=== PATIENT | male | born 1940 | race Hispanic/Latino ===

== ENCOUNTER 2017-06-15 10:38 | Outpatient (CLI) | payer MEDICARE, OTHER ==
--- NOTE | 2017-06-15 12:36 | RAD ---
SINGLE VIEW OF THE PELVIS: Comparison: None. History: Bilateral hip pain. FINDINGS: Single view of the pelvis shows no evidence of acute fracture or dislocation. There are moderate dege nerative changes in both hips. Hardware is seen in the lumbar spine. IMPRESSION: Degenerative changes in both hips without acute osseous abnormality. POS: [facility]
--- NOTE | 2017-06-15 12:56 | RAD ---
RIGHT HIP TWO VIEWS: History: 77-year-old male with history of bilateral hip pain. FINDINGS/IMPRESSION: Right hip joint arthrosis and degenerative changes without acute fracture or dislocation. POS: [facility]
--- NOTE | 2017-06-15 12:57 | RAD ---
LEFT HIP TWO VIEWS: History: Pain. Comparison: None. FINDINGS: Joint space is preserved. No fracture or malalignment. Contour of the femoral head is maintained. Com mon enthesopathic change along the superior lateral aspect of the acetabulum, not involving the actua l joint space. IMPRESSION: No fracture or dislocation. No significant loss of joint space height. POS: [facility]
== END 2017-06-15 10:39 | disposition home or self-care (01) ==
LOC: RAD 10:38
PROVIDERS: ATTEND Nurse Practitioner Family
DX: M25.551 Pain in right hip (principal); M25.552 Pain in left hip; M16.0 Bilateral primary osteoarthritis of hip
CPT/HCPCS: 72170

== ENCOUNTER 2017-07-11 14:18 | Observation (INO) | payer MEDICARE, OTHER ==
[2017-07-11 14:44] LABS: #Eosinphils 0.1 thou/uL (0.0-0.7); #Lymphocytes 1.2 thou/uL (1.20-3.40); #Monocytes 0.6 thou/uL (0.11-0.59); #Neutrophils 6.5 thou/uL (1.40-6.50); %Basophils 0.1 % (0.0-1.0); %Eosinophils 0.7 % (0.0-10.0); %Lymphocytes 14.4 % (21.0-51.0); %Monocytes 7.3 % (0.0-10.0); %Neutrophils 77.4 % (42.0-75.0); Hemoglobin 12.6 g/dL (14.0-18.0); Mean Corpuscular HGB CONC 34.6 g/dL (32.0-36.0); Mean Corpuscular Hemoglobin 31.7 pg (27.0-31.0); Mean Corpuscular Volume 91.6 fl (80.0-94.0); Mean Platelet Volume 7.8 fL (7.4-10.4); Platelet Count 203 thou/uL (130-400); Red Blood Cell (RBC) Count 3.96 mill/uL (4.70-6.10); White Blood Cell (WBC) Count 8.3 thou/uL (4.8-10.8)
[2017-07-11 14:52] LABS: INR-International Normal Ratio 1.1; Prothrombin Time 14.6 SEC (12.0-14.7)
[2017-07-11 15:11] LABS: ALT (SGPT) 23 U/L (8-55); AST (SGOT) 26 U/L (5-34); Albumin 4.3 g/dL (3.4-4.8); Alkaline Phosphatase 58 U/L (40-150); Anion Gap 17 mmol/L (10-20); BUN (Urea Nitrogen) 22 mg/dL (8.4-25.7); Bilirubin, Total 0.7 mg/dL (0.2-1.2); CK (CPK) 102 U/L (30-200); Calc. Creatinine Clearance 0 mL/min (70-130); Calcium 9.6 mg/dL (7.8-10.44); Carbon Dioxide 18 mmol/L (23-31); Chloride 105 mmol/L (98-107); Estimated GFR-MDRD 56; Globulin 3.3 g/dL (2.4-3.5); Glucose 132 mg/dL (83-110); Potassium 3.4 mmol/L (3.5-5.1); Protein, Total 7.6 g/dL (5.8-8.1); Sodium 137 mmol/L (136-145)
[2017-07-11 15:14] LABS: CKMB 0.8 ng/mL (0-6.6); Troponin I Less than 0.010 ng/mL (< 0.028)
--- NOTE | 2017-07-11 15:17 | RAD ---
UPRIGHT PORTABLE CHEST 1 VIEW: Date: 07/11/17 HISTORY: 77-year-old male with history of shortness of breath, with shakiness and weakness. COMPARISON: 01/06/17. FINDINGS: Heart size is normal. The lungs are clear. No pneumonia, edema, or pleural effusion. IMPRESSION: No acute intrathoracic disease. Atherosclerosis of the aorta. Stable from prior study. POS: [facility]
--- NOTE | 2017-07-11 16:28 | CT ---
CT ANGIO CHEST WITH CONTRAST: 07/11/17 Multiple axial tomograms obtained through the chest with IV enhancement following pulmonary angio pro tocol. Multiplanar reconstruction and 3D postprocessing performed. INDICATIONS: Chest pain. Shortness of breath. FINDINGS: The pulmonary arteries show adequate opacification. There is no evidence of pulmonary embolus identif ied. The lung hayward are well aerated. Lungs are clear with no evidence infiltrate or effusion. Mediastinu m unremarkable. Thoracic aorta unremarkable. No dissection. Images through the upper abdomen reveal faint density in the neck of the gallbladder which may repres ent gallstone or gravel. IMPRESSION: 1. No evidence of pulmonary embolus. 2. No acute lung process. 3. Question cholelithiasis. POS: [facility]
[2017-07-11] MEDS ORDERED: Morphine 4 MG/ML VIAL ONE (16:34)
[2017-07-11] MEDS ORDERED: Lorazepam 2 MG/ML VIAL ONE (16:34)
--- NOTE | 2017-07-11 17:44 | ULT ---
GALLBLADDER ULTRASOUND: 07/11/17 INDICATIONS: Abdominal pain. Evidence of cholelithiasis on CT angio of chest. FINDINGS: Images of the gallbladder do confirm echogenic sludge and gravel within the gallbladder lumen. Echoge romeo debris is seen in the lumen. No discrete gallstones identified. gallbladder wall is normal thickn ess. Technologist describes a negative Vega's sign. Common duct is normal caliber. Visualized liver appears unremarkable. The pancreas is obscured. The right kidney is unremarkable with a 2.5 cm cyst seen in the superior pole of the right kidney. No hydronephrosis. IMPRESSION: 1. Gallbladder is abnormal with dense echogenic debris/sludge, or gravel. 2. Right renal cyst. POS: [facility]
[2017-07-11 18:09] LABS: Bilirubin Negative (Negative); Blood, Urine Small (Negative); Clarity CLEAR (Clear); Glucose, Urine (Dipstick) Negative (Negative); Leukocyte Negative (Negative); Nitrite Negative (Negative); Protein, Urine (Dipstick) Negative (Neg-Trace); Specific Gravity, Urine 1.016 (1.002-1.036); Urobilinogen 0.2 mg/dL (0.2-1.0)
[2017-07-11 18:12] LABS: Bacteria/HPF None Seen HPF (None Seen); Hyaline Casts/LPF 0-3 HYALINE CAST LPF (0-3 Hyaline); Pathc Cast-AUWi Flag 0.29 (0-2.49); RBC/HPF 0-3 HPF (0-3); Squamous Epithelial None Seen HPF (0-3); WBC/HPF None Seen HPF (0-3)
[2017-07-11 18:31] LABS: Troponin I Less than 0.010 ng/mL (< 0.028)
[2017-07-11] MEDS ORDERED: ISOVUE-370 76%-LOCM 1 ML ONE (18:31)
[2017-07-11 18:58] LABS: Lactic Acid 5.1 mmol/L (0.5-2.2)
--- NOTE | 2017-07-11 19:25 | HP ---
DATE OF ADMISSION: 07/11/2017 CHIEF COMPLAINT: Chest pain. HISTORY OF PRESENT ILLNESS: This is a 77-year-old white male with no known past medical history exce pt for hypertension and a recent history of coronary artery disease where he has been closely followe d up with Dr. Gonzalez. The patient had a cardiac catheterization a few months ago and it was abnorm al, but there is no need for stent placement at that time and the patient has been closely monitored by Cardiology. 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 He felt as if he would better instead of tolerating this pain. He denied having any nausea or vomiting. There was no radiation of the pain to the shoulder. Not assessed with night sweats. After this event, he came to the ER this morning and had a chest x- ray, which was unremarkable. The patient also had a CT of the chest to rule out a pulmonary embolism and following the CT, he developed another episode of severe chest pain. All this time, his troponi ns were negative, but he had elevated lactic acid of 7.4, so he was given a 1 liter fluid bolus think ing possibly could have dehydrated. There is also suspicion for gallbladder disease. Ultrasound was also done which did show an abnormal gallbladder with normal wall thickening, but sludge and gravel. The patient denied having similar chest pains in the past. He denied having any diarrhea or consti pation. Denied lifting anything heavy or any injuries to the chest. PAST MEDICAL HISTORY: History of coronary artery disease and hypertension. PAST SURGICAL HISTORY: None. SOCIAL HISTORY: The patient quit smoking many years ago, but he smoked for almost 25-30 years. No h istory of alcohol. No history of illicit drug use. FAMILY HISTORY: No family history of coronary artery disease. Family history has been reviewed. ALLERGIES: ASPIRIN, KETOROLAC, TRIMETHOPRIM, LEVOFLOXACIN, PENICILLIN, TAMSULOSIN. HOME MEDICATIONS: 1. Azathioprine 3 tabs p.o. daily. 2. Calcium carbonate 1000 mg p.o. b.i.d. 3. Cetirizine 10 mg p.o. daily. 4. Chlordiazepoxide 2.5 mg p.o. b.i.d. 5. Citalopram 1 tablet p.o. daily. 6. Avodart 1 tablet p.o. daily. 7. Mesalamine 800 mg. 8. Venlafaxine 75 mg p.o. daily. 9. Zolpidem 5 mg p.o. at bedtime. REVIEW OF SYSTEMS: All 12 systems reviewed with the patient thoroughly and found to be negative at t his time. Systems reviewed are HEENT, CVS, CASH REGISTER OPERATOR, respiratory, GI, . All systems reviewed and found to be negative except the ones described in HPI. Constitutional: Weight loss or gain, sense of well-being, ability to conduct usual activities, exerc ise tolerance. Skin/Breast: Rash, itching, changes in hair growth or loss, nail changes, breast lumps, tenderness, swelling, nipple discharge. Eyes: Vision, double vision, tearing, blind spots, pain. ENT/Mouth: Headaches (location, time of onset, duration, precipitating factors), vertigo, lightheadedness, injury. Vision, double vision, tearing, blind spots, pain, nose b leeding, colds, obstruction, discharge, dental difficulties, gingival bleeding, dentures, neck stiffn ess, pain, tenderness, masses in thyroid or other areas Cardiovascular: Precordial pain, substernal distress, palpitations, syncope, dyspnea on exertion, or thopnea, nocturnal paroxysmal dyspnea, edema, cyanosis, hypertension, heart murmurs, varicosities, ph lebitis, claudication. Respiratory: Pain, shortness of breath, wheezing, stridor, cough, hemoptysis, fever or night sweats Gastrointestinal: Poor appetite, dysphagia, indigestion, abdominal pain, heartburn, eructation, naus ea, vomiting, hematemesis, jaundice, constipation, or diarrhea, abnormal stools (tomer-colored, tarry, bloody, greasy, foul smelling), flatulence, hemorrhoids, recent changes in bowel habits. Genitourinary: Urgency, frequency, dysuria, nocturia, hematuria, polyuria, oliguria, unusual (or nathan nge in) color of urine, stones, hesitancy, change in size of stream, dribbling, acute retention or in continence, libido, potency. Musculoskeletal: Pain, swelling, redness or heat of muscles or joints, limitation, of motion, muscular weakness, atrophy, cramps. Neurologic/Psychiatric: Convulsions, paralyses, tremor, incoordination, parasthesias, difficulties w ith memory of speech, sensory or motor disturbances, or muscular coordination (ataxia, tremor), emoti onal problems, anxiety, depression, previous psychiatric care, unusual perceptions, hallucinations. Allergy/Immunologic: Skin rash, anemia, bleeding tendency, polydipsia, polyuria, intolerance to heat or cold. PHYSICAL EXAMINATION: VITAL SIGNS: Blood pressure is 130/88, heart rate is 88, respiratory rate is 18, saturation is 98% o n room air. GENERAL: The patient is moderately built and moderately nourished. He does not appear to be in any acute distress at this time. He is alert and oriented. HEENT: Atraumatic, normocephalic, PERRLA. Extraocular movements are intact. Oral mucosa pink and m oist. CARDIOVASCULAR: S1, S2 normal. No murmurs, rubs or gallops. LUNGS: Bilateral air entry was equal. No wheezing, no crackles. ABDOMEN: No Vega's sign. Bowel sounds are normal. No abdominal tenderness. No guarding was note d. MUSCULOSKELETAL: No calf tenderness. No pedal edema. No joint tenderness. No joint swelling. SKIN: No cyanosis, no erythema, no rash, no pallor. NEUROLOGIC: Cranial nerve examination II-XII intact. No focal deficits were noted. PSYCHIATRIC: No signs of suicidal ideation. No signs of guerita was noted. LABORATORY DATA: 1. Sodium was 134, potassium 3.4, chloride 105, bicarb is 18, BUN is 22, creatinine 1.25. Lactic ac id 7.4. BNP is 65. WBC 8.3, hemoglobin is 12.6, hematocrit 36.3, platelets normal range. 2. CTA of the chest was done to rule out pulmonary embolism, which did show an evidence of cholelith iasis. 3. Ultrasound of the abdomen showed evidence of biliary sludge and dense echogenic debris and sludge or gravel, but no gallbladder wall thickening was noted. ASSESSMENT: 1. Acute coronary syndrome. 2. Gallbladder disease. 3. Hypertension. 4. History of depression. 5. History of coronary artery disease. PLAN: 1. Plan is to closely monitor this patient overnight with serial troponins and we will repeat the la ctic acid. The patient has been given 1 liter of fluid bolus and we will run the fluid at 100 mL an hour. Most likely is either the patient could have had a heat exhaustion. We will closely monitor f or any improvement in his hydration. 2. The patient has chest pain with a history of coronary artery disease, closely monitored by Dr. Enoch kidd. We will do serial troponins as described above. We will start the patient on Plavix as well as aspirin, listed allergy and will start the patient on beta geoffrey, Coreg 3.125 mg b.i.d. and Latisha enox 40 mg subcu daily. 3. The patient has evidence of gallbladder disease based on the ultrasound. We will closely monitor . We would not start him on any antibiotics at this time. There is no evidence of any fever or no w mere count, but closely monitor and if needed will do a HIDA scan if the clinical suspicion is high o r the patient develops further chest pains. 4. DVT prophylaxis, Lovenox. I spent 75 minutes with this patient.
[2017-07-11] MEDS ORDERED: Acetaminophen 325 MG TAB PO PRN (19:41)
[2017-07-11] MEDS ORDERED: Ondansetron ODT 4 MG TAB PO PRN (19:41)
[2017-07-11] MEDS ORDERED: Nitroglycerin 0.4 MG TAB (25 Tab Bottle) PO PRN (19:41)
[2017-07-11 20:18] VITALS: BMI 29.4
[2017-07-11] MEDS: Sodium Chloride 0.9% 1,000 ML IV SCH (20:40)
[2017-07-11 21:01] LABS: Troponin I 0.012 ng/mL (< 0.028)
[2017-07-11] MEDS: Docusate 100 MG CAP PO SCH (21:27)
[2017-07-11] MEDS: Mesalamine DR 400 mg Capsule PO SCH (21:27)
[2017-07-11] MEDS: chlordiazePOXIDE/Clidinium Bromide Capsule PO SCH (21:27)
[2017-07-11] MEDS: Carvedilol 3.125 MG TAB PO SCH (21:36)
[2017-07-11] MEDS: Famotidine 20 MG TAB PO SCH (21:36)
[2017-07-12] MEDS: Zolpidem Tartrate 5 MG TAB PO SCH ×2 (01:07→20:51)
[2017-07-12 05:00] LABS: Lactic Acid 1.2 mmol/L (0.5-2.2)
[2017-07-12 05:05] LABS: Anion Gap 10 mmol/L (10-20); BUN (Urea Nitrogen) 15 mg/dL (8.4-25.7); Calc. Creatinine Clearance 71 mL/min (70-130); Calcium 8.8 mg/dL (7.8-10.44); Carbon Dioxide 23 mmol/L (23-31); Cardiac Risk 2.9 (Less than 4.5); Chloride 109 mmol/L (98-107); Cholesterol 64 mg/dl (< 200 Desired); Estimated GFR-MDRD 79; Glucose 93 mg/dL (83-110); HDL Cholesterol 22 mg/dL (>60 Neg Risk); LDL Cholesterol, Calculated 26 mg/dL; Potassium 3.9 mmol/L (3.5-5.1); Sodium 138 mmol/L (136-145); Triglycerides 79 mg/dL (Less than 150)
[2017-07-12 05:07] LABS: #Eosinphils 0.4 thou/uL (0.0-0.7); #Lymphocytes 1.6 thou/uL (1.20-3.40); #Monocytes 0.7 thou/uL (0.11-0.59); #Neutrophils 3.9 thou/uL (1.40-6.50); %Basophils 0.6 % (0.0-1.0); %Eosinophils 5.4 % (0.0-10.0); %Lymphocytes 24.3 % (21.0-51.0); %Monocytes 10.8 % (0.0-10.0); %Neutrophils 58.9 % (42.0-75.0); Hemoglobin 11.4 g/dL (14.0-18.0); Mean Corpuscular Hemoglobin 31.6 pg (27.0-31.0); Mean Corpuscular Volume 92.9 fl (80.0-94.0); Mean Platelet Volume 7.8 fL (7.4-10.4); Platelet Count 172 thou/uL (130-400); RBC Distribution Width 12.2 % (11.5-14.5); Red Blood Cell (RBC) Count 3.62 mill/uL (4.70-6.10); White Blood Cell (WBC) Count 6.5 thou/uL (4.8-10.8)
[2017-07-12] MEDS: Sodium Chloride 0.9% 1,000 ML IV SCH ×2 (06:26→16:30)
[2017-07-12] MEDS ORDERED: Calcium Carbonate 500 MG ChewTAB PO SCH (08:00)
[2017-07-12] MEDS: Docusate 100 MG CAP PO SCH ×2 (10:02→20:48)
[2017-07-12] MEDS: Cetirizine HCl 10 MG TAB PO SCH (10:02)
[2017-07-12] MEDS: Carvedilol 3.125 MG TAB PO SCH ×2 (10:02→20:48)
[2017-07-12] MEDS: Citalopram 10 MG TAB PO SCH (10:02)
[2017-07-12] MEDS: Clopidogrel Bisulfate 75 MG TAB PO SCH (10:04)
[2017-07-12] MEDS: azaTHIOprine 50 MG TAB PO SCH (10:04)
[2017-07-12] MEDS: Enoxaparin Sodium 40 MG/0.4 ML SYRINGE SC SCH (10:05)
[2017-07-12] MEDS: chlordiazePOXIDE/Clidinium Bromide Capsule PO SCH ×2 (10:05→20:51)
[2017-07-12] MEDS: Dutasteride 0.5 MG CAP PO SCH (10:05)
[2017-07-12] MEDS: Venlafaxine HCl XR 75 MG CAP PO SCH (10:06)
[2017-07-12] MEDS: Mesalamine DR 400 mg Capsule PO SCH ×2 (10:06→20:51)
--- NOTE | 2017-07-12 10:51 | CON ---
DATE OF CONSULTATION: 07/12/2017. REASON FOR CONSULTATION: Chest pain. PRIMARY PARKING METER INSTALLER: Vincenzo Gonzalez M.D. HISTORY OF PRESENT ILLNESS: Mr. Burleson is a pleasant 77-year-old gentleman who comes to the hospital for shortness of breath and chest pain. He was woken up at about 4:00 a.m. with shortness of breath. He came to the hospital and he started having chest pain on arrival to the hospital. He was evaluated and admitted for monitoring. During his workup, he had a CTA of the chest that showed no evidence of pulmonary embolism, but there is a possible cholelithiasis, so a right upper quadrant ultrasound was done that shows a normal gallbladder. He has had a very thorough workup of his heart. He had a stress test back in November of last year, which was completely normal. Because Mr. Burleson continued to have chest pain, Dr. Gonzalez took him to the catheterization lab where he was found to have a mild to moderate disease, which was treated medically. He continued to have symptoms, so he was re-cathed actually in March of this year and he found the exact same findings with just mild t o moderate disease, nothing flow limiting. Currently, Mr. Burleson feels a little bit better. He does have epigastric pain and right upper quadrant pain. PAST MEDICAL HISTORY: 1. Coronary artery disease, mild to moderate. 2. Hypertension. 3. Chronic anxiety. 4. Depression. 5. Hyperlipidemia. PAST SURGICAL HISTORY: 1. Colonoscopy. 2. Back surgery. 3. Heart catheterization twice in the last 6 months. SOCIAL HISTORY: Quit smoking many years ago, but did for 30 years. No alcohol or drug use. FAMILY HISTORY: Noncontributory. OUTPATIENT MEDICATIONS: Include, 1. Imdur 40 mg a day. 2. Sublingual nitro. 3. Celexa 10 mg a day. 3. . 4. Plavix 75 mg a day. 5. Sertraline 12.5 mg a day. 6. Tramadol b.i.d. p.r.n. pain. 7. Amlodipine daily. MEDICATIONS: List of medications from admission H&P is inaccurate and he is not taking most of those medications now. ALLERGIES: 1. ASPIRIN. 2. KETOROLAC. 3. TRIMETHOPRIM. 4. LEVOFLOXACIN. 5. PENICILLIN. 6. TAMSULOSIN. REVIEW OF SYSTEMS: A 12-point review of systems was done and is all negative unless stated in the hi story of present illness. PHYSICAL EXAMINATION: VITAL SIGNS: Temperature 97.5, pulse rate 76, respiratory rate 24, satting 98% on room air, blood pr essure 132/62. GENERAL: Awake, alert, oriented x3, in no distress. HEENT: Normocephalic, atraumatic. NECK: Supple. LUNGS: Clear. CARDIOVASCULAR: S1, S2, no S3, S4, no murmurs, no rubs. ABDOMEN: Soft, positive bowel sounds. There is pain in the right upper quadrant on deep inspiration , suggested Vega's sign, negative McBurney, no Rovsing's sign. No rebound or guarding. EXTREMITIES: No edema. SKIN: Warm and dry. LABORATORY WORK: Reviewed. CBC with normal white count, hemoglobin 12, hematocrit 36, platelet coun t 203. Coags were normal. Chemistries on admission showed a lactic acid of 7.4, creatinine 1.25, BU N of 22. Potassium was low at 3.4. Troponin has been negative x3. BNP was 65. Lactic acid has sin ce come down to 5.1 and now 1.2. Triglycerides of 79, cholesterol 64, LDL 26, HDL of 22. IMAGING: CT of the chest showed no evidence of pulmonary embolism, no acute lung process. There is a possible cholelithiasis, so a right upper quadrant ultrasound was performed and this showed an abno rmal gallbladder with echogenic debris seen in the lumen, normal caliber common duct. There is a rig ht renal cyst as well. ASSESSMENT AND PLAN: 1. Chest pain: This is not cardiac chest pain. His coronary artery disease is mild to moderate and has not improved in any way with antianginals. He is not having an acute coronary syndrome at this time, his troponins are completely negative. He does not need a stress test. I will cancel the stre ss test. 2. Gallbladder sludge: I would be concerned about his symptoms being related to his gallbladder. H is lactic acid was high. We would recommend surgical consultation versus Gastroenterology consultati on. Thank you for letting us to participate in the care of your patient. Dr. Gonzalez, his primary cardi ologist will followup in the morning.
[2017-07-12] MEDS ORDERED: Nitroglycerin 0.4 MG TAB (25 Tab Bottle) SL PRN (12:11)
--- NOTE | 2017-07-12 16:04 | PDOC.PN ---
- Subjective Encounter Start Date: 07/12/17 Encounter Start Time: 13:30 -: old records requested/rev Pt seen and examined, chart reviewed follow up central abdominal pain lower chest pain. Denies No f/C, no N/V/D/c, no CP, no SOB All systems reviewed and neg x as per HPI - Objective Resuscitation Status: Resuscitation Status FULL:Full Resuscitation MAR Reviewed: Yes Vital Signs & Weight: Vital Signs (12 hours) Temp Pulse Resp BP Pulse Ox 07/12/17 11:48 97.8 F 66 22 H 132/74 95 07/12/17 07:45 97.8 F 69 22 H 07/12/17 06:25 98 07/12/17 04:34 98.5 F 67 24 H 117/56 L 98 Weight Admit Weight 161 lb Weight 161 lb I&O: 07/11/17 07/12/17 07/13/17 06:59 06:59 06:59 Intake Total 1467 Balance 1467 Result Diagrams: 07/12/17 04:36 07/12/17 04:36 Radiology Reviewed by me: Yes EKG Reviewed by me: Yes Phys Exam - Physical Examination Constitutional: NAD HEENT: PERRLA, moist MMs, sclera anicteric, oral pharynx no lesions Neck: no nodes, no JVD, supple, full ROM Respiratory: no wheezing, no rales, no rhonchi, clear to auscultation bilateral Cardiovascular: RRR, no significant murmur, no rub Gastrointestinal: soft, non-tender, no distention, positive bowel sounds Musculoskeletal: no edema, pulses present Neurological: non-focal, normal sensation, moves all 4 limbs Lymphatic: no nodes Psychiatric: normal affect, A&O x 3 Skin: no rash, normal turgor, cap refill <2 seconds Dx/Plan (1) Abdominal pain Code(s): R10.9 - UNSPECIFIED ABDOMINAL PAIN Status: Chronic Qualifiers: Abdominal location: generalized Qualified Code(s): R10.84 - Generalized abdominal pain (2) CAD (coronary artery disease) Code(s): I25.10 - ATHSCL HEART DISEASE OF [place] CORONARY ARTERY W/O ANG PCTRS Status: Chronic Qualifiers: Coronary Disease-Associated Artery/Lesion type: [place] artery [place] vs. transplanted heart: [place] heart Associated angina: without angina Qualified Code(s): I25.10 - Atherosclerotic heart disease of [place] coronary artery without angina pectoris (3) HTN (hypertension) Code(s): I10 - ESSENTIAL (PRIMARY) HYPERTENSION Status: Chronic Qualifiers: Hypertension type: essential hypertension Qualified Code(s): I10 - Essential (primary) hypertension (4) DM2 (diabetes mellitus, type 2) Status: Chronic Qualifiers: Diabetes mellitus half-way insulin use: without half-way use Diabetes mellitus complication status: without complication Qualified Code(s): E11.9 - Type 2 diabetes mellitus without complications - Plan cont current plan of care, plan discussed w/ family * . surgery consult. CT with possible stone, but U/S with s;ludge and possible trino. ? passing small stones. Get surgery opinion
[2017-07-12] MEDS: HYDROcodone/Acetaminophen 5/325 mg Tablet PO PRN ×2 (16:50→20:49)
--- NOTE | 2017-07-12 17:02 | CON ---
DATE OF CONSULTATION: 07/12/2017 GENERAL SURGERY CONSULTATION CHIEF COMPLAINT: Chest pain. HISTORY OF PRESENT ILLNESS: This is a 77-year-old male who has known cardiac disease who was admitte d with a 2-day history of severe substernal chest pain. He described it as 10/10, worst pain of his life, described as a constant pressure that was associated with dyspnea. There was no change with ea ting. There was no radiation, no nausea. He had a cardiac evaluation with echocardiogram and it is felt that this pain is noncardiac. He said that it happened about 4-5 days ago as well. PAST MEDICAL HISTORY: Significant for coronary artery disease, hypertension, psoriatic arthritis. PAST SURGICAL HISTORY: He has had ear surgery, thumb surgery, back surgery x3. MEDICATIONS: Azathioprine, calcium, cetirizine, citalopram, Avodart and zolpidem. ALLERGIES: He has allergies to ASPIRIN, TORADOL, SULFA, LEVAQUIN, PENICILLIN, TAMSULOSIN. 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 No tobacco. Social alcohol. FAMILY HISTORY: Otherwise, unremarkable. PHYSICAL EXAMINATION: VITAL SIGNS: He is afebrile. His temperature is 97.8, pulse 89, blood pressure 123/58. GENERAL: Well-developed, well-nourished male. He says his pain is a 2/10 currently. HEENT: No jaundice. LUNGS: Clear. He is tender at the costochondral junction of his sternum, bilateral, right greater t gary left. ABDOMEN: I really cannot express any abdominal tenderness. He has normal bowel sounds. No hernias. LABORATORY DATA: His white count is 6.5, H&H 11 and 33, platelet count 172,000. Electrolytes are fi ne. LFTs normal. He had an ultrasound showing some sludge. No gallstones. Normal common bile duct . No wall thickening. ASSESSMENT: This is very unlikely to be related to gallbladder. PLAN: I think he has probably got costochondritis. I recommend that we do a HIDA scan just to make sure. If that shows normal filling of his gallbladder, I would say just treat him for costochondriti s. Unfortunately, he is allergic to most of the nonsteroidals.
[2017-07-12] MEDS: Famotidine 20 MG TAB PO SCH (20:48)
[2017-07-13] MEDS: Zolpidem Tartrate 5 MG TAB PO SCH (01:58)
[2017-07-13] MEDS: Sodium Chloride 0.9% 1,000 ML IV SCH ×2 (02:00→11:40)
[2017-07-13 05:06] LABS: #Basophils 0.1 thou/uL (0.0-0.2); #Eosinphils 0.7 thou/uL (0.0-0.7); #Lymphocytes 2.4 thou/uL (1.20-3.40); #Monocytes 0.7 thou/uL (0.11-0.59); #Neutrophils 3.1 thou/uL (1.40-6.50); %Eosinophils 9.6 % (0.0-10.0); %Lymphocytes 34.5 % (21.0-51.0); %Monocytes 10.5 % (0.0-10.0); %Neutrophils 44.5 % (42.0-75.0); Hemoglobin 12.9 g/dL (14.0-18.0); Mean Corpuscular Hemoglobin 31.7 pg (27.0-31.0); Mean Corpuscular Volume 93.2 fl (80.0-94.0); Platelet Count 182 thou/uL (130-400); RBC Distribution Width 12.1 % (11.5-14.5); Red Blood Cell (RBC) Count 4.06 mill/uL (4.70-6.10)
[2017-07-13 05:24] LABS: ALT (SGPT) 19 U/L (8-55); AST (SGOT) 25 U/L (5-34); Albumin 4.1 g/dL (3.4-4.8); Alkaline Phosphatase 60 U/L (40-150); Anion Gap 10 mmol/L (10-20); BUN (Urea Nitrogen) 18 mg/dL (8.4-25.7); Bilirubin, Total 0.8 mg/dL (0.2-1.2); Calc. Creatinine Clearance 67 mL/min (70-130); Calcium 9.7 mg/dL (7.8-10.44); Carbon Dioxide 25 mmol/L (23-31); Chloride 108 mmol/L (98-107); Estimated GFR-MDRD 77; Globulin 3.4 g/dL (2.4-3.5); Glucose 101 mg/dL (83-110); Magnesium 2.2 mg/dL (1.6-2.6); Potassium 3.8 mmol/L (3.5-5.1); Protein, Total 7.5 g/dL (5.8-8.1); Sodium 139 mmol/L (136-145)
[2017-07-13] MEDS ORDERED: Calcium Carbonate 500 MG ChewTAB PO SCH (08:00)
[2017-07-13] MEDS: Enoxaparin Sodium 40 MG/0.4 ML SYRINGE SC SCH (08:08)
[2017-07-13] MEDS: Carvedilol 3.125 MG TAB PO SCH (08:08)
[2017-07-13] MEDS ORDERED: Cetirizine HCl 10 MG TAB PO SCH (09:00)
[2017-07-13] MEDS ORDERED: Amlodipine 10 MG TAB PO SCH (09:00)
[2017-07-13] MEDS ORDERED: Citalopram 10 MG TAB PO SCH (09:00)
[2017-07-13] MEDS ORDERED: Metamucil PACK PO SCH (09:00)
[2017-07-13] MEDS: azaTHIOprine 50 MG TAB PO SCH (10:05)
[2017-07-13] MEDS: chlordiazePOXIDE/Clidinium Bromide Capsule PO SCH (10:06)
[2017-07-13] MEDS: HYDROcodone/Acetaminophen 5/325 mg Tablet PO PRN (10:06)
[2017-07-13] MEDS: Mesalamine DR 400 mg Capsule PO SCH (10:07)
[2017-07-13] MEDS: Dutasteride 0.5 MG CAP PO SCH (10:08)
[2017-07-13] MEDS: Docusate 100 MG CAP PO SCH (10:08)
[2017-07-13] MEDS: Citalopram 10 MG TAB PO SCH (10:09)
[2017-07-13] MEDS: Cetirizine HCl 10 MG TAB PO SCH (10:10)
[2017-07-13] MEDS: Venlafaxine HCl XR 75 MG CAP PO SCH (10:10)
[2017-07-13] MEDS: Clopidogrel Bisulfate 75 MG TAB PO SCH (10:10)
--- NOTE | 2017-07-13 12:18 | NM ---
HEPATOBILIARY SCAN: Date: 07/13/17 HISTORY: Chest pain and gallbladder sludge. Evaluate cystic duct patency. TECHNIQUE: Following the intravenous administration of technetium-99m labeled mebrofenin 5 mCi, anterior plantar imaging is obtained over 60 minutes. FINDINGS: There is prompt radiotracer activity within the liver on post injection imaging. There is gallbladder activity seen by 15-20 minutes. Biliary activity and small bowel activity is also seen by 20 minutes . IMPRESSION: Scintigraphic evidence of cystic duct patency. POS: [facility]
[2017-07-13 16:00] VITALS: BP 133/70; TEMP 97.6
[2017-07-13] MEDS ORDERED: Sodium Chloride 0.9% 1,000 ML IV SCH (16:08)
[2017-07-13] MEDS ORDERED: Pantoprazole 40 MG VIAL IVP SCH (21:00)
[2017-07-13] MEDS ORDERED: Famotidine 20 MG TAB PO SCH (21:00)
--- NOTE | 2017-07-14 07:17 | DIS ---
PRIMARY CARE PHYSICIAN: Syed Yang DATE OF ADMISSION: 07/11/2017 DATE OF DISCHARGE: 07/13/2017 DISCHARGE DIAGNOSES: 1. Chest and abdominal pain. 2. Unspecified disease of the gallbladder. 3. Essential hypertension. 4. Moderate dehydration. 5. History of tobacco abuse in remission. 6. Coronary artery disease, [place] artery with angina. 7. Chronic diastolic congestive heart failure. CONSULTATIONS: 1. Cardiology, Dr. Jarret Howard 2. Gastroenterology, Dr. Logan Humphries PROCEDURES: 1. A 2D echocardiogram 07/12/2017. 2. HIDA scan 07/13/2017 that showed "normal with evidence of cystic duct patency, no ejection fracti on given". HISTORY AND PHYSICAL: Mr. Burleson is a 77-year-old gentleman with a history of coronary disease, hype rtension who presented to the emergency department for evaluation of chest pain. He stated it starte d in the center of his chest, went down to the upper abdomen. He described it as a sharp sensation t hat comes and goes. Given his history and negative workup in the ER, the patient was placed in obser vation, was given a 1 liter bolus normal saline. We were called for admission. HOSPITAL COURSE: The patient was seen and examined by Dr. Forte and placed in observation. Serial c ardiac biomarkers were obtained, the patient was watched overnight on telemetry and Dr. Gonzalez was consulted. The patient had no events. The morning of 07/12/2017, the patient was seen by Dr. Howard. He did not feel it was cardiac in na [facility], echocardiogram was done that showed grade 2-3 diastolic dysfunction, otherwise largely unremark able. Cardiology felt it was more related to gallbladder. On my exam today that day, the patient had a Vega sign, Surgery was consulted and evaluated the pat ient. They did not think that the gallbladder was acutely ill, but did recommend getting a HIDA scan . HIDA was ordered to be done on the morning of 07/13/2017. On the morning of 07/13/2017, HIDA scan was done that showed a cystic duct patency, but did not give ejection fraction. Dr. Humphries saw the patient in consultation, and agreed to see him as an outpatien t for workup. The patient was offered inpatient workup, however, wanted to go home and follow up as an outpatient. The patient was seen by Dr. Gonzalez that morning and thus the GI consult was initiat ed. The patient was otherwise stable, discharged home in stable condition with outpatient followup. PHYSICAL EXAMINATION: The patient was seen and examined on the day of discharge. Discharge plan and disposition were discussed with the patient face to face at the bedside. DISCHARGE MEDICATIONS: NEW MEDICATION: 1. Omeprazole 20 mg p.o. daily. 2. Coreg 3.125 mg p.o. b.i.d. MEDICATIONS CONTINUED: 1. Norvasc 10 mg daily. 2. Calcium carbonate p.r.n. 3. Zyrtec 10 mg daily. 4. Celexa 10 mg daily. 5. Plavix 75 mg daily. 6. Isosorbide mononitrate 30 mg daily. 7. Nitrostat p.r.n. 8. Metamucil 660 grams p.o. daily. 9. Crestor 20 mg p.o. daily. 10. Zoloft 12.5 mg daily. 11. Tramadol 50 mg tablets 1 to two p.o. b.i.d. p.r.n. FOLLOWUP: 1. Follow up with primary care physician in [address] Humphries in his clinic in 1-[address] Gonzalez as scheduled. DISCHARGE DIET: Heart healthy recommended. DISCHARGE CONDITION: Stable. DISPOSITION: He will be discharged home via private vehicle. DISCHARGE ACTIVITY: Per cardiopulmonary limits.
--- NOTE | 2017-07-14 07:53 | CON ---
DATE OF CONSULTATION: 07/13/2017 REASON FOR CONSULTATION: Chest pain, epigastric pain of unclear etiology. HISTORY OF PRESENT ILLNESS: Mr. Burleson is a pretty poor historian, is a 77-year-old gentleman who solomon s for a long time, maybe over a year, had intermittent bouts of waking with shortness of breath and c hest pain and tightness, which was crushing in nature. One of these episodes on 07/11/2017 , when he came to the emergency room, his brought him. This is the next afternoon at 1425 hours . He complained of shortness of breath as well and this has been going on most of the night and day, it was associated with some shakiness, cough, tingling in legs, dizziness, worse with sitting up. H e distinctly notes a component of being short of breath. He notes that intermittently if he can exer t himself and will get short of breath if he tries to work at home or in the yard. Apparently, reviewing the records to rule out for myocardial infarction. He did have a lactic acid o f 5.1; however, on presentation. His transition of care specialist saw him. They did an echocardiogram, which they f elt was essentially normal. He had 2 previous heart catheterizations and has been negative. They di d an abdominal ultrasound on 07/11/2017 because of abnormal CAT scan that showed a lot of dense echog enic gravel and debris. The CT chest on 07/11/2017 showed no pulmonary embolus or acute lung process , but questionable cholelithiasis. Ultimately, Surgery was involved yesterday as there was some conc [place] that he had some tenderness in the right upper quadrant. Dr. Lawrence saw him and did not feel that he did not have acute cholecystitis and felt maybe he had costochondritis. A HIDA scan was performed this morning and reportedly showed gallbladd er activity and then biliary and small bowel activity by 20 minutes. There is no comment on ejection fraction. In talking with the patient, neither him or his recall if that study reproduced his pain. Presently, the patient states he does not have any pain whatsoever. He states he has some ref lux every once in a while. He states his primary physician had placed him on some reflux medicine as an outpatient for his chest pain, maybe this is Zantac, he does not exactly remember. PAST MEDICAL HISTORY: Depression, anxiety, hypertension, hyperlipidemia, previous colonoscopy in [address] Flores, prior history of ulcerative colitis, history of psoriatic arthritis, hypertension . PAST SURGICAL HISTORY: Back surgery, colonoscopy, cardiac catheterization and sessile tubular adenom as in 2015. ALLERGIES: TORADOL, LEVOFLOXACIN, PENICILLIN, SULFA, TAMSULOSIN. MEDICATIONS: Now, Norvasc, Imuran, Tums, carvedilol, Zyrtec, Librium, Celexa, Plavix, Colace, Avodar t, Lovenox, Pepcid, [place], Imdur, Delzicol, Nitrostat, Zofran, Metamucil, Zoloft, Effexor, and Ambien . REVIEW OF SYSTEMS: Negative for dysphagia and odynophagia. He does snore at night. He has never be en diagnosed with sleep apnea. He denies any episodes of pneumonia or aspiration. He denies any pos tprandial abdominal pain. Denies any postprandial issue of diarrhea or change in bowel function. Th ere is no weight loss. He has no dyspnea on exertion. PHYSICAL EXAMINATION: VITAL SIGNS: Temperature is 97, pulse 59, blood pressure 133/70. LUNGS: Clear. HEART: Regular rate and rhythm without clicks or murmurs. ABDOMEN: Soft and nontender without palpable hepatosplenomegaly. EXTREMITIES: No clubbing, cyanosis or edema. LABORATORY DATA: White count 7, hemoglobin 12.9, platelet count 182. Comprehensive metabolic profil e normal. LFTs have been normal. ASSESSMENT: The patient is admitted with complaints of episodes of waking with chest pain and shortn ess of breath. He states this always happens at night; although, on presentation it was at 2:00 in t he afternoon when he states this has been going on for most of the day. He rule out for LA. He appa rently has had two heart catheterizations in the past. Sometimes the main complaint is not being abl e to breathe when he wakes up the time due to chest discomfort. He had a pretty extensive evaluation , it appears to be noncardiac, despite exertional symptoms. He has had ultrasound of his gallbladder and a HIDA scan, which were reportedly normal. There is no ejection fraction on HIDA scan. The pat ient denied recurrence of pain. He states he has no pain with eating ever and symptoms always are at night. Differential diagnoses include anxiety disorder, panic attacks, possible reflux or bouts of obstructive sleep apnea. PLAN: Reasonable to start him on high dose b.i.d. PPIs to see if that helps alleviate his symptoms, may be reasonable to start some type of anxiolytic as the patient has since refused to go home withou t knowing what is wrong with him. I explained to him that it is unlikely that an EGD is going to [facility] e us a diagnosis, but will do that and if it is normal, he can go home tomorrow on the PPI therapy an d probably needs to be on anxiolytic. ADDENDUM: Mr. Burleson's said they wanted to just go ahead and go home and set up an outpatient e ndoscopy. He has no pain now. He has done well over the weekend and followed by Dr. Posadas and does not feel it is his gallbladder. We are going to go ahead and let him go home with b.i.d. PPI and we will set up an EGD in the outpatient setting in the next few days.
== END 2017-07-13 17:25 | disposition home or self-care (01) ==
LOC: ERS 14:18 → 2SW 17:15
PROVIDERS: ADMIT Family Medicine; ATTEND Family Medicine
DX: R07.89 Other chest pain (principal); R10.13 Epigastric pain; I11.0 Hypertensive heart disease with heart failure; I50.32 Chronic diastolic (congestive) heart failure; E86.0 Dehydration; K82.9 Disease of gallbladder, unspecified; I25.119 Atherosclerotic heart disease of native coronary artery with unspecified angina pectoris; F32.9 Major depressive disorder, single episode, unspecified; F41.9 Anxiety disorder, unspecified; E78.5 Hyperlipidemia, unspecified; E11.9 Type 2 diabetes mellitus without complications; L40.50 Arthropathic psoriasis, unspecified; Z87.891 Personal history of nicotine dependence; Z88.8 Allergy status to other drugs, medicaments and biological substances; Z88.0 Allergy status to penicillin; Z88.1 Allergy status to other antibiotic agents; Z79.02 Long term (current) use of antithrombotics/antiplatelets; Z79.899 Other long term (current) drug therapy; Z98.890 Other specified postprocedural states
CPT/HCPCS: 71045; 71275; 76705; 78226; 80048; 80053 ×2; 80061; 82550; 82553; 83605 ×2; 83735; 83880; 84484 ×2; 85025 ×3; 85610; 85730; 87040; 87086; 93005; 93306; 94760 ×4; 96360; 96361 ×4; 96372 ×2; 96374; 96375; 97139 ×2; 99285; A9537; G0378; 36415; 81003; 81015; J1650; J2060; J2270; J7500

== ENCOUNTER 2017-07-17 13:51 | Outpatient (CLI) | payer MEDICARE, OTHER ==
--- NOTE | 2017-07-17 15:21 | ULT ---
RENAL SONOGRAM: DATE: 07/17/17. HISTORY: Microscopic hematuria. COMPARISON: 03/01/04. FINDINGS: The right kidney measures 11.6 cm x 5.1 cm with the left kidney measuring 11.5 cm x 5.4 cm. An anechoic cystic structure is seen in the superior pole right kidney measuring 2.4 cm in maximum di mensions demonstrating sonographic characteristics most compatible with a cyst. The cyst has enlarge d compared to prior exam and measured 1.9 cm on prior study. There is no mass, renal calculus, or hy dronephrosis involving the kidneys bilaterally. Urinary bladder is incompletely distended. Prevoid urinary bladder volume is 55.6 mL. IMPRESSION: 1. No evidence of hydronephrosis. 2. Right renal cyst mildly enlarged from the prior exam in 2004. POS: [facility]
== END 2017-07-17 13:52 | disposition home or self-care (01) ==
LOC: ULT 13:51
PROVIDERS: ATTEND Urology
DX: N28.1 Cyst of kidney, acquired (principal); R31.21 Asymptomatic microscopic hematuria
CPT/HCPCS: 76770

== ENCOUNTER 2017-07-26 16:15 | Emergency (ER) | payer MEDICARE, OTHER ==
[2017-07-26] MEDS ORDERED: Oxymetazoline HCl 0.05% ( 15 ML ) ONE (17:12)
== END 2017-07-26 18:32 | disposition home or self-care (01) ==
LOC: ERS 16:15
DX: R04.0 Epistaxis (principal); E78.5 Hyperlipidemia, unspecified; I10 Essential (primary) hypertension; F41.9 Anxiety disorder, unspecified; Z87.891 Personal history of nicotine dependence; Z79.899 Other long term (current) drug therapy
CPT/HCPCS: 30901

== ENCOUNTER 2017-10-07 12:16 | Day surgery (SDC) | payer MEDICARE, OTHER ==
[2017-10-06 13:24] VITALS: BMI 28.7
[2017-10-07 12:59] LABS: #Eosinphils 0.5 thou/uL (0.0-0.7); #Lymphocytes 1.8 thou/uL (1.20-3.40); #Monocytes 0.8 thou/uL (0.11-0.59); #Neutrophils 4.7 thou/uL (1.40-6.50); %Basophils 0.6 % (0.0-1.0); %Eosinophils 6.8 % (0.0-10.0); %Lymphocytes 22.6 % (21.0-51.0); %Monocytes 10.6 % (0.0-10.0); %Neutrophils 59.4 % (42.0-75.0); Hemoglobin 11.2 g/dL (14.0-18.0); Mean Corpuscular HGB CONC 35.7 g/dL (32.0-36.0); Mean Corpuscular Hemoglobin 32.1 pg (27.0-31.0); Mean Corpuscular Volume 89.9 fL (78.0-98.0); Mean Platelet Volume 7.7 fL (7.4-10.4); Platelet Count 228 thou/uL (130-400); RBC Distribution Width 11.5 % (11.5-14.5); White Blood Cell (WBC) Count 7.9 thou/uL (4.8-10.8)
[2017-10-07 13:20] LABS: Anion Gap 15 mmol/L (10-20); BUN (Urea Nitrogen) 34 mg/dL (8.4-25.7); Calc. Creatinine Clearance 20 mL/min (70-130); Calcium 9.1 mg/dL (7.8-10.44); Carbon Dioxide 18 mmol/L (23-31); Chloride 108 mmol/L (98-107); Estimated GFR-MDRD 18; Glucose 105 mg/dL (83-110); Sodium 137 mmol/L (136-145)
[2017-10-07] MEDS ORDERED: Iothalamate Meglumine 60% 50 ML VIAL FS ONE (13:59)
[2017-10-07] MEDS ORDERED: CEFAZOLIN/Water 2 GM/20 ML SYRINGE ONE (14:45)
[2017-10-07] MEDS ORDERED: Fentanyl 100 MCG/2 ML VIAL ONE ×2 (16:02)
--- NOTE | 2017-10-07 17:37 | RAD ---
RETROGRADE URETEROGRAM INTRAOPERATIVE FLUOROSCOPY 10/07/17 HISTORY: Hematuria. FINDINGS/IMPRESSION: Intraoperative fluoroscopy was provided for retrograde study as performed by Dr. Santoyo. Multiple spo t fluoroscopic images are included. There is contrast opacification of a nondilated left ureter and r enal collecting system without filling defect reliably demonstrated. POS: [facility]
--- NOTE | 2017-10-07 19:19 | OP ---
DATE OF PROCEDURE: 10/07/2017 PREOPERATIVE DIAGNOSES: Gross hematuria, chronic renal insufficiency. POSTOPERATIVE DIAGNOSES: Gross hematuria, chronic renal insufficiency. PROCEDURES PERFORMED: Cystoscopy, bilateral retrograde pyelography, and right ureteral stent placeme nt. SURGEON: Orlin Santoyo MD ANESTHETIC: General. ESTIMATED BLOOD LOSS: Minimal. FINDINGS: He had no evidence of stricture disease. He has had prior TURP with open prostatic urethr a. He had no evidence of bladder tumor, foreign body, or stone, but he did have grossly bloody urine sitting on the floor of the bladder when the scope was first inserted. He had clear efflux from bot h ureteral orifices. Retrograde studies to my review showed no evidence of persistent filling defect or evidence of obstruction or hydronephrosis on either side. However, after the right retrograde wa s completed, the urine became effluxing bloody contrast. For this reason, we did pass a 4.8 x 24-cm double-J stent up this right ureter. The ureteral orifice as well as the ureter itself is very small diameter and we did not feel it was safe to do ureteroscopy on him in this setting, but with the glenda nt in for 7-14 days, the ureteral diameter should increase and we should be able at that point to saf evan look up and down the ureter with the flexible ureteroscope. OPERATIVE TECHNIQUE: Obtained written and verbal consent from the patient. After receiving IV antib iotics, he was taken to the operating suite. He was placed in the supine position on the treatment t able. PlexiPulses were placed on his lower extremities and turned on. He was given a general anesth etic and oral intubation. He was then placed in the dorsal lithotomy position and he was sterilely p repped and draped with Hibiclens. He then underwent cystoscopy. This was done with a 22-Citizen Of [place] henriquez th. This was well lubricated and passed under direct vision with the aid of a 30-degree lens and a v ideo camera and monitor through the male urethra and into the urinary bladder. As mentioned, there w as some bloody urine in the bladder and we drained this. We then examined all aspects of the urinary bladder with both the 30 and the 70-degree lens. Next, we went back to the 30-degree lens and attem pted to pass a 5-Citizen [place] cone-tip catheter into the left ureteral orifice. This was a little bit diff icult because the ureteral orifices were quite small and for this reason, we brought in a 0.038 guide wire, fed this up the left ureteral orifice a couple of centimeters, and then passed a 5-Citizen [place] Polla ck catheter over this and then removed that wire. Then, we injected contrast slowly in a retrograde manner filling out the left ureter in its entirety and the upper collecting system and calyceal syste m. Images were taken of this and then drainage films were taken of this. The efflux from this side was clear. The right side was then done in a similar manner also using a guidewire as the right uret eral orifice was sitting kind of behind the trigonal ridge making it little difficult to intubate wit h a cone tipped. So again, we fed a guidewire a couple of centimeters up and then a 5-Citizen [place] Pollack about 1 cm up, removed the guidewire and then slowly injected contrast in a retrograde manner fillin g out the collecting system and ureter in its entirety. When we then removed the open-ended catheter , it initially effluxed a clear contrast and then after the ureter had probably cleared and that cont rast was out, it started to efflux bloody contrast. This persisted, so I felt like it probably was a real finding and for this reason, we went ahead and fed an angle-tipped Glidewire completely up the right ureter into the region of the renal pelvis, placed the open-ended catheter over this, removed t he angle-tipped Glidewire, and then passed a 0.038 guidewire through the open-ended catheter and kimberlee lion the open-ended catheter and then passed a 4.8 x 24-cm right double-J stent over the guidewire, pu shing it up into place with the aid of a pusher so that its proximal end coiled in the renal pelvis a nd its distal end coiled in the bladder when the wire was removed. At this point, the bladder was dr ained and the instruments were removed. The patient was taken out of the dorsal lithotomy position, awakened, extubated, and taken by stretcher to the recovery room.
== END 2017-10-07 19:05 | disposition home or self-care (01) ==
LOC: SDC 12:16
PROVIDERS: ATTEND Urology
PROC: 0T768DZ Dilation of Right Ureter with Intraluminal Device, Via Natural or Artificial Opening Endoscopic (ICD-10-PCS; principal; 2017-10-07)
PROC: BT141ZZ Fluoroscopy of Kidneys, Ureters and Bladder using Low Osmolar Contrast (ICD-10-PCS; 2017-10-07)
DX: R31.0 Gross hematuria (principal); I12.9 Hypertensive chronic kidney disease with stage 1 through stage 4 chronic kidney disease, or unspecified chronic kidney disease; N18.9 Chronic kidney disease, unspecified; K21.9 Gastro-esophageal reflux disease without esophagitis; I25.10 Atherosclerotic heart disease of native coronary artery without angina pectoris; Z79.82 Long term (current) use of aspirin; Z79.899 Other long term (current) drug therapy; Z88.0 Allergy status to penicillin; Z88.1 Allergy status to other antibiotic agents; Z88.2 Allergy status to sulfonamides; Z88.8 Allergy status to other drugs, medicaments and biological substances; Z98.890 Other specified postprocedural states
CPT/HCPCS: 52005; 52332; 74420; 80048; 85025; C1758; C1769; 36415; J0131; J3010; Q9961

== ENCOUNTER 2017-10-14 17:11 | Outpatient (CLI) | payer MEDICARE, OTHER ==
[2017-10-14 18:02] LABS: Hemoglobin 10.5 g/dL (14.0-18.0); Mean Corpuscular HGB CONC 34.8 g/dL (32.0-36.0); Mean Corpuscular Hemoglobin 31.5 pg (27.0-31.0); Mean Corpuscular Volume 90.7 fL (78.0-98.0); Mean Platelet Volume 7.8 fL (7.4-10.4); Platelet Count 226 thou/uL (130-400); RBC Distribution Width 11.4 % (11.5-14.5); Red Blood Cell (RBC) Count 3.32 mill/uL (4.70-6.10); White Blood Cell (WBC) Count 7.4 thou/uL (4.8-10.8)
[2017-10-14 18:13] LABS: Anion Gap 14 mmol/L (10-20); BUN (Urea Nitrogen) 51 mg/dL (8.4-25.7); Calc. Creatinine Clearance 0 mL/min (70-130); Calcium 8.7 mg/dL (7.8-10.44); Carbon Dioxide 23 mmol/L (23-31); Chloride 102 mmol/L (98-107); Estimated GFR-MDRD 13; Glucose 102 mg/dL (83-110); Potassium 4.8 mmol/L (3.5-5.1); Sodium 134 mmol/L (136-145)
== END 2017-10-14 17:12 | disposition home or self-care (01) ==
LOC: LABBT 17:11
PROVIDERS: ATTEND Urology
DX: Z01.812 Encounter for preprocedural laboratory examination (principal); R31.0 Gross hematuria
CPT/HCPCS: 80048; 85027; 93005; 93010

== ENCOUNTER 2017-10-19 06:59 | Day surgery (SDC) | payer MEDICARE, OTHER ==
[2017-10-14 17:22] VITALS: BMI 27.3
[2017-10-19] MEDS ORDERED: Fentanyl 100 MCG/2 ML VIAL ONE ×4 (07:57→10:37)
[2017-10-19] MEDS ORDERED: CEFAZOLIN 1 GM VIAL ONE (08:29)
[2017-10-19] MEDS ORDERED: Sodium Chloride 0.9% 100 ML ONE (08:29)
[2017-10-19] MEDS ORDERED: Iothalamate Meglumine 60% 50 ML VIAL FS ONE (08:40)
--- NOTE | 2017-10-19 11:01 | OP ---
DATE OF PROCEDURE: 10/19/2017 PREOPERATIVE DIAGNOSIS: Hematuria, suspected right upper tract bleeding. POSTOPERATIVE DIAGNOSIS: Hematuria, suspected right upper tract bleeding. PROCEDURE PERFORMED: Cystoscopy, removal of right stent, right flexible and rigid ureteroscopy with biopsies and brushings and stent replacement with retrograde study. SURGEON: Dr. Orlin Santoyo. ANESTHETIC: General. ESTIMATED BLOOD LOSS: Less than 30. DRAINS PLACED: A 6 M[place]ese x 24 cm right double-J stent with a string attached to it. FINDINGS: He had some edematous mucosa in the renal pelvis and in the distal ureter. Calyceal syste m was free of tumor, foreign body, or stone. He had a few red areas which I think are just related t o the stent. We did brushings of the calyceal system and the renal pelvis biopsies of the renal pelv is and distal ureter. OPERATIVE TECHNIQUE: After obtaining written and verbal consent from the patient, after receiving IV Ancef, he was taken the operating suite. He was placed in the supine position on the treatment tabl e. PlexiPulses were placed on his lower extremities and turned on. He was given a general anestheti c and oral obturator intubation. He was placed in the dorsal lithotomy position and sterilely preppe d and draped. Fluoroscopy was brought in and used for imaging. Cystoscopy was done with a 22-[place] sheath. This was well lubricated, passed through direct vision through the male urethra into the ur inary bladder with aid of a 30-degree lens and video camera and monitor. The bladder was filled and emptied. The distal end of the double-J stent was brought in passed out through the urethral meatus and a guidewire was fed up it, the stent was removed and discarded. A dual lumen ureteral catheter w as placed over the guidewire about mid ureter and a second guidewire was passed up through this and t hen a dual-lumen catheter was removed. We then backloaded one of these wires with the flexible urete roscope and passed this up into the distal ureter before removing the wire and then examining the ure ter in its entirety and examined the calyceal system in its entirety. We did through the scope some brushings of the calyceal system and some brushings of the renal pelvis. We then fed another guidewi re back in to have 2 guidewires and passed a ureteral sheath with obturator up through the mid ureter and then went through this with the flexible ureteroscope and did biopsies of the renal pelvis. We then examined the rest of the ureter on the way out and get to the distal ureter and there was a marta le bit of edematous mucosa here, so we then brought in the rigid ureteroscope and did biopsies of thi s through the rigid ureteroscope leaving a guidewire up as a safety wire the whole time. When this w as completed, we backloaded this guidewire through the cystoscope, passed a 5-[place] Pollack catheter up into the renal pelvis, removed the guidewire and injected about 7 mL of contrast. There was no e vidence of extravasation. The guidewire was replaced. The open-ended catheter was removed, and the stent was passed over the wire, pushing up into place with aid of a pusher so its proximal end coiled in the renal pelvis and its distal end coiled in the bladder when the wire was removed. At this poi nt, the patient was awakened and extubated and taken by stretcher to the recovery room.
--- NOTE | 2017-10-19 11:49 | RAD ---
RIGHT RETROGRADE UROGRAM: Date: 10/19/17 HISTORY: Retrograde IVP with stone manipulation and ureteral stent replacement. COMPARISON: 10/07/17. FINDINGS/IMPRESSION: Fluoroscopic guidance was provided for Dr. Santoyo for replacement of a right ureteral stent. Initial image demonstrates double pigtail right ureteral stent in place with subsequent imaging demonstrating guidewire in place and removal of the ureteral stent. Retrograde study was performed followed by rep lacement of right ureteral stent. Correlation with intraoperative findings is recommended. POS: [facility]
== END 2017-10-19 12:35 | disposition home or self-care (01) ==
LOC: SDC 06:59
PROVIDERS: ATTEND Urology
PROC: 0TB38ZX Excision of Right Kidney Pelvis, Via Natural or Artificial Opening Endoscopic, Diagnostic (ICD-10-PCS; principal; 2017-10-19)
DX: R31.0 Gross hematuria (principal); I25.10 Atherosclerotic heart disease of native coronary artery without angina pectoris; I10 Essential (primary) hypertension; Z79.82 Long term (current) use of aspirin; Z79.899 Other long term (current) drug therapy; Z88.0 Allergy status to penicillin; Z88.2 Allergy status to sulfonamides; Z88.8 Allergy status to other drugs, medicaments and biological substances
CPT/HCPCS: 74420; 88112; 88305; 96374; C1758; J0690; J3010; J7050; Q9961

== ENCOUNTER 2017-10-22 09:05 | Inpatient (IN) | payer MEDICARE, OTHER ==
[2017-10-22 09:33] LABS: Clarity CLOUDY (Clear)
[2017-10-22 09:35] LABS: Bacteria/HPF None Seen HPF (None Seen); Hyaline Casts/LPF 7-10 HYALINE CAST LPF (0-3 Hyaline); Pathc Cast-AUWi Flag 1.73 (0-2.49); WBC/HPF 21-50 HPF (0-3)
[2017-10-22 09:36] LABS: #Lymphocytes 1.5 thou/uL (1.20-3.40); #Neutrophils 7.5 thou/uL (1.40-6.50); %Basophils 0.4 % (0.0-1.0); %Eosinophils 9.4 % (0.0-10.0); %Lymphocytes 13.3 % (21.0-51.0); %Monocytes 8.9 % (0.0-10.0); Hemoglobin 11.3 g/dL (14.0-18.0); Mean Corpuscular Hemoglobin 31.7 pg (27.0-31.0); Mean Corpuscular Volume 90.7 fL (78.0-98.0); Mean Platelet Volume 7.6 fL (7.4-10.4); Platelet Count 315 thou/uL (130-400); RBC Distribution Width 11.2 % (11.5-14.5); Red Blood Cell (RBC) Count 3.57 mill/uL (4.70-6.10)
[2017-10-22 09:38] LABS: Glucose, Urine (Dipstick) Unable to Interpret mg/dL (Negative); Leukocyte Unable to Interpret (Negative); Nitrite Unable to Interpret (Negative); Protein, Urine (Dipstick) Unable to Interpret mg/dL (Neg-Trace)
[2017-10-22 09:39] LABS: Bilirubin Unable to Interpret (Negative); Blood, Urine Unable to Interpret (Negative); Urobilinogen UNABLE TO INTERPRET mg/dL (0.2-1.0)
[2017-10-22 09:51] LABS: ALT (SGPT) 21 U/L (8-55); AST (SGOT) 38 U/L (5-34); Albumin 3.8 g/dL (3.4-4.8); Alkaline Phosphatase 87 U/L (40-150); Anion Gap 12 mmol/L (10-20); BUN (Urea Nitrogen) 43 mg/dL (8.4-25.7); Bilirubin, Total 0.7 mg/dL (0.2-1.2); CK (CPK) 94 U/L (30-200); Calc. Creatinine Clearance 0 mL/min (70-130); Carbon Dioxide 23 mmol/L (23-31); Chloride 103 mmol/L (98-107); Estimated GFR-MDRD 15; Globulin 4.1 g/dL (2.4-3.5); Glucose 92 mg/dL (83-110); Lipase 60 U/L (8-78); Phosphorus 4.1 mg/dL (2.3-4.7); Potassium 4.1 mmol/L (3.5-5.1); Protein, Total 7.9 g/dL (5.8-8.1); Sodium 134 mmol/L (136-145)
[2017-10-22 09:54] LABS: CKMB 1.2 ng/mL (0-6.6); Troponin I Less than 0.010 ng/mL (< 0.028)
[2017-10-22 09:56] LABS: Specific Gravity, Urine 1.015 (1.002-1.036)
[2017-10-22 09:57] LABS: pH, Urine 7.1 (5.0-9.0)
[2017-10-22 10:02] LABS: RBC/HPF GREATER THAN 50-TNTC HPF (0-3); Renal Epithelial 0-3 HPF (0-3); Transitional Epithelial 0-3 HPF (0-3); Yeast-All Forms None Seen HPF (None Seen)
--- NOTE | 2017-10-22 10:24 | RAD ---
CHEST 1 VIEW: COMPARISON: 07/11/17. HISTORY: Progressive worsening weakness. Stage V renal disease. FINDINGS: Normal cardiac silhouette. The pulmonary vessels and hilum are normal. Costophrenic angles are judy r. No consolidation or mass. No pneumothorax or osseous abnormality. IMPRESSION: No acute cardiopulmonary process. POS: [facility]
[2017-10-22] MEDS ORDERED: Guaifenesin DM 100-10/5 ML UDCUP PO PRN (12:12)
--- NOTE | 2017-10-22 13:41 | HP ---
REASON FOR ADMISSION: Progressive renal failure, hematuria, severe dehydration , falls, likely uremia. HISTORY OF PRESENT ILLNESS: The patient has had progressive worsening of his renal function, which has been closely monitored by Dr. David. Per family, his creatinine clearance had come down to 13% and Dr. David advised him to go to the emergency room. At home, he has been falling multiple times and was not steady on his feet. He has also developed shortness of breath and is feeling very weak. He has had frequent urination with blood in the urine and is almost going every 15 minutes with less than 20-30 mL of urine coming out each time. All of this was worsening and the patient was getting exhausted hence came to emergency room. The patient has history of psoriatic skin lesions and has received infliximab in the past and was due for another one either today or tomorrow, but has been held due to his worsening renal function. PAST MEDICAL AND SURGICAL HISTORY: History of psoriasis, on infliximab, has received 2 doses of it in the past 2 months; hypertension; dyslipidemia; mild coronary artery disease; cystoscopy with stent placed by Dr. Santoyo in the last 3 weeks; bilateral ears surgery; has had trigger thumb on the right side surgery ; cataract surgery; last stress test was in 04/2017, which is normal. He has had a cardiac catheterization done as well by Dr. Gonzalez, which showed mild to moderate coronary artery disease for medical management. Lower back surgery x3. CURRENT MEDICATIONS: Tramadol 50 mg p.o. q.12 hourly p.r.n., infliximab infusions once a month for psoriasis, sertraline 25 mg daily, omeprazole 40 mg daily, aspirin 81 mg p.o. daily, carvedilol 3.125 mg twice daily, Imdur extended release 60 mg p.o. daily, Crestor 20 mg p.o. daily. ALLERGIES: FLOMAX, LEVAQUIN, PENICILLIN, SULFA, and TORADOL. PERSONAL HISTORY: Quit smoking 30 years ago prior to which he smoked one pack a day for 8-9 years or so. Does not abuse alcohol or drugs. Lives with his . FAMILY HISTORY: Mother in her 70s. She has had history of hep C. He does not know much about his biological father. The patient has 1 brother and 5 sisters living, one of the sisters living has history of lupus. No history of end-stage renal disease among first degree relatives. A brother and sister of stomach cancer. CODE STATUS: FULL. REVIEW OF SYSTEMS: The following complete review of systems was negative, unless otherwise mentioned in the HPI or below: Constitutional: Weight loss or gain, ability to conduct usual activities. Skin: Rash, itching. Eyes: Double vision, pain. ENT/Mouth: Nose bleeding, neck stiffness, pain, tenderness. Cardiovascular: Palpitations, dyspnea on exertion, orthopnea. Respiratory: Shortness of breath, wheezing, cough, hemoptysis, fever or night sweats. Gastrointestinal: Poor appetite, abdominal pain, heartburn, nausea, vomiting, constipation, or diarrhea. Genitourinary: Urgency, frequency, dysuria, nocturia. Musculoskeletal: Pain, swelling. Neurologic/Psychiatric: Anxiety, depression. Allergy/Immunologic: Skin rash, bleeding tendency. PHYSICAL EXAMINATION: GENERAL: The patient is a 77-year-old male who is currently not in any acute distress. VITAL SIGNS: Blood pressure 184/100, pulse 74 per minute, respiratory rate 16 per minute, temperature 98.2 degrees Fahrenheit, saturating 99% on room air. NECK: Supple, no elevated JVD. HEENT: Eyes: Extraocular muscles intact. Pupils reacting to light. Oral cavity mucous membranes are moist. No exudates or congestion. CARDIOVASCULAR: S1, S2 heard. Regular rhythm. RESPIRATORY: There is basal rales, no rhonchi or wheezes. ABDOMEN: Soft, bowel sounds heard. No tenderness, rigidity or guarding. EXTREMITIES: No peripheral edema or calf tenderness. VASCULAR SYSTEM: Peripheral pulses 1+ bilateral. No ischemic ulcerations or gangrene. CENTRAL NERVOUS SYSTEM: No gross focal deficits noted. The patient is oriented well. PSYCHIATRIC: The patient's mood is euthymic. No hallucinations or delusions. LABORATORY AND X-RAY FINDINGS: White count of 11, H&H 11 and 32, platelet count 315 with 68% neutrophils, MCV is 90. Sodium 134, serum bicarbonate 23, BUN 43, creatinine 3.8, serum bicarbonate is 23. Liver enzymes: AST is 38, total bilirubin 0.7, calcium is 9, phosphorus 4.1. First set of cardiac enzymes are negative. Albumin is 3.8. UA shows more than 50 wbc's and is red in color with 7-10 hyaline casts. Chest x-ray done shows no acute cardiopulmonary process. EKG done shows normal sinus rhythm at 71 beats per minute. There are signs of LVH with poor R-wave progression seen. CLINICAL IMPRESSION AND PLAN: The patient will be placed under observation on medical floor for progressive renal failure with frequent falls and deconditioning. Also, the patient has hematuria with frequent urination and urge. He has also been falling multiple times with unsteady gait. The patient has likely underlying early uremic signs. Dr. David was planning on scheduling a biopsy of his kidneys. We will obtain the same here. The patient likely might have autoimmune disease related damage to the kidneys. For his uncontrolled hypertension, we will place him on Coreg, hydralazine, Imdur, and Crestor. He will also be on normal saline at 100 mL per hour to help with his kidney function. Further workup for his kidneys will be per Dr. David. The patient likely has had autoimmune workup done with Dr. Ku/Cassy, his signals collection technician and will not repeat the same here. If he were not to recover in the next 24 hours, he will be switched over to inpatient status. A rehab evaluation has been requested as well. JUANITA
[2017-10-22 13:51] VITALS: BMI 27.5
[2017-10-22] MEDS: hydrALAZINE 25 MG TAB PO SCH ×2 (14:32→21:06)
[2017-10-22] MEDS ORDERED: Carvedilol 3.125 MG TAB PO SCH (15:00)
[2017-10-22 15:56] LABS: HBSAg Index 0.82 S/CO (0-0.99); Hep B Surf Ag Non-Reactive S/CO (NonReactive); Hep C IgG Ab Non-Reactive (NonReactive); Hep C Index 0.32 S/CO (0-0.79)
[2017-10-22] MEDS: Sodium Chloride 0.9% 1,000 ML IV SCH (16:08)
[2017-10-22] MEDS: Carvedilol 3.125 MG TAB PO SCH (21:06)
[2017-10-22] MEDS: Docusate 100 MG CAP PO SCH (21:06)
--- NOTE | 2017-10-23 00:47 | CON ---
DATE OF CONSULTATION: 10/22/2017 HISTORY OF PRESENT ILLNESS: Mr. Burleson is a 77-year-old male who was being followed by the Renal Service for his progressive ischemia. Last June his creatinine was around 1.37. His renal func tion has worsened over the last several months. In addition, he has had a urological workup for his microscopic hematuria. According to Dr. Santoyo, the urological workup was essentially negative. No stones, no tumors was noted at that time. He still has occasional gross hematuria/microscopic hematu lucien. On 10/20/2017, the creatinine was noted at 4.37. This has worsened from last September where it w as noted at 2.28 mg%. In the interim, patient has also undergone cystoscopy with right ureteral stent placement. REVIEW OF SYSTEMS: No nausea, no vomiting, no shortness of breath, no joint pains, no new skin rash. Positive for gross hematuria, no dysuria, no hematochezia, no melena, no hematemesis. No headache, no diplopia, no sore throat, no fever or chills, no abdominal pain. Appetite and energy level is fa ir. HOME MEDICATIONS: Include aspirin 81 mg 2 tablets day, calcium carbonate 500 mg p.r.n., carvedilol 3 .125 mg twice a day, Zyrtec 10 mg tab p.r.n., gabapentin 100 mg t.i.d., Inflectra 100 mg IV every thu, Imdur 30 mg daily, omeprazole 20 mg once a day, sertraline 12.5 mg once a day, rosuvastatin 20 mg tab at bedtime, Macrodantin 100 mg half a tablet daily, atenolol, tramadol 50 mg p.r.n. PAST MEDICAL HISTORY: History of chronic renal failure/rapidly progressive renal failure, GERD, stat us post gross hematuria, proteinuria, rheumatoid arthritis, coronary artery disease, hyperlipidemia, chronic pain, depression, hypertension. PAST SURGICAL HISTORY: 1. Status post cystoscopy with right ureteral stent placement. 2. Status post back surgery. 3. Status post colonoscopy. IMMUNIZATIONS: Up to date. HOSPITALIZATIONS: Please see past medical history. ALLERGIES: TOPROL, FLOMAX, LEVAQUIN, PENICILLIN, and SULFA. TRAUMA: None. FAMILY HISTORY: No family history of ESRD. SOCIAL HISTORY: The patient lives in [facility], , 3 children. 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 He has a GED, smoked for 15 years, 1 pack a day. Alcohol occasional. No IV drug abuse. No blood t ransfusion. PHYSICAL EXAMINATION: VITAL SIGNS: Blood pressure noted at 218/89, heart rate 66, respiratory rate 18, temperature 97.9, p ulse oximetry 99%. GENERAL: Noted to be awake, alert, comfortable, not in distress. SKIN: Adequate turgor. HEENT: Pinkish conjunctivae, anicteric sclerae. NECK: No neck mass, no carotid bruits, no JVD. CHEST: No deformities. LUNGS: Clear breath sounds. No wheezing, no crackles. HEART: Normal sinus rhythm. No murmur, no gallops or rubs. ABDOMEN: Globular, soft, nontender. No masses. EXTREMITIES: No edema, no deformities. LABORATORY DATA: Laboratories of 10/22/2017, white count 11, hemoglobin 11.3. Sodium 134, potassium 4.1, chloride 103, carbon dioxide 23, BUN 43, creatinine 3.86, GFR 15 mL per minute, glucose 92, kaley sphorus 4.1, magnesium 2.0, albumin 3.8. On 10/20/2017, creatinine of 4.37; on 10/14/2017, creatinine 4.43; on 10/07/2017, creatinine 3.34; an d on 07/13/2017, creatinine 0.95. Urinalysis of 10/22/2017, cloudy, rbc's greater than 15, and wbc 21-50, hyaline cast noted. On 10/20, urinalysis, protein was noted at 300, rbc greater than 15. On 10/22/2017, chest x-ray shows no acute cardiopulmonary process. On 10/07/2017, retrograde pyelogram, there is a contrast opacification of a nondilated left ureter re nal collecting system without filling defect noted. ASSESSMENT AND PLAN: 1. Chronic renal failure, worsening renal dysfunction, unclear what the exact etiology is. He does have proteinuria, hematuria and the possibility of a glomerulonephritis remains with this patient. O f interest, this patient's creatinine is slowly, spontaneously, improving the last few days. Please note his creatinine peaked at the value of 4.43 on 10/14/2017 that slowly gone down to 3.86 with toda y's creatinine. My plan is to empirically volume replete this patient. We will hold off any renal b iopsy. Several serologies have been ordered which includes, ANCA, KARTIK, serum urine protein immunoele ctrophoresis as well as hepatitis B surface antigen and hepatitis C antibody. The diagnosis was agai n discussed and explained to the patient and the family. A conservative management is most appropria te. Continue IV hydration. Please note he is not on any nephrotoxic drugs at the present time. It is possible he may simply have a superimposed acute tubular necrosis. 2. Hypertension. We will add nifedipine 30 mg tab once a day with this patient. 3. Rheumatoid arthritis managed by his recreation coordinator. He takes Inflectra at 100 mg IV every month.
[2017-10-23 00:57] LABS: Bilirubin Negative (Negative); Blood, Urine Large (Negative); Clarity CLEAR (Clear); Glucose, Urine (Dipstick) 100 mg/dL (Negative); Leukocyte Small (Negative); Nitrite Negative (Negative); Protein, Urine (Dipstick) 300 mg/dL (Neg-Trace); Urobilinogen 0.2 mg/dL (0.2-1.0)
[2017-10-23 01:00] LABS: Bacteria/HPF None Seen HPF (None Seen); Hyaline Casts/LPF 0-3 HYALINE CAST LPF (0-3 Hyaline); Pathc Cast-AUWi Flag 0.33 (0-2.49); RBC/HPF GREATER THAN 50-TNTC HPF (0-3); Squamous Epithelial 0-3 HPF (0-3)
[2017-10-23 01:09] LABS: Renal Epithelial None Seen HPF (0-3); Transitional Epithelial NONE SEEN HPF (0-3)
[2017-10-23] MEDS: Sodium Chloride 0.9% 1,000 ML IV SCH ×3 (01:58→21:21)
[2017-10-23 04:21] LABS: #Eosinphils 0.7 thou/uL (0.0-0.7); #Lymphocytes 1.1 thou/uL (1.20-3.40); #Monocytes 0.6 thou/uL (0.11-0.59); #Neutrophils 4.4 thou/uL (1.40-6.50); %Basophils 0.3 % (0.0-1.0); %Eosinophils 10.3 % (0.0-10.0); %Lymphocytes 16.3 % (21.0-51.0); %Monocytes 8.6 % (0.0-10.0); %Neutrophils 64.6 % (42.0-75.0); Hemoglobin 8.9 g/dL (14.0-18.0); Mean Corpuscular HGB CONC 34.8 g/dL (32.0-36.0); Mean Corpuscular Hemoglobin 31.8 pg (27.0-31.0); Mean Corpuscular Volume 91.2 fL (78.0-98.0); Mean Platelet Volume 7.4 fL (7.4-10.4); Platelet Count 228 thou/uL (130-400); RBC Distribution Width 11.1 % (11.5-14.5); White Blood Cell (WBC) Count 6.8 thou/uL (4.8-10.8)
[2017-10-23 04:46] LABS: Albumin 3.1 g/dL (3.4-4.8); Anion Gap 12 mmol/L (10-20); BUN (Urea Nitrogen) 44 mg/dL (8.4-25.7); BUN/Creatinine Ratio 11.28; Calc. Creatinine Clearance 16 mL/min (70-130); Calcium 8.3 mg/dL (7.8-10.44); Carbon Dioxide 22 mmol/L (23-31); Chloride 106 mmol/L (98-107); Estimated GFR-MDRD 15; Glucose 126 mg/dL (83-110); Phosphorus 4.6 mg/dL (2.3-4.7); Potassium 4.4 mmol/L (3.5-5.1); Sodium 136 mmol/L (136-145)
--- NOTE | 2017-10-23 07:20 | PDOC.PN ---
- Subjective Encounter Start Date: 10/23/17 Encounter Start Time: 07:18 Subjective: vague abd discomfort, hematuria - Objective Resuscitation Status: Resuscitation Status FULL:Full Resuscitation MAR Reviewed: Yes Vital Signs & Weight: Vital Signs (12 hours) Temp Pulse Resp BP BP Pulse Ox 10/23/17 03:17 98.8 F 70 18 164/76 H 97 10/22/17 21:06 68 140/66 10/22/17 21:05 68 140/66 10/22/17 19:42 97.8 F 70 16 160/75 H 97 Weight Weight 156 lb 12.8 oz I&O: 10/22/17 10/23/17 10/24/17 06:59 06:59 06:59 Intake Total 2604 Output Total 575 Balance 2028 Result Diagrams: 10/23/17 04:00 10/23/17 04:00 Phys Exam - Physical Examination Neck: no JVD Respiratory: clear to auscultation bilateral Cardiovascular: RRR, no significant murmur Gastrointestinal: soft, non-tender, positive bowel sounds Musculoskeletal: no edema Dx/Plan (1) Acute renal failure Status: Acute Qualifiers: Acute renal failure type: unspecified Qualified Code(s): N17.9 - Acute kidney failure, unspecified (2) Hematuria Code(s): R31.9 - HEMATURIA, UNSPECIFIED Status: Acute Qualifiers: Hematuria type: gross Qualified Code(s): R31.0 - Gross hematuria (3) BPH (benign prostatic hyperplasia) Code(s): N40.0 - BENIGN PROSTATIC HYPERPLASIA WITHOUT LOWER URINRY TRACT SYMP Status: Acute Qualifiers: Lower urinary tract symptom presence: symptoms present Lower urinary tract symptom detail: unspecified Qualified Code(s): N40.1 - Benign prostatic hyperplasia with lower urinary tract symptoms (4) CAD (coronary artery disease) Code(s): I25.10 - ATHSCL HEART DISEASE OF [place] CORONARY ARTERY W/O ANG PCTRS Status: Chronic Qualifiers: Coronary Disease-Associated Artery/Lesion type: [place] artery [place] vs. transplanted heart: [place] heart Associated angina: without angina Qualified Code(s): I25.10 - Atherosclerotic heart disease of [place] coronary artery without angina pectoris (5) HTN (hypertension) Code(s): I10 - ESSENTIAL (PRIMARY) HYPERTENSION Status: Chronic Qualifiers: Hypertension type: essential hypertension - Plan discuss with Dr David -: cont antihypertensives -: monitor renal fcn * .
[2017-10-23] MEDS: Acetaminophen 325 MG TAB PO PRN ×3 (07:46→18:42)
[2017-10-23] MEDS: Docusate 100 MG CAP PO SCH ×2 (08:09→21:13)
[2017-10-23] MEDS: hydrALAZINE 25 MG TAB PO SCH ×3 (08:10→21:13)
[2017-10-23] MEDS: NIFEdipine XL 30 MG TAB PO SCH (08:10)
[2017-10-23] MEDS: Carvedilol 3.125 MG TAB PO SCH ×2 (08:10→21:13)
--- NOTE | 2017-10-23 10:22 | PRG ---
DATE OF SERVICE: 10/23/2017 SUBJECTIVE: Mr. Burleson is a 77-year-old male who was admitted for an acute kidney injury on top of chronic renal failure. His renal function was progressively worsening. There is some stabil ization of the renal function in the last few days. We are currently empirically volume repleting th is patient. My plan is to volume replete him for the next several days. If there is no significant improvement in renal function our bias is to proceed with a renal biopsy. My concern is that he stil l has significant amount of protein and hematuria may have an underlying acute/chronic glomerulonephr itis. Serologies have been ordered - which included ANCA and KARTIK. Hepatitis B and C came back as ne gative. Serum urine immunoelectrophoresis is also pending. No new complaints today. He is tolerati ng the volume repletion. Denies any chest pain or shortness of breath. OBJECTIVE: VITAL SIGNS: Blood pressure 174/82, heart rate 64, respiratory rate 20, temperature 98.2, pulse ox 9 7%. GENERAL: Noted to be awake, alert, supine, comfortable, not in overt distress SKIN: Adequate turgor. HEENT: Slightly pale conjunctivae, anicteric sclerae. NECK: No neck mass, no carotid bruits, no JVD. CHEST: No deformities. LUNGS: Clear breath sounds, no wheezing, no crackles. HEART: Normal sinus rhythm. No murmur, no gallops or rubs. ABDOMEN: Globular, soft, nontender. No masses. EXTREMITIES: No edema. MEDICATIONS: 10/23/2017 - Reviewed. LABORATORY DATA: 10/23/2017 - White count 6.8, hemoglobin 8.9. Sodium 136, potassium 4.4, chloride 106, carbon dioxide 22, BUN 44, creatinine 3.9, GFR 15 mL per minute, phosphorus 4.6, calcium 8.3, al bumin 3.1. Urinalysis shows specific gravity of 1.010, protein is noted at 300. RBC greater than 50, WBC 11-20. Urine creatinine 59, urine protein is pending. ASSESSMENT AND PLAN: 1. Acute kidney injury on top of his chronic renal failure, worsening renal dysfunction. The possib ility that the patient may have an acute glomerulonephritis remains as suggested by his proteinuria a nd hematuria. We are trying to do volume repletion to see if I could get any improvement with the re nal function. If there is no significant improvement, my bias is towards proceeding with a renal bio psy early next week. For the moment, I agree with volume repletion. Awaiting the rest of his serolo gies. There is no indication at the present time to do any emergent hemodialysis. 2. Anemia. Serial CBC. Once the blood pressure is better controlled, consider starting patient on Epogen. 3. Hypertension - continue current blood pressure medications. Recently nifedipine was added to his antihypertensive regimen. The case was discussed at length with the patient and his .
[2017-10-23 15:36] LABS: ANA Symphony (Qualitative) Negative (Negative); dsDNA IgG Antibody Less than 0.5 IU/mL (<10 Negative)
[2017-10-23] MEDS: Loratadine 10 MG TAB PO PRN (19:38)
[2017-10-23] MEDS ORDERED: Prevnar 13-Val Conj/PF 0.5 ML SYRINGE IM ONE (21:00)
[2017-10-23] MEDS: Rosuvastatin 20 MG TAB PO SCH (21:14)
[2017-10-24 05:42] LABS: #Eosinphils 0.4 thou/uL (0.0-0.7); #Monocytes 0.5 thou/uL (0.11-0.59); #Neutrophils 4.6 thou/uL (1.40-6.50); %Basophils 0.3 % (0.0-1.0); %Eosinophils 5.5 % (0.0-10.0); %Lymphocytes 15.1 % (21.0-51.0); %Monocytes 7.6 % (0.0-10.0); %Neutrophils 71.5 % (42.0-75.0); Hemoglobin 9.3 g/dL (14.0-18.0); Mean Corpuscular HGB CONC 33.7 g/dL (32.0-36.0); Mean Corpuscular Hemoglobin 30.8 pg (27.0-31.0); Mean Corpuscular Volume 91.5 fL (78.0-98.0); Mean Platelet Volume 7.6 fL (7.4-10.4); Platelet Count 244 thou/uL (130-400); RBC Distribution Width 11.3 % (11.5-14.5); Red Blood Cell (RBC) Count 3.02 mill/uL (4.70-6.10); White Blood Cell (WBC) Count 6.4 thou/uL (4.8-10.8)
[2017-10-24 06:02] LABS: Anion Gap 12 mmol/L (10-20); BUN (Urea Nitrogen) 35 mg/dL (8.4-25.7); Calc. Creatinine Clearance 18 mL/min (70-130); Calcium 8.2 mg/dL (7.8-10.44); Carbon Dioxide 19 mmol/L (23-31); Chloride 112 mmol/L (98-107); Estimated GFR-MDRD 17; Glucose 124 mg/dL (83-110); Sodium 139 mmol/L (136-145)
[2017-10-24] MEDS: hydrALAZINE 25 MG TAB PO SCH ×3 (08:05→20:45)
[2017-10-24] MEDS: Sodium Chloride 0.9% 1,000 ML IV SCH ×2 (08:05→20:44)
[2017-10-24] MEDS: Carvedilol 3.125 MG TAB PO SCH ×2 (08:05→20:45)
[2017-10-24] MEDS: Docusate 100 MG CAP PO SCH ×2 (08:05→20:45)
[2017-10-24] MEDS: NIFEdipine XL 30 MG TAB PO SCH (08:06)
[2017-10-24] MEDS: Loratadine 10 MG TAB PO PRN (08:10)
[2017-10-24] MEDS ORDERED: hydrALAZINE 20 MG/ML VIAL SLOW IVP PRN ×2 (11:34→11:35)
[2017-10-24] MEDS ORDERED: traMADol HCl 50 MG TAB PO PRN (11:34)
[2017-10-24] MEDS: cloNIDine 0.1 MG TAB PO PRN (11:55)
--- NOTE | 2017-10-24 12:19 | PRG ---
DATE OF SERVICE: 10/24/2017 SUBJECTIVE: Mr. Burleson is a 77-year-old white male who was admitted for acute kidney injury on top o f his chronic renal failure. He worsening dysfunction. Empiric volume repletion has been give n. There is some stabilization of his kidney function. However, the patient is showing hematuria an d nephrotic range proteinuria. My plan is to proceed with a biopsy this coming Thursday. Serologies f or hepatitis B and C were negative. KARTIK was also negative. We are awaiting for ANCA and SPEP/UPEP. No chest pain or shortness of breath today. OBJECTIVE: VITAL SIGNS: Blood pressure 158/72, heart rate 67, respiratory rate 20, pulse ox 97%. GENERAL: Noted to be awake, alert, comfortable, not in distress. SKIN: Adequate turgor. HEENT: Pinkish conjunctivae. Anicteric sclerae. NECK: No neck mass, no carotid bruits, no JVD. CHEST: No deformities. LUNGS: Clear breath sounds. HEART: Normal sinus rhythm. No murmur, no gallops, no rubs. ABDOMEN: Globular, soft, nontender, no masses. EXTREMITIES: No edema, no deformities. MEDICATIONS: Medications of 10/24/2017 reviewed. LABORATORY DATA: Laboratories of 10/24/2017, white count 6.4, hemoglobin 9.3. Sodium 139, potassium 4, chloride 102, carbon dioxide 19, BUN 35, creatinine 3.58, glucose 124, calcium 8.2. Hepatitis B surface antigen negative. Hepatitis C antibody negative. KARTIK screen was negative. ANCA and SPEP/UPEP pending. ASSESSMENT AND PLAN: Acute kidney injury/chronic renal failure -- slowly stabilizing renal function. However, the GFR is still significantly decreased. Continue normal saline at the current rate. I have scheduled this patient for renal biopsy this coming Thursday. Still awaiting for the ANCA results as well as SPEP/UPEP. There is no indication for any emergent hemodialysis. Recheck base met and C BC in a.m. Please note this patient has had urological evaluation for his hematuria and they have al l been negative. Diagnosis and prognosis were explained to the patient and his family.
[2017-10-24] MEDS: Acetaminophen 325 MG TAB PO PRN (16:40)
--- NOTE | 2017-10-24 20:12 | PDOC.PN ---
- Subjective Encounter Start Date: 10/24/17 Encounter Start Time: 10:00 Patient seen and examined for ASHLEY. No N/V. BP elevated per RN. No CP/SOB. No new complaints. No overnight events - Objective Resuscitation Status: Resuscitation Status FULL:Full Resuscitation MAR Reviewed: Yes Vital Signs & Weight: Vital Signs (12 hours) Temp Pulse Resp BP BP BP Pulse Ox 10/24/17 19:05 98.3 F 85 20 135/63 97 10/24/17 15:19 73 150/72 H 10/24/17 12:51 79 135/61 10/24/17 11:55 184/86 H 10/24/17 11:51 98.3 F 68 20 188/82 H 98 10/24/17 10:07 71 158/72 H Weight Weight 156 lb 12.8 oz I&O: 10/23/17 10/24/17 10/25/17 06:59 06:59 06:59 Intake Total 2604 4253 1920 Output Total 575 900 150 Balance 2028 3353 1770 Result Diagrams: 10/24/17 04:39 10/24/17 04:39 Phys Exam - Physical Examination Constitutional: NAD Respiratory: no wheezing, no rhonchi Cardiovascular: RRR, no rub Gastrointestinal: soft, non-tender, positive bowel sounds Musculoskeletal: no edema Neurological: non-focal, moves all 4 limbs Dx/Plan - Plan DVT proph w/SCDs IMPRESSION/PLAN: 1. ASHLEY on CKD 4 Renal biopsy pending, Cont IVF 2. HTN - uncontrolled Cont Procardia XL, Hydralazine and Imdur, Add PRN HTN meds, Will consider increasing Procardia XL if BP stays uncontrolled this PM. 3. CAD ASA on hold for renal biopsy 4. Anxiety/Depression Cont Sertraline 5. HLD Cont Statins 6. Other issues per previous notes Laboratory Tests 10/22/17 10/22/17 15:02 15:02 KARTIK Screen Negative KARTIK IgG Screen Negative Hep Bs Antigen Non-Reactive Hepatitis C Antibody Non-Reactive Review of Systems - Review of Systems Respiratory: negative: Cough, Dry, Shortness of Breath, Hemoptysis, SOB with Excertion, Pleuritic Pain, Sputum, Wheezing Cardiovascular: negative: chest pain, palpitations, orthopnea, paroxysmal nocturnal dyspnea, edema, light headedness, other - Medications/Allergies Allergies/Adverse Reactions: Allergies Allergy/AdvReac Type Severity Reaction Status Date / Time ketorolac tromethamine Allergy Rash Verified 10/22/17 17:03 [From Toradol] levofloxacin [From Levaquin] Allergy Rash Verified 10/14/17 17:23 Penicillins Allergy Rash Verified 10/14/17 17:23 Sulfa (Sulfonamide Allergy Rash Verified 10/14/17 17:23 Antibiotics) tamsulosin HCl [From Flomax] Allergy Verified 10/14/17 17:23 Medications: Current Medications Acetaminophen (Tylenol) 650 mg PO Q4H PRN PRN Reason: Headache/Fever or Pain Last Admin: 10/24/17 16:40 Dose: 650 mg Carvedilol (Coreg) 3.125 mg PO BID [facility] Last Admin: 10/24/17 08:05 Dose: 3.125 mg Clonidine (Catapres) 0.1 mg PO Q4H PRN PRN Reason: Systolic BP > 180 Last Admin: 10/24/17 11:55 Dose: 0.1 mg Docusate Sodium (Colace) 100 mg PO BID [facility] Last Admin: 10/24/17 08:05 Dose: 100 mg Guaifenesin/Dextromethorphan (Robitussin Dm) 15 ml PO Q4H PRN PRN Reason: Cough Hydralazine HCl (Apresoline) 25 mg PO TID [facility] Last Admin: 10/24/17 15:19 Dose: 25 mg Hydralazine HCl (Apresoline) 10 mg SLOW IVP Q4H PRN PRN Reason: SBP Greater Than 180 Hydralazine HCl (Apresoline) 10 mg SLOW IVP Q4H PRN PRN Reason: SBP Greater Than 180 Sodium Chloride (Normal Saline 0.9%) 1,000 mls @ 100 mls/hr IV .Q10H [facility] Last Admin: 10/24/17 08:05 Dose: 1,000 mls Isosorbide Mononitrate (Imdur Er) 30 mg PO QAM [facility] Last Admin: 10/24/17 08:06 Dose: 30 mg Loratadine (Claritin) 10 mg PO DAILYPRN PRN PRN Reason: .SINUS CONGESTION Last Admin: 10/24/17 08:10 Dose: 10 mg Morphine Sulfate (Morphine) 2 mg SLOW IVP Q4H PRN PRN Reason: Chest Pain/BP Elevations Nifedipine (Procardia Xl) 30 mg PO BID [facility] Pantoprazole Sodium (Protonix) 40 mg PO DAILY [facility] Last Admin: 10/24/17 08:06 Dose: 40 mg Rosuvastatin Calcium (Crestor) 20 mg PO HS [facility] Last Admin: 10/23/17 21:14 Dose: 20 mg Sertraline HCl (Zoloft) 25 mg PO DAILY [facility] Last Admin: 10/24/17 08:06 Dose: 25 mg Sodium Chloride (Flush - Normal Saline) 10 ml IVF Q12HR [facility] Last Admin: 10/24/17 08:07 Dose: Not Given Sodium Chloride (Flush - Normal Saline) 10 ml IVF PRN PRN PRN Reason: Saline Flush Tramadol HCl (Ultram) 50 mg PO Q4H PRN PRN Reason: Moderate Pain (4-6)
[2017-10-24] MEDS: Rosuvastatin 20 MG TAB PO SCH (20:46)
[2017-10-24] MEDS ORDERED: NIFEdipine XL 30 MG TAB PO SCH (21:00)
[2017-10-25 05:19] LABS: Anion Gap 14 mmol/L (10-20); BUN (Urea Nitrogen) 32 mg/dL (8.4-25.7); Calc. Creatinine Clearance 20 mL/min (70-130); Carbon Dioxide 15 mmol/L (23-31); Chloride 113 mmol/L (98-107); Estimated GFR-MDRD 19; Glucose 121 mg/dL (83-110); Potassium 3.7 mmol/L (3.5-5.1); Sodium 138 mmol/L (136-145)
--- NOTE | 2017-10-25 09:01 | RAD ---
CHEST 2 VIEWS: Date: 10/25/17 HISTORY: Fatigue. New onset cough. COMPARISON: 01/22/15. FINDINGS: Normal cardiac silhouette. Pulmonary vessels and hilum are normal. Costophrenic angles are clear. No mass. No consolidation. No pneumothorax or osseous abnormalities. IMPRESSION: No acute cardiopulmonary process. POS: [facility]
[2017-10-25] MEDS: hydrALAZINE 25 MG TAB PO SCH ×3 (09:02→21:05)
[2017-10-25] MEDS: NIFEdipine XL 30 MG TAB PO SCH (09:03)
[2017-10-25] MEDS: Docusate 100 MG CAP PO SCH ×2 (09:03→21:05)
[2017-10-25] MEDS: Carvedilol 3.125 MG TAB PO SCH ×2 (09:03→21:05)
--- NOTE | 2017-10-25 10:05 | PRG ---
DATE OF SERVICE: 10/25/2017 SUBJECTIVE: Mr. Burleson is a 77-year-old male who was admitted for progressive ischemia. He was empirically volume repleted and there is some degree of stabilization of the renal function. Mo st recent creatinine is now noted at 3.17. Please note that when he came in, this was noted to have peaked at 3.86, previous to that it was as high as 4.35. He also has significant nephrotic range pro teinuria. For that reason, we will undergo a biopsy in a.m. He is complaining of some mild chest pr essure or mild shortness of breath. We will discontinue the IV fluid. No other complaints. PHYSICAL EXAMINATION: VITAL SIGNS: Blood pressure is 160/74, heart rate 78, respiratory rate 20, pulse ox 97% on room air. GENERAL: Awake, alert, supine, comfortable, not in overt distress. SKIN: Adequate turgor. HEENT: He has pinkish conjunctivae, anicteric sclerae. NECK: No neck mass, no carotid bruits, no JVD. CHEST: No deformities. LUNGS: Decreased breath sounds. HEART: Normal sinus rhythm. No murmur, no gallops or rubs. ABDOMEN: Globular, soft, nontender, no masses. EXTREMITIES: No edema, no deformities. MEDICATIONS: Of 10/25/2017 was reviewed. LABORATORY DATA: Of 10/24/2017, white count 6.4, hemoglobin 9.3. Sodium 138, potassium 3.7, chlorid e 103, carbon dioxide 15, BUN 32, creatinine 3.17, glucose 121, calcium 8.7. On 10/23/2017, albumin 3.1. ANCA pending. Urine serum protein immunoelectrophoresis pending. ASSESSMENT AND PLAN: 1. Acute kidney injury on top of his chronic renal failure. There is stabilization of the renal fun ction with volume repletion. However, due to complaints of mild shortness of breath and chest pressu re, we will discontinue the IV fluids. Recheck base met in a.m. 2. Nephrotic range proteinuria - patient has significant proteinuria, I suggested by total protein o f 270 and a urine creatinine of 59. He will undergo a renal biopsy in a.m. Overall, prognosis remains guarded. Recheck base met and CBC in a.m.
[2017-10-25] MEDS: Sodium Chloride 0.9% 1,000 ML IV SCH ×2 (12:35→21:11)
[2017-10-25] MEDS ORDERED: Diabetic Tussin 200 MG/10 ML UDCUP PO PRN (16:29)
--- NOTE | 2017-10-25 16:30 | PDOC.PN ---
- Subjective Encounter Start Date: 10/25/17 Encounter Start Time: 10:20 Patient seen and examined for ASHLEY. Developed cough this AM - nonproductive - CXR - ordered. No other complaints. No overnight events - Objective Resuscitation Status: Resuscitation Status FULL:Full Resuscitation MAR Reviewed: Yes Vital Signs & Weight: Vital Signs (12 hours) Pulse Pulse Ox 10/25/17 15:05 78 10/25/17 09:03 78 10/25/17 09:02 78 10/25/17 08:00 98 Weight Weight 156 lb 12.8 oz I&O: 10/24/17 10/25/17 10/26/17 06:59 06:59 06:59 Intake Total 4253 2040 Output Total 900 150 Balance 3353 1890 Result Diagrams: 10/24/17 04:39 10/25/17 04:39 Radiology Reviewed by me: Yes (CXR - Neg) Phys Exam - Physical Examination Constitutional: NAD Respiratory: no wheezing, no rhonchi Cardiovascular: RRR, no rub Gastrointestinal: soft, non-tender, positive bowel sounds Musculoskeletal: no edema Dx/Plan - Plan DVT proph w/SCDs IMPRESSION/PLAN: 1. ASHLEY on CKD 4 Renal biopsy in AM, Change IVF rate to 50 ml/hr 2. HTN - better controlled Cont current meds including Procardia XL, Hydralazine and Imdur 3. CAD - stable - no CP ASA on hold for renal biopsy 4. Anxiety/Depression Cont Sertraline, Add low dose Xanax PRN 5. HLD Cont Statins 6. Other issues per previous notes Review of Systems - Review of Systems Respiratory: Cough, Dry. negative: Shortness of Breath, Hemoptysis, SOB with Excertion, Pleuritic Pain, Sputum, Wheezing Cardiovascular: negative: chest pain, palpitations, orthopnea, paroxysmal nocturnal dyspnea, edema, light headedness, other - Medications/Allergies Allergies/Adverse Reactions: Allergies Allergy/AdvReac Type Severity Reaction Status Date / Time ketorolac tromethamine Allergy Rash Verified 10/22/17 17:03 [From Toradol] levofloxacin [From Levaquin] Allergy Rash Verified 10/14/17 17:23 Penicillins Allergy Rash Verified 10/14/17 17:23 Sulfa (Sulfonamide Allergy Rash Verified 10/14/17 17:23 Antibiotics) tamsulosin HCl [From Flomax] Allergy Verified 10/14/17 17:23 Medications: Current Medications Acetaminophen (Tylenol) 650 mg PO Q4H PRN PRN Reason: Headache/Fever or Pain Last Admin: 10/24/17 16:40 Dose: 650 mg Alprazolam (Xanax) 0.25 mg PO BIDPRN PRN PRN Reason: Anxiety Carvedilol (Coreg) 3.125 mg PO BID [facility] Last Admin: 10/25/17 09:03 Dose: 3.125 mg Clonidine (Catapres) 0.1 mg PO Q4H PRN PRN Reason: Systolic BP > 180 Last Admin: 10/24/17 11:55 Dose: 0.1 mg Docusate Sodium (Colace) 100 mg PO BID [facility] Last Admin: 10/25/17 09:03 Dose: 100 mg Guaifenesin/Dextromethorphan (Robitussin Dm) 15 ml PO Q4H PRN PRN Reason: Cough Hydralazine HCl (Apresoline) 25 mg PO TID [facility] Last Admin: 10/25/17 15:05 Dose: 25 mg Hydralazine HCl (Apresoline) 10 mg SLOW IVP Q4H PRN PRN Reason: SBP Greater Than 180 Hydralazine HCl (Apresoline) 10 mg SLOW IVP Q4H PRN PRN Reason: SBP Greater Than 180 Sodium Chloride (Normal Saline 0.9%) 1,000 mls @ 50 mls/hr IV .Q20H [facility] Isosorbide Mononitrate (Imdur Er) 30 mg PO QAM [facility] Last Admin: 10/25/17 09:02 Dose: 30 mg Loratadine (Claritin) 10 mg PO DAILYPRN PRN PRN Reason: .SINUS CONGESTION Last Admin: 10/24/17 08:10 Dose: 10 mg Morphine Sulfate (Morphine) 2 mg SLOW IVP Q4H PRN PRN Reason: Chest Pain/BP Elevations Nifedipine (Procardia Xl) 30 mg PO DAILY [facility] Last Admin: 10/25/17 09:03 Dose: 30 mg Pantoprazole Sodium (Protonix) 40 mg PO DAILY [facility] Last Admin: 10/25/17 09:03 Dose: 40 mg Rosuvastatin Calcium (Crestor) 20 mg PO HS [facility] Last Admin: 10/24/17 20:46 Dose: 20 mg Sertraline HCl (Zoloft) 25 mg PO DAILY [facility] Last Admin: 10/25/17 09:03 Dose: 25 mg Sodium Chloride (Flush - Normal Saline) 10 ml IVF Q12HR [facility] Last Admin: 10/25/17 09:04 Dose: 10 ml Sodium Chloride (Flush - Normal Saline) 10 ml IVF PRN PRN PRN Reason: Saline Flush Tramadol HCl (Ultram) 50 mg PO Q4H PRN PRN Reason: Moderate Pain (4-6)
[2017-10-25] MEDS: Loratadine 10 MG TAB PO PRN (19:11)
[2017-10-25] MEDS: Acetaminophen 325 MG TAB PO PRN (19:11)
[2017-10-25] MEDS: Rosuvastatin 20 MG TAB PO SCH (21:06)
[2017-10-25] MEDS: ALPRAZolam 0.25 MG TAB PO PRN (21:06)
[2017-10-26 05:03] LABS: #Eosinphils 0.4 thou/uL (0.0-0.7); #Lymphocytes 1.5 thou/uL (1.20-3.40); #Monocytes 0.6 thou/uL (0.11-0.59); #Neutrophils 4.3 thou/uL (1.40-6.50); %Basophils 0.3 % (0.0-1.0); %Eosinophils 5.8 % (0.0-10.0); %Lymphocytes 21.4 % (21.0-51.0); %Monocytes 9.3 % (0.0-10.0); %Neutrophils 63.2 % (42.0-75.0); Hemoglobin 9.2 g/dL (14.0-18.0); Mean Corpuscular HGB CONC 33.4 g/dL (32.0-36.0); Mean Corpuscular Hemoglobin 30.5 pg (27.0-31.0); Mean Corpuscular Volume 91.2 fL (78.0-98.0); Mean Platelet Volume 7.4 fL (7.4-10.4); Platelet Count 271 thou/uL (130-400); RBC Distribution Width 11.4 % (11.5-14.5); Red Blood Cell (RBC) Count 3.02 mill/uL (4.70-6.10); White Blood Cell (WBC) Count 6.8 thou/uL (4.8-10.8)
[2017-10-26 05:54] LABS: Anion Gap 12 mmol/L (10-20); BUN (Urea Nitrogen) 15 mg/dL (8.4-25.7); Calc. Creatinine Clearance 21 mL/min (70-130); Calcium 8.2 mg/dL (7.8-10.44); Carbon Dioxide 18 mmol/L (23-31); Chloride 112 mmol/L (98-107); Estimated GFR-MDRD 20; Glucose 103 mg/dL (83-110); Potassium 3.7 mmol/L (3.5-5.1); Sodium 138 mmol/L (136-145)
[2017-10-26] MEDS: NIFEdipine XL 30 MG TAB PO SCH (08:05)
[2017-10-26] MEDS: Acetaminophen 325 MG TAB PO PRN (08:05)
[2017-10-26] MEDS: Docusate 100 MG CAP PO SCH ×2 (08:05→22:14)
[2017-10-26] MEDS: hydrALAZINE 25 MG TAB PO SCH ×3 (08:05→22:14)
[2017-10-26] MEDS: Carvedilol 3.125 MG TAB PO SCH ×2 (08:05→22:15)
[2017-10-26] MEDS: Sodium Chloride 0.9% 1,000 ML IV SCH (08:06)
[2017-10-26 08:24] LABS: INR-International Normal Ratio 1.2; PTT 39.6 SEC (22.9-36.1)
--- NOTE | 2017-10-26 08:56 | PRG ---
DATE OF SERVICE: 10/26/2017 SUBJECTIVE: Mr. Burleson is a 77-year-old male who was admitted for acute renal failure on t op of his chronic renal failure. He also has significant proteinuria and hematuria. He is scheduled for a renal biopsy this afternoon. Renal function is holding steady. No other complaints. Denies any chest pain, shortness of breath. Chest x-ray done yesterday showed no congestive heart failure. PHYSICAL EXAMINATION: VITAL SIGNS: Blood pressure is 191/91, heart rate 65, respiratory rate 20, temperature 98.8, pulse o x 95%. GENERAL: Noted to be awake, alert, comfortable, not in distress. SKIN: Adequate turgor. HEENT: He has pinkish conjunctivae, anicteric sclerae. NECK: No neck mass, no carotid bruits, no JVD. CHEST: No deformities. LUNGS: Clear breath sounds. No wheezing, no crackles. HEART: Normal sinus rhythm. No murmur, no gallops or rubs. ABDOMEN: Globular, soft, nontender, no masses. EXTREMITIES: No edema, no deformities. MEDICATIONS: 10/26/2017 - Reviewed. LABORATORY: 10/26/2017 - White count 6.8, hemoglobin 9.2. Sodium 138, potassium 3.7, chloride 112, carbon dioxide 18, BUN 15, creatinine 3.07. GFR 20 mL per minute. Calcium 8.2. ASSESSMENT AND PLAN: 1. Acute kidney injury on top of his chronic renal failure, uncertain etiology. There is a slow imp rovement with volume repletion with this patient. He does have proteinuria and hematuria. It is pos sible he may have underlying chronic glomerulonephritis. Serologies have been ordered and so far the y have been negative. We are still awaiting for the ANCA and the urine and serum protein immunoelect rophoresis: 2. Hypertension, continuing current blood pressure meds. Consider rechecking back base met in a.m.
[2017-10-26] MEDS ORDERED: cloNIDine 0.1 MG TAB PO PRN (13:47)
[2017-10-26] MEDS: ALPRAZolam 0.25 MG TAB PO PRN ×2 (14:19→22:15)
[2017-10-26] MEDS: cloNIDine 0.1 MG TAB PO PRN (16:19)
[2017-10-26 17:12] LABS: IgA - Total IgA (Sendout) 240 mg/dL (61-437); Immunoglobulin - G (Sendout) 1256 mg/dL (700-1600); Immunoglobulin - M (Sendout) 122 mg/dL (15-143)
--- NOTE | 2017-10-26 18:43 | PDOC.PN ---
- Subjective Encounter Start Date: 10/26/17 Encounter Start Time: 14:00 Patient seen and examined for ASHLEY. No new complaints. No overnight events - Objective Resuscitation Status: Resuscitation Status FULL:Full Resuscitation MAR Reviewed: Yes Vital Signs & Weight: Vital Signs (12 hours) Temp Pulse Resp BP BP Pulse Ox 10/26/17 16:38 184/89 H 10/26/17 16:19 184/89 H 10/26/17 14:19 65 191/91 H 10/26/17 11:54 181/81 H 10/26/17 08:05 65 191/91 H 10/26/17 08:00 95 10/26/17 07:55 98.8 F 65 28 H 191/91 H 95 Weight Weight 156 lb 12.8 oz I&O: 10/25/17 10/26/17 10/27/17 06:59 06:59 06:59 Intake Total 2040 1300 3120 Output Total 150 Balance 1890 1300 3120 Result Diagrams: 10/27/17 05:13 10/27/17 05:13 Phys Exam - Physical Examination Constitutional: NAD Respiratory: no wheezing, no rhonchi Cardiovascular: RRR, no rub Gastrointestinal: soft, positive bowel sounds Musculoskeletal: no edema Dx/Plan - Plan DVT proph w/SCDs IMPRESSION/PLAN: 1. 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 HTN urgency Cont Coreg, Procardia XL, Hydralazine and Imdur at current doses 3. CAD - stable ASA on hold for renal biopsy 4. Anxiety/Depression Cont Sertraline, Cont low dose Xanax PRN 5. HLD Cont Statins 6. Other issues per previous notes Review of Systems - Review of Systems Respiratory: negative: Cough, Dry, Shortness of Breath, Hemoptysis, SOB with Excertion, Pleuritic Pain, Sputum, Wheezing Cardiovascular: negative: chest pain, palpitations, orthopnea, paroxysmal nocturnal dyspnea, edema, light headedness, other - Medications/Allergies Allergies/Adverse Reactions: Allergies Allergy/AdvReac Type Severity Reaction Status Date / Time ketorolac tromethamine Allergy Rash Verified 10/22/17 17:03 [From Toradol] levofloxacin [From Levaquin] Allergy Rash Verified 10/14/17 17:23 Penicillins Allergy Rash Verified 09/05/18 17:23 Sulfa (Sulfonamide Allergy Rash Verified 10/14/17 17:23 Antibiotics) tamsulosin HCl [From Flomax] Allergy Verified 10/14/17 17:23 Medications: Current Medications Acetaminophen (Tylenol) 650 mg PO Q4H PRN PRN Reason: Headache/Fever or Pain Last Admin: 10/26/17 08:05 Dose: 650 mg Alprazolam (Xanax) 0.25 mg PO BIDPRN PRN PRN Reason: Anxiety Last Admin: 10/26/17 14:19 Dose: 0.25 mg Carvedilol (Coreg) 3.125 mg PO BID [facility] Last Admin: 10/26/17 08:05 Dose: 3.125 mg Clonidine (Catapres) 0.1 mg PO Q4H PRN PRN Reason: Systolic BP > 180 Last Admin: 10/26/17 16:19 Dose: 0.1 mg Clonidine (Catapres) 0.1 mg PO Q6H PRN PRN Reason: SBP GREATER THAN 160 Docusate Sodium (Colace) 100 mg PO BID [facility] Last Admin: 10/26/17 08:05 Dose: 100 mg Guaifenesin (Robitussin Sf) 200 mg PO Q4H PRN PRN Reason: Cough Guaifenesin/Dextromethorphan (Robitussin Dm) 15 ml PO Q4H PRN PRN Reason: Cough Hydralazine HCl (Apresoline) 25 mg PO TID [facility] Last Admin: 10/26/17 14:19 Dose: 25 mg Hydralazine HCl (Apresoline) 10 mg SLOW IVP Q4H PRN PRN Reason: SBP Greater Than 180 Hydralazine HCl (Apresoline) 10 mg SLOW IVP Q4H PRN PRN Reason: SBP Greater Than 180 Isosorbide Mononitrate (Imdur Er) 30 mg PO QAM [facility] Last Admin: 10/26/17 08:05 Dose: 30 mg Loratadine (Claritin) 10 mg PO DAILYPRN PRN PRN Reason: .SINUS CONGESTION Last Admin: 10/25/17 19:11 Dose: 10 mg Morphine Sulfate (Morphine) 2 mg SLOW IVP Q4H PRN PRN Reason: Chest Pain/BP Elevations Nifedipine (Procardia Xl) 30 mg PO DAILY [facility] Last Admin: 09/17/18 08:05 Dose: 30 mg Nifedipine (Procardia Xl) 60 mg PO DAILY [facility] Pantoprazole Sodium (Protonix) 40 mg PO DAILY [facility] Last Admin: 10/26/17 08:05 Dose: 40 mg Rosuvastatin Calcium (Crestor) 20 mg PO HS [facility] Last Admin: 10/25/17 21:06 Dose: 20 mg Sertraline HCl (Zoloft) 25 mg PO DAILY [facility] Last Admin: 10/26/17 08:05 Dose: 25 mg Sodium Chloride (Flush - Normal Saline) 10 ml IVF Q12HR [facility] Last Admin: 10/26/17 08:24 Dose: Not Given Sodium Chloride (Flush - Normal Saline) 10 ml IVF PRN PRN PRN Reason: Saline Flush Tramadol HCl (Ultram) 50 mg PO Q4H PRN PRN Reason: Moderate Pain (4-6) Last Admin: 10/26/17 16:21 Dose: 50 mg
[2017-10-26] MEDS: Rosuvastatin 20 MG TAB PO SCH (22:13)
[2017-10-27 05:43] LABS: #Eosinphils 0.7 thou/uL (0.0-0.7); #Lymphocytes 1.5 thou/uL (1.20-3.40); #Monocytes 0.7 thou/uL (0.11-0.59); %Basophils 0.7 % (0.0-1.0); %Eosinophils 9.8 % (0.0-10.0); %Lymphocytes 21.3 % (21.0-51.0); %Monocytes 10.2 % (0.0-10.0); Hemoglobin 9.5 g/dL (14.0-18.0); Mean Corpuscular HGB CONC 34.3 g/dL (32.0-36.0); Mean Corpuscular Hemoglobin 31.5 pg (27.0-31.0); Mean Corpuscular Volume 91.7 fL (78.0-98.0); Mean Platelet Volume 7.3 fL (7.4-10.4); Platelet Count 270 thou/uL (130-400); RBC Distribution Width 11.4 % (11.5-14.5); Red Blood Cell (RBC) Count 3.01 mill/uL (4.70-6.10); White Blood Cell (WBC) Count 6.8 thou/uL (4.8-10.8)
[2017-10-27 06:05] LABS: Anion Gap 13 mmol/L (10-20); BUN (Urea Nitrogen) 27 mg/dL (8.4-25.7); Calc. Creatinine Clearance 20 mL/min (70-130); Calcium 8.4 mg/dL (7.8-10.44); Carbon Dioxide 18 mmol/L (23-31); Chloride 111 mmol/L (98-107); Estimated GFR-MDRD 19; Glucose 97 mg/dL (83-110); Potassium 3.5 mmol/L (3.5-5.1); Sodium 138 mmol/L (136-145)
--- NOTE | 2017-10-27 08:25 | PRG ---
DATE OF SERVICE: 10/27/2017 SERVICE: Renal Medicine. SUBJECTIVE: Mr. Burleson is a 77-year-old white male, who was admitted due to the progressive azotemia . He was empirically volume repleted with some stabilization of the renal dysfunction. He was also found to have nephrotic-range proteinuria and hematuria. A urological workup has been negative. Ser ologies have been ordered with this hospitalization. His KARTIK was negative. In addition, his UPEP an d SPEP have been reported to be within normal. Furthermore, ANCA is still currently pending. He is now scheduled for a biopsy. His renal biopsy was placed on hold due to the high blood pressure yeste rday. His blood pressure is much improved with adjustments of blood pressure meds. PHYSICAL EXAMINATION: VITAL SIGNS: Blood pressure 135/64, heart rate 67, respiratory rate 16, temperature 98.9, pulse ox 9 8%. GENERAL EXAM: Noted to be awake, alert, comfortable, not in distress SKIN: Adequate turgor. HEENT: He has slightly pale conjunctivae, anicteric sclerae. NECK: No neck mass, no carotid bruits, no JVD. CHEST: No deformities. LUNGS: Clear breath sounds. HEART: Normal sinus rhythm. No murmur, no gallops, no rubs. ABDOMEN: Globular, soft, nontender, no masses. EXTREMITIES: No edema, no deformities. Medications of 10/27/2017 was reviewed. LABORATORY DATA: Laboratories of 10/27/2017, sodium 138, potassium 3.5, chloride 111, carbon dioxide 18, BUN 27, creatinine 3.19, glucose 97, calcium 8.4. White count 6.8, hemoglobin 9.5. ASSESSMENT AND PLAN: 1. 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 Serol ogies so far have been negative except for the ANCA, which is still pending. He is scheduled for juanita al biopsy. 2. Chronic renal failure, unclear etiology. Consideration for chronic glomerulonephritis remains wi th this patient. Awaiting renal biopsy. 3. Hypertension, labile, much improved with adjustment of blood pressure medications. Consider discharge after renal biopsy.
[2017-10-27] MEDS: NIFEdipine XL 60 MG TAB PO SCH (08:34)
[2017-10-27] MEDS: Carvedilol 3.125 MG TAB PO SCH ×2 (08:34→21:32)
[2017-10-27] MEDS: ALPRAZolam 0.25 MG TAB PO PRN ×2 (08:34→21:32)
[2017-10-27] MEDS: hydrALAZINE 25 MG TAB PO SCH ×3 (08:34→21:32)
[2017-10-27] MEDS: Docusate 100 MG CAP PO SCH ×2 (08:34→21:35)
[2017-10-27] MEDS: Acetaminophen 325 MG TAB PO PRN ×2 (08:37→14:45)
--- NOTE | 2017-10-27 08:40 | PQF ---
CLINICAL DOCUMENTATION IMPROVEMENT CLARIFICATION FORM: ICD-10 Updated PLEASE DO AN ADDENDUM TO THE PROGRESS NOTE WITH ANY DOCUMENTATION UPDATES OR ADDITIONS AND CARRY THROUGH TO DC SUMMARY. THANK YOU. DATE: 10/27 ATTN: DR. EVELIO GOMEZ Please exercise your independent, professional judgment in responding to the clarification form. Clinical indicators are provided on the bottom of this form for your review. Please check appropriate box(s): [ ] Primary/Essential Hypertension [ ] Emergency [ ] Crisis [x ] Other diagnosis HTN urgency [ ] Unable to determine For continuity of documentation, please document condition throughout progress notes and discharge summary. Thank You. CLINICAL INDICATORS - SIGNS / SYMPTOMS / LABS BP 10/22: 140/66 - 219/89 10/23: 141/66 - 175/81 10/24: 158/72 - 207/74 10/25: 158/76 - 163/74 10/26: 179/81 - 191/91 H&P DOCUMENTATION 10/23 (JW): IMPRESSION/PLAN: ...FOR HIS UNCONTROLLED HYPERTENSION, WE WILL PLACE HIM ON COREG, HYDRALAZINE & IMDUR PN 10/24 & (JASON): IMPRESSION/PLAN: 2) HTN, UNCONTROLLED; CONTINUE COREG, PROCARDIA XL, HYDRALAZINE & IMDUR AT CURRENT DOSES RISK FACTORS: ACUTE KIDNEY INJURY CKD 4 HX CAD TREATMENTS: NEPHROLOGY CONSULT IV VASODILATOR (HYDRALAZINE 10/22 - PRESENT) BETA BLOCKERS (COREG 10/22 - PRESENT) CALCIUM CHANNEL ADRIANA (PROCARDIA XL 10/25 - PRESENT) THANK YOU! Marcela (This form is maintained as a part of the permanent medical record) 2014 [employer]. All Rights Reserved Marcela Ackerman RN, BSN [email or web address] Office: [phone] [facility] HOSPITALGanga
[2017-10-27] MEDS ORDERED: Midazolam HCl 2 mg/2 ml Vial ONE (09:23)
[2017-10-27] MEDS ORDERED: Fentanyl 100 MCG/2 ML VIAL ONE (09:23)
[2017-10-27] MEDS: NIFEdipine XL 30 MG TAB PO SCH (10:08)
--- NOTE | 2017-10-27 12:50 | CT ---
CT GUIDED PERCUTANEOUS RANDOM RIGHT RENAL BIOPSY: 10/27/2017 HISTORY: Acute on chronic renal failure. TECHNIQUE: The procedure, including the risks and complications, was explained to the patient, and informed cons ent was obtained. The patient was placed on the CT scan table in the prone position. A noncontraste d CT scan was obtained through the abdomen, with a grid localizer in place. An area overlying the in ferior pole right kidney was marked, and the area was then meticulously prepped and draped in the usu al sterile fashion. The skin and subcutaneous tissues were infiltrated with buffered 1% Lidocaine fo r local anesthesia. A small skin incision was made. A 17 gauge guide needle was advanced to the per ipheral aspect of the inferior pole left kidney. Position was confirmed with three axial noncontrast ed CT images. Utilizing a coaxial technique, two 18 gauge core needle biopsy specimens were obtained . The specimens were evaluated by pathology and glomeruli were seen in the provided specimens. No a dditional specimens were requested. The needle was removed, and hemostasis was achieved with direct pressure. A dry, sterile dressing wa s placed. Three axial noncontrasted CT images were then obtained post biopsy, demonstrating a very s mall adjacent hematoma at the inferior pole left kidney, at the biopsy site. The patient's vital sig ns remained stable during the procedure, as well as post procedure. The patient tolerated the procedure well and without immediate complication. The patient was transpo rted to his hospital room in stable condition. IMPRESSION: Technically successful CT guided percutaneous random inferior pole right renal biopsy. Glomeruli wer e seen within the provided specimens. POS: AMBER
--- NOTE | 2017-10-27 14:55 | PQF ---
CLINICAL DOCUMENTATION IMPROVEMENT CLARIFICATION FORM: ICD-10 Updated PLEASE DO AN ADDENDUM TO THE PROGRESS NOTE WITH ANY DOCUMENTATION UPDATES OR ADDITIONS AND CARRY THROUGH TO DC SUMMARY. THANK YOU. DATE: 10/27 ATTN: DR. ABBY MIRELES Please exercise your independent, professional judgment in responding to the clarification form. Clinical indicators are provided on the bottom of this form for your review. Please check appropriate box(s) to clarify if the following diagnosis has been ruled in or ruled out: POSSIBLE SUPERIMPOSED ACUTE TUBULAR NECROSIS [ ] Ruled in diagnosis [ ] Continue to treat [ ] Resolved [ ] Ruled out diagnosis [ ] Cannot rule out diagnosis [ ] Other diagnosis ____glomerulonephritis [ ] Unable to determine For continuity of documentation, please document condition throughout progress notes and discharge summary. Thank You. CLINICAL INDICATORS - SIGNS / SYMPTOMS / LABS CONSULTATION DOCUMENTATION 10/22: ASSESSMENT & PLAN: 1) CHRONIC RENAL FAILURE , WORSENING RENAL DYSFUNCTION, UNCLEAR WHAT THE EXACT ETIOLOGY IS. HE DOES HAVE PROTEINURIA, HEMATURIA AND THE POSSIBILITY OF A GLOMERULONEPHRITIS REMAINS WITH THIS PATIENT. ...IT IS POSSIBLE HE MAY SIMPLY HAVE A SUPERIMPOSED ACUTE TUBULAR NECROSIS BUN/CR: 43/3.86 (10/22) 44/3.90 (10/23) 35/3.58 (10/24) 32/ 3.17 (10/25) 15/3.07 (10/26) 27/3.19 (10/27) RISK FACTORS: ACUTE KIDNEY INJURY CKD STAGE IV TREATMENTS: IVF (NS 10/22 - ) THANK YOU! Marcela (This form is maintained as a part of the permanent medical record) 2014 [employer]. All Rights Reserved Marcela Ackerman RN, BSN [email or web address] Office: [phone] [facility]
[2017-10-27 17:14] LABS: Cytoplasmic (C-ANCA) <1:20 titer (Neg:<1:20); Myeloperoxidase AutoAbs <9.0 U/mL (0.0-9.0); Perinuclear (P-ANCA) <1:20 titer (Neg:<1:20); Proteinase-3 AutoAbs Less than 3.5 U/mL (0.0-3.5)
[2017-10-27] MEDS: Loratadine 10 MG TAB PO PRN (21:32)
[2017-10-27] MEDS: Rosuvastatin 20 MG TAB PO SCH (21:32)
--- NOTE | 2017-10-27 21:55 | PDOC.PN ---
- Subjective Encounter Start Date: 10/27/17 Encounter Start Time: 13:00 Patient seen and examined for ASHLEY. Has gen headache after renal biopsy. Also feels gen weak. No N/V. No other complaints. No overnight events - Objective Resuscitation Status: Resuscitation Status FULL:Full Resuscitation MAR Reviewed: Yes Vital Signs & Weight: Vital Signs (12 hours) Temp Pulse Resp BP Pulse Ox 10/27/17 21:32 62 10/27/17 18:56 98.0 F 62 20 129/60 97 10/27/17 15:28 69 10/27/17 10:08 69 Weight Weight 156 lb 12.8 oz I&O: 10/26/17 10/27/17 10/28/17 06:59 06:59 06:59 Intake Total 1300 4500 1560 Balance 1300 4500 1560 Result Diagrams: 10/27/17 05:13 10/27/17 05:13 Phys Exam - Physical Examination Constitutional: NAD Respiratory: no wheezing, no rhonchi Cardiovascular: RRR, no rub Gastrointestinal: soft, non-tender, positive bowel sounds Musculoskeletal: no edema Neurological: moves all 4 limbs Dx/Plan - Plan DVT proph w/SCDs IMPRESSION/PLAN: 1. ASHLEY on CKD 4 - s/p Renal biopsy AM labs 2. HTN urgency - BP improving Cont Coreg, Procardia XL, Hydralazine and Imdur at current doses 3. CAD - stable ASA on hold for renal biopsy 4. Anxiety/Depression Cont Sertraline, Cont low dose Xanax PRN 5. HLD Cont Statins 6. Other issues per previous notes 7. Disp - Later today if patient feels better/Ok with Nephrology Review of Systems - Review of Systems Respiratory: negative: Cough, Dry, Shortness of Breath, Hemoptysis, SOB with Excertion, Pleuritic Pain, Sputum, Wheezing Cardiovascular: negative: chest pain, palpitations, orthopnea, paroxysmal nocturnal dyspnea, edema, light headedness, other Neurological: negative: Weakness, Numbness, Incoordination, Change in Speech, Confusion, Seizures, Other - Medications/Allergies Allergies/Adverse Reactions: Allergies Allergy/AdvReac Type Severity Reaction Status Date / Time ketorolac tromethamine Allergy Rash Verified 10/22/17 17:03 [From Toradol] levofloxacin [From Levaquin] Allergy Rash Verified 10/14/17 17:23 Penicillins Allergy Rash Verified 10/14/17 17:23 Sulfa (Sulfonamide Allergy Rash Verified 10/14/17 17:23 Antibiotics) tamsulosin HCl [From Flomax] Allergy Verified 10/14/17 17:23 Medications: Current Medications Acetaminophen (Tylenol) 650 mg PO Q4H PRN PRN Reason: Headache/Fever or Pain Last Admin: 10/27/17 14:45 Dose: 650 mg Alprazolam (Xanax) 0.25 mg PO BIDPRN PRN PRN Reason: Anxiety Last Admin: 10/27/17 21:32 Dose: 0.25 mg Carvedilol (Coreg) 3.125 mg PO BID [facility] Last Admin: 10/27/17 21:32 Dose: 3.125 mg Clonidine (Catapres) 0.1 mg PO Q4H PRN PRN Reason: Systolic BP > 180 Last Admin: 10/26/17 16:19 Dose: 0.1 mg Clonidine (Catapres) 0.1 mg PO Q6H PRN PRN Reason: SBP GREATER THAN 160 Last Admin: 10/27/17 08:33 Dose: 0.1 mg Docusate Sodium (Colace) 100 mg PO BID [facility] Last Admin: 10/27/17 21:35 Dose: Not Given Guaifenesin (Robitussin Sf) 200 mg PO Q4H PRN PRN Reason: Cough Guaifenesin/Dextromethorphan (Robitussin Dm) 15 ml PO Q4H PRN PRN Reason: Cough Hydralazine HCl (Apresoline) 25 mg PO TID [facility] Last Admin: 10/27/17 21:32 Dose: 25 mg Hydralazine HCl (Apresoline) 10 mg SLOW IVP Q4H PRN PRN Reason: SBP Greater Than 180 Last Admin: 10/27/17 05:06 Dose: 10 mg Isosorbide Mononitrate (Imdur Er) 30 mg PO QAM [facility] Last Admin: 10/27/17 08:34 Dose: 30 mg Loratadine (Claritin) 10 mg PO DAILYPRN PRN PRN Reason: .SINUS CONGESTION Last Admin: 10/27/17 21:32 Dose: 10 mg Morphine Sulfate (Morphine) 2 mg SLOW IVP Q4H PRN PRN Reason: Chest Pain/BP Elevations Nifedipine (Procardia Xl) 30 mg PO DAILY [facility] Last Admin: 10/27/17 10:08 Dose: Not Given Nifedipine (Procardia Xl) 60 mg PO DAILY [facility] Last Admin: 10/27/17 08:34 Dose: 60 mg Pantoprazole Sodium (Protonix) 40 mg PO DAILY [facility] Last Admin: 10/27/17 08:35 Dose: 40 mg Rosuvastatin Calcium (Crestor) 20 mg PO HS [facility] Last Admin: 10/27/17 21:32 Dose: 20 mg Sertraline HCl (Zoloft) 25 mg PO DAILY [facility] Last Admin: 10/27/17 08:35 Dose: 25 mg Sodium Chloride (Flush - Normal Saline) 10 ml IVF Q12HR [facility] Last Admin: 10/27/17 21:35 Dose: 10 ml Sodium Chloride (Flush - Normal Saline) 10 ml IVF PRN PRN PRN Reason: Saline Flush Tramadol HCl (Ultram) 50 mg PO Q4H PRN PRN Reason: Moderate Pain (4-6) Last Admin: 10/26/17 16:21 Dose: 50 mg
[2017-10-28] MEDS: Acetaminophen 325 MG TAB PO PRN (02:43)
[2017-10-28 08:04] VITALS: BP 140/66; TEMP 98.1
[2017-10-28 08:12] LABS: #Eosinphils 0.6 thou/uL (0.0-0.7); #Lymphocytes 1.4 thou/uL (1.20-3.40); #Monocytes 0.7 thou/uL (0.11-0.59); #Neutrophils 5.1 thou/uL (1.40-6.50); %Basophils 0.3 % (0.0-1.0); %Eosinophils 7.1 % (0.0-10.0); %Lymphocytes 18.5 % (21.0-51.0); %Monocytes 8.3 % (0.0-10.0); %Neutrophils 65.8 % (42.0-75.0); Hemoglobin 9.5 g/dL (14.0-18.0); Mean Corpuscular Hemoglobin 30.7 pg (27.0-31.0); Mean Corpuscular Volume 90.3 fL (78.0-98.0); Mean Platelet Volume 7.4 fL (7.4-10.4); Platelet Count 308 thou/uL (130-400); RBC Distribution Width 11.4 % (11.5-14.5); Red Blood Cell (RBC) Count 3.08 mill/uL (4.70-6.10); White Blood Cell (WBC) Count 7.8 thou/uL (4.8-10.8)
[2017-10-28 08:32] LABS: Anion Gap 12 mmol/L (10-20); BUN (Urea Nitrogen) 33 mg/dL (8.4-25.7); Calc. Creatinine Clearance 17 mL/min (70-130); Calcium 8.7 mg/dL (7.8-10.44); Carbon Dioxide 20 mmol/L (23-31); Chloride 107 mmol/L (98-107); Estimated GFR-MDRD 16; Glucose 117 mg/dL (83-110); Potassium 3.8 mmol/L (3.5-5.1); Sodium 135 mmol/L (136-145)
[2017-10-28] MEDS: Docusate 100 MG CAP PO SCH (08:38)
[2017-10-28] MEDS: hydrALAZINE 25 MG TAB PO SCH (08:38)
[2017-10-28] MEDS: NIFEdipine XL 60 MG TAB PO SCH (08:39)
[2017-10-28] MEDS: Carvedilol 3.125 MG TAB PO SCH (08:39)
--- NOTE | 2017-10-28 18:44 | DIS ---
DATE OF DISCHARGE: 10/28/2017 DISCHARGE DISPOSITION: Home. FOLLOWUP: 1. Follow up with primary care physician, Dr. Galo Forman in 1 week. 2. Follow up with Dr. David next week. ALLERGIES: The patient is allergic to multiple medications including FLOMAX, SULFA, PENICILLIN, LEVA HERON, TORADOL. The patient was seen and examined on the day of discharge, denies any new complaints, no chest pain, shortness of breath, palpitations. DISCHARGE MEDICATIONS: 1. Clonidine as needed. 2. Hydralazine 25 mg 3 times a day. 1. Procardia-XL 30 mg daily. 2. All other home medications were left, unchanged. The patient was advised to resume aspirin next week after seen by Dr. David (per Dr. David's recommendati on). BRIEF HOSPITAL COURSE: The patient is a 77-year-old male with chronic kidney disease stage 4, was se nt to the hospital from Nephrology clinic due to hematuria, generalized weakness and progressive wors ening renal function. Please refer to the history and physical dated 10/23/2017 for further details. The patient was admitted to the hospital with a diagnosis of acute kidney injury. The patient was ev aluated by Nephrology Service. A CT-guided renal biopsy was ordered by Nephrology that was performed yesterday without any complication. His renal function has somewhat improved with IV hydration. Hi s creatinine on admission was 3.86 that improved to 3.07 two days ago. This morning was 3.67. He wa s also found to have hypertensive urgency that has improved with medication optimization per Dr. David. Plan of care was discussed with the patient and Dr. David in detail. Dr. David recommended to continue hydralazine and Procardia-XL 30 mg along with his home dose of Imdur and carvedilol. He has been cl eared by Dr. David for discharge. FINAL DIAGNOSES: 1. Acute kidney injury on chronic kidney disease stage 4. The patient underwent renal biopsy. The patient will follow up with Dr. David next week for renal biopsy result. 2. Hypertensive urgency. 3. Coronary artery disease. Aspirin is currently on hold per Nephrology recommendation until next w beaver. 4. Anxiety and depression. 5. Hyperlipidemia. 6. Chronic anemia, probably secondary to renal insufficiency. 7. Nephrotic range proteinuria. SIGNIFICANT LABORATORIES: Serum immunofluorescence was negative, A and A screen was negative. Anti- myeloperoxidase antibodies negative. ANCA was negative. Anti-double stranded DNA was negative. Hep atitis B surface antigen negative, hepatitis C antibody was negative. Plan of care was discussed with the patient and the family, they stated understanding.
== END 2017-10-28 11:21 | disposition home or self-care (01) | DRG 684 ==
LOC: ERS 09:05 → 2SW 13:14 → OBSVTOIN 10-23 10:17 → ONC 10-23 12:11
PROVIDERS: ADMIT Internal Medicine; ATTEND Internal Medicine
DX: N17.9 Acute kidney failure, unspecified (principal); N18.4 Chronic kidney disease, stage 4 (severe); I12.9 Hypertensive chronic kidney disease with stage 1 through stage 4 chronic kidney disease, or unspecified chronic kidney disease; I16.0 Hypertensive urgency; R31.0 Gross hematuria; L40.9 Psoriasis, unspecified; E78.5 Hyperlipidemia, unspecified; I25.10 Atherosclerotic heart disease of native coronary artery without angina pectoris; M06.9 Rheumatoid arthritis, unspecified; Z88.8 Allergy status to other drugs, medicaments and biological substances; Z88.2 Allergy status to sulfonamides; Z88.0 Allergy status to penicillin; Z88.1 Allergy status to other antibiotic agents; F32.9 Major depressive disorder, single episode, unspecified; F41.9 Anxiety disorder, unspecified; D63.1 Anemia in chronic kidney disease; R80.8 Other proteinuria; Z79.82 Long term (current) use of aspirin; Z79.899 Other long term (current) drug therapy; Z79.2 Long term (current) use of antibiotics; K21.9 Gastro-esophageal reflux disease without esophagitis; G89.29 Other chronic pain; N40.0 Benign prostatic hyperplasia without lower urinary tract symptoms; E86.0 Dehydration; Z91.81 History of falling; Z87.891 Personal history of nicotine dependence
CPT/HCPCS: 36415; 50200; 71045; 71046; 77012; 80048; 80053; 80069; 81001; 81003; 81015; 82553; 82570; 83520; 83690; 83735; 84100; 84156; 84484; 85025; 85610; 85730; 86038; 86225; 86256; 86334; 86335; 86803; 87340; 88305; 88313; 88329; 88346; 88348; 90471; 90670; 93005; A4216; G0009; G8978-GP-CI; G8979-GP-CI; G8980-GP-CI; G8987-GO-CJ; G8988-GO-CI; J0360; J2250; J3010

== ENCOUNTER 2018-03-24 12:45 | Inpatient (IN) | payer MEDICARE ==
[2018-03-24 13:43] LABS: #Lymphocytes 0.4 thou/uL (1.20-3.40); #Monocytes 0.2 thou/uL (0.11-0.59); #Neutrophils 8.8 thou/uL (1.40-6.50); %Basophils 0.3 % (0.0-1.0); %Eosinophils 0.1 % (0.0-10.0); %Lymphocytes 4.4 % (21.0-51.0); %Monocytes 2.4 % (0.0-10.0); %Neutrophils 92.8 % (42.0-75.0); Hemoglobin 10.4 g/dL (14.0-18.0); Mean Corpuscular HGB CONC 32.9 g/dL (32.0-36.0); Mean Corpuscular Hemoglobin 30.3 pg (27.0-31.0); Mean Platelet Volume 7.9 fL (7.4-10.4); Platelet Count 281 thou/uL (130-400); RBC Distribution Width 15.9 % (11.5-14.5); Red Blood Cell (RBC) Count 3.43 mill/uL (4.70-6.10); White Blood Cell (WBC) Count 9.5 thou/uL (4.8-10.8)
--- NOTE | 2018-03-24 13:58 | RAD ---
TWO VIEWS CHEST: Date: 03-24-18 Provided Clinical History: Dizziness. FINDINGS: Comparison 10-25-17. Cardiac silhouette remains enlarged. No focal consolidation, pleural fluid, or pneumothorax apparent. IMPRESSION: No evidence for acute cardiopulmonary process. POS: [facility]
--- NOTE | 2018-03-24 14:02 | CT ---
CT BRAIN WITHOUT CONTRAST: HISTORY: A 78-year-old male with kidney failure, hypertension, dizziness, and bilateral lower extremity pain. The patient was scanned on his right side. FINDINGS: No evidence of infarct, hemorrhage, midline shift, or abnormal extraaxial fluid collection is seen. There are changes of chronic small vessel ischemic disease. The ventricular size is appropriate, and the basilar cisterns are patent. The bony calvarium is intact. The visualized paranasal sinuses an d mastoid air cells are well aerated. IMPRESSION: No CT evidence of acute intracranial process. POS: C
[2018-03-24 14:07] LABS: ALT (SGPT) 15 U/L (8-55); AST (SGOT) 18 U/L (5-34); Albumin 3.8 g/dL (3.4-4.8); Alkaline Phosphatase 61 U/L (40-150); Anion Gap 20 mmol/L (10-20); BUN (Urea Nitrogen) 51 mg/dL (8.4-25.7); Bilirubin, Total 0.8 mg/dL (0.2-1.2); CK (CPK) 31 U/L (30-200); Calc. Creatinine Clearance 0 mL/min (70-130); Calcium 9.2 mg/dL (7.8-10.44); Carbon Dioxide 16 mmol/L (23-31); Chloride 100 mmol/L (98-107); Estimated GFR-MDRD 13; Globulin 3.2 g/dL (2.4-3.5); Glucose 295 mg/dL (83-110); Lipase 95 U/L (8-78); Magnesium 2.1 mg/dL (1.6-2.6); Potassium 4.4 mmol/L (3.5-5.1); Sodium 132 mmol/L (136-145)
[2018-03-24 14:26] LABS: CKMB 1.3 ng/mL (0-6.6)
[2018-03-24] MEDS ORDERED: Aspirin Chewable 81 MG TAB ONE (14:28)
[2018-03-24] MEDS ORDERED: Aspirin 325 MG TAB ONE (14:28)
[2018-03-24 14:41] LABS: Bilirubin Negative (Negative); Blood, Urine Trace (Negative); Clarity CLEAR (Clear); Glucose, Urine (Dipstick) 100 mg/dL (Negative); Leukocyte Negative (Negative); Nitrite Negative (Negative); Protein, Urine (Dipstick) 100 mg/dL (Neg-Trace); Specific Gravity, Urine 1.012 (1.002-1.036); Urobilinogen 0.2 mg/dL (0.2-1.0); pH, Urine 5.5 (5.0-9.0)
[2018-03-24 14:44] LABS: Bacteria/HPF None Seen HPF (None Seen); Hyaline Casts/LPF 4-6 HYALINE CAST LPF (0-3 Hyaline); Pathc Cast-AUWi Flag 0.72 (0-2.49); Squamous Epithelial 0-3 HPF (0-3); WBC/HPF 0-3 HPF (0-3)
[2018-03-24] MEDS ORDERED: Acetaminophen 325 MG TAB ONE ×2 (15:27)
[2018-03-24 17:36] LABS: Troponin I 0.061 ng/mL (< 0.028)
[2018-03-24] MEDS ORDERED: Acetaminophen 325 MG TAB PO PRN (18:28)
[2018-03-24] MEDS ORDERED: hydrALAZINE 20 MG/ML VIAL SLOW IVP PRN (18:28)
[2018-03-24] MEDS ORDERED: Nitroglycerin 0.4 MG TAB (25 Tab Bottle) SL PRN (18:28)
[2018-03-24] MEDS: traMADol HCl 50 MG TAB PO PRN (19:39)
[2018-03-24] MEDS ORDERED: Tuberculin PPD 0.1 ML VIAL I-DERMAL SCH (20:00)
[2018-03-24 20:05] LABS: Troponin I 0.046 ng/mL (< 0.028)
[2018-03-24] MEDS: hydrALAZINE 25 MG TAB PO SCH (21:50)
[2018-03-24] MEDS: Heparin 5,000 UNITS/ML VIAL SC SCH (21:50)
--- NOTE | 2018-03-24 23:29 | HP ---
PRIMARY CARE PHYSICIAN: Galo Forman DO CHIEF COMPLAINT: Generalized weakness as well as chest pain. HISTORY OF PRESENT ILLNESS: Mr. Burleson is a very pleasant 78-year-old gentleman, who has a history of hypertension as well as chronic kidney disease and coronary artery disease. He says that in the last few weeks he has been feeling extremely weak to the point where he can barely get up if he falls. He also says he has had poor appetite and noticed a bitter taste in his mouth. He also says that he has been short of breath and that when he walks across the room, he can barely breathe. He also noted some chest tightness, which he has been having off and on, primarily with exertion and he says it improves with rest. He says that he can also again barely walk across the room without any problems. His son, who is in the room, says these symptoms started around August after it was noted that his renal function had worsened. He was also in the hospital around that time and noticed that his blood pressure had "jumped up." Since then, his son says he has been getting progressively worse and has been on a relatively steady decline. He also complains of pain in both of his legs as well as his hips and it typically goes down to his toes, and he also says that he feels cold all the time and he has noticed that his heart beating fast and he feels winded. He says that he saw Dr. Gonzalez about a year ago and at that time he had a cardiac catheterization. He was found to have some minimal coronary artery disease which was treated medically. The patient has spoken with Dr. David recently. He has a history of IgA nephropathy and due to his worsening kidney function, he had tried him on prednisone. However, it appears that his creatinine has gone up from about 2.7 up to 4.5, and there is concern that he is likely going to need to start dialysis. REVIEW OF SYSTEMS: All systems were reviewed and are negative except for that mentioned in the history of present illness and with the exception of some nocturia, but no hematuria or dysuria. PAST MEDICAL HISTORY: Significant for psoriasis, hypertension, dyslipidemia, coronary artery disease, chronic kidney disease, and anxiety. PAST SURGICAL HISTORY: He has had three back surgeries, herniated disk, surgery to remove some loose screws as well as cataract surgery and surgery for trigger finger. ALLERGIES: TO SULFA, ASPIRIN, PENICILLIN AND TORADOL. SOCIAL HISTORY: He is retired from [employer] and . he is . He has two sons and a daughter. He is a nonsmoker. He occasionally drinks. Code status is a full code. FAMILY HISTORY: Significant for hepatitis C, stomach cancer, and pancreatic cancer in his sister. CURRENT MEDICATIONS: Include 1. Omeprazole 40 mg daily. 2. Isosorbide mononitrate 60 mg daily. 3. Clonidine 0.1 mg q.6. 4. Nifedipine XL 30 mg daily. 5. Hydralazine 75 mg as directed. 6. Sertraline 50 mg daily. 7. Prednisone 20 mg a day. PHYSICAL EXAMINATION: GENERAL: He is alert and oriented. He appears to be in no acute distress. He is well developed and well nourished. VITAL SIGNS: Blood pressure is 119/65, heart rate 100, respiratory rate of 22, temperature is 98.2. HEENT: His pupils are equal, round, and reactive. Extraocular muscles are intact. His sclerae are anicteric. Throat, there is no erythema, no exudates. NECK: No adenopathy, no bruits. LUNGS: Clear to auscultation. There is no wheezing, no rales, no rhonchi. CARDIOVASCULAR: He has a normal S1, S2. I did not appreciate an S3 or S4. No murmurs, clicks, no rubs. ABDOMEN: Obese, it is soft. He did have some mild right upper quadrant tenderness, but it was intermittent. There is no rebound, no guarding. No organomegaly. EXTREMITIES: There is no clubbing or cyanosis, no edema. NEUROLOGIC: His cranial nerves 2 through 12 are intact. 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 SKIN AND INTEGUMENT: His skin is a bit dry, but there are no lesions. LAB RESULTS: His sodium is 132, potassium 4.4, chloride is 100, CO2 is 16, BUN of 51, creatinine 4.57, glucose is 295. White blood cell count 9.5, hemoglobin 10.4, hematocrit is 31.6, and platelet count is 281. Urinalysis was significant for 11-20 rbc's and some hyaline casts, trace blood. ASSESSMENT: This is a pleasant 78-year-old gentleman, who presents with two major complaints. 1. Generalized weakness and poor appetite and generalized malaise and essentially failure to thrive. This is likely due to his worsening renal function. This was discussed with Dr. David, who believes that he has approached end-stage renal disease and is requiring dialysis. He will be admitted and Nephrology has already been consulted and we will also consult General Surgery to place a temporary dialysis catheter so that this can be initiated. 2. Chest discomfort. His symptoms are very suspicious for angina given that it worsens with exertion, but then improves with rest. Therefore, we will consult Cardiology for further recommendations, this given he has had a recent cardiac catheterization. 3. Hypertension. We will continue his usual medications for hypertension as well as p.r.n. medication as needed and place him on DVT and GI prophylaxis, and further recommendations are to follow. Job ID: [id number]
--- NOTE | 2018-03-25 01:09 | CON ---
DATE OF CONSULTATION: HISTORY OF PRESENT ILLNESS: Mr. Burleson is a 78-year-old male who was admitted for nausea and vomiting. According to the , he has had no energy for the last several weeks. His appetite is poor and decreased. He occasionally gets confused. His energy level is much decreased at the same time. During the initial evaluation, it was noted that his creatinine has worsen from a baseline of 2.79 to a most recent value of 4.57% with a GFR of 13 mL/minute. We are now being consulted for his worsening chronic renal failure. REVIEW OF SYSTEMS: Positive for nausea, decreased appetite, decreased energy level, and occasional confusion. No headache. No diplopia. Occasional shortness of breath. No chest pain. No syncopal episode. No productive cough. No gross hematuria. No dysuria. No urinary frequency. No hematochezia. No melena. No hematemesis. HOME MEDICATIONS: 1. Hydralazine 25 mg tablet t.i.d. 2. Procardia XL 30 mg once a day. 3. Aspirin 81 mg two tablets daily. 4. Calcium carbonate 500 mg p.r.n. 5. Carvedilol 3.125 mg p.o. b.i.d. 6. Gabapentin 100 mg p.o. t.i.d. 7. Omeprazole 20 mg once a day. 8. Rosuvastatin 20 mg tablet at bedtime. 9. Prednisone 20 mg once a day. 10. Calcitriol 0.25 mcg tablet daily. 11. P.r.n. Procrit. PAST MEDICAL HISTORY: The patient has history of chronic renal failure, secondary to biopsy proven IgA nephropathy/hypertensive nephrosclerosis, long-standing hypertension, status post hyperlipidemia, history of hematuria/proteinuria, rheumatoid arthritis, and coronary artery disease. PAST SURGICAL HISTORY: Status post renal biopsy finding of IgA nephropathy with focal crescents, severe arteriosclerosis, interstitial fibrosis, and tubular atrophy - severe ATN as well as finding of global glomerulosclerosis. The patient is status post cystoscopy with right ureter stent placement, status post back surgery, status post colonoscopy. IMMUNIZATION: Up-to-date. HOSPITALIZATIONS: Please see past medical history. ALLERGIES: TOPROL, FLOMAX, LEVAQUIN, PENICILLIN, AND SULFA. TRAUMA: None. FAMILY HISTORY: No family history of ESRD. SOCIAL HISTORY: The patient lives in [facility]. , three children. 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 Education, GED. Smoked for 15 years 1-pack a day. Alcohol, occasional. No drug abuse. No blood transfusion. PHYSICAL EXAMINATION: VITAL SIGNS: Blood pressure is noted at 107/78, heart rate 81 respiratory rate 20, temperature 98.5, and pulse ox 98%. GENERAL: The patient is awake, alert, lethargic, not in overt distress. SKIN: Adequate turgor. HEENT: He has slightly pale conjunctivae. Anicteric sclerae. No neck mass. No carotid bruits. No JVD. CHEST: No deformities. LUNGS: Clear breath sounds. No wheezing. No crackles. HEART: Normal sinus rhythm. No murmur. No gallops. No rubs. ABDOMEN: Globular, soft, and nontender. No masses. EXTREMITIES: Positive for edema. NEUROLOGIC: Awake and oriented to 3 spheres. Moving all extremities. LABORATORY STUDIES: Chest x-ray - no CHF. CT scan of the brain, no acute intracranial abnormality. On 03/24/2018; white count 9.5, hemoglobin 10.4. Sodium 132, potassium 4.4, chloride 100, carbon dioxide 16, BUN is 51, creatinine 4.57, glucose 295, calcium 9.2, and magnesium 2.1. AST 18, ALT 15. Troponin I is 0.056. Albumin 3.8, lipase 95, TSH 0.53. ASSESSMENT AND PLAN: 1. Chronic renal failure - secondary to biopsy-proven IgA nephropathy/hypertensive nephrosclerosis - worsening renal dysfunction. Previously, he was on prednisone, but it slightly improved the renal function, but to be really never got to baseline normal. His higher creatinine is probably a reflection, this is progression. His presentation of nausea, vomiting, decreased appetite may be uremic signs and symptoms. For this reason, I had a long discussion with the patient and his family about proceeding with dialysis. They have agreed temporarily to proceed with hemodialysis. A surgical consult has been done for placement of a tunneled dialysis catheter. In addition, I have made arrangements for outpatient hemodialysis for the patient. 2. Hypertension. Continue current BP medications. 3. Hepatitis B surface antigen, hepatitis C antibody has been ordered. PPD has also been ordered. Overall, I agree with current management. Job ID: [id number]
[2018-03-25 07:47] LABS: #Lymphocytes 0.8 thou/uL (1.20-3.40); #Monocytes 0.4 thou/uL (0.11-0.59); #Neutrophils 6.1 thou/uL (1.40-6.50); %Basophils 0.4 % (0.0-1.0); %Eosinophils 0.4 % (0.0-10.0); %Lymphocytes 11.4 % (21.0-51.0); %Monocytes 4.8 % (0.0-10.0); Hemoglobin 10.7 g/dL (14.0-18.0); Mean Corpuscular Hemoglobin 30.5 pg (27.0-31.0); Mean Corpuscular Volume 92.5 fL (78.0-98.0); Mean Platelet Volume 7.6 fL (7.4-10.4); Platelet Count 230 thou/uL (130-400); RBC Distribution Width 15.5 % (11.5-14.5); Red Blood Cell (RBC) Count 3.49 mill/uL (4.70-6.10); White Blood Cell (WBC) Count 7.4 thou/uL (4.8-10.8)
[2018-03-25] MEDS: NIFEdipine XL 30 MG TAB PO SCH (07:52)
[2018-03-25] MEDS: hydrALAZINE 25 MG TAB PO SCH ×3 (07:52→20:51)
[2018-03-25] MEDS: Famotidine 20 MG TAB PO SCH (07:53)
[2018-03-25] MEDS: Heparin 5,000 UNITS/ML VIAL SC SCH ×2 (07:53→18:23)
[2018-03-25 07:58] LABS: Anion Gap 18 mmol/L (10-20); BUN (Urea Nitrogen) 49 mg/dL (8.4-25.7); Calc. Creatinine Clearance 15 mL/min (70-130); Calcium 9.4 mg/dL (7.8-10.44); Carbon Dioxide 19 mmol/L (23-31); Chloride 105 mmol/L (98-107); Estimated GFR-MDRD 15; Glucose 88 mg/dL (83-110); Potassium 3.5 mmol/L (3.5-5.1); Sodium 138 mmol/L (136-145)
[2018-03-25 08:20] LABS: HBSAB Concentration 4.85 mIU/mL; HBSAg Index 0.19 S/CO (0-0.99); Hep B Core Total Ab Non-Reactive (NonReactive); Hep B Core Total Index 0.05 S/CO (0-0.79); Hep B Surf AB Non-Reactive (NonReactive); Hep B Surf Ag Non-Reactive S/CO (NonReactive); Hep C IgG Ab Non-Reactive (NonReactive); Hep C Index 0.34 S/CO (0-0.79)
[2018-03-25] MEDS ORDERED: Clindamycin/D5W 600 mg/50 ml Premix Bag ONE (09:03)
--- NOTE | 2018-03-25 09:11 | ULT ---
BILATERAL UPPER EXTREMITY VENOUS MAPPING: DATE: 03/25/2018. HISTORY: End stage renal disease. FINDINGS: The bilateral internal jugular veins demonstrate normal lumen compressibility and flow. There is wilfred w demonstrated in the bilateral subclavian and axillary veins. Right upper extremity cephalic vein diameters: Upper arm 2.7 mm Mid arm 2.9 mm Distal arm 3.3 mm Antecubital fossa 4.1 mm Proximal forearm 1.7 mm Mid forearm 2.1 mm Distal forearm 1.1 mm Right upper extremity basilic vein diameters: Upper arm 3.8 mm Mid arm 3.8 mm Distal arm 2.8 mm Antecubital fossa 3.2 mm Proximal forearm 2.3 mm Mid forearm 2.8 mm Distal forearm 1.8 mm Left upper extremity cephalic vein diameters: Upper arm 2.4 mm Mid arm 1.7 mm Distal arm 1.6 mm Antecubital fossa 3.2 mm Proximal forearm 1.8 mm Mid forearm 2.2 mm Distal forearm 1.4 mm Left upper extremity basilic vein diameters: Upper arm 2.9 mm Mid arm 3.4 mm Distal arm 2.9 mm Antecubital fossa 2.8 mm Proximal forearm 1.2 mm Mid forearm 1.3 mm Distal forearm 1.1 mm Right upper extremity arterial diameters: Brachial artery 4.8 mm Radial artery 2.6 mm Ulnar artery 2.8 mm Left upper extremity arterial diameters: Brachial artery 5.2 mm Radial artery 2.3 mm Ulnar artery 3.2 mm IMPRESSION: Venous diameters of the basilic and cephalic veins are as described above. POS: [facility]
--- NOTE | 2018-03-25 09:42 | HP ---
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 Admitted to the hospitalist service, seen by Dr. David, found to have end-stage renal disease. I have been asked to see him regarding placement of hemodialysis catheter. He had an antecubital IV which has been removed, has a IV in his left arm. Plan is to place a central line in addition. Ultrasound vein mapping obtained, results pending. Plan placement of hemodialysis catheter and central line today and in the next day to 3 plan placement of a primary fistula or graft. He is right handed. ALLERGIES: MULTIPLE, TORADOL, LEVOTHYROXINE, PENICILLIN. TOBACCO: None. ALCOHOL: None. MEDICATIONS: Hydralazine 25 t.i.d., clonidine 0.1 mg p.r.n., prednisone 60 mg a day, sertraline 50 mg a day, omeprazole 40 mg a day, nifedipine, Procardia XL 30 mg daily, isosorbide mononitrate 60 mg q.a.m. PAST MEDICAL HISTORY: Hypertension, depression, chronic back pain, psoriasis, dyslipidemia, mild coronary artery disease. He had a cardiac catheterization recently, followed by Dr. Gonzalez. He had minimal disease without intervention required. He denies any chest pain or pressure. PAST SURGICAL HISTORY: Three lumbar surgeries, cataract surgery, trigger finger surgery, ear surgery. REVIEW OF SYSTEMS: Ten-point noncontributory except as noted above. PHYSICAL EXAMINATION: VITAL SIGNS: Height 5 feet 4 inches, 153 pounds, 26 BMI. Pulse 76, respiratory rate 18, blood pressure 196/91. HEAD, EARS, EYES, NOSE AND THROAT: Unremarkable. LUNGS: Clear to auscultation. CARDIAC: Regular rate and rhythm without murmur or gallop. ABDOMEN: Soft and nontender. EXTREMITIES: Chronic venous stasis changes lower extremities. Palpable radial pulses bilaterally. With IV left thumb. LABORATORY DATA: Sodium 138, potassium 3.5, BUN 49, creatinine 4.03, GFR 15. White count 7, hemoglobin 10.7, platelet count 230,000. ASSESSMENT AND PLAN: 1. End-stage renal disease. Plan placement of hemodialysis catheter and central line today. In the next 1 to 3 days, plan placement of a primary fistula left or right arm pending vein mapping. 2. Chronic venous stasis disease. 3. Hypertension. 4. Chronic back pain, status post multiple lumbar surgeries. 5. Mild coronary artery disease followed by Dr. Gonzalez. Cardiac catheterization recently revealed minimal disease, intervention not required. Echocardiogram 07/12/2017, 55% to 60%, preserved LV function, grade 2 to 3 diastolic dysfunction. Mild aortic, tricuspid, and pulmonic regurgitation. Job ID: [id number]
[2018-03-25] MEDS ORDERED: Heparin 1,000 UNITS/ML VIAL ONE (11:11)
[2018-03-25] MEDS ORDERED: Heparin 10,000 UNITS/1 ML VIAL ONE (12:26)
[2018-03-25] MEDS ORDERED: Lidocaine 2% PF 5 ML VIAL ONE (12:26)
[2018-03-25] MEDS ORDERED: Sodium Chloride 0.9% 10 ML ONE (12:26)
[2018-03-25] MEDS ORDERED: Bupivacaine HCl 0.5%/Epinephrine 1:200,000/PF 30 ml Vial ONE (12:26)
[2018-03-25] MEDS ORDERED: Fentanyl 100 MCG/2 ML VIAL ONE (12:42)
[2018-03-25] MEDS ORDERED: Midazolam HCl 2 mg/2 ml Vial ONE (12:42)
[2018-03-25] MEDS ORDERED: Ondansetron PF 4 MG/2 ML Vial ONE (13:13)
[2018-03-25] MEDS ORDERED: PROPOFOL 200 MG/20 ML VIAL ONE (13:13)
[2018-03-25] MEDS ORDERED: Acetaminophen 500 MG TAB PO PRN (13:59)
[2018-03-25] MEDS ORDERED: Ondansetron HCl/PF 4 MG/2 ML Vial IVP PRN (14:04)
[2018-03-25] MEDS ORDERED: HYDROmorphone 2 MG/ML VIAL SLOW IVP PRN (14:04)
[2018-03-25] MEDS ORDERED: Promethazine HCl 25 MG/ML VIAL SLOW IVP PRN (14:04)
[2018-03-25] MEDS ORDERED: Promethazine HCl 25 MG/ML VIAL IM PRN (14:04)
--- NOTE | 2018-03-25 15:32 | OP ---
DATE OF PROCEDURE: 03/25/2018 PREOPERATIVE DIAGNOSIS: End-stage renal disease, poor IV access. POSTOPERATIVE DIAGNOSIS: End-stage renal disease, poor IV access. PROCEDURES PERFORMED: Right-IJ cuffed tunneled hemodialysis catheter, AngioDynamics precurved, left IJ central line, fluoroscopy and ultrasound used. ANESTHESIA: TIVA, local of 0.5% Marcaine with epinephrine 30 mL mixed with 2% Xylocaine 10 mL. DESCRIPTION OF PROCEDURE: The patient was taken to the operating room, in supine position, neck and chest were prepared with ChloraPrep and draped in routine fashion. Local anesthetic was infiltrated into the skin and subcutaneous tissue about the operative sites. Using ultrasound guidance, the right and left internal jugular veins were cannulated with trocar catheter, -wire threaded, trocar catheter removed, skin was incised and enlarged sharply. On the left side, Seldinger technique was used to place a triple-lumen catheter securing it with 3-0 nylon suture, removing the J-wire, and aspirating each port with blood, and flushed with saline solution. On the right side, a stab incision was made over the right chest and tunneling device used to tunnel the pre-curved AngioDynamics cuffed-tunneled hemodialysis catheter between the two incisions, placed the fabric cuff beneath the skin exit site, and catheter was secured with 2 interrupted suture of 3-0 nylon. Sterile dressing was applied. Small and medium size dilators were placed over the J-wire into the internal jugular vein removed. Dilator and Peel-Away sheath placed over the J-wire and superior vena cava, and dilator and J-wire were removed. Catheter placed through the Peel-Away sheath. Peel-Away sheath was removed. Platysma was approximated with 4-0 Monocryl, skin with subdermal 4-0 Monocryl, and [place] glue applied. Each port aspirated blood and flushed with heparinized saline solution, 1000 units of heparin per mL indicating volume of the port. Fluoroscopic images revealed good line placement. Job ID: [id number]
--- NOTE | 2018-03-25 16:10 | RAD ---
SINGLE VIEW OF THE CHEST: COMPARISON: 10/22/2017. HISTORY: Central line placement in PACU. FINDINGS: A single view of the chest shows a normal-size cardiomediastinal silhouette. There is a right IJ luís lysis catheter with its tip in the superior vena cava. There is a left IJ central venous catheter wi th its tip superior vena cava. No pneumothorax is seen. There is no evidence of consolidation, mass , or pleural effusion. IMPRESSION: No evidence of acute cardiopulmonary disease. POS: [facility]
[2018-03-25] MEDS: predniSONE 20 MG TAB PO SCH (18:20)
[2018-03-25] MEDS: Clindamycin/D5W 600 MG in Premix Bag 1 BAG IVPB SCH ×3 (18:21→23:27)
[2018-03-25] MEDS ORDERED: Ondansetron PF 4 MG/2 ML Vial SLOW IVP PRN (18:21)
--- NOTE | 2018-03-25 18:25 | PDOC.PN ---
- Subjective Encounter Start Date: 03/25/18 Encounter Start Time: 18:23 Mr. Burleson was seen today in follow-up of ESRD and chest pain. He has been in dialysis, and became nauseated afterwards. He also has had some bleeding from the area around the central line. - Objective Resuscitation Status - Order Detail: 03/24/18 18:22 Resuscitation Status Routine Resuscitation Status: FULL: Full Resuscitation MAR Reviewed: Yes Vital Signs & Weight: Vital Signs (12 hours) Temp Pulse Resp BP Pulse Ox 03/25/18 17:20 100 18 167/86 H 03/25/18 08:00 96 03/25/18 07:52 76 03/25/18 07:43 98.0 F 76 18 196/91 H 96 Weight Weight 153 lb Result Diagrams: 03/25/18 07:26 03/25/18 07:26 Phys Exam - Physical Examination HEENT: PERRLA Respiratory: no wheezing, no rales, no rhonchi, clear to auscultation bilateral Cardiovascular: RRR, no significant murmur, no rub Gastrointestinal: soft, non-tender, positive bowel sounds Musculoskeletal: no edema, pulses present Dx/Plan (1) End stage renal disease Code(s): N18.6 - END STAGE RENAL DISEASE Status: Acute (2) Chest pain Code(s): R07.9 - CHEST PAIN, UNSPECIFIED Status: Acute (3) CAD (coronary artery disease) Code(s): I25.10 - ATHSCL HEART DISEASE OF [place] CORONARY ARTERY W/O ANG PCTRS Status: Chronic Qualifiers: Coronary Disease-Associated Artery/Lesion type: [place] artery [place] vs. transplanted heart: [place] heart Associated angina: without angina Qualified Code(s): I25.10 - Atherosclerotic heart disease of [place] coronary artery without angina pectoris (4) HTN (hypertension) Code(s): I10 - ESSENTIAL (PRIMARY) HYPERTENSION Status: Chronic Qualifiers: Hypertension type: essential hypertension - Plan * End stage renal disease- he is being prepared for Hemodialysis * HTN- blood pressure is a bit elevated- will monitor and titrate medications as needed * Chest pain- will await Cardiology input. * Apply pressure dressing to central line site9 excessive bleeding is likely from platelet dysfunction from renal disease- will hold Heparin for now.
--- NOTE | 2018-03-25 19:43 | PRG ---
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 The patient was found to have worsening renal function with estimated EGFR of 13. It was felt that the CKD has progressed to ESRD and he was dialytic treatment. The patient had a tunneled dialysis catheter placement earlier today. No new problems. OBJECTIVE: VITALS: BP 167/86, pulse 100, respiratory rate 18, SpO2 of 96% on room air. GENERAL: Elderly male, in no obvious distress. Afebrile, anicteric. HEENT: Normocephalic, atraumatic. Oral mucosa is moist. NECK: Right-sided tunneled dialysis catheter noted with some bruises on the right side of neck. LUNGS: Fair air entry bilaterally with no obvious crackle or rhonchi. CARDIOVASCULAR: Regular rhythm and rate with normal heart sounds one and two. Abdomen: Full, soft, nontender, nondistended with normal bowel sounds. EXTREMITIES: Trace bilateral leg edema noted. NEUROLOGIC: Conscious and alert, oriented x3 with appropriate mental status. LABORATORY DATA: CBC showed WBC count of 7.4, hemoglobin of 10.7, and platelets of 230. BMP showed sodium 138, potassium 3.5, chloride 105, CO2 of 19, BUN 49, creatinine 4.03, glucose 88. ASSESSMENT: 1. ESRD: 2/2 Acute on chronic renal failure. The patient has baseline CKD from IgA nephropathy with recent baseline creatinine of 2.7 to 2.8. On presentation at this time, creatinine went up to 4.57, which is down to 4.03 today. The patient had persistent nausea and vomiting as well as poor appetite suggestive of uremic syndrome. The patient is status post dialysis catheter placement. We will initiate dialytic treatment today. 2. Hypertension. We will continue current medications and monitor BP post dialysis. 3. IgA nephropathy. 4. Nausea and vomiting. Continue antiemetics as needed. 5. History of coronary artery disease. The patient has mild troponin elevation. We defer to primary team. Job ID: [id number] MTDD
[2018-03-25] MEDS: Rosuvastatin 10 MG TAB PO SCH (20:51)
[2018-03-25] MEDS: traMADol HCl 50 MG TAB PO PRN (22:23)
--- NOTE | 2018-03-25 23:10 | CON ---
DATE OF CONSULTATION: HISTORY: The patient is a 78-year-old gentleman who presents with weakness and with chest discomfort. The patient has a long history of coronary artery disease and has had several previous cardiac catheterizations, the most recent in March 2017, he had a 20% LAD lesion, a 50% lesion in the inferior branch of the ramus, 20% RCA lesion,and 50% PDA lesion. The patient has been on medical therapy. He unfortunately has developed progressive renal failure due to nephropathy. He has felt weak and increasing dyspnea. He reports also having chest discomfort primarily with exertion. He denies any present chest discomfort. PAST MEDICAL HISTORY: 1. Coronary artery disease. 2. Hypertension. 3. Dyslipidemia. 4. Renal insufficiency. 5. History of anxiety. PAST SURGICAL HISTORY: Back surgery. ALLERGIES: PENICILLIN, SULFA, FLOMAX, KETOROLAC, PENICILLIN. SOCIAL HISTORY: Nonsmoker. MEDICATIONS: See nursing list. REVIEW OF SYSTEMS: Noticeable for weight loss, decreased appetite. PHYSICAL EXAMINATION: GENERAL: Ill-appearing gentleman. VITAL SIGNS: Blood pressure 196/91. NECK: No jugular venous distention. LUNGS: Clear to auscultation. HEART: Regular rate and rhythm. Normal S1, S2. ABDOMEN: Nondistended. EXTREMITIES: Showed no edema. LABORATORY DATA: Sodium 138, potassium 3.5, chloride 105, bicarbonate 19, BUN 49, creatinine 4.0. Troponin was 0.061. White blood cell count 7.4, hemoglobin 10.7, hematocrit 32.3, platelets are 230. His EKG revealed him to have normal sinus rhythm with left ventricular hypertrophy. IMPRESSION: 1. Chest pain, atypical. 2. History of [id number] coronary artery disease. 3. Hypertension. 4. Dyslipidemia. 5. Renal failure. This gentleman has a long history of [id number] coronary artery disease. He is now starting dialysis. From a cardiac standpoint, his EKG showed no acute ischemic changes. His cardiac enzymes revealed no evidence of myocardial infarction. We will restart the patient on his rosuvastatin. We will follow with you through his hospitalization. Job ID: [id number] [facility]
[2018-03-26] MEDS: Clindamycin/D5W 600 MG in Premix Bag 1 BAG IVPB SCH ×3 (04:58→17:55)
[2018-03-26 05:44] LABS: #Lymphocytes 0.6 thou/uL (1.20-3.40); #Monocytes 0.1 thou/uL (0.11-0.59); #Neutrophils 5.9 thou/uL (1.40-6.50); %Eosinophils 0.2 % (0.0-10.0); %Lymphocytes 8.5 % (21.0-51.0); %Monocytes 0.8 % (0.0-10.0); %Neutrophils 90.4 % (42.0-75.0); Mean Corpuscular HGB CONC 33.6 g/dL (32.0-36.0); Mean Corpuscular Hemoglobin 31.1 pg (27.0-31.0); Mean Corpuscular Volume 92.6 fL (78.0-98.0); Mean Platelet Volume 7.6 fL (7.4-10.4); Platelet Count 185 thou/uL (130-400); RBC Distribution Width 15.6 % (11.5-14.5); White Blood Cell (WBC) Count 6.5 thou/uL (4.8-10.8)
[2018-03-26 06:01] LABS: Anion Gap 16 mmol/L (10-20); BUN (Urea Nitrogen) 46 mg/dL (8.4-25.7); Calc. Creatinine Clearance 15 mL/min (70-130); Calcium 8.8 mg/dL (7.8-10.44); Carbon Dioxide 22 mmol/L (23-31); Chloride 100 mmol/L (98-107); Estimated GFR-MDRD 14; Glucose 186 mg/dL (83-110); Potassium 4.5 mmol/L (3.5-5.1); Sodium 133 mmol/L (136-145)
--- NOTE | 2018-03-26 08:21 | PRG ---
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 The patient had 1 hour session yesterday, and he is due for 2 hours today. The patient was seen in the dialysis unit. No new problem. Bleeding from the left-sided triple-lumen catheter has stopped. OBJECTIVE: VITAL SIGNS: BP 142/79, temperature 99.1, pulse 84, respiratory rate 16, SpO2 of 96% on room air. GENERAL: Elderly male in no obvious distress. Afebrile. HEENT: Normocephalic, atraumatic. Oral mucosa is moist. NECK: Left-sided triple-lumen catheter noted with no obvious bleeding. Right-sided tunneled dialysis catheter noted. LUNGS: Good air entry bilaterally. No obvious crackle or rhonchi. CARDIOVASCULAR: Regular rhythm and rate with normal heart sounds 1 and 2. ABDOMEN: Full, soft, nontender, nondistended with normal bowel sounds. EXTREMITIES: No obvious leg edema noted. NEUROLOGIC: Conscious, alert, and oriented x3 with appropriate mental status. Cranial nerves 2 through 12 are grossly intact. The patient moves all extremities. DIAGNOSTIC DATA: BMP showed sodium 133, potassium 4.5, chloride 100, CO2 of 22, BUN 46, creatinine 4.19, glucose 186. CBC showed WBC count of 6.5, hemoglobin of 9.0, down from 10.7 yesterday, platelet of 185. ASSESSMENT: 1. 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 The patient was initiated on hemodialysis on March 25. He will get 2 hours of dialysis today. 2. 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 3. Hypertension: Control is acceptable. We will continue on current antihypertensive. 4. Nausea and vomiting: Subsided. Continue antiemetics as needed. Job ID: [id number]
[2018-03-26] MEDS: predniSONE 20 MG TAB PO SCH (09:54)
[2018-03-26] MEDS: hydrALAZINE 25 MG TAB PO SCH ×3 (09:55→21:08)
[2018-03-26] MEDS: Famotidine 20 MG TAB PO SCH (09:55)
[2018-03-26] MEDS: NIFEdipine XL 30 MG TAB PO SCH (09:55)
[2018-03-26] MEDS ORDERED: Heparin 1,000 UNITS/ML VIAL ONE (11:11)
[2018-03-26] MEDS ORDERED: Clindamycin/D5W 600 mg/50 ml Premix Bag ONE (12:15)
--- NOTE | 2018-03-26 13:46 | PDOC.PN ---
- Subjective Encounter Start Date: 03/26/18 Encounter Start Time: 12:45 Mr. Burleson was seen today in follow-up of ESRD and Chest pain. He is feeling much better today. He is sitting up in a chair eating. He has not had any nausea today. she denies having any chest pain - Objective Resuscitation Status - Order Detail: 03/24/18 18:22 Resuscitation Status Routine Resuscitation Status: FULL: Full Resuscitation MAR Reviewed: Yes Vital Signs & Weight: Vital Signs (12 hours) Temp Pulse Resp BP BP Pulse Ox 03/26/18 11:49 98.1 F 90 16 148/73 H 96 03/26/18 09:55 84 03/26/18 09:40 85 18 175/86 H 03/26/18 03:28 99.1 F 84 16 148/79 H 96 Weight Weight 150 lb 11.2 oz I&O: 03/25/18 03/26/18 03/27/18 06:59 06:59 06:59 Intake Total 600 480 Output Total 100 Balance 500 480 Result Diagrams: 03/26/18 05:14 03/26/18 05:14 Phys Exam - Physical Examination HEENT: PERRLA Respiratory: no wheezing, no rales, no rhonchi, clear to auscultation bilateral Cardiovascular: RRR, no significant murmur, no rub Gastrointestinal: soft, non-tender, no distention, positive bowel sounds Musculoskeletal: no edema, pulses present Neurological: non-focal Dx/Plan (1) End stage renal disease Code(s): N18.6 - END STAGE RENAL DISEASE Status: Acute (2) Chest pain Code(s): R07.9 - CHEST PAIN, UNSPECIFIED Status: Acute (3) CAD (coronary artery disease) Code(s): I25.10 - ATHSCL HEART DISEASE OF [place] CORONARY ARTERY W/O ANG PCTRS Status: Chronic Qualifiers: Coronary Disease-Associated Artery/Lesion type: [place] artery [place] vs. transplanted heart: [place] heart Associated angina: without angina Qualified Code(s): I25.10 - Atherosclerotic heart disease of [place] coronary artery without angina pectoris (4) HTN (hypertension) Code(s): I10 - ESSENTIAL (PRIMARY) HYPERTENSION Status: Chronic Qualifiers: Hypertension type: essential hypertension - Plan * ESRD due to IGA Nephropathy- he is being prepared for dialysis * Chest pain- Cardiology evaluation appreciated- he is clinically improved since admission, and continue medical treatment for CAD- no additional work-up at this time * HTN- blood pressure is a bit elevated- but it appears to be trending down. * Bleeding for the central line site has ceased .
[2018-03-26] MEDS: Rosuvastatin 10 MG TAB PO SCH (21:08)
[2018-03-26] MEDS: traMADol HCl 50 MG TAB PO PRN (21:14)
[2018-03-26] MEDS: READ PPD TEST SITE PO SCH (22:01)
[2018-03-27] MEDS: Clindamycin/D5W 600 MG in Premix Bag 1 BAG IVPB SCH ×5 (00:45→23:26)
--- NOTE | 2018-03-27 08:37 | PRG ---
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 No new complaints. Denied shortness of breath. OBJECTIVE: VITAL SIGNS: BP 137/65, respiratory rate 16, pulse 87, temperature 97.4, SpO2 of 98 on room air. GENERAL: Elderly male in no obvious distress. Afebrile, anicteric, acyanotic. HEENT: Normocephalic, atraumatic. Oral mucosa is moist. LUNGS: Good air entry bilaterally with no obvious crackle or rhonchi. CARDIOVASCULAR: Regular rhythm and rate. Normal heart sounds 1 and 2. No obvious murmur was appreciated. ABDOMEN: Full, soft, nontender, nondistended with normal bowel sounds. EXTREMITIES: No edema appreciated. NEUROLOGIC: Conscious and alert, oriented x3 with appropriate mental status. Cranial nerves 2 through 12 are intact. DIAGNOSTIC DATA: BMP on March 26 showed sodium 133, potassium 4.5, chloride 100, CO2 of 22, BUN 46, creatinine 4.19. ASSESSMENT AND PLAN: 1. End-stage renal disease secondary to immunoglobulin A nephropathy progression. The patient will get stat section of hemodialysis today. We will get 3 hours of treatment. 2. Volume status: Acceptable. We will do UF as tolerated. 3. Hypertension: Control is acceptable. We will continue current antihypertensives. 4. 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 DISPOSITION: The patient will need outpatient dialysis here. Case management working on arranging a dialysis here for this patient and he can be discharged once this is arranged. Job ID: [id number]
[2018-03-27] MEDS: Famotidine 20 MG TAB PO SCH (09:15)
[2018-03-27] MEDS: hydrALAZINE 25 MG TAB PO SCH ×3 (09:15→21:12)
[2018-03-27] MEDS: NIFEdipine XL 30 MG TAB PO SCH ×2 (09:16→12:22)
[2018-03-27] MEDS: predniSONE 20 MG TAB PO SCH ×2 (09:16→12:21)
[2018-03-27] MEDS ORDERED: Heparin 1,000 UNITS/ML VIAL ONE (11:11)
--- NOTE | 2018-03-27 14:53 | PDOC.PN ---
- Subjective Encounter Start Date: 03/27/18 Encounter Start Time: 10:15 Mr. Burleson was seen today in follow-up of ESRD. He does not have any complaints. He was seen today during dialysis. - Objective Resuscitation Status - Order Detail: 03/24/18 18:22 Resuscitation Status Routine Resuscitation Status: FULL: Full Resuscitation MAR Reviewed: Yes Vital Signs & Weight: Vital Signs (12 hours) Temp Pulse Resp BP BP Pulse Ox 03/27/18 12:22 87 164/75 H 03/27/18 11:35 97.9 F 87 20 164/75 H 99 03/27/18 09:16 72 03/27/18 09:15 72 03/27/18 07:56 97.6 F 72 14 176/79 H 97 03/27/18 04:12 137/65 03/27/18 04:00 97.4 F L 87 16 172/79 H 98 Weight Weight 153 lb 7.068 oz I&O: 03/26/18 03/27/18 03/28/18 06:59 06:59 06:59 Intake Total 600 1760 Output Total 100 Balance 500 1760 Result Diagrams: 03/26/18 05:14 03/26/18 05:14 Phys Exam - Physical Examination HEENT: PERRLA Respiratory: no wheezing, no rales, no rhonchi, clear to auscultation bilateral Cardiovascular: RRR, no significant murmur, no rub Gastrointestinal: soft, non-tender, no distention, positive bowel sounds Musculoskeletal: no edema, pulses present Dx/Plan (1) End stage renal disease Code(s): N18.6 - END STAGE RENAL DISEASE Status: Acute (2) Chest pain Code(s): R07.9 - CHEST PAIN, UNSPECIFIED Status: Acute (3) CAD (coronary artery disease) Code(s): I25.10 - ATHSCL HEART DISEASE OF [place] CORONARY ARTERY W/O ANG PCTRS Status: Chronic Qualifiers: Coronary Disease-Associated Artery/Lesion type: [place] artery [place] vs. transplanted heart: [place] heart Associated angina: without angina Qualified Code(s): I25.10 - Atherosclerotic heart disease of [place] coronary artery without angina pectoris (4) HTN (hypertension) Code(s): I10 - ESSENTIAL (PRIMARY) HYPERTENSION Status: Chronic Qualifiers: Hypertension type: essential hypertension - Plan * ESRD- he is tolerating dialysis. * HTN- blood pressure - blood pressure is a bit elevated , will continue to monitor the trend * CAD- clinically stable * IGA Nephropathy- he had been on steroids, but now has ESRD- will need to rj steroids off. He tells me Dr. David was in the process of doing this- but the patient does not remember what dose he is currently on. will need to clarify this on Thursday.
[2018-03-27] MEDS: traMADol HCl 50 MG TAB PO PRN (18:53)
[2018-03-27] MEDS: READ PPD TEST SITE PO SCH (19:56)
[2018-03-27] MEDS: Rosuvastatin 10 MG TAB PO SCH (21:12)
[2018-03-28] MEDS: Clindamycin/D5W 600 MG in Premix Bag 1 BAG IVPB SCH ×3 (05:15→17:19)
[2018-03-28] MEDS: cloNIDine 0.1 MG TAB PO PRN (05:22)
[2018-03-28] MEDS: NIFEdipine XL 30 MG TAB PO SCH (09:12)
[2018-03-28] MEDS: hydrALAZINE 25 MG TAB PO SCH ×3 (09:12→22:00)
[2018-03-28] MEDS: Famotidine 20 MG TAB PO SCH (09:12)
[2018-03-28] MEDS: predniSONE 20 MG TAB PO SCH (09:12)
[2018-03-28] MEDS: traMADol HCl 50 MG TAB PO PRN ×2 (09:13→18:16)
--- NOTE | 2018-03-28 09:41 | PDOC.PN ---
- Subjective Encounter Start Date: 03/28/18 Encounter Start Time: 09:39 Mr. Burleson was seen today in follow-up of ESRD. He says he feels a little stronger. His appetite is better, but he still has the bitter taste in his mouth. - Objective Resuscitation Status - Order Detail: 03/24/18 18:22 Resuscitation Status Routine Resuscitation Status: FULL: Full Resuscitation MAR Reviewed: Yes Vital Signs & Weight: Vital Signs (12 hours) Temp Pulse Resp BP BP Pulse Ox 03/28/18 09:12 67 169/79 H 03/28/18 07:52 98.0 F 67 18 169/79 H 98 03/28/18 05:22 182/82 H 03/28/18 04:00 98.1 F 76 16 176/76 H 96 03/28/18 00:00 98 F 73 16 139/66 99 Weight Weight 155 lb 13.869 oz I&O: 03/27/18 03/28/18 03/29/18 06:59 06:59 06:59 Intake Total 1760 1250 300 Output Total 1600 Balance 1760 -350 300 Result Diagrams: 03/26/18 05:14 03/26/18 05:14 Phys Exam - Physical Examination HEENT: PERRLA Respiratory: no wheezing, no rales, no rhonchi, clear to auscultation bilateral Cardiovascular: RRR, no significant murmur, no rub Gastrointestinal: soft, non-tender, no distention, positive bowel sounds Musculoskeletal: no edema, pulses present Dx/Plan (1) End stage renal disease Code(s): N18.6 - END STAGE RENAL DISEASE Status: Acute (2) Chest pain Code(s): R07.9 - CHEST PAIN, UNSPECIFIED Status: Acute (3) CAD (coronary artery disease) Code(s): I25.10 - ATHSCL HEART DISEASE OF [place] CORONARY ARTERY W/O ANG PCTRS Status: Chronic Qualifiers: Coronary Disease-Associated Artery/Lesion type: [place] artery [place] vs. transplanted heart: [place] heart Associated angina: without angina Qualified Code(s): I25.10 - Atherosclerotic heart disease of [place] coronary artery without angina pectoris (4) HTN (hypertension) Code(s): I10 - ESSENTIAL (PRIMARY) HYPERTENSION Status: Chronic Qualifiers: Hypertension type: essential hypertension - Plan * End stage renal disease due to IGA Nephropathy- he is being prepared for Outpatient dialysis * Will need to clarify steroid rj * HTN- blood pressure is a bit elevated- will continue to monitor * CAD- stable.
[2018-03-28] MEDS ORDERED: Zinc Sulfate 220 MG CAP PO SCH (12:00)
[2018-03-28] MEDS: Rosuvastatin 10 MG TAB PO SCH (22:00)
[2018-03-29] MEDS: Clindamycin/D5W 600 MG in Premix Bag 1 BAG IVPB SCH ×4 (00:52→17:25)
--- NOTE | 2018-03-29 09:02 | PRG ---
DATE OF SERVICE: 03/29/2018 SUBJECTIVE: Mr. Burleson is a 78-year-old white male, who has chronic renal failure and has been initiated with hemodialysis. He is currently undergoing dialysis today. My plan is to do a 3-1/[address] him on a regular Thursday, Thursday, and Thursday. No other complaints today. No chest pain or shortness of breath. He tells me he feels better with the dialysis. OBJECTIVE: VITAL SIGNS: Blood pressure is 164/80, heart rate 84, respiratory rate 16, temperature 97.6, pulse oximetry 97%. GENERAL: Noted to be awake, comfortable, not in distress. SKIN: Adequate turgor. HEENT: He has a slightly pale conjunctivae. Anicteric sclerae. NECK: No neck mass. No carotid bruits. No JVD. CHEST: No deformities. LUNGS: Clear breath sounds. HEART: Normal sinus rhythm. No murmur. No gallops. No rubs. ABDOMEN: Globular, soft, nontender. No masses. EXTREMITIES: No edema. No deformities. MEDICATIONS: Medications of March 29, 2018, reviewed. LABORATORY DATA: Laboratories March 26, 2018; white count 6.5, hemoglobin 9. Sodium 133, potassium 4.5, chloride 100, carbon dioxide 22, BUN 46, creatinine 4.19, glucose 186, calcium 8.8. ASSESSMENT AND PLAN: 1. Chronic renal failure/end-stage renal disease, undergoing hemodialysis. The patient has been placed on a Thursday, Thursday, and Thursday hemodialysis regimen 3-1/2 hours each. We will recheck another basic metabolic panel and CBC. 2. Borderline anemia. Recheck CBC tomorrow. If needed, restart Epogen. Awaiting outpatient dialysis placement. Job ID: [id number]
[2018-03-29] MEDS ORDERED: Clindamycin/D5W 600 mg/50 ml Premix Bag ONE (11:36)
[2018-03-29] MEDS ORDERED: Protamine Sulfate 50 MG/5 ML VIAL ONE (13:05)
[2018-03-29] MEDS ORDERED: Bupivacaine HCl 0.5%/Epinephrine 1:200,000/PF 30 ml Vial ONE (13:05)
[2018-03-29] MEDS ORDERED: Heparin 5,000 UNITS/ML VIAL ONE (13:05)
[2018-03-29] MEDS ORDERED: Propofol 500 MG/50 ML VIAL ONE (13:08)
[2018-03-29] MEDS ORDERED: Meperidine HCl/PF 25 MG/ML VIAL ONE (13:08)
[2018-03-29] MEDS ORDERED: Lidocaine 2% PF 5 ML VIAL ONE (13:32)
[2018-03-29] MEDS ORDERED: Heparin 10,000 UNITS/ 10 ML VIAL ONE ×2 (13:40→14:58)
[2018-03-29] MEDS: hydrALAZINE 25 MG TAB PO SCH ×2 (14:32→15:35)
[2018-03-29] MEDS ORDERED: Promethazine HCl 25 MG/ML VIAL IM PRN (14:50)
[2018-03-29] MEDS ORDERED: Promethazine HCl 25 MG/ML VIAL SLOW IVP PRN (14:50)
[2018-03-29] MEDS ORDERED: Ondansetron HCl/PF 4 MG/2 ML Vial IVP PRN (14:50)
[2018-03-29] MEDS ORDERED: Lidocaine 1% PF 5 ML VIAL ONE (14:58)
[2018-03-29] MEDS ORDERED: PROPOFOL 200 MG/20 ML VIAL ONE (14:58)
[2018-03-29] MEDS: Famotidine 20 MG TAB PO SCH (15:33)
[2018-03-29] MEDS: predniSONE 20 MG TAB PO SCH (15:33)
[2018-03-29] MEDS: Zinc Sulfate 220 MG CAP PO SCH (15:34)
[2018-03-29] MEDS: NIFEdipine XL 30 MG TAB PO SCH (15:34)
[2018-03-29] MEDS: traMADol HCl 50 MG TAB PO PRN (15:35)
--- NOTE | 2018-03-29 15:48 | PDOC.PN ---
- Subjective Encounter Start Date: 03/29/18 Encounter Start Time: 10:00 Mr. Burleson was seen today in follow-up of ESRD. He does not have any complaints. He denies chest pain or difficulty breathing. - Objective Resuscitation Status - Order Detail: 03/24/18 18:22 Resuscitation Status Routine Resuscitation Status: FULL: Full Resuscitation MAR Reviewed: Yes Vital Signs & Weight: Vital Signs (12 hours) Temp Pulse Resp BP BP Pulse Ox 03/29/18 15:35 76 157/70 H 03/29/18 15:34 76 157/70 H 03/29/18 15:28 98.1 F 76 20 157/70 H 95 03/29/18 14:32 84 03/29/18 04:41 97.6 F 84 16 164/80 H 97 Weight Weight 200 lb 2 oz I&O: 03/28/18 03/29/18 03/30/18 06:59 06:59 06:59 Intake Total 1250 900 Output Total 1600 Balance -350 900 Result Diagrams: 03/26/18 05:14 03/26/18 05:14 Phys Exam - Physical Examination HEENT: PERRLA Respiratory: no wheezing, no rales, no rhonchi, clear to auscultation bilateral Cardiovascular: RRR, no significant murmur, no rub Gastrointestinal: soft, non-tender, no distention, positive bowel sounds Musculoskeletal: no edema, pulses present Dx/Plan (1) End stage renal disease Code(s): N18.6 - END STAGE RENAL DISEASE Status: Acute (2) Chest pain Code(s): R07.9 - CHEST PAIN, UNSPECIFIED Status: Acute (3) CAD (coronary artery disease) Code(s): I25.10 - ATHSCL HEART DISEASE OF [place] CORONARY ARTERY W/O ANG PCTRS Status: Chronic Qualifiers: Coronary Disease-Associated Artery/Lesion type: [place] artery [place] vs. transplanted heart: [place] heart Associated angina: without angina Qualified Code(s): I25.10 - Atherosclerotic heart disease of [place] coronary artery without angina pectoris (4) HTN (hypertension) Code(s): I10 - ESSENTIAL (PRIMARY) HYPERTENSION Status: Chronic Qualifiers: Hypertension type: essential hypertension - Plan * ESRD due to IGA Nephropathy- he is being prepared for dialysis * HTN- Blood pressure is a bit elevated- will increase his dose of Procardia to 60mg in the AM * IGA Nephropathy- he is on Prednisone- will need to rj * CAD- stable * Will need Out patient arrangements for PD/HD .
--- NOTE | 2018-03-29 16:02 | OP ---
DATE OF PROCEDURE: 03/29/2018 PREOPERATIVE DIAGNOSIS: End-stage renal disease. POSTOPERATIVE DIAGNOSIS: End-stage renal disease. PROCEDURES PERFORMED: Right arm primary fistula, perforating branch of antecubital vein to the proximal radial artery, outflow solely was cephalic vein. Retrograde antecubital vein preserved. Of note, exploration of right wrist revealed inadequate cephalic vein at the wrist. This wound was closed. ANESTHESIA: TIVA regional, local of 0.5% Marcaine with epinephrine 30 mL mixed with 2% Xylocaine 10 mL. DESCRIPTION OF PROCEDURE: The patient was taken to the operating room, where under regional anesthesia and intravenous sedation, right upper extremity was prepared with ChloraPrep and draped in routine fashion. Incision was made in the proximal volar forearm longitudinally below the antecubital fossa, carried down to skin and subcutaneous tissue. 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 The perforating branch was dissected free. Down at the proximal radial artery, there was a large brachial ulnar artery, and adequate proximal radial artery was dissected free. The patient was given 6000 units of heparin intravenously. At a branch point, the perforating branch of antecubital vein was spatulated and interrogated with coronary dilators passing coronary dilators from 2 mm to 3.5 mm coronary dilator out the cephalic vein outflow. Heparinized saline was used to infiltrate the vein, and then a bulldog and a vascular clamp applied. A longitudinal proximal radial arteriotomy was made sharply and elongated with the Wiseman scissors after placing the atraumatic vascular clamps for vascular control. End vein to side proximal artery anastomosis was created with continuous suture of 6-0 Prolene. At completion of the anastomosis, vascular clamps were released. There was good arterial signal by Doppler out the cephalic vein outflow. The small communicating branch to basilic vein was clipped. Retrograde antecubital vein preserved. There was a larger forearm vein retrograde preserved. As noted previously, it did not extend large down into the wrist to enable Jessica, however. The patient was given 25 mg of protamine intravenously, and then subcutaneous tissue was approximated with 3-0 Monocryl, skin with subdermal 4-0 Monocryl, and [place] glue was applied. Job ID: [id number]
[2018-03-29] MEDS: Rosuvastatin 10 MG TAB PO SCH (21:37)
[2018-03-30] MEDS: hydrALAZINE 25 MG TAB PO SCH ×4 (01:22→21:25)
[2018-03-30] MEDS: Clindamycin/D5W 600 MG in Premix Bag 1 BAG IVPB SCH ×3 (01:26→12:12)
[2018-03-30] MEDS: traMADol HCl 50 MG TAB PO PRN ×2 (01:29→21:25)
--- NOTE | 2018-03-30 09:19 | PRG ---
DATE OF SERVICE: 03/30/2018 SUBJECTIVE: Mr. Burleson is a 78-year-old male with chronic renal failure from biopsy-proven IgA nephropathy, hypertensive nephropathy and was admitted due to uremic signs and symptoms. He is now currently on dialysis. We are currently awaiting dialysis placement. The patient denies any chest pain, shortness of breath, nausea, or vomiting. OBJECTIVE: VITAL SIGNS: Blood pressure 157/74, heart rate 84, respiratory rate 16, temperature 98.1, pulse ox 96%. GENERAL: Awake, alert, ambulatory, comfortable. SKIN: Adequate turgor. HEENT: He has a slightly pale conjunctivae. Anicteric sclerae. NECK: No neck mass. No carotid bruits. No JVD. CHEST: No deformities. LUNGS: Clear breath sounds. No wheezing. No crackles. HEART: Normal sinus rhythm. No murmur. No gallops. No rubs. ABDOMEN: Globular, soft, nontender. No masses. EXTREMITIES: No edema. No deformities. MEDICATIONS: Medications of March 30, 2018, was reviewed. LABORATORY DATA: Laboratories of March 26, 2018; white count 6.5, hemoglobin 9. Sodium 133, potassium 4.5, chloride 100, carbon dioxide 22, BUN 46, creatinine 4.19, glucose 186, calcium 8.8. ASSESSMENT AND PLAN: 1. Chronic renal failure/end-stage renal disease, tolerating hemodialysis. Fluid removal only as tolerated. 2. Borderline anemia. We will continue to observe there once he is an outpatient dialysis, consider initiating iron and Epogen with the patient. The patient much improved with clinical uremic signs and symptoms with dialysis. Overall, agree with current management. Awaiting outpatient dialysis placement. Job ID: [id number]
[2018-03-30] MEDS: cloNIDine 0.1 MG TAB PO PRN (09:37)
[2018-03-30] MEDS: Famotidine 20 MG TAB PO SCH (09:38)
[2018-03-30] MEDS: predniSONE 20 MG TAB PO SCH (09:38)
[2018-03-30] MEDS: NIFEdipine XL 60 MG TAB PO SCH (09:38)
[2018-03-30] MEDS: Zinc Sulfate 220 MG CAP PO SCH (09:48)
[2018-03-30] MEDS ORDERED: Aspirin 81 mg Enteric Coated Tablet PO SCH (12:45)
--- NOTE | 2018-03-30 15:22 | PRG ---
DATE OF SERVICE: 03/30/2018 SUBJECTIVE: The patient is seen and examined at the bedside. His son is present in the room during my visit. The patient says that he has a history of frequent falls in the past and he feels weak. He has very diffuse multiple ecchymotic lesions all over his body involving upper extremities, chest, and abdomen. OBJECTIVE: VITAL SIGNS: Blood pressure is 140/63, pulse is 88, temperature 97.7, respirations 16, and O2 saturation is 94% on room air. HEENT: His head is atraumatic and normocephalic. Pupils are responding to light properly. Sclerae are nonicteric. Oral mucosa is moist. LUNGS: Clear. HEART: S1 and S2 normal. No S3. No S4. ABDOMEN: Soft, nontender. Bowel sounds are present. No organomegaly. EXTREMITIES: No clubbing, cyanosis, or edema. NEUROLOGIC: He follows my commands. This are no any motor deficits present. Cranial nerves are intact. LABORATORY DATA: None today. IMPRESSION: 1. End-stage renal disease. 2. Coronary artery disease. 3. Hypertension. 4. Easy bruisability. 5. Normocytic anemia. 6. Generalized weakness. PLAN: The patient did physical therapy during this hospitalization and he is able to walk 450 feet, but he gets really short of breath on exertion and he agrees that he needs some [facility] facility placement for PT since he lives with his at home and she is not able to help him much. We will obtain Case Management consult for [facility] facility screening and for PT. We will discontinue his clindamycin. We will continue his rest of the current management with Crestor, nifedipine, isosorbide, hydralazine, famotidine, and baby aspirin 81 mg once a day and he is going to be placed in outpatient dialysis center and continue with Dr. David, his payroll tax analyst. Job ID: [id number]
[2018-03-30] MEDS: Rosuvastatin 10 MG TAB PO SCH (21:25)
[2018-03-31] MEDS ORDERED: predniSONE 20 MG TAB PO SCH ×2 (08:19→08:30)
--- NOTE | 2018-03-31 08:53 | PRG ---
DATE OF SERVICE: 03/31/2018 SERVICE: Renal Medicine. SUBJECTIVE: Mr. Burleson is a 78-year-old male, who was admitted for uremic signs and symptoms. Hemodialysis has been initiated. At the same time, he was being treated for an IgA nephropathy with prednisone. I have decreased his prednisone dosing today. He is currently undergoing dialysis. I am at the bedside supervising his dialysis. He does have some easy bruisability. No complaints of chest pain or shortness of breath. OBJECTIVE: VITAL SIGNS: Blood pressure is 130/64, heart rate 88, respiratory rate 18, temperature 98.6, and pulse ox 97%. GENERAL: Noted to be awake, alert, comfortable, not in distress. SKIN: Adequate turgor. Positive for ecchymosis around the catheter site. LUNGS: Clear breath sounds. No wheezing. No crackles. HEART: Normal sinus rhythm. No murmur. No gallops. No rubs. ABDOMEN: Globular, soft, nontender. No masses. EXTREMITIES: No edema. No deformities. MEDICATIONS: Medications of March 31, 2018, reviewed. LABORATORY DATA: Laboratories of March 26, 2018; sodium 133, potassium 4.5, chloride 100, carbon dioxide 22, BUN 46, and creatinine 4.19. White count 6.5, hemoglobin 9. ASSESSMENT AND PLAN: 1. End-stage renal failure/chronic renal failure - continue current hemodialysis regimen on Thursday, Thursday, and Thursday. Fluid removal only as tolerated. 2. IgA nephropathy - we will start tapering prednisone from 40 to 20 mg tablet once a day. Continue to taper over the next several weeks. 3. Anemia. Recheck CBC. 4. Frequent falls - possibility of assisted placement with this patient. Overall, agree with current management. Recheck basic metabolic and CBC in a.m. Job ID: [id number]
[2018-03-31] MEDS: Aspirin 81 mg Enteric Coated Tablet PO SCH (11:29)
[2018-03-31] MEDS: hydrALAZINE 25 MG TAB PO SCH ×3 (11:30→21:23)
[2018-03-31] MEDS: Famotidine 20 MG TAB PO SCH (11:30)
[2018-03-31] MEDS: Zinc Sulfate 220 MG CAP PO SCH (11:30)
[2018-03-31] MEDS: NIFEdipine XL 60 MG TAB PO SCH (11:30)
[2018-03-31] MEDS: traMADol HCl 50 MG TAB PO PRN (11:37)
[2018-03-31] MEDS: predniSONE 20 MG TAB PO SCH (11:39)
--- NOTE | 2018-03-31 13:31 | PRG ---
DATE OF SERVICE: 03/31/2018 SUBJECTIVE: The patient is seen and examined during dialysis. He does not have much complaints to offer. He fell yesterday out of bed, trying to grab the phone and answer the phone call. His son was not present in the room, so he was not able to protect him, but he did not have any head injury or any significant other injury post fall. OBJECTIVE: VITAL SIGNS: Blood pressure is 151/75, pulse is 69, temperature is 97.6, respirations 18, and O2 saturation is 97% on room air. HEENT: His head is atraumatic and normocephalic. Sclerae nonicteric. Oral mucosa is somewhat dry. NECK: Supple. He has some very diffuse multiple ecchymoses all over his body, upper extremities too. LUNGS: Clear. HEART: S1 and S2 normal. No S3. No S4. ABDOMEN: Soft and nontender. EXTREMITIES: No clubbing, cyanosis, or edema. NEUROLOGIC: He follows my commands. He moves his all 4 extremities. LABORATORY DATA: No labs today. IMPRESSION: 1. End-stage renal disease. 2. Generalized weakness and deconditioning. 3. Coronary artery disease, chronic, stable. 4. Hypertension, chronic, stable. 5. Easy bruisability, most likely related to liver etiology. 6. Normocytic anemia. PLAN: Plan is to start his transfer to group home facility today. We feel like he needs to be in skilled to do PT and OT before he can return home safely. His agrees and wants me to continue the regimen and arrangements. We will continue the rest of the treatment. The patient is seen by Dr. David for his Nephrology evaluation. Job ID: [id number]
[2018-03-31] MEDS: Rosuvastatin 10 MG TAB PO SCH (21:23)
[2018-04-01 05:20] LABS: #Basophils 0.1 thou/uL (0.0-0.2); #Lymphocytes 1.2 thou/uL (1.20-3.40); #Monocytes 0.6 thou/uL (0.11-0.59); #Neutrophils 9.4 thou/uL (1.40-6.50); %Basophils 0.7 % (0.0-1.0); %Eosinophils 0.2 % (0.0-10.0); %Lymphocytes 10.3 % (21.0-51.0); %Neutrophils 83.9 % (42.0-75.0); Hemoglobin 8.8 g/dL (14.0-18.0); Mean Corpuscular HGB CONC 33.1 g/dL (32.0-36.0); Mean Corpuscular Hemoglobin 30.5 pg (27.0-31.0); Mean Corpuscular Volume 91.9 fL (78.0-98.0); Platelet Count 267 thou/uL (130-400); RBC Distribution Width 15.1 % (11.5-14.5); Red Blood Cell (RBC) Count 2.89 mill/uL (4.70-6.10); White Blood Cell (WBC) Count 11.2 thou/uL (4.8-10.8)
[2018-04-01 05:35] LABS: Anion Gap 13 mmol/L (10-20); BUN (Urea Nitrogen) 41 mg/dL (8.4-25.7); Calc. Creatinine Clearance 20 mL/min (70-130); Calcium 8.8 mg/dL (7.8-10.44); Carbon Dioxide 29 mmol/L (23-31); Chloride 97 mmol/L (98-107); Estimated GFR-MDRD 14; Glucose 107 mg/dL (83-110); Potassium 3.9 mmol/L (3.5-5.1); Sodium 135 mmol/L (136-145)
[2018-04-01] MEDS ORDERED: Epoetin (ESRD) 20,000 UNITS/ML SC SCH (09:15)
--- NOTE | 2018-04-01 09:31 | PRG ---
DATE OF SERVICE: 04/01/2018 SUBJECTIVE: Mr. Burleson is a 78-year-old male, who was admitted for progressive azotemia. He was clinically uremic. Hemodialysis has been initiated. He has biopsy-proven IgA nephropathy. Prednisone has now been tapered yesterday from 40 mg to 20 mg tablet once a day. An options visit was done with the patient. The family is thinking about peritoneal dialysis, but the patient could not make a final decision. We are awaiting for snf placement/penitentiary facility placement. No new complaints today. He is feeling better. No chest pain or shortness of breath. He did undergo dialysis yesterday. OBJECTIVE: VITAL SIGNS: Blood pressure is noted at 167/75, heart rate 85, respiratory rate 14, temperature 98.3, and pulse ox 98%. GENERAL: Noted to be awake, alert, comfortable, not in overt distress. SKIN: Adequate turgor. HEENT: He has slightly pale conjunctivae. Anicteric sclerae. No neck mass. No carotid bruits. No JVD. CHEST: No deformities. LUNGS: Clear breath sounds. No wheezing. No crackles. HEART: Normal sinus rhythm. No murmurs, no gallops, no rubs. ABDOMEN: Globular, soft, nontender. No masses. EXTREMITIES: No edema. No deformities. MEDICATIONS: Medications of April 01, 2018, was reviewed. LABORATORY DATA: Laboratories of April 01, 2018; white count 11.2, hemoglobin 8.8. Sodium 135, potassium 3.9, chloride 97, carbon dioxide 29, BUN 41, creatinine 4.06, calcium 8.8. ASSESSMENT AND PLAN: 1. Chronic renal failure/end-stage renal disease. Continue maintenance hemodialysis. Fluid removal only as tolerated. Minimizing or no heparin use with dialysis. 2. Anemia. Start Epogen and iron supplementation with this patient if this has not been done yet. 3. IgA nephropathy - continue to taper prednisone. Consider over this weekend converting him to 10 mg tablet once a day. Overall, agree with current management. Recheck basic metabolic panel and CBC in a.m. Job ID: [id number]
[2018-04-01] MEDS: predniSONE 20 MG TAB PO SCH (09:51)
[2018-04-01] MEDS: hydrALAZINE 25 MG TAB PO SCH ×3 (09:52→20:58)
[2018-04-01] MEDS: Aspirin 81 mg Enteric Coated Tablet PO SCH (09:52)
[2018-04-01] MEDS: NIFEdipine XL 60 MG TAB PO SCH (09:53)
[2018-04-01] MEDS: traMADol HCl 50 MG TAB PO PRN (09:54)
[2018-04-01] MEDS: Zinc Sulfate 220 MG CAP PO SCH (09:54)
--- NOTE | 2018-04-01 13:59 | PRG ---
DATE OF SERVICE: 04/01/2018 SUBJECTIVE: The patient is seen and examined at the bedside. He seems to be somewhat better than yesterday. He did not have more falls, but he still complains about generalized weakness. His son and his are present in the room during my visit. OBJECTIVE: VITAL SIGNS: Blood pressure is 160/74, pulse is 82, respiratory rate is 20, O2 saturation is 100% on room air, and temperature is 97.9. HEENT: His head is atraumatic and normocephalic. Eyes are PERRLA. Sclerae nonicteric. Oral mucosa is moist. NECK: Supple. SKIN: He has multiple bruised areas all over his body, front and back and upper extremities. A tunneled catheter is placed in the right side of the chest, subclavian vessel. LUNGS: Clear. HEART: S1, S2 normal. No S3. No S4. ABDOMEN: Soft, nontender. EXTREMITIES: 1+ peripheral edema similar bilaterally on the lower extremities. NEUROLOGIC: He follows my commands. He moves his all four extremities. LABORATORY DATA: Showed white count of 11.2, hemoglobin 8.8, hematocrit 26.5, platelet count is 267,000. Sodium of 135, potassium 3.9, chloride 97, CO2 of 29, BUN of 41, creatinine 4.06, glucose 107, calcium 8.8. IMPRESSION: 1. End-stage renal disease. 2. IgA nephropathy, on prednisone with a plan to taper the dose to 10 mg over this weekend. 3. Coronary artery disease, chronic, stable. 4. Hypertension, chronic, stable. 5. Easy bruisability. 6. Normocytic anemia. DISCUSSION: Loss Prevention Operations Manager decided to do a peritoneal dialysis catheter placement. This will be done by General Surgeon, Dr. Gonzales, and in the meantime, we will keep arranging his rehab versus skilled placement for PT and OT. We will continue his prednisone and supposed to be tapered over this weekend down to 10 mg once a day. Job ID: [id number]
[2018-04-01] MEDS ORDERED: Clindamycin/D5W 900 MG in Premix Bag 1 BAG IVPB SCH (14:15)
--- NOTE | 2018-04-01 14:25 | PRG ---
DATE OF SERVICE: 04/01/2018 SUBJECTIVE: Mr. Burleson is doing well today. His right arm fistula has good thrill and bruit. He has some slight redness around his incision in proximal volar forearm. The patient desires peritoneal dialysis. Family has watched the video. He has not had any prior abdominal operations. PHYSICAL EXAMINATION: ABDOMEN: Soft and nontender. There are no hernias evident. He denied any knowledge of having any pain in his groin or hernia. LUNGS: Clear to auscultation. CARDIAC: Regular rate and rhythm. No murmur or gallop. ABDOMEN: Soft and nontender. ASSESSMENT AND PLAN: End-stage renal disease, desires peritoneal dialysis. We will plan laparoscopic peritoneal dialysis catheter placement tomorrow. N.p.o. after midnight tonight. He can resume his renal diet tomorrow. He can be transferred to rehab after his laparoscopic PD catheter placement in the morning. He will have a sterile dressing over the wound, and the peritoneal dialysis nurse should change his dressing in 3 to 7 days and flush his PD catheter in 3 to 7 days, this is very important to maintain patency. The patient should follow up with me in 2 to 3 weeks. He can initiate training for peritoneal dialysis in the next 3 to 7 days when he sees the peritoneal dialysis nurse. He can begin peritoneal dialysis probably in 2 weeks postoperatively. Job ID: [id number]
[2018-04-01] MEDS: Ferrous Sulfate 325 MG TAB PO SCH (16:20)
[2018-04-01] MEDS: Rosuvastatin 10 MG TAB PO SCH (20:58)
--- NOTE | 2018-04-02 06:59 | PRG ---
DATE OF SERVICE: 04/02/2018 SUBJECTIVE: Mr. Burleson is a 78-year-old male, who was admitted for uremic signs and symptoms. Hemodialysis has been initiated. He tolerated said dialysis. He is on dialysis 3 times a week. It was also decided to proceed with a peritoneal dialysis catheter placement. Dr. Gonzales has scheduled him for placement today. No other complaints today. No chest pain or shortness of breath. The patient is scheduled for hemodialysis today. OBJECTIVE: VITAL SIGNS: Blood pressure is noted at 138/65, heart rate 89, respiratory rate 16, temperature 98, and pulse ox 97%. GENERAL: Noted to be awake, alert, comfortable, not in overt distress. SKIN: Adequate turgor. HEENT: He has a pinkish conjunctivae. Anicteric sclerae. NECK: No neck mass. No carotid bruits. No JVD. CHEST: No deformities. LUNGS: Clear breath sounds. HEART: Normal sinus rhythm. No murmurs, no gallops, no rubs. ABDOMEN: Globular, soft, nontender. No masses. EXTREMITIES: No edema. No deformities. MEDICATIONS: Medications of April 02, 2018, were reviewed. LABORATORY DATA: Laboratories of April 01, 2018; white count 11.2, hemoglobin 8.8. Sodium 135, potassium 3.9, chloride 97, carbon dioxide 29, BUN 41, creatinine 4.06, glucose 107, calcium 8.8. ASSESSMENT AND PLAN: 1. Chronic renal failure/end-stage renal disease-stable. Continuing 3 times a week hemodialysis. The patient and the family have agreed to proceed with peritoneal dialysis. Surgery has evaluated the patient for placement of a PD catheter. 2. Anemia-stable. Currently, on weekly Epogen and iron supplementation. Overall, agree with current management. Job ID: [id number]
[2018-04-02 08:48] LABS: #Eosinphils 0.1 thou/uL (0.0-0.7); #Lymphocytes 1.1 thou/uL (1.20-3.40); #Monocytes 0.4 thou/uL (0.11-0.59); #Neutrophils 9.3 thou/uL (1.40-6.50); %Basophils 0.2 % (0.0-1.0); %Eosinophils 0.6 % (0.0-10.0); %Lymphocytes 10.2 % (21.0-51.0); %Monocytes 3.9 % (0.0-10.0); %Neutrophils 85.1 % (42.0-75.0); Hemoglobin 8.7 g/dL (14.0-18.0); Mean Corpuscular HGB CONC 33.6 g/dL (32.0-36.0); Mean Corpuscular Hemoglobin 30.5 pg (27.0-31.0); Mean Corpuscular Volume 90.8 fL (78.0-98.0); Mean Platelet Volume 8.4 fL (7.4-10.4); Platelet Count 264 thou/uL (130-400); RBC Distribution Width 15.3 % (11.5-14.5); Red Blood Cell (RBC) Count 2.84 mill/uL (4.70-6.10)
[2018-04-02 09:11] LABS: Anion Gap 17 mmol/L (10-20); BUN (Urea Nitrogen) 61 mg/dL (8.4-25.7); Calc. Creatinine Clearance 13 mL/min (70-130); Calcium 9.1 mg/dL (7.8-10.44); Carbon Dioxide 27 mmol/L (23-31); Chloride 95 mmol/L (98-107); Estimated GFR-MDRD 12; Glucose 95 mg/dL (83-110); Potassium 3.6 mmol/L (3.5-5.1); Sodium 135 mmol/L (136-145)
[2018-04-02] MEDS ORDERED: Heparin 1,000 UNITS/ML VIAL ONE (11:11)
[2018-04-02] MEDS ORDERED: Bupivacaine HCl 0.5%/Epinephrine 1:200,000/PF 30 ml Vial ONE (11:25)
[2018-04-02] MEDS ORDERED: Heparin 10,000 UNITS/1 ML VIAL ONE (11:25)
[2018-04-02] MEDS ORDERED: Fentanyl 100 MCG/2 ML VIAL ONE (11:32)
[2018-04-02] MEDS ORDERED: Famotidine/PF 20 mg/2ml Vial ONE (11:32)
[2018-04-02 11:43] VITALS: BMI 25.3
[2018-04-02] MEDS ORDERED: Clindamycin/D5W 900 mg/50 ml Premix Bag ONE (12:06)
[2018-04-02] MEDS ORDERED: SUGAMMADEX SODIUM 200 MG/2 ML VIAL ONE (12:14)
[2018-04-02] MEDS ORDERED: Morphine Sulfate 2 MG/ML SYRINGE SLOW IVP PRN (12:48)
[2018-04-02] MEDS ORDERED: Ondansetron HCl/PF 4 MG/2 ML Vial IVP PRN (12:48)
--- NOTE | 2018-04-02 14:13 | OP ---
DATE OF PROCEDURE: 04/02/2018 PREOPERATIVE DIAGNOSES: End-stage renal disease, functioning fistula, right arm, desires peritoneal dialysis. POSTOPERATIVE DIAGNOSES: End-stage renal disease, functioning fistula, right arm, desires peritoneal dialysis. PROCEDURES PERFORMED: Laparoscopic peritoneal dialysis catheter, double-cuffed pigtail, laparoscopic omentopexy. ANESTHESIA: General, local 0.5% Marcaine with epinephrine 30 mL mixed with 2% Xylocaine 10 mL, total volume mixture used. DESCRIPTION OF PROCEDURE: The patient was taken to the operating room under general anesthesia, abdomen was prepared with ChloraPrep and draped in routine fashion. Local anesthetic was infiltrated into the skin and subcutaneous tissue about the operative sites. Bilateral far lateral subcostal incision was made. Pneumoperitoneum to 15 mmHg obtained with a Veress needle, replaced with a 5 port, laparoscope inserted. Contralateral port placed under laparoscopic visualization. Incision was made at the planned exit site left lower quadrant and slightly superior and medial at the umbilical level. Left paraumbilical counter incision was made and 8 mm port placed directed caudally through the subcutaneous tissue penetrating the rectus sheath, visualized laparoscopically, passing it down into the pelvis, penetrating the abdominal wall inferiorly. Double-cuffed pigtail catheter placed through this port, placed internal cuff in the rectus sheath, removing the port, holding the catheter with the laparoscopic grasper. [place] dissector placed through the planned exit site to the counterincision, grasping the catheter, placed an external cuff in the subcutaneous tissue beneath the skin exit site. Catheter connected to the irrigation device and flushed with heparinized saline solution 10 [id number] units of heparin per mL. It was dependent in the pelvis. Sterile dressings applied after incision closed by approximating subcutaneous tissues with 4-0 Monocryl, skin with subdermal 4-0 Monocryl, and Goldfield glue and sterile dressing applied. The omentum reached into the pelvis allowing transabdominal wall fixation suture 2-0 Vicryl to pass with a GraNee needle to perform omentopexy of the omentum to the anterior abdominal wall superiorly. Once this was fixed, pneumoperitoneum reduced. All instruments were removed and all skin incisions were approximated with subdermal 4-0 Monocryl and Goldfield glue applied. Job ID: [id number]
[2018-04-02] MEDS ORDERED: Hydrocortisone Sod Succ/PF 100 mg/2 ml Vial ONE (14:15)
[2018-04-02] MEDS ORDERED: Lidocaine 1% PF 5 ML VIAL ONE (14:15)
[2018-04-02] MEDS ORDERED: PROPOFOL 200 MG/20 ML VIAL ONE (14:15)
[2018-04-02] MEDS ORDERED: Rocuronium Bromide 10 MG/ML (10ML VIAL) ONE (14:15)
[2018-04-02] MEDS ORDERED: Ondansetron PF 4 MG/2 ML Vial ONE (14:15)
[2018-04-02] MEDS: hydrALAZINE 25 MG TAB PO SCH ×2 (14:21→14:25)
[2018-04-02] MEDS: Ferrous Sulfate 325 MG TAB PO SCH ×2 (14:23→15:24)
[2018-04-02] MEDS: predniSONE 20 MG TAB PO SCH (14:23)
[2018-04-02] MEDS: Aspirin 81 mg Enteric Coated Tablet PO SCH (14:24)
[2018-04-02] MEDS: NIFEdipine XL 60 MG TAB PO SCH (14:24)
[2018-04-02] MEDS: Zinc Sulfate 220 MG CAP PO SCH (14:25)
[2018-04-02] MEDS: traMADol HCl 50 MG TAB PO PRN (14:26)
[2018-04-02 15:54] VITALS: BP 153/65; TEMP 97.5
--- NOTE | 2018-04-02 21:13 | DIS ---
DATE OF ADMISSION: 03/24/2018 DATE OF DISCHARGE: 04/02/2018 DIAGNOSES AT THE TIME OF ADMISSION: 1. Generalized weakness, poor appetite, generalized malaise, and essentially failure to thrive. 2. Chest discomfort. 3. Hypertension. FINAL DIAGNOSES: 1. End-stage renal disease. 2. IgA nephropathy, on prednisone. 3. Coronary artery disease, chronic, stable. 4. Chest pain, most likely noncardiac. 5. Hypertension, chronic, stable. 6. Easy bruisability. 7. Normocytic anemia. PROCEDURES: Right IJ cuffed tunneled hemodialysis catheter done on March 25, peritoneal dialysis catheter placed by Dr. Gonzales. Also on March 29, 2018, he had right arm primary fistula. CONSULTANTS: 1. Steve Elizabeth MD, Nephrology Service. 2. Milad Gonzales MD, General Surgery. 3. Vincenzo Gonzalez MD, Cardiology Consultation. HOSPITAL COURSE: The patient is a 78-year-old male with history of hypertension as well as chronic kidney disease and coronary artery disease, who was admitted to the hospital after he presented with general weakness as well as complaining about some chest pain. The chest tightness which he described was on and off, primary with exertion and it improved with rest, but this was getting progressively worse according to the family. Also, he complained about some pain in both of his legs as well as his hips. Apparently, he saw Dr. Gonzalez, his superintendent division about a year ago and at that time, he had cardiac catheterization done which showed minimal coronary artery disease which was treated medically. Also, he has a history of IgA nephropathy. Apparently, his creatinine went up from 2.7 to 4.5, and there was a suspicion that he might need to start dialysis. At the time of admission to hospital, his sodium was 132, potassium 4.4, chloride 100, CO2 of 16, BUN 51, creatinine 4.54, glucose 295. White count of 9.5, hemoglobin 10.4, hematocrit 31.6, platelet count 281,000. Urinalysis showed 11-20 rbc's and some hyaline casts and trace of blood. Because of the patient's chest discomfort, he had EKG done which showed normal sinus rhythm with left ventricular hypertrophy. His troponin was 0.061. The patient was seen by Dr. Gonzalez, who in view of minor changes in his cardiac catheterization done last year, he chose to treat him medically. Also, the patient was seen by Dr. David for nephrology evaluation. At the time of admission, the chest x-ray showed no evidence of acute cardiopulmonary process and CT of the brain did not show any evidence of acute cranial process. Dr. Gonzales saw the patient for placement of the right IJ cuffed tunneled hemodialysis catheter and according to Dr. David's recommendation, he was started on dialysis. Subsequently, he underwent primary fistula done by Dr. Gonzales. His general weakness, fatigue, and failure to thrive made us to set him up for rehabilitation center since he has a history of multiple falls prior to this hospitalization. Even during this hospitalization, he had one fall. The patient was tapered on his prednisone dose for his IgA nephropathy and subsequently the family wanted to start him on peritoneal dialysis. Dr. Gonzales put peritoneal catheter in his abdomen and the patient is ready to be transferred to Rehab after he is accepted there. At the time of discharge, he is in good condition. He is still weak and tired. He is going to have PT and OT to improve his strength and function. He is going to stay on renal diet. Activities obviously will be somewhat limited secondary to his general condition, but he will have this done by Dr. David during the rehabilitation center stay. Also, he will do follow up with Dr. Gonzales in the next 2 to 3 weeks to check on the status of this catheter before he starts using it. MEDICATIONS: His medications at the time of discharge: 1. Tramadol 100 mg q.6 hours p.r.n. 2. Zoloft 25 mg once a day. 3. Crestor 10 mg once a day. 4. Prednisone 20 mg once a day. 5. Pantoprazole 40 mg once a day. 6. Nifedipine 60 mg once a day. 7. Isosorbide mononitrate which is Imdur 120 mg once a day. 8. Hydralazine 25 mg 3 times a day. 9. Ferrous sulfate 325 mg twice a day. 10. Procrit 7500 units subcutaneously q.7 days. 11. Aspirin 81 mg once a day. 12. Tylenol p.r.n. The patient will be seen and examined at the bedside before he is discharged to the rehab. Job ID: [id number]
== END 2018-04-02 19:02 | DRG 673 ==
LOC: ERS 12:45 → ERHOLD 15:45 → 2SE 17:35
PROVIDERS: ADMIT Internal Medicine; ATTEND Internal Medicine
PROC: 0JH63XZ Insertion of Tunneled Vascular Access Device into Chest Subcutaneous Tissue and Fascia, Percutaneous Approach (ICD-10-PCS; principal; 2018-03-25)
PROC: 02HV33Z Insertion of Infusion Device into Superior Vena Cava, Percutaneous Approach (ICD-10-PCS; 2018-03-25)
PROC: 5A1D70Z Performance of Urinary Filtration, Intermittent, Less than 6 Hours Per Day (ICD-10-PCS; 2018-03-25)
PROC: 031B0ZF Bypass Right Radial Artery to Lower Arm Vein, Open Approach (ICD-10-PCS; 2018-03-29)
PROC: 0WHG43Z Insertion of Infusion Device into Peritoneal Cavity, Percutaneous Endoscopic Approach (ICD-10-PCS; 2018-04-02)
DX: I12.0 Hypertensive chronic kidney disease with stage 5 chronic kidney disease or end stage renal disease (principal); N18.6 End stage renal disease; R07.89 Other chest pain; I25.10 Atherosclerotic heart disease of native coronary artery without angina pectoris; R62.7 Adult failure to thrive; M06.9 Rheumatoid arthritis, unspecified; D63.1 Anemia in chronic kidney disease; E78.5 Hyperlipidemia, unspecified; I87.8 Other specified disorders of veins; F41.9 Anxiety disorder, unspecified; F32.9 Major depressive disorder, single episode, unspecified; M54.9 Dorsalgia, unspecified; G89.29 Other chronic pain; R29.6 Repeated falls; Z88.0 Allergy status to penicillin; Z88.2 Allergy status to sulfonamides; Z88.8 Allergy status to other drugs, medicaments and biological substances; Z79.52 Long term (current) use of systemic steroids; Z79.82 Long term (current) use of aspirin; Z79.899 Other long term (current) drug therapy; Z68.25 Body mass index [BMI] 25.0-25.9, adult
CPT/HCPCS: 36415; 70450; 71045; 71046; 80048; 80053; 81003; 81015; 82550; 82553; 83690; 83735; 84443; 84484; 85025; 86580; 86704; 86706; 86803; 87340; 90935; 93005; 93970; 96360; C1752; C1769; G0257; G0365; J0670; J1644; J1720; J2001; J2175; J2250; J2405; J2704; J2720; J3010; J3490; Q4081; S0028

== ENCOUNTER 2018-04-23 18:37 | Day surgery (SDC) | payer MEDICARE ==
[2018-04-24 01:23] VITALS: BP 171/78; TEMP 98.1
== END 2018-04-24 01:45 | disposition home or self-care (01) ==
LOC: ONC/OP 18:37 → ONC 18:56 → ONC/OP 04-24 01:45
PROVIDERS: ATTEND Internal Medicine Nephrology
DX: N18.9 Chronic kidney disease, unspecified (principal); D63.1 Anemia in chronic kidney disease; Z88.0 Allergy status to penicillin; Z88.1 Allergy status to other antibiotic agents; Z88.2 Allergy status to sulfonamides; Z88.8 Allergy status to other drugs, medicaments and biological substances
CPT/HCPCS: 36415; 36430; 86850; 86900; 86901; P9016

== ENCOUNTER 2018-05-09 01:12 | Emergency (ER) | payer MEDICARE ==
[2018-05-09] MEDS ORDERED: Morphine 4 MG/ML VIAL ONE ×2 (01:52→04:18)
--- NOTE | 2018-05-09 07:56 | RAD ---
LEFT SHOULDER 3 VIEWS: Date: 05/09/18 INDICATION: Left shoulder pain. COMPARISON: None. 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 No definite acute fracture or subluxation is joanna dent. Visualized left lung is clear. There is partial imaging of a right IJ dialysis catheter. POS: BH
--- NOTE | 2018-05-09 07:57 | RAD ---
CHEST 1 VIEW: Date: 05/09/18 INDICATION: Left-sided shoulder pain and chest pain. COMPARISON: Prior exam dated 03/25/18. IMPRESSION: There is stable cardiomegaly. Lungs are clear. There is a right IJ dialysis catheter. No definite acu te osseous abnormality is evident. POS: [facility]
== END 2018-05-09 05:48 | disposition home or self-care (01) ==
LOC: ERS 01:12
DX: M25.512 Pain in left shoulder (principal); E78.5 Hyperlipidemia, unspecified; I12.0 Hypertensive chronic kidney disease with stage 5 chronic kidney disease or end stage renal disease; N18.6 End stage renal disease; D64.9 Anemia, unspecified; F41.9 Anxiety disorder, unspecified; Z87.891 Personal history of nicotine dependence; Z79.899 Other long term (current) drug therapy
CPT/HCPCS: 71045; 93005; 96374; 96376; J2270

== ENCOUNTER 2018-06-11 08:38 | Inpatient (IN) | payer MEDICARE, OTHER ==
--- NOTE | 2018-06-11 09:02 | RAD ---
PORTABLE CHEST ONE VIEW: 06/11/2018 8:54 a.m. HISTORY: Chest pain. COMPARISON: 05/09/2018 FINDINGS: The heart size is normal. The aorta is tortuous. The right-sided IJ dialysis catheter remains in pl [facility]. No focal areas of consolidation, pneumothoraces, robbie pulmonary edema, or pleural effusions ar e seen. There are degenerative changes in the spine. IMPRESSION: No acute process. POS: OFF
[2018-06-11 09:04] LABS: Hemoglobin 11.6 g/dL (14.0-18.0); Mean Corpuscular HGB CONC 32.8 g/dL (32.0-36.0); Mean Corpuscular Hemoglobin 29.2 pg (27.0-31.0); Mean Platelet Volume 7.7 fL (7.4-10.4); Platelet Count 386 thou/uL (130-400); Red Blood Cell (RBC) Count 3.98 mill/uL (4.70-6.10); White Blood Cell (WBC) Count 16.4 thou/uL (4.8-10.8)
[2018-06-11 09:05] LABS: Actual Bicarbonate (HCO3a) 23.7 mEq/L (22-28); Analyzer IN Cardio ER; Base Excess (BEa) -1.3 mEq/L (-2.0 to +3.0); CO2 Tension 40.9 mmHg (35.0-45.0); Calcium, Ionized 1.04 mmol/L (1.12-1.30); Carboxyhemoglobin (COHb) 0.3 gm% (0.0-3.0); Hemoglobin (Hb) 11.7 g/dL (14.0-18.0); O2 Tension (PaO2) 74.8 mmHg (> 70.0); Potassium - ABG Lab 2.92 mmol/L (3.70-5.30); pH, Arterial 7.38 (7.35-7.45)
[2018-06-11 09:06] LABS: ALV-art Gradient 301.875 (0-20)
[2018-06-11] MEDS ORDERED: Ondansetron PF 4 MG/2 ML Vial ONE ×2 (09:15→11:00)
[2018-06-11 09:30] LABS: ALT (SGPT) 17 U/L (8-55); AST (SGOT) 52 U/L (5-34); Albumin 2.7 g/dL (3.4-4.8); Alkaline Phosphatase 110 U/L (40-150); Anion Gap 18 mmol/L (10-20); BUN (Urea Nitrogen) 10 mg/dL (8.4-25.7); Bilirubin, Total 0.3 mg/dL (0.2-1.2); CK (CPK) 94 U/L (30-200); Calc. Creatinine Clearance 0 mL/min (70-130); Calcium 8.3 mg/dL (7.8-10.44); Carbon Dioxide 20 mmol/L (23-31); Chloride 101 mmol/L (98-107); Estimated GFR-MDRD 31; Globulin 3.2 g/dL (2.4-3.5); Glucose 177 mg/dL (83-110); Potassium 3.4 mmol/L (3.5-5.1); Protein, Total 5.9 g/dL (5.8-8.1); Sodium 136 mmol/L (136-145)
[2018-06-11] MEDS ORDERED: Fentanyl 100 MCG/2 ML VIAL ONE ×2 (09:32→10:48)
[2018-06-11 09:35] LABS: Band 30 % (5-11); Eosinophils 2 % (0-10); Lymphocytes 30 % (21-51); MDiff Complete? YES; Metamyelocyte 7 % (0-0); Monocytes 1 % (0-10); Myelocyte 3 % (0-0); Neutrophil 26 % (42-75); Ovalocytes SLIGHT = 2-5 cells (100X) (0-1/hpf); Platelet Morphology Comment Appears Adequate; Polychromasia SLIGHT = 2-3 cells (100X) (0-2/hpf); Reactive Lymphocytes 1 % (0-10)
[2018-06-11 09:47] LABS: CKMB 1.3 ng/mL (0-6.6)
--- NOTE | 2018-06-11 10:03 | CT ---
CT Brain WO Con: 06/11/2018 9:24 AM CLINICAL HISTORY: Altered mental status. COMPARISON: 03/24/2018 FINDINGS: Hemorrhage: None. Ventricular system: Normal in size and morphology for the patient's age. Cerebral parenchyma: Microvascular ischemic disease Midline shift: None. Mass: No mass effect. Stable mild asymmetric prominence of CSF density overlying the left convexity, which may relate to prominence of subarachnoid space from parenchymal atrophy Calvarium: Normal. Visualized Paranasal sinuses: Clear. Decreased pneumatization of left mastoid air cells. IMPRESSION: No interval acute intracranial abnormalities.
[2018-06-11 10:27] LABS: INR-International Normal Ratio 1.2; Prothrombin Time 15.5 SEC (12.0-14.7)
[2018-06-11 10:28] LABS: PTT 58.4 SEC (22.9-36.1)
--- NOTE | 2018-06-11 11:31 | CT ---
CT CHEST WITH CONTRAST: INDICATIONS: Post CPR trauma. TECHNIQUE: Multiple axial tomograms obtained through the chest with IV enhancement. Exam performed predominantl y in an aortogram phase. There is opacification of the pulmonary arteries; however, this is not a de dicated pulmonary angio study. FINDINGS: Prior CT of the aorta shows mild atherosclerotic change. There is no dissection or aneurysmal dilata tion. The proximal pulmonary arteries are opacified. No proximal pulmonary embolus identified. This exam is not a pulmonary angio study, and peripheral pulmonary emboli cannot be excluded. The mediastinum is otherwise unremarkable. The lungs show chronic lung parenchymal changes with interstitial thickening in the periphery. No fo luis infiltrate. No pneumothorax. No effusion. Mild atelectasis in the posterior lung bases. Review of the bony thorax shows numerous anterior rib fractures. On the right, there are fractures a t the costosternal junction of the anterior right 4th, 5th, 6th, and 7th ribs. There are also fractu res of the anterolateral right 4th and 5th ribs. On the left, fractures of the anterior 4th and 5th ribs are identified. Images through the upper abdomen show no evidence of injury to the liver or spleen. No acute finding in the upper abdomen. Degenerative spine changes. IMPRESSION: 1. Fractures, anterior ribs, bilaterally, as described above, secondary to recent cardiopulmonary re suscitation. 2. Chronic lung changes with no acute lung process. 3. Unremarkable mediastinum with no evidence of thoracic aortic dissection, and no evidence of proxi mal pulmonary embolus. POS: [facility]
[2018-06-11 12:39] LABS: Bilirubin Negative (Negative); Blood, Urine Small (Negative); Glucose, Urine (Dipstick) Negative (Negative); Leukocyte Moderate (Negative); Nitrite Negative (Negative); Protein, Urine (Dipstick) 30 mg/dL (Neg-Trace); Specific Gravity, Urine 1.007 (1.002-1.036); Urobilinogen 0.2 mg/dL (0.2-1.0); pH, Urine 8.5 (5.0-9.0)
[2018-06-11 12:40] LABS: WBC/HPF 21-50 HPF (0-3)
[2018-06-11 12:43] LABS: Pathc Cast-AUWi Flag 4.89 (0-2.49)
[2018-06-11 12:49] LABS: Clarity Slightly Cloudy (Clear)
--- NOTE | 2018-06-11 12:50 | HP ---
PRIMARY CARE PROVIDER: Galo Forman DO PRIMARY DRAWING PRESS OPERATOR: Dr. David. PRIMARY COMMUNITY HEALTH COORDINATOR: Vincenzo Gonzalez MD CHIEF COMPLAINT: Passing out. HISTORY OF PRESENT ILLNESS: This is a 78-year-old male, who presents to [facility] Emergency Department in transfer from [facility], where the patient was undergoing maintenance hemodialysis second session after initially beginning hemodialysis on 06/09/2018. The patient had transition to hemodialysis after previously performing peritoneal dialysis at home. The patient apparently had undergone approximately 2 hours of hemodialysis when he became unresponsive according to ER staff reports, as discussions with the patient's family, as well as discussions with the ER attending. CPR was initiated by staff at the dialysis unit and the patient also received CPR for approximately 10 minutes, but was not given electrical shocks. The patient received no specific chemical resuscitation and was placed on oxygen. The patient apparently had return of consciousness and pulse, at which point, the patient was transported to the emergency room for further evaluation. The patient's initial blood glucose was 158 and the patient was noted alert and responsive upon initial evaluation by the ER doctor. The patient was noted with hypotension initially in the emergency room, receiving intravenous normal saline x1 L as well as Zofran, fentanyl, and Levophed. The patient was also placed on BiPAP noninvasive mechanical ventilation for comfort and due to complaints of chest pain. Initial workup including chest imaging was unremarkable and the patient has been referred to the Hospitalist Service for admission. PAST MEDICAL HISTORY: 1. End-stage renal disease with hemodialysis x2 sessions. 2. IgA nephropathy, on chronic prednisone. 3. Coronary artery disease, chronic and stable. 4. Hypertension. 5. Normocytic anemia. 6. Psoriasis. 7. Dyslipidemia. 8. Anxiety. PAST SURGICAL HISTORY: 1. Status post multiple back surgeries. 2. Status post cataract removal. 3. Status post trigger finger release. CURRENT MEDICATIONS: 1. Isosorbide mononitrate 60 mg p.o. daily. 2. Omeprazole 40 mg p.o. daily. 3. Sertraline 50 mg p.o. daily. 4. Tylenol 1000 mg p.o. q.6 hours p.r.n. 5. Aspirin enteric-coated 81 mg p.o. daily. 6. Clonidine 0.1 mg p.o. q.6 hours p.r.n. 7. Procrit 7500 units subcutaneously q.7 days. 8. Ferrous sulfate 325 mg p.o. b.i.d. 9. Hydralazine 25 mg p.o. t.i.d. 10. Procardia XL 60 mg p.o. daily. 11. Prednisone 20 mg p.o. q.a.m. 12. Crestor 10 mg p.o. at bedtime. 13. Tramadol 100 mg p.o. q.6 hours p.r.n. pain. ALLERGIES: TO TORADOL, LEVAQUIN, PENICILLIN, AND SULFA. FAMILY HISTORY: Positive for hepatitis C, pancreatic and stomach cancer in his sister. SOCIAL HISTORY: The patient is retired from [employer] and [employer]. and accompanied by multiple family members including his spouse in the emergency room. No current alcohol, tobacco, or illicit drug use. REVIEW OF SYSTEMS: Unobtainable as the patient is on current BiPAP noninvasive mechanical ventilation. PHYSICAL EXAMINATION: VITAL SIGNS: Currently; blood pressure 93/78, pulse 113, respiratory rate 38, temperature 97.9 degrees Fahrenheit, and O2 saturation 97% on BiPAP noninvasive mechanical ventilation. GENERAL APPEARANCE: This is a 78-year-old male, on current BiPAP noninvasive mechanical ventilation, agitated, in moderate distress. HEENT: Pupils are equal, round, and reactive to light and accommodation. Extraocular muscles are intact. No scleral icterus. No conjunctival injection. Nares patent. OP is clear. Face mask in place for BiPAP system. NECK: Supple. No cervical adenopathy. No thyromegaly. No carotid bruits. No JVD appreciated. Cervical spine full, active, and passive range of motion. No meningeal signs noted. CHEST: Lungs are clear to auscultation bilaterally. Accessory muscle use noted. CARDIOVASCULAR: S1 and S2 with tachycardia. Heart sounds are distant. ABDOMEN: Rounded, soft, nontender, and nondistended. Bowel sounds are positive in all 4 quadrants. No hepatosplenomegaly. No abdominal bruits. No rebound or guarding appreciated. EXTREMITIES: Warm and dry with fair turgor. No clubbing, cyanosis, or asymmetric edema appreciated. Pulses are palpable distally at the dorsalis pedis, posterior tibial, and popliteal arteries bilaterally. MUSCULOSKELETAL: Positive tenderness to palpation of the anterior chest wall without crepitus or deformity. NEUROLOGIC: Cranial nerves 2 through 12 are grossly intact. No focal or lateralizing signs appreciated. PERTINENT LAB AND X-RAY FINDINGS: Sodium 136, potassium 3.4, chloride 101, CO2 of 20, BUN 10, creatinine 2.12, estimated GFR of 30, glucose 177, calcium 8.3, AST 52, ALT of 17, and alkaline phosphatase 110. Total CK of 94, troponin I 0.038, and BNP 212 and previously noted 65 on 07/11/2017. CBC showed a white blood cell count of 16.4, hemoglobin 12, hematocrit 35, and platelet count 386 with 26% neutrophils and 30% bands. Initial ABG dated 06/11/2018, showed a pH of 7.38, pCO2 of 41, pO2 of 75, bicarb 24, and O2 saturation 94% on 60% FiO2. Portable chest x-ray dated 06/11/2018, showed no acute cardiopulmonary process. CT of the brain without contrast dated 06/11/2018, showed no acute intracranial process. CT of the chest by my review shows questionable rib fractures anteriorly bilaterally. EKG dated 06/11/2018, by my review shows sinus tachycardia with heart rates in the 110s. Normal R-wave progression noted in the precordial leads. Left axis deviation. ASSESSMENT AND PLAN: 1. Cardiac arrest with return of spontaneous circulation. The patient will be admitted to the critical care unit. We will continue the close cardiac monitoring and trend cardiac biomarkers. We will consult Cardiology Service for further evaluation and recommendations. Check 2D transthoracic echocardiogram. Pain control with fentanyl 25 mcg IV q.2 hours p.r.n. chest pain. 2. Hypotension. Suspect secondary to recent hemodialysis. We will continue IV fluids with normal saline at 100 mL/h. Consider vasopressor support if symptomatic. Hold dialysis and all blood pressure medications. 3. End-stage renal disease with hemodialysis. We will consult Nephrology Service for timing of next maintenance hemodialysis session. No current evidence to suggest volume overload. 4. Nausea and vomiting. Suspect secondary to #1. Antiemetics as needed. Intravenous normal saline at 100 mL/h. 5. Multiple rib fractures. Status post CPR with chest compressions. Pain control as clinically indicated above. 6. Prophylaxis. Sequential compression devices while in bed. Protonix 40 mg IV q.12 hours. PT evaluation in the a.m. 7. Code status is full. Surrogate medical decision maker is the patient's spouse. TIME SPENT: Total critical care time is 50 minutes. Job ID: [id number]
[2018-06-11 12:51] LABS: Bacteria/HPF None Seen HPF (None Seen); Hyaline Casts/LPF 0-3 HYALINE CAST LPF (0-3 Hyaline); Other Casts/LPF None Seen LPF (0-3 Hyaline)
[2018-06-11] MEDS ORDERED: Sodium Chloride 0.9% 1,000 ML IV SCH (13:00)
[2018-06-11] MEDS ORDERED: Acetaminophen 500 MG TAB PO PRN (13:04)
--- NOTE | 2018-06-11 13:41 | CON ---
DATE OF CONSULTATION: 06/11/2018 HISTORY OF PRESENT ILLNESS: This is a 78-year-old gentleman, who apparently came via dialysis center after he was found to be hypotensive. CPR was initiated there. The patient was unresponsive. CPR performed for 10 minutes. No shocks were given. EMS was called in. Eventually sats improved to 84%. Blood pressure was obtained, 108/73. As per the ER nurse, he still had difficulty breathing, came to the ER, where a CT chest showed multiple bilateral rib fractures. No other infiltrate was seen. No pulmonary emboli were seen. CT brain was negative. Chest x-ray initially did not show any acute infiltrates, except for the dialysis catheter. He is in the ICU on a non-invasive ventilation, the reason for consult. PAST MEDICAL HISTORY: End-stage renal disease, chronic anemia, coronary artery disease, high cholesterol, hypertension, hyperlipidemia. PAST SURGICAL HISTORY: Right thumb surgery access, multiple back surgeries, cataract surgery. SOCIAL HISTORY: Tobacco quit smoking 10 years ago. Pack a day smoker. Alcohol, minimal. CHRONIC MEDICATIONS: 1. Hydralazine 25 three times a day. 2. Procardia XL 30. 3. Aspirin 81. 4. Calcium. 5. Coreg 3.125 twice a day. 6. Gabapentin 100 twice a day. 7. Omeprazole 20 once a day. 8. Rosuvastatin 20 once a day. 9. Prednisone 20 a day. ALLERGIES: MULTIPLE, LEVAQUIN, PENICILLIN, SULFA, AND FLOMAX. PHYSICAL EXAMINATION: GENERAL: In the ICU, he is awake, alert, responsive, no distress. His saturations are 100%, blood pressure respirations 18, pulse 80. CHEST: Decreased breath sounds. No wheezing. CARDIAC: Normal S1 and S2. No gallops. ABDOMEN: No masses. LABORATORY DATA: White count 16,000, H and H 11 and 35, platelet count is normal. PO2 of 74, pCO2 of 40% on 3 L and the BiPAP. Creatinine is 2. BNP is unremarkable. Urine is normal. IMPRESSION: 1. Status post hypotension, cardiopulmonary resuscitation with associated bilateral rib fractures. 2. Tobacco abuse. 3. End-stage renal disease. PLAN: 1. It is unclear, his cause of hypotension and mental status change. Clearly, he is at his baseline. Await input from Nephrology regarding ongoing dialysis, etc. Keep him on BiPAP until he is stabilized. Empiric neb treatments. 2. We will follow. Consultation note 70 minutes, 50% direct patient care. Job ID: [id number]
[2018-06-11] MEDS: Sodium Chloride 0.9% 1,000 ML IV SCH (13:55)
[2018-06-11] MEDS: Fentanyl 100 MCG/2 ML VIAL SLOW IVP PRN ×3 (13:56→20:13)
--- NOTE | 2018-06-11 16:16 | CT ---
Contrast-enhanced CTA chest. HISTORY: 78-year-old male with history of elevated d-dimer evaluate for pulmonary emboli. Again multiple acute rib fractures seen. There is a right jugular dialysis catheter in place. Bibasilar areas of lung atelectasis seen. No evidence of filling defects seen in the pulmonary arteries to suggest pulmonary emboli. Cortical cyst seen in the upper pole of the right kidney. Radiopaque contrast seen in the collecting system from injection earlier in the day. Vicarious excret ion of contrast seen in the gallbladder. IMPRESSION: No evidence of pulmonary emboli seen. Transcribed Date/Time: 06/11/2018 6:28 PM
[2018-06-11] MEDS ORDERED: Iopamidol 370 76% 100 ML VIAL ONE (16:19)
[2018-06-11] MEDS ORDERED: ISOVUE-370 76%-LOCM 1 ML ONE (16:46)
[2018-06-11 18:13] LABS: Troponin I 2.388 ng/mL (< 0.028)
[2018-06-11] MEDS: Ondansetron PF 4 MG/2 ML Vial IVP PRN (18:35)
--- NOTE | 2018-06-11 18:44 | CON ---
DATE OF CONSULTATION: 06/11/2018 HISTORY OF PRESENT ILLNESS: Mr. Burleson is a 78-year-old male with ESRD and currently on maintenance hemodialysis. He recently converted from peritoneal dialysis to hemodialysis per his request. During dialysis today, he was found to become unresponsive. CPR was initiated. When he arrived at the ER, he was awake and coherent. We are now following up this patient for his maintenance hemodialysis. He is being ruled out for an VT. In addition, CT scan of the chest to rule out pulmonary embolism was done and no evidence of pulmonary emboli was seen. Please note that the CT of the brain was also done and no acute intracranial abnormality was noted. During the initial evaluation at the ER, CT of the chest was also done and fractures were noted anterior waves bilaterally and chronic lung changes with no acute lung process was noted. REVIEW OF SYSTEMS: Positive for a syncopal episode, currently chest pain secondary to rib fracture. No nausea. No vomiting. No shortness of breath. No fever or chills. No abdominal pain. No headache. No vomiting. No diarrhea. No constipation. MEDICATIONS: 1. Ecotrin 81 mg daily. 2. DuoNeb q.6. 3. Fentanyl 25 mg IV q.2 hours p.r.n. 4. Zofran 4 mg IV q.6 p.r.n. 5. Protonix 40 mg IV q.12. 6. Normal saline currently at 50 mL an hour. PAST MEDICAL HISTORY: 1. ESRD, currently on maintenance hemodialysis. 2. The patient has also history of hypertension. 3. 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 4. He has rheumatoid arthritis. 5. He has coronary artery disease, hyperlipidemia, history of hematuria and proteinuria. PAST SURGICAL HISTORY: Status post PD catheter placement, status post cuffed hemodialysis catheter placement, status post renal biopsy, status post cystoscopy with right ureteral stent placement, status post back surgery, status post colonoscopy. IMMUNIZATION: Up-to-date. HOSPITALIZATIONS: Please see past medical history. ALLERGIES: TOPROL, FLOMAX, SULFA. PLEASE NOTE, THE PATIENT IS NOT ALLERGIC TO PENICILLIN OR LEVAQUIN? FAMILY HISTORY: No family history of ESRD. SOCIAL HISTORY: The patient lives in [facility], , 3 children. 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 Education, GED. Smoked for 15 years 1 pack a day. Alcohol, occasional. No IV drug abuse. Status post blood transfusion. PHYSICAL EXAMINATION: VITAL SIGNS: Blood pressure is noted at 111/65, currently on pressor support. Heart rate is 90. O2 saturation 100%. GENERAL: Noted to be awake, alert, comfortable, not in overt distress. SKIN: Adequate turgor. HEENT: He has pinkish conjunctivae. Anicteric sclerae. NECK: No neck mass. No carotid bruits. No JVD. CHEST: Positive for sternal tenderness. LUNGS: Clear breath sounds. No wheezing. No crackles. HEART: Normal sinus rhythm. No murmur. No gallops. No rubs. ABDOMEN: Globular, soft, nontender. No masses. EXTREMITIES: No edema. No deformities. NEUROLOGICAL: Awake, oriented to 3 spheres. Moving all extremities. No tremors. No asterixis. No ataxia. LABORATORY DATA: Laboratories of June 11, 2018; white count 16.4, hemoglobin 11.6. Sodium 136, potassium 3.4, chloride 101, carbon dioxide 20, BUN 10, creatinine 2.12, glucose 177, calcium 8.3, AST 52, ALT 17. Troponin I 0.038. IMAGING STUDIES: CT scan of the chest, June 11, 2018, no evidence of pulmonary embolus. No thoracic aortic dissection, chronic lung changes. CT scan of the brain negative. ASSESSMENT AND PLAN: 1. Status post cardiac arrest-the patient is being ruled out for myocardial infarction. We will monitor. We will continue cardiac monitoring to rule out any cardiac arrhythmia. Cardiology has been consulted. 2. End-stage renal disease. The patient received short dialysis today. My plan is to do another 2-hour hemodialysis tomorrow since the patient received contrast today. 3. Overall prognosis remains guarded. Continue supportive care. Job ID: [id number] [facility]
[2018-06-11] MEDS: Morphine 4 MG/ML VIAL SLOW IVP PRN ×2 (18:56→22:05)
[2018-06-11] MEDS: cefTRIAXone\\ROCEPHIN 1 GM in Sodium Chloride 0.9% 100 ML IVPB SCH (19:24)
[2018-06-11] MEDS: Pantoprazole 40 MG VIAL IVP SCH (19:25)
--- NOTE | 2018-06-11 20:27 | CON ---
DATE OF CONSULTATION: CRITICAL CARE TIME: 30 minutes. HISTORY OF PRESENT ILLNESS: The patient is a 78-year-old gentleman with a history of coronary artery disease with dialysis and apparently had a cardiac arrest. The patient has a history of a moderate coronary artery disease. He underwent a cardiac catheterization in March of last year revealed a 20% LAD lesion, a 50% lesion in the ramus, 20% in RCA, and a 50% PDA lesion. The patient has been on stable medical therapy. Unfortunately, he developed progressive renal failure due to IgA nephropathy. The patient presented with atypical chest pain earlier in March of this year. He has been slowly improving and has been undergoing dialysis. He was in his usual state of health and was seen several days ago and feeling well. He denied having any chest discomfort. This morning, the patient went to dialysis. He states he was feeling well. The patient denied having any chest discomfort. He denied having any dyspnea. He during dialysis became acutely hypotensive. He apparently became unresponsive. He underwent CPR. By the time EMS arrived, he apparently had regained consciousness. He was hypotensive, but apparently had a normal rhythm. The patient denied having any chest discomfort or dyspnea prior to this event. PAST MEDICAL HISTORY: 1. Coronary artery disease. 2. Hypertension. 3. End-stage renal disease. 4. Psoriasis. PAST SURGICAL HISTORY: Back surgery, cataract surgery. MEDICATIONS ON ADMISSION: See nursing list. ALLERGIES: TORADOL, LEVAQUIN, PENICILLIN, SULFA. SOCIAL HISTORY: Nonsmoker. PHYSICAL EXAMINATION: GENERAL: This is an ill-appearing gentleman, who is on BiPAP. VITAL SIGNS: Blood pressure 111/65. NECK: Full. LUNGS: Clear to auscultation. HEART: Regular rate and rhythm. Normal S1, S2. ABDOMEN: Nondistended. EXTREMITIES: He has an AV fistula. LABORATORY DATA: His sodium 136, potassium 3.4, chloride 101, bicarb 20, BUN 10, creatinine 2.1, glucose is 177. His troponin 0.038. BNP is 211. His white blood cell count 16.4, hemoglobin 11.6, hematocrit 35.4, and platelets 386. INR 1.2. His EKG revealed normal sinus rhythm with nonspecific ST abnormality. IMPRESSION: 1. Status post possible cardiac arrest. 2. History of coronary artery disease. 3. Hypertension. 4. End-stage renal disease. 5. Dyslipidemia. PLAN: This gentleman apparently suffered a cardiac arrest. His EKG is unremarkable. His cardiac enzymes at this time shows no evidence of a myocardial infarction. His BNP level is only mildly elevated. It is unclear what exactly happened during dialysis. From a cardiac standpoint, I would be also concerned that he may have suffered a pulmonary embolus. The patient will undergo a CT scan to rule out pulmonary embolism. We will follow this patient with you through his hospitalization. Critical care note 30 minutes. Job ID: [id number]
[2018-06-11] MEDS ORDERED: Famotidine 20 MG TAB PO SCH (21:00)
[2018-06-11 22:36] LABS: Critical Call Chem Troponin I RESULT DECREASING; Troponin I 2.185 ng/mL (< 0.028)
[2018-06-12] MEDS: Morphine 4 MG/ML VIAL SLOW IVP PRN ×6 (00:55→23:49)
[2018-06-12 05:10] LABS: Anion Gap 18 mmol/L (10-20); BUN (Urea Nitrogen) 22 mg/dL (8.4-25.7); Calc. Creatinine Clearance 16 mL/min (70-130); Calcium 7.6 mg/dL (7.8-10.44); Carbon Dioxide 22 mmol/L (23-31); Chloride 101 mmol/L (98-107); Estimated GFR-MDRD 16; Glucose 131 mg/dL (83-110); Potassium 5.2 mmol/L (3.5-5.1); Sodium 136 mmol/L (136-145)
[2018-06-12 05:13] LABS: Band 17 % (5-11); Hemoglobin 9.4 g/dL (14.0-18.0); Lymphocytes 11 % (21-51); MDiff Complete? YES; Mean Corpuscular Hemoglobin 29.5 pg (27.0-31.0); Mean Corpuscular Volume 89.5 fL (78.0-98.0); Mean Platelet Volume 6.8 fL (7.4-10.4); Neutrophil 72 % (42-75); Platelet Count 302 thou/uL (130-400); Platelet Morphology Comment Appears Adequate; RBC Distribution Width 14.1 % (11.5-14.5); RBC Morphology Normal; Red Blood Cell (RBC) Count 3.17 mill/uL (4.70-6.10); White Blood Cell (WBC) Count 23.8 thou/uL (4.8-10.8)
[2018-06-12] MEDS: Sodium Chloride 0.9% 1,000 ML IV SCH ×2 (05:35→23:53)
[2018-06-12] MEDS: Pantoprazole 40 MG VIAL IVP SCH ×2 (07:45→20:11)
[2018-06-12] MEDS: Aspirin 81 mg Enteric Coated Tablet PO SCH (07:45)
--- NOTE | 2018-06-12 08:33 | RAD ---
AP view chest. HISTORY: Congestive heart failure. AP view chest obtained on 06/12/2018. Comparison made to previous exam from 06/11/2018. AP view chest demonstrates a right jugular dialysis catheter in place. Cardiomegaly seen. Pulmonary v ascular congestion seen. There is blunting of the left costophrenic angle compatible with left lower lobe atelectasis or patch y pneumonia Impression interval development of left lower lobe atelectasis or patchy pneumonia.
[2018-06-12 09:08] LABS: HBSAg Index 0.32 S/CO (0-0.99); Hep B Surf Ag Non-Reactive S/CO (NonReactive)
--- NOTE | 2018-06-12 10:20 | PRG ---
DATE OF SERVICE: 06/12/2018 SUBJECTIVE: A 78-year-old gentleman, is still complaining of significant pain, being dialyzed. No longer hypotensive. OBJECTIVE: VITAL SIGNS: Blood pressure 101/60, pulse 70, respiratory rate 18. Afebrile. CHEST: Decreased breath sounds. No wheezing. CARDIAC: Normal S1, S2. No gallops. ABDOMEN: No masses. LABORATORY DATA: Troponin is elevated. White count 23,000, H and H 9 and 28, platelet count is normal. Chest x-ray, small left-sided pleural effusion, chronic. IMPRESSION AND PLAN: Status post hypertension, CPR, etiology unclear, left-sided pneumonia, atelectasis, fractured ribs, chronic renal failure. He is already on ceftriaxone. Otherwise, we will continue pain relief, supportive care. He can be transferred out of the ICU. Job ID: [id number]
[2018-06-12] MEDS ORDERED: Heparin 10,000 UNITS/ 10 ML VIAL ONE (11:11)
--- NOTE | 2018-06-12 12:05 | PRG ---
DATE OF SERVICE: 06/12/2018 SUBJECTIVE: Mr. Burleson is a 78-year-old male with ESRD. He was admitted due to loss of consciousness/syncope. He underwent CPR. He is complaining of some chest pain. X-ray showed some rib fracture. No other complaints today. He underwent dialysis without any difficulty today. We will remove about 500 mL of fluid. The patient denies any shortness of breath. OBJECTIVE: VITAL SIGNS: Blood pressure 151/75, heart rate 105, respiratory rate 32, and pulse ox 100%. GENERAL: Awake, alert, comfortable, not in distress. SKIN: Adequate turgor. HEENT: He has pinkish conjunctivae. Anicteric sclerae. NECK: No neck mass. No carotid bruits. No JVD. CHEST: No deformities. LUNGS: Clear breath sounds. No wheezing. No crackles. HEART: Normal sinus rhythm. No murmur. No gallops. No rubs. ABDOMEN: Globular, soft, nontender. No masses. EXTREMITIES: No edema. MEDICATIONS: Medications of June 12, 2018, reviewed. LABORATORY DATA: Laboratories of June 12, 2018; white count 23.8, hemoglobin 9.4. Sodium 136, potassium 5.2, chloride 101, carbon dioxide 22, BUN 32, creatinine 3.77, calcium 7.6. Troponin I of 2.185. ASSESSMENT AND PLAN: 1. Pneumonia-chest x-ray suggests an infiltrate. On empiric IV antibiotics. 2. Status post cardiorespiratory arrest, supportive care. The elevated troponin I may have been a reflection of the CPR done on this patient. He remains completely asymptomatic. Cardiology is following. He has been ruled out for pulmonary embolism. 3. End-stage renal disease, stable. He received a 2-hour hemodialysis with minimal fluid removal. Continue current Thursday, Thursday, Thursday dialysis. Job ID: [id number]
[2018-06-12] MEDS: Fentanyl 100 MCG/2 ML VIAL SLOW IVP PRN (18:01)
[2018-06-12] MEDS: cefTRIAXone\\ROCEPHIN 1 GM in Sodium Chloride 0.9% 100 ML IVPB SCH (18:40)
[2018-06-12] MEDS ORDERED: Morphine 4 MG/ML VIAL SLOW IVP PRN (20:22)
[2018-06-12] MEDS ORDERED: Morphine 2 MG/ML SYRINGE SLOW IVP PRN (20:22)
--- NOTE | 2018-06-12 20:26 | PDOC.EVN ---
Event Note - Event Note Event Note: called by RN for c/o severe pain secondary to multiple broken ribs after cardiac arrest, no relief with fentanyl. Review by RN of meds in the ICU show q3h morphine 4 mg. Pt tachypneic and febrile - is on antibiotics. RN thinks the tachypnea is secondary to pain. Pt with ESRD on HD. Given the response to morphine in the ICU, the level of reported pain, the ineffectiveness of fentanyl for the patient - will change back to morphine 2-4 mg IV q4h prn and RN to monitor for sedation or adverse effects. No questions or further needs at end of call.
--- NOTE | 2018-06-12 22:17 | PDOC.PN ---
- Subjective Encounter Start Date: 06/12/18 Encounter Start Time: 17:00 Patient seen and examined for Cardiac arrest. Discomfort over the rib cage. No N /V. Feels weak. No other complaints. No overnight events - Objective Resuscitation Status - Order Detail: 06/11/18 11:02 Resuscitation Status Routine Resuscitation Status: FULL: Full Resuscitation MAR Reviewed: Yes Vital Signs & Weight: Vital Signs (12 hours) Temp Pulse Resp BP Pulse Ox 06/12/18 21:30 98.5 F 06/12/18 19:20 100.7 F H 117 H 36 H 136/67 96 06/12/18 18:36 101 H 24 H 100 06/12/18 16:39 99.1 F 106 H 18 131/62 99 06/12/18 14:10 99 06/12/18 14:07 97.5 F L 108 H 20 146/61 H 99 06/12/18 13:23 99 29 H 100 06/12/18 12:00 98.2 F Weight Admit Weight 147 lb Weight 147 lb 11.355 oz Most Recent Monitor Data Heart Rate from ECG 100 NIBP 144/72 NIBP BP-Mean 96 Respiration from ECG 20 SpO2 100 I&O: 06/11/18 06/12/18 06/13/18 06:59 06:59 06:59 Intake Total 1004.7 660 Output Total 415 131 Balance 589.7 529 Result Diagrams: 06/12/18 04:28 06/13/18 05:55 EKG Reviewed by me: Yes (Tele SR) Phys Exam - Physical Examination Constitutional: NAD Neck: no JVD Respiratory: no wheezing, no rhonchi few rales at left base, Symmetrical Cardiovascular: RRR, no rub no heaves/pulsations Gastrointestinal: soft, non-tender, positive bowel sounds Musculoskeletal: no edema Neurological: non-focal, normal sensation, moves all 4 limbs Psychiatric: normal affect, A&O x 3 Dx/Plan - Plan PT/OT, DVT proph w/SCDs IMPRESSION: Cardiac arrest ROSC s/p CPR - ?etio Hypotension requiring Levophed Acute hypoxic resp failure s/p NIPPV LLL Pneumonia ?Pneumococcal Type 2 [place]/Demand ischemia Hypokalemia ESRD on HD Multiple rib fx from CPR CAD Psoariasis IgA Nephropathy Anemia due to renal insufficiency HLD GERD Moderate PEM h/o HTN PLAN: Cont gentle IVF Check Cortisol level in AM Echo - normal EF Cont Tele monitoring Cont Nebs Cont Atbx for Pneumonia AM labs Change PPI to PO Confirm home meds - Spouse to get meds in AM Cont other meds as below Review of Systems - Review of Systems Respiratory: negative: Cough, Dry, Shortness of Breath, Hemoptysis, SOB with Excertion, Pleuritic Pain, Sputum, Wheezing Gastrointestinal: negative: Nausea, Vomiting, Abdominal Pain, Diarrhea, Constipation, Melena, Hematochezia, Other - Medications/Allergies Allergies/Adverse Reactions: Allergies Allergy/AdvReac Type Severity Reaction Status Date / Time ketorolac tromethamine Allergy Rash Verified 03/24/18 18:40 [From Toradol] levofloxacin [From Levaquin] Allergy Rash Verified 03/24/18 18:40 Sulfa (Sulfonamide Allergy Rash Verified 03/24/18 18:40 Antibiotics) tamsulosin HCl [From Flomax] Allergy Verified 03/24/18 18:40 Medications: Current Medications Acetaminophen (Tylenol) 1,000 mg PO Q6H PRN PRN Reason: Mild Pain (1-3) Last Admin: 06/12/18 20:12 Dose: 1,000 mg Albuterol/Ipratropium (Duoneb) 3 ml NEB [id number] [facility] Last Admin: 06/12/18 18:36 Dose: 3 ml Aspirin (Ecotrin) 81 mg PO DAILY [facility] Last Admin: 06/12/18 07:45 Dose: 81 mg Sodium Chloride (Normal Saline 0.9%) 1,000 mls @ 50 mls/hr IV .Q20H [facility] Last Admin: 06/12/18 05:35 Dose: 1,000 mls Ceftriaxone Sodium 1 gm/ (Sodium Chloride) 100 mls @ 200 mls/hr IVPB Q24HR [facility] Last Admin: 06/12/18 18:40 Dose: 100 mls Morphine Sulfate (Morphine) 2 mg SLOW IVP Q4H PRN PRN Reason: Mild-Moderate Pain (1-5) Morphine Sulfate (Morphine) 4 mg SLOW IVP Q4H PRN PRN Reason: Moderate to Severe Pain (6-10) Last Admin: 06/12/18 20:38 Dose: 4 mg Ondansetron HCl (Zofran Odt) 4 mg PO Q6H PRN PRN Reason: Nausea/Vomiting Ondansetron HCl (Zofran) 4 mg IVP Q6H PRN PRN Reason: Nausea/Vomiting Last Admin: 06/11/18 18:35 Dose: 4 mg Pantoprazole Sodium (Protonix) 40 mg IVP Q12HR [facility] Last Admin: 06/12/18 20:11 Dose: 40 mg Sodium Chloride (Flush - Normal Saline) 10 ml IVF Q12HR [facility] Last Admin: 06/12/18 20:13 Dose: 10 ml Sodium Chloride (Flush - Normal Saline) 10 ml IVF PRN PRN PRN Reason: Saline Flush Last Admin: 06/12/18 13:31 Dose: 10 ml
[2018-06-12] MEDS ORDERED: Acetaminophen 325 MG TAB PO PRN (23:37)
[2018-06-13] MEDS: Morphine 4 MG/ML VIAL SLOW IVP PRN ×5 (03:26→17:53)
[2018-06-13 06:30] LABS: ALT (SGPT) 21 U/L (8-55); AST (SGOT) 63 U/L (5-34); Albumin 2.7 g/dL (3.4-4.8); Alkaline Phosphatase 57 U/L (40-150); Anion Gap 18 mmol/L (10-20); BUN (Urea Nitrogen) 21 mg/dL (8.4-25.7); Bilirubin, Total 0.4 mg/dL (0.2-1.2); Calc. Creatinine Clearance 17 mL/min (70-130); Calcium 8.2 mg/dL (7.8-10.44); Carbon Dioxide 23 mmol/L (23-31); Chloride 101 mmol/L (98-107); Estimated GFR-MDRD 17; Globulin 3.4 g/dL (2.4-3.5); Glucose 87 mg/dL (83-110); Magnesium 1.7 mg/dL (1.6-2.6); Protein, Total 6.1 g/dL (5.8-8.1); Sodium 138 mmol/L (136-145)
[2018-06-13 06:38] LABS: Band 27 % (5-11); Lymphocytes 5 % (21-51); MDiff Complete? YES; Mean Corpuscular HGB CONC 33.5 g/dL (32.0-36.0); Mean Corpuscular Hemoglobin 30.1 pg (27.0-31.0); Mean Corpuscular Volume 89.8 fL (78.0-98.0); Mean Platelet Volume 7.5 fL (7.4-10.4); Monocytes 4 % (0-10); Neutrophil 63 % (42-75); Platelet Count 250 thou/uL (130-400); Platelet Morphology Comment Appears Adequate; RBC Distribution Width 14.1 % (11.5-14.5); Red Blood Cell (RBC) Count 2.99 mill/uL (4.70-6.10); White Blood Cell (WBC) Count 15.8 thou/uL (4.8-10.8)
[2018-06-13] MEDS: Acetaminophen 325 MG TAB PO SCH ×3 (08:43→20:11)
[2018-06-13] MEDS: Cyanocobalamin (Vitamin B-12) 1,000 MCG TAB PO SCH (08:43)
[2018-06-13] MEDS: Aspirin 81 mg Enteric Coated Tablet PO SCH (08:43)
[2018-06-13] MEDS: Folic Acid 1 MG TAB PO SCH (08:43)
[2018-06-13] MEDS: Senokot S 8.6-50 MG TAB PO SCH ×2 (08:44→20:10)
[2018-06-13] MEDS ORDERED: Doxycycline 100 MG CAP PO SCH (09:00)
--- NOTE | 2018-06-13 09:30 | RAD ---
AP VIEW CHEST: HISTORY: Pneumonia. FINDINGS: AP view chest demonstrates cardiomegaly. A right jugular dialysis catheter is in place. There is minimal blunting of the left costophrenic angle compatible with tiny pleural effusion. The lungs are otherwise well aerated. IMPRESSION: Cardiomegaly and tiny left-sided pleural effusion. Transcribed Date/Time: 06/13/2018 9:37 AM
[2018-06-13] MEDS ORDERED: Vancomycin HCl 1 GM in Premix Bag 1 BAG IVPB SCH ×2 (10:00→10:15)
[2018-06-13] MEDS ORDERED: Vancomycin HCl 500 MG in Sodium Chloride 0.9% 100 ML IVPB SCH (10:15)
[2018-06-13] MEDS ORDERED: Vancomycin HCl 750 MG in Sodium Chloride 0.9% 250 ML 250 ML IVPB SCH (10:15)
[2018-06-13] MEDS ORDERED: Vancomycin HCl 250 MG in Sodium Chloride 0.9% 100 ML IVPB SCH (10:15)
[2018-06-13] MEDS ORDERED: HOLD VANCOMYCIN FOR LEVEL >20 FS SCH (10:15)
[2018-06-13] MEDS ORDERED: Vancomycin HCl 1.25 GM in Sodium Chloride 0.9% 250 ML 250 ML IVPB SCH (11:00)
[2018-06-13] MEDS ORDERED: Epoetin (ESRD) 20,000 UNITS/ML SC SCH (11:30)
--- NOTE | 2018-06-13 11:36 | ULT ---
EXAM: US Venous Doppler Rt Unilateal PROVIDED CLINICAL HISTORY: Right upper extremity swelling COMPARISON: None FINDINGS: Grayscale and color Doppler sonography with spectral analysis was performed of the right internal jug ular, subclavian, axillary, brachial, basilic, radial, cephalic and ulnar veins. The interrogated portions of the venous structures of the right upper extremity demonstrate normal compressibility. Fl ow is documented. Arterialized cephalic waveform compatible with patient's fistula. IMPRESSION: No sonographic evidence for venous thrombosis.
--- NOTE | 2018-06-13 11:39 | RAD ---
EXAM: XR Wrist Rt 2 View PROVIDED CLINICAL HISTORY: Pain FINDINGS: There is no evidence for fracture or other acute osseous abnormality. Alignment appears anatomic. Kaylynn nt spaces appear preserved. IMPRESSION: No evidence for an acute osseous abnormality. If there is persistent clinical concern, conservative m anagement and follow-up imaging advised.
--- NOTE | 2018-06-13 11:40 | RAD ---
EXAM: XR Forearm Rt 2 View STANDARD PROVIDED CLINICAL HISTORY: Pain FINDINGS: There is no evidence for fracture or other acute osseous abnormality. Alignment appears anatomic. Kaylynn nt spaces appear preserved. Diffuse regional soft tissue swelling. Surgical clips overlie the proximal volar forearm. Vascular calcifications are seen. IMPRESSION: No evidence for an acute osseous abnormality. If there is persistent clinical concern, conservative m anagement and follow-up imaging advised.
[2018-06-13] MEDS ORDERED: EPOETIN ALFA-EPBX (ESRD) 4,000 UNIT/ML VIAL SC SCH (12:00)
[2018-06-13] MEDS ORDERED: EPOETIN ALFA-EPBX (ESRD) 2,000 UNIT/ML VIAL SC SCH (12:00)
--- NOTE | 2018-06-13 12:14 | PRG ---
DATE OF SERVICE: 06/13/2018 SERVICE: Renal Medicine. SUBJECTIVE: Mr. Burleson is a 78-year-old male with ESRD and followed up by the Renal Service for his maintenance hemodialysis. He was admitted due to a cardiorespiratory arrest. This morning, he is feeling better. Please note, he developed some rib fracture after his CPR compression. The pain is better. He has been resumed back on his morphine. In addition, his right upper extremity is more swollen. He is being empirically treated for infection - IV vancomycin and IV cephalosporin. He may need an AV fistulogram. I will decide tomorrow whether we will proceed with this. I will try his AV access to see if there is any difficulty, and if there is, we will schedule him for a fistulogram. He still currently has his cuffed dialysis catheter. No complaints of chest pain or shortness of breath. OBJECTIVE: VITAL SIGNS: Blood pressure 135/64, heart rate 100, respiratory rate 21, temperature 98.2, and pulse ox 99%. GENERAL: Awake, alert, comfortable, not in overt distress. SKIN: Adequate turgor. HEENT: Slightly pale conjunctivae. Anicteric sclerae. NECK: No neck mass. No carotid bruits. No JVD. CHEST: No deformities. LUNGS: Clear breath sounds. No wheezing. No crackles. HEART: Normal sinus rhythm. No murmurs, gallops, or rubs. ABDOMEN: Globular, soft, and nontender. No masses. EXTREMITIES: Positive for right upper extremity edema. Mild erythema on the forearm. MEDICATIONS: Medications of June 13, 2018, reviewed. LABORATORY DATA: Laboratories of June 13, 2018; white count 15.8, hemoglobin 9, hematocrit 26.9. Sodium 138, potassium 4, chloride 101, carbon dioxide 23, BUN 21, creatinine 3.48, AST 63, ALT 21, albumin 2.7. Cortisol is 15.6. ASSESSMENT AND PLAN: 1. End-stage renal disease, stable. We will continue current hemodialysis regimen. We will schedule for tomorrow for dialysis. If there is a problem with his arteriovenous fistula, we will consider proceeding with an arteriovenous fistulogram. 2. Status post cardiorespiratory arrest. Continue supportive care. Currently asymptomatic. 3. Anemia. Resume Epogen at 7500 units subcu q.week. 4. Right upper extremity cellulitis? On empiric IV antibiotics. Overall, agree with current management. Job ID: [id number]
--- NOTE | 2018-06-13 13:18 | PRG ---
DATE OF SERVICE: 06/13/2018 SUBJECTIVE: Ernesto Burleson this morning is better. Still having some chest pain from the CPR. OBJECTIVE: VITAL SIGNS: Sats are 100% on room air, blood pressure 120/59, temperature 98, and pulse 86. CHEST: Decreased breath sounds. No wheezing. CARDIAC: Normal S1, and S2. No gallops. ABDOMEN: No masses. LABORATORY DATA: Unremarkable. Creatinine of 3.48. White count 15,000. Cultures are negative. ASSESSMENT AND PLAN: End-stage renal failure, on dialysis, status post hypertension, CPR, fractured ribs. Disposition as per primary care physician. I see no reason to continue broad-spectrum antibiotics. Continue dialysis. Echo was normal. We will follow at a distance. Call if needed. Job ID: [id number]
[2018-06-13] MEDS: [UNRECOGNIZED DRUG - REMARK] SC SCH (14:02)
[2018-06-13] MEDS: EPOETIN ALFA-EPBX (ESRD) 3,000 UNIT/ML VIAL SC SCH (14:04)
--- NOTE | 2018-06-13 15:21 | PDOC.PN ---
- Subjective Encounter Start Date: 06/13/18 Encounter Start Time: 09:40 Patient seen and examined for Cardiac arrest. Discomfort over the broken ribs. No new complaints. No overnight events - Objective Resuscitation Status - Order Detail: 06/11/18 11:02 Resuscitation Status Routine Resuscitation Status: FULL: Full Resuscitation MAR Reviewed: Yes Vital Signs & Weight: Vital Signs (12 hours) Temp Pulse Resp BP BP BP BP 06/13/18 13:44 86 16 06/13/18 13:43 127/55 L 130/65 129/60 06/13/18 11:14 98.3 F 86 120/59 L 06/13/18 07:35 98.2 F 100 21 H 135/64 06/13/18 07:32 95 16 06/13/18 03:19 98.0 F 87 20 127/58 L Pulse Ox 06/13/18 13:44 95 06/13/18 13:43 06/13/18 11:14 100 06/13/18 07:35 100 06/13/18 07:32 97 06/13/18 03:19 100 Weight Admit Weight 147 lb Weight 144 lb 3.2 oz Most Recent Monitor Data Heart Rate from ECG 100 NIBP 144/72 NIBP BP-Mean 96 Respiration from ECG 20 SpO2 100 I&O: 06/12/18 06/13/18 06/14/18 06:59 06:59 06:59 Intake Total 1004.7 1740 Output Total 415 831 Balance 589.7 909 Result Diagrams: 06/13/18 05:55 06/13/18 05:55 EKG Reviewed by me: Yes (Tele SR) Phys Exam - Physical Examination Constitutional: NAD Respiratory: no wheezing, no rhonchi Cardiovascular: RRR, no rub Gastrointestinal: soft, non-tender, positive bowel sounds Musculoskeletal: edema present RUE swollen, warm,tender Neurological: moves all 4 limbs Psychiatric: A&O x 3 Dx/Plan - Plan DVT proph w/SCDs IMPRESSION: Cardiac arrest ROSC s/p CPR - ?etio Hypotension requiring Levophed Acute hypoxic resp failure s/p NIPPV LLL Pneumonia ?Pneumococcal RUE swelling with Erythema ?Cellulitis Type 2 [place]/Demand ischemia Hypokalemia ESRD on HD Multiple rib fx from CPR CAD Psoariasis IgA Nephropathy Anemia due to renal insufficiency HLD GERD Moderate PEM h/o HTN PLAN: Add Vancomycin RUE Doppler to r/o DVT RUE XR to r/o fracture Cont gentle IVF Cont Tele monitoring Cont Nebs Confirm home meds - Spouse to get meds in AM Cont other meds as below Orthostatic vitals negative Microbiology 06/11/18 11:22 Urine syed catheter Urine Culture - Final NO GROWTH AT 48 HOURS 06/11/18 17:26 Venous blood - Left Arm Blood Culture - Preliminary NO GROWTH AT 48 HOURS 06/11/18 17:23 Venous blood - Left Hand Blood Culture - Preliminary NO GROWTH AT 48 HOURS Laboratory Tests 06/11/18 06/11/18 06/11/18 08:50 17:23 21:36 Troponin I 2.388 H* 2.185 H* B-Natriuretic Peptide 211.7 H Albumin Cortisol 06/13/18 06/13/18 05:55 05:55 Troponin I B-Natriuretic Peptide Albumin 2.7 L Cortisol 15.60 Review of Systems - Review of Systems Respiratory: negative: Cough, Dry, Shortness of Breath, Hemoptysis, SOB with Excertion, Pleuritic Pain, Sputum, Wheezing Cardiovascular: negative: chest pain, palpitations, orthopnea, paroxysmal nocturnal dyspnea, edema, light headedness, other Gastrointestinal: negative: Nausea, Vomiting, Abdominal Pain, Diarrhea, Constipation, Melena, Hematochezia, Other - Medications/Allergies Allergies/Adverse Reactions: Allergies Allergy/AdvReac Type Severity Reaction Status Date / Time ketorolac tromethamine Allergy Rash Verified 03/24/18 18:40 [From Toradol] levofloxacin [From Levaquin] Allergy Rash Verified 03/24/18 18:40 Sulfa (Sulfonamide Allergy Rash Verified 03/24/18 18:40 Antibiotics) tamsulosin HCl [From Flomax] Allergy Verified 03/24/18 18:40 Medications: Current Medications Acetaminophen (Tylenol) 650 mg PO TID [facility] Last Admin: 06/13/18 08:43 Dose: 650 mg Albuterol/Ipratropium (Duoneb) 3 ml NEB [id number] [facility] Last Admin: 06/13/18 13:44 Dose: 3 ml Aspirin (Ecotrin) 81 mg PO DAILY [facility] Last Admin: 06/13/18 08:43 Dose: 81 mg Cyanocobalamin (Vitamin B-12) 1,000 mcg PO DAILY [facility] Last Admin: 06/13/18 08:43 Dose: 1,000 mcg Folic Acid (Folvite) 1 mg PO DAILY [facility] Last Admin: 06/13/18 08:43 Dose: 1 mg Sodium Chloride (Normal Saline 0.9%) 1,000 mls @ 50 mls/hr IV .Q20H [facility] Last Admin: 06/12/18 23:53 Dose: 1,000 mls Ceftriaxone Sodium 1 gm/ (Sodium Chloride) 100 mls @ 200 mls/hr IVPB Q24HR [facility] Last Admin: 06/12/18 18:40 Dose: 100 mls Vancomycin HCl 1 gm/ Device 200 mls @ 200 mls/hr IVPB WILLCALL [facility] Vancomycin HCl 750 mg/ Sodium (Chloride) 250 mls @ 250 mls/hr IVPB WILLCALL [facility] Vancomycin HCl 500 mg/ Sodium (Chloride) 100 mls @ 100 mls/hr IVPB WILLCALL [facility] Vancomycin HCl 250 mg/ Sodium (Chloride) 100 mls @ 100 mls/hr IVPB WILLCALL [facility] Miscellaneous Medication (Pharmacy To Dose) 1 each IVPB PRN PRN PRN Reason: Pharmacy to dose Morphine Sulfate (Morphine) 2 mg SLOW IVP Q3H PRN PRN Reason: Mild-Moderate Pain (1-5) Morphine Sulfate (Morphine) 4 mg SLOW IVP Q3H PRN PRN Reason: Moderate to Severe Pain (6-10) Last Admin: 06/13/18 14:39 Dose: 4 mg Hold Vancomycin For (Level >20) 0 each FS .AT DIALYSIS [facility] Ondansetron HCl (Zofran Odt) 4 mg PO Q6H PRN PRN Reason: Nausea/Vomiting Ondansetron HCl (Zofran) 4 mg IVP Q6H PRN PRN Reason: Nausea/Vomiting Last Admin: 06/11/18 18:35 Dose: 4 mg Pantoprazole Sodium (Protonix) 40 mg PO DAILY [facility] Last Admin: 06/13/18 08:44 Dose: 40 mg Senna/Docusate Sodium (Senokot S) 2 tab PO BID [facility] Last Admin: 06/13/18 08:44 Dose: 2 tab Sodium Chloride (Flush - Normal Saline) 10 ml IVF Q12HR [facility] Last Admin: 06/13/18 08:52 Dose: Not Given Sodium Chloride (Flush - Normal Saline) 10 ml IVF PRN PRN PRN Reason: Saline Flush Last Admin: 06/12/18 13:31 Dose: 10 ml
--- NOTE | 2018-06-13 15:56 | PDOC.CTH ---
Cardiology Progress Note - Subjective The pt seen and examined. No overnight events. No cardiac complaints. He complains of pain at the CPR site. - Objective Vital Signs Temp Pulse Resp BP BP BP BP 06/13/18 15:26 98.5 F 106 H 18 157/67 H 06/13/18 13:44 86 16 06/13/18 13:43 127/55 L 130/65 129/60 06/13/18 11:14 98.3 F 86 120/59 L 06/13/18 07:35 98.2 F 100 21 H 135/64 06/13/18 07:32 95 16 Pulse Ox 06/13/18 15:26 89 L 06/13/18 13:44 95 06/13/18 13:43 06/13/18 11:14 100 06/13/18 07:35 100 06/13/18 07:32 97 Admit Weight 147 lb Weight 144 lb 3.2 oz 06/12/18 06/13/18 06/14/18 06:59 06:59 06:59 Intake Total 1004.7 1740 Output Total 415 831 Balance 589.7 909 - Physical Examination General/Neuro: alert & oriented x3 Neck: no JVD present Lungs: other: (diminished at bases) Heart: RRR Abdomen: soft Extremities: other: (No edema) - Telemetry Telemetry Rhythm: SR - Labs Result Diagrams: 06/13/18 05:55 06/13/18 05:55 Troponin/CKMB CK-MB (CK-2) 1.3 ng/mL (0-6.6) 06/11/18 08:50 Troponin I 2.185 ng/mL (< 0.028) H* 06/11/18 21:36 - Assessment/Plan 1. Cardiac arrest ROSC s/p CPR - stable 2. Hypotension - stable 3. LLL PNA - on ABX, 4. mild-mod CAD - on ASA; not on BBlocker/JE/ARB due to hypotensive 5. ESRD on HD - 6. Multiple rib fx from CPR - 7. Possible Cellulitis to RUE - on ABX; managed by PCP 8. Anemia - MAR reviewed * Echo on 06/12/2018 with EF 60%, trace MR and mild TR. Pt. seen and eval. by me. I agree with the A/P by the [employer]. Exam: chest pain after CPR is better. RRR. Will ask EP to see due to cardiac arrest in dialysis. gjm Review of Systems - Review of Systems Constitutional: reports: no symptoms reported EENTM: reports: no symptoms reported Respiratory: reports: no symptoms reported Cardiac (ROS): reports: no symptoms reported ABD/GI: reports: no symptoms reported
[2018-06-13] MEDS: cefTRIAXone\\ROCEPHIN 1 GM in Sodium Chloride 0.9% 100 ML IVPB SCH (20:11)
[2018-06-13] MEDS: Sodium Chloride 0.9% 1,000 ML IV SCH (23:45)
[2018-06-14] MEDS: Morphine 4 MG/ML VIAL SLOW IVP PRN (01:19)
[2018-06-14 06:21] LABS: #Eosinphils 0.6 thou/uL (0.0-0.7); #Lymphocytes 1.3 thou/uL (1.20-3.40); #Monocytes 0.6 thou/uL (0.11-0.59); %Basophils 0.1 % (0.0-1.0); %Eosinophils 5.7 % (0.0-10.0); %Lymphocytes 12.1 % (21.0-51.0); %Monocytes 5.8 % (0.0-10.0); %Neutrophils 76.3 % (42.0-75.0); Hemoglobin 7.7 g/dL (14.0-18.0); Mean Corpuscular Hemoglobin 29.6 pg (27.0-31.0); Mean Corpuscular Volume 92.6 fL (78.0-98.0); Mean Platelet Volume 7.3 fL (7.4-10.4); Platelet Count 221 thou/uL (130-400); RBC Distribution Width 14.2 % (11.5-14.5); Red Blood Cell (RBC) Count 2.59 mill/uL (4.70-6.10); White Blood Cell (WBC) Count 10.5 thou/uL (4.8-10.8)
[2018-06-14 06:46] LABS: Anion Gap 15 mmol/L (10-20); BUN (Urea Nitrogen) 24 mg/dL (8.4-25.7); Calc. Creatinine Clearance 17 mL/min (70-130); Calcium 8.2 mg/dL (7.8-10.44); Carbon Dioxide 22 mmol/L (23-31); Chloride 103 mmol/L (98-107); Estimated GFR-MDRD 17; Glucose 100 mg/dL (83-110); Potassium 3.5 mmol/L (3.5-5.1); Sodium 136 mmol/L (136-145)
--- NOTE | 2018-06-14 10:15 | PRG ---
DATE OF SERVICE: 06/14/2018 SUBJECTIVE: Mr. Burleson is a 78-year-old male with ESRD, was admitted for cardiorespiratory arrest. He has been remaining stable hemodynamically for the last several days. He is currently undergoing dialysis. We will be attempting to use his right upper extremity AV fistula. There is some erythema on the right forearm and it is being treated with IV antibiotics. No other complaints. OBJECTIVE: VITAL SIGNS: Blood pressure 168/74, heart rate 104, respiratory rate 18, temperature 98.1, and pulse ox 97%. GENERAL: Awake, alert, and comfortable, not in distress. SKIN: Adequate turgor. HEENT: Pale conjunctivae. Anicteric sclerae. No neck mass. No carotid bruits. No JVD. CHEST: No deformities. LUNGS: Clear breath sounds. HEART: Normal sinus rhythm. No murmur. No gallops. No rubs. ABDOMEN: Globular, soft, and nontender. No masses. EXTREMITIES: No edema. No deformities. Positive for right forearm erythema. MEDICATIONS: Medications of June 14, 2018, were reviewed. LABORATORY DATA: Laboratories of June 14, 2018, white count 10.5 and hemoglobin 7.7. Sodium 136, potassium 3.5, chloride 103, carbon dioxide 22, BUN 24, creatinine 3.5, glucose 100, and calcium 8.2. ASSESSMENT AND PLAN: 1. End-stage renal disease. We will plan for 3-hour hemodialysis. Minimal fluid removal. No heparin use if possible. 2. Right forearm cellulitis, on IV antibiotics. 3. Status post cardiorespiratory arrest, hemodynamically stable. Continue supportive care. Recheck CBC in a.m. 4. Anemia, on weekly Epogen. Job ID: [id number]
[2018-06-14] MEDS ORDERED: Heparin 10,000 UNITS/ 10 ML VIAL ONE (11:00)
[2018-06-14] MEDS ORDERED: Fentanyl 100 MCG/2 ML VIAL SLOW IVP PRN (11:51)
[2018-06-14] MEDS ORDERED: cloNIDine 0.1 MG TAB PO PRN (11:52)
--- NOTE | 2018-06-14 11:57 | PDOC.PN ---
- Subjective Encounter Start Date: 06/14/18 Encounter Start Time: 11:00 Patient seen and examined for Cardiac arrest. Feels better. NSVT earlier. No new complaints. No overnight events - Objective Resuscitation Status - Order Detail: 06/11/18 11:02 Resuscitation Status Routine Resuscitation Status: FULL: Full Resuscitation MAR Reviewed: Yes Vital Signs & Weight: Vital Signs (12 hours) Temp Pulse Resp BP Pulse Ox 06/14/18 08:00 97 06/14/18 07:28 98.1 F 104 H 18 168/74 H 97 06/14/18 07:07 95 06/14/18 07:05 100 16 95 06/14/18 04:27 98.2 F 90 18 151/67 H 95 06/14/18 00:00 97.9 F 97 20 109/56 L 95 Weight Admit Weight 147 lb Weight 150 lb 9.6 oz Most Recent Monitor Data Heart Rate from ECG 100 NIBP 144/72 NIBP BP-Mean 96 Respiration from ECG 20 SpO2 100 I&O: 06/13/18 06/14/18 06/15/18 06:59 06:59 06:59 Intake Total 1740 1020 Output Total 831 900 Balance 909 120 Result Diagrams: 06/14/18 04:46 06/14/18 04:45 EKG Reviewed by me: Yes (Tele SR, NSVT earlier today) Phys Exam - Physical Examination Constitutional: NAD Respiratory: no wheezing, no rhonchi Cardiovascular: RRR, no rub Gastrointestinal: soft, non-tender, positive bowel sounds Musculoskeletal: no edema Neurological: moves all 4 limbs Dx/Plan - Plan DVT proph w/SCDs IMPRESSION: Cardiac arrest ROSC s/p CPR - ?etio Hypotension requiring Levophed NSVT LLL [facility] Pneumonia ?Pneumococcal vs Aspiration RUE Cellulitis - on Vancomycin/Ceftriaxone Acute hypoxic resp failure s/p NIPPV Type 2 [place]/Demand ischemia Hypokalemia ESRD on HD Multiple rib fx from CPR CAD Psoariasis IgA Nephropathy Anemia due to renal insufficiency HLD GERD Moderate PEM h/o HTN PLAN: Add Metoprolol for NSVT 1 gm IVPB Magnessium Cont Vancomycin/Ceftriaxone Monitor Vancomycin DC IVF Await EP input Cont Nebs Resume home meds Cont other meds as below AM labs Change Morphine to Fentanyl DC Scheduled Acetaminophen Review of Systems - Review of Systems Respiratory: negative: Cough, Dry, Shortness of Breath, Hemoptysis, SOB with Excertion, Pleuritic Pain, Sputum, Wheezing Cardiovascular: negative: chest pain, palpitations, orthopnea, paroxysmal nocturnal dyspnea, edema, light headedness, other Gastrointestinal: negative: Nausea, Vomiting, Abdominal Pain, Diarrhea, Constipation, Melena, Hematochezia, Other - Medications/Allergies Allergies/Adverse Reactions: Allergies Allergy/AdvReac Type Severity Reaction Status Date / Time ketorolac tromethamine Allergy Rash Verified 03/24/18 18:40 [From Toradol] levofloxacin [From Levaquin] Allergy Rash Verified 03/24/18 18:40 Sulfa (Sulfonamide Allergy Rash Verified 03/24/18 18:40 Antibiotics) tamsulosin HCl [From Flomax] Allergy Verified 03/24/18 18:40 Medications: Current Medications Acetaminophen (Tylenol) 650 mg PO Q4H PRN PRN Reason: Headache/Fever or Mild Pain Albuterol/Ipratropium (Duoneb) 3 ml NEB [id number] [facility] Last Admin: 06/14/18 07:05 Dose: 3 ml Aspirin (Ecotrin) 81 mg PO DAILY [facility] Last Admin: 06/13/18 08:43 Dose: 81 mg Clonidine (Catapres) 0.1 mg PO Q6H PRN PRN Reason: SBP GREATER THAN 160 Cyanocobalamin (Vitamin B-12) 1,000 mcg PO DAILY [facility] Last Admin: 06/13/18 08:43 Dose: 1,000 mcg Docusate Sodium (Colace) 100 mg PO BID [facility] Fentanyl (Sublimaze) 25 mcg SLOW IVP Q3H PRN PRN Reason: Pain Ferrous Sulfate (Feosol) 325 mg PO BID[facility] Folic Acid (Folvite) 1 mg PO DAILY [facility] Last Admin: 06/13/18 08:43 Dose: 1 mg Ceftriaxone Sodium 1 gm/ (Sodium Chloride) 100 mls @ 200 mls/hr IVPB Q24HR [facility] Last Admin: 06/13/18 20:11 Dose: 100 mls Vancomycin HCl 1 gm/ Device 200 mls @ 200 mls/hr IVPB WILLCALL [facility] Vancomycin HCl 750 mg/ Sodium (Chloride) 250 mls @ 250 mls/hr IVPB [facility]CALL [facility] Vancomycin HCl 500 mg/ Sodium (Chloride) 100 mls @ 100 mls/hr IVPB [facility] Vancomycin HCl 250 mg/ Sodium (Chloride) 100 mls @ 100 mls/hr IVPB [facility] Metoprolol Tartrate (Lopressor) 25 mg PO BID [facility] Metoprolol Tartrate (Lopressor) 25 mg PO ONE [facility] Mirtazapine (Remeron) 15 mg PO DAILY [facility] Miscellaneous Medication (Pharmacy To Dose) 1 each IVPB PRN PRN PRN Reason: Pharmacy to dose Morphine Sulfate (Morphine) 2 mg SLOW IVP Q3H PRN PRN Reason: Mild-Moderate Pain (1-5) Last Admin: 06/14/18 01:19 Dose: 2 mg Hold Vancomycin For (Level >20) 0 each FS .AT DIAL[facility]IS [facility] Ondansetron HCl (Zofran Odt) 4 mg PO Q6H PRN PRN Reason: Nausea/Vomiting Ondansetron HCl (Zofran) 4 mg IVP Q6H PRN PRN Reason: Nausea/Vomiting Last Admin: 06/11/18 18:35 Dose: 4 mg Pantoprazole Sodium (Protonix) 40 mg PO DAILY [facility] Last Admin: 06/13/18 08:44 Dose: 40 mg Rosuvastatin Calcium (Crestor) 10 mg PO HS [facility] Saccharomyces Boulardii (Florastor) 250 mg PO DAILY [facility] Senna/Docusate Sodium (Senokot S) 2 tab PO BID [facility] Last Admin: 06/13/18 20:10 Dose: 2 tab Sertraline HCl (Zoloft) 50 mg PO DAILY [facility] Sevelamer Carbonate (Renvela) mg PO TID-WM [facility] Sodium Chloride (Flush - Normal Saline) 10 ml IVF Q12HR [facility] Last Admin: 06/13/18 20:11 Dose: 10 ml Sodium Chloride (Flush - Normal Saline) 10 ml IVF PRN PRN PRN Reason: Saline Flush Last Admin: 06/13/18 17:54 Dose: 10 ml Tramadol HCl (Ultram) 100 mg PO Q6H PRN PRN Reason: Pain 7-10
[2018-06-14] MEDS ORDERED: Metoprolol Tartrate 25 MG TAB PO SCH (12:15)
[2018-06-14] MEDS: EPOETIN ALFA-EPBX (ESRD) 3,000 UNIT/ML VIAL SC SCH (13:45)
[2018-06-14] MEDS ORDERED: Polyethylene Glycol 3350 17 GM Packet PO PRN (14:50)
[2018-06-14] MEDS ORDERED: Senokot 8.6 MG TAB PO PRN (14:50)
[2018-06-14] MEDS ORDERED: Magnesium Citrate 300 ML BOT PO SCH (15:00)
[2018-06-14] MEDS: Fentanyl 100 MCG/2 ML VIAL SLOW IVP PRN ×3 (15:23→21:40)
[2018-06-14] MEDS: Aspirin 81 mg Enteric Coated Tablet PO SCH (15:32)
[2018-06-14] MEDS: Cyanocobalamin (Vitamin B-12) 1,000 MCG TAB PO SCH (15:32)
[2018-06-14] MEDS: Folic Acid 1 MG TAB PO SCH (15:33)
[2018-06-14] MEDS: Saccharomyces boulardii 250 MG CAP PO SCH (15:33)
[2018-06-14] MEDS: Senokot S 8.6-50 MG TAB PO SCH ×2 (15:33→21:15)
[2018-06-14] MEDS: Sevelamer Carbonate 800 MG TAB PO SCH ×2 (15:34→18:13)
[2018-06-14] MEDS: Acetaminophen 325 MG TAB PO SCH (15:35)
[2018-06-14] MEDS: Dextrose 5 % And 0.9 % NaCl 1,000 ML IV SCH (16:22)
[2018-06-14] MEDS: Ferrous Sulfate 325 MG TAB PO SCH (18:13)
[2018-06-14] MEDS: cefTRIAXone\\ROCEPHIN 1 GM in Sodium Chloride 0.9% 100 ML IVPB SCH (18:35)
[2018-06-14] MEDS: Rosuvastatin 10 MG TAB PO SCH (21:15)
[2018-06-14] MEDS: Metoprolol Tartrate 25 MG TAB PO SCH (21:15)
[2018-06-14] MEDS: Docusate 100 MG CAP PO SCH (21:15)
[2018-06-15] MEDS: Fentanyl 100 MCG/2 ML VIAL SLOW IVP PRN (00:49)
[2018-06-15] MEDS ORDERED: Nitroglycerin 50 MG/250 ML BOT 250 ML ONE ×2 (02:46→02:47)
[2018-06-15] MEDS ORDERED: Nitroglycerin 0.4 MG TAB (25 Tab Bottle) ONE (02:48)
[2018-06-15] MEDS ORDERED: Lorazepam 2 MG/ML VIAL SLOW IVP SCH (03:00)
[2018-06-15] MEDS: Morphine 4 MG/ML VIAL SLOW IVP PRN ×2 (03:20→09:09)
[2018-06-15 06:54] LABS: #Basophils 0.1 thou/uL (0.0-0.2); #Eosinphils 0.3 thou/uL (0.0-0.7); #Lymphocytes 1.1 thou/uL (1.20-3.40); #Monocytes 0.5 thou/uL (0.11-0.59); #Neutrophils 5.4 thou/uL (1.40-6.50); %Basophils 0.9 % (0.0-1.0); %Eosinophils 4.1 % (0.0-10.0); %Monocytes 6.6 % (0.0-10.0); %Neutrophils 73.3 % (42.0-75.0); Hemoglobin 7.7 g/dL (14.0-18.0); Mean Corpuscular HGB CONC 32.8 g/dL (32.0-36.0); Mean Corpuscular Hemoglobin 30.5 pg (27.0-31.0); Mean Platelet Volume 7.1 fL (7.4-10.4); Platelet Count 250 thou/uL (130-400); RBC Distribution Width 14.4 % (11.5-14.5); Red Blood Cell (RBC) Count 2.53 mill/uL (4.70-6.10); White Blood Cell (WBC) Count 7.4 thou/uL (4.8-10.8)
[2018-06-15 07:23] LABS: Anion Gap 12 mmol/L (10-20); BUN (Urea Nitrogen) 14 mg/dL (8.4-25.7); Calc. Creatinine Clearance 26 mL/min (70-130); Calcium 8.5 mg/dL (7.8-10.44); Carbon Dioxide 24 mmol/L (23-31); Chloride 109 mmol/L (98-107); Estimated GFR-MDRD 28; Glucose 97 mg/dL (83-110); Magnesium 1.8 mg/dL (1.6-2.6); Potassium 3.8 mmol/L (3.5-5.1); Sodium 141 mmol/L (136-145)
--- NOTE | 2018-06-15 10:00 | PRG ---
DATE OF SERVICE: 06/15/2018 SUBJECTIVE: Mr. Burleson is a 78-year-old male with ESRD and was admitted due to a cardiorespiratory arrest. He has also this persistent right upper extremity swelling, where the AV fistula is. We tried to use the AV fistula yesterday, but this was not successful. Our plan is to go ahead and schedule him for AV fistulogram today. The patient has been intermittently confused also. OBJECTIVE: VITAL SIGNS: Blood pressure is 153/69, heart rate 92, respiratory rate 16, pulse ox 93%. GENERAL: The patient is awake, confused, mumbling, not coherent and not answering my question. HEENT: He has a slightly pale conjunctivae. Anicteric sclerae. No neck mass. No carotid bruits. No JVD. CHEST: No deformities. LUNGS: Clear breath sounds. No wheezing. No crackles. HEART: Normal sinus rhythm. No murmurs. No gallops. No rubs. ABDOMEN: Globular, soft, nontender. No masses. EXTREMITIES: Right upper extremity swelling. MEDICATIONS: Medications of June 15, 2018, reviewed. LABORATORY DATA: Laboratories of June 15, 2018; white count 7.4, hemoglobin 7.7, hematocrit 23.6. Sodium 141, potassium 3.8, chloride 109, carbon dioxide 24, BUN 14, creatinine 2.3, glucose 97, calcium 8.5, magnesium 1.8. June 14, 2018, vancomycin level is 25. ASSESSMENT AND PLAN: 1. End-stage renal disease, stable. We will continue current Thursday, Thursday, and Thursday dialysis. Fluid removal only as tolerated by the patient. 2. Anemia. Continuing weekly Epogen with this patient. 3. Right upper extremity swelling/nonfunctional AV fistula-we will schedule for an AV fistulogram. 4. Right upper extremity cellulitis-currently on IV vancomycin. Overall, continue supportive care. Prognosis remains guarded. Job ID: [id number]
--- NOTE | 2018-06-15 11:13 | PDOC.CTH ---
Cardiology Progress Note - Subjective The pt seen and examined. No overnight events. No cardiac complaints. the pt is very confused - Objective Vital Signs Temp Pulse Pulse Resp BP BP Pulse Ox 06/15/18 09:00 171/74 H 06/15/18 08:48 97 171/74 H 06/15/18 07:55 98.8 F 99 18 185/79 H 99 06/15/18 06:33 93 L 06/15/18 06:30 92 16 93 L 06/15/18 04:00 92 18 153/69 H 98 06/15/18 00:44 89 18 98 06/15/18 00:00 98.3 F 93 20 158/70 H 97 Admit Weight 147 lb Weight 151 lb 0.266 oz 06/14/18 06/15/18 06/16/18 06:59 06:59 06:59 Intake Total 1020 600 Output Total 900 800 Balance 120 -200 - Physical Examination Lungs: other: (diminished at bases) Heart: RRR Abdomen: soft Extremities: other: (No edema) - Telemetry Telemetry Rhythm: SR - Labs Result Diagrams: 06/15/18 06:46 06/15/18 06:46 Troponin/CKMB CK-MB (CK-2) 1.3 ng/mL (0-6.6) 06/11/18 08:50 Troponin I 2.185 ng/mL (< 0.028) H* 06/11/18 21:36 - Assessment/Plan 1. Cardiac arrest ROSC s/p CPR - the pt is confused; cardiovascular is stable 2. Hypotension - stable 3. LLL PNA - on ABX, 4. mild-mod CAD - on ASA; not on BBlocker/JE/ARB due to hypotensive 5. ESRD on HD - 6. Multiple rib fx from CPR - 7. Possible Cellulitis to RUE - on ABX; managed by PCP 8. Anemia - 9. generalized weakness. MAR reviewed * Echo on 06/12/2018 with EF 60%, trace MR and mild TR. Pt. seen and eval. by me. I agree with the A/p by the BIRTH ATTENDANT. Seen by EP yesterday. Dr. Red wants to wait for further improvement in the pt. before proceding with EP eval. He remains in NSR. No arrythmias. Review of Systems - Review of Systems Constitutional: reports: no symptoms reported EENTM: reports: no symptoms reported Respiratory: reports: no symptoms reported Cardiac (ROS): reports: no symptoms reported ABD/GI: reports: no symptoms reported : reports: no symptoms reported
[2018-06-15] MEDS: Sevelamer Carbonate 800 MG TAB PO SCH ×3 (11:16→19:05)
[2018-06-15] MEDS: Ferrous Sulfate 325 MG TAB PO SCH ×2 (11:16→19:05)
[2018-06-15] MEDS: Aspirin 81 mg Enteric Coated Tablet PO SCH (11:16)
[2018-06-15] MEDS: Folic Acid 1 MG TAB PO SCH (11:16)
[2018-06-15] MEDS: Cyanocobalamin (Vitamin B-12) 1,000 MCG TAB PO SCH (11:16)
[2018-06-15] MEDS: Docusate 100 MG CAP PO SCH (11:16)
[2018-06-15] MEDS: Senokot S 8.6-50 MG TAB PO SCH ×2 (11:17→20:07)
[2018-06-15] MEDS: Mirtazapine 15 MG TAB PO SCH (11:17)
[2018-06-15] MEDS: Saccharomyces boulardii 250 MG CAP PO SCH (11:17)
[2018-06-15] MEDS: Metoprolol Tartrate 25 MG TAB PO SCH ×2 (11:17→20:07)
[2018-06-15] MEDS ORDERED: Fentanyl 100 MCG/2 ML VIAL SLOW IVP PRN (11:27)
[2018-06-15] MEDS ORDERED: cloNIDine 0.1mg/24 Hour PATCH TD SCH (12:00)
[2018-06-15] MEDS: Dextrose 5 % And 0.9 % NaCl 1,000 ML IV SCH (13:51)
--- NOTE | 2018-06-15 14:15 | PDOC.PN ---
- Subjective Encounter Start Date: 06/15/18 Encounter Start Time: 10:00 Patient seen and examined for Cardiac arrest. Intermittent confusion. Significant pain over the rib fractures. Low dose Ativan last night helped. No new complaints. Overnight events noted - Objective Resuscitation Status - Order Detail: 06/11/18 11:02 Resuscitation Status Routine Resuscitation Status: FULL: Full Resuscitation MAR Reviewed: Yes Vital Signs & Weight: Vital Signs (12 hours) Temp Pulse Pulse Resp BP BP Pulse Ox 06/15/18 12:47 99 16 98 06/15/18 09:00 171/74 H 06/15/18 08:48 97 171/74 H 06/15/18 07:55 98.8 F 99 18 185/79 H 99 06/15/18 06:33 93 L 06/15/18 06:30 92 16 93 L 06/15/18 04:00 92 18 153/69 H 98 Weight Admit Weight 147 lb Weight 151 lb 0.266 oz Most Recent Monitor Data Heart Rate from ECG 100 NIBP 144/72 NIBP BP-Mean 96 Respiration from ECG 20 SpO2 100 I&O: 06/14/18 06/15/18 06/16/18 06:59 06:59 06:59 Intake Total 1020 600 Output Total 900 800 Balance 120 -200 Result Diagrams: 06/15/18 06:46 06/15/18 06:46 Radiology Reviewed by me: Yes (CXR - reviewed) EKG Reviewed by me: Yes (Tele SR) Phys Exam - Physical Examination Pt in distress due to pain Respiratory: no wheezing, no rhonchi Rales at bases, Symmetrical, Shallow breathing due to pain Cardiovascular: RRR, no rub no heaves/pulsations Gastrointestinal: soft, non-tender, no distention, positive bowel sounds Musculoskeletal: no edema RUE erythema improving Neurological: non-focal, normal sensation, moves all 4 limbs Psychiatric: A&O x 3 Skin: no rash Dx/Plan - Plan DVT proph w/SCDs IMPRESSION: Cardiac arrest ROSC s/p CPR - ?etio Hypotension requiring Levophed NSVT LLL HCA Pneumonia ?Pneumococcal vs Aspiration RUE Cellulitis - on Vancomycin/Ceftriaxone Swallow dysfunction Oral candidiasis Acute hypoxic resp failure s/p NIPPV Type 2 AL/Demand ischemia Hypokalemia/hypomagnesemia ESRD on HD Multiple rib fx from CPR causing significant pain CAD Psoariasis IgA Nephropathy Anemia due to renal insufficiency HLD GERD Moderate PEM h/o HTN PLAN: Cont Metoprolol for NSVT Barium swallow today Fistula study Nystatin SSP Cont Vancomycin & Ceftriaxone Monitor Vancomycin EP input appreciated Cont Nebs Resume home meds Cont other meds as below AM labs Change Morphine to Fentanyl Add Fentanyl patch 12 mcg due to significant pain Also add low dose Ativan PRN DC Scheduled Acetaminophen AM labs Consult Palliative care Review of Systems - Review of Systems Respiratory: negative: Cough, Dry, Shortness of Breath, Hemoptysis, SOB with Excertion, Pleuritic Pain, Sputum, Wheezing Cardiovascular: negative: chest pain, palpitations, orthopnea, paroxysmal nocturnal dyspnea, edema, light headedness, other - Medications/Allergies Allergies/Adverse Reactions: Allergies Allergy/AdvReac Type Severity Reaction Status Date / Time ketorolac tromethamine Allergy Rash Verified 03/24/18 18:40 [From Toradol] levofloxacin [From Levaquin] Allergy Rash Verified 03/24/18 18:40 Sulfa (Sulfonamide Allergy Rash Verified 03/24/18 18:40 Antibiotics) tamsulosin HCl [From Flomax] Allergy Verified 03/24/18 18:40 Medications: Current Medications Acetaminophen (Tylenol) 650 mg PO Q4H PRN PRN Reason: Headache/Fever or Mild Pain Acetaminophen (Tylenol Elixir) 650 mg PO TID [facility] Albuterol/Ipratropium (Duoneb) 3 ml NEB [id number] [facility] Last Admin: 06/15/18 12:47 Dose: 3 ml Albuterol/Ipratropium (Duoneb) 3 ml [id number] [facility] Last Admin: 06/15/18 12:50 Dose: Not Given Aspirin (Ecotrin) 81 mg PO DAILY [facility] Last Admin: 06/15/18 11:16 Dose: Not Given Clonidine (Catapres) 0.1 mg PO Q6H PRN PRN Reason: SBP GREATER THAN 160 Clonidine (Tswhxsmq-Ees-6 Patch) 0.1 mg TD Q7D [facility] Last Admin: 06/15/18 12:07 Dose: 0.1 mg Cyanocobalamin (Vitamin B-12) 1,000 mcg PO DAILY [facility] Last Admin: 06/15/18 11:16 Dose: Not Given Fentanyl (Duragesic) 12 mcg TD Q3D [facility] Last Admin: 06/15/18 13:22 Dose: 12 mcg Fentanyl (Sublimaze) 25 mcg SLOW IVP Q3H PRN PRN Reason: Moderate Pain (4-6) Ferrous Sulfate (Feosol) 325 mg PO BID-[facility] Last Admin: 06/15/18 11:16 Dose: Not Given Folic Acid (Folvite) 1 mg PO DAILY [facility] Last Admin: 06/15/18 11:16 Dose: Not Given Ceftriaxone Sodium 1 gm/ (Sodium Chloride) 100 mls @ 200 mls/hr IVPB Q24HR [facility] Last Admin: 06/14/18 18:35 Dose: 100 mls Vancomycin HCl 1 gm/ Device 200 mls @ 200 mls/hr IVPB WILLCALL [facility] Vancomycin HCl 750 mg/ Sodium (Chloride) 250 mls @ 250 mls/hr IVPB [facility]CALL [facility] Vancomycin HCl 500 mg/ Sodium (Chloride) 100 mls @ 100 mls/hr IVPB [facility] Vancomycin HCl 250 mg/ Sodium (Chloride) 100 mls @ 100 mls/hr IVPB [facility]CALL [facility] Dextrose/Sodium Chloride (D5 0.9% Ns) 1,000 mls @ 50 mls/hr IV .Q20H [facility] Last Admin: 06/15/18 13:51 Dose: 1,000 mls Lorazepam (Ativan) 0.25 mg SLOW IVP Q6H PRN PRN Reason: Anxiety/Agitation Metoprolol Tartrate (Lopressor) 25 mg PO BID [facility] Last Admin: 06/15/18 11:17 Dose: Not Given Mirtazapine (Remeron) 15 mg PO DAILY [facility] Last Admin: 06/15/18 11:17 Dose: Not Given Miscellaneous Medication (Pharmacy To Dose) 1 each IVPB PRN PRN PRN Reason: Pharmacy to dose Hold Vancomycin For (Level >20) 0 each FS .AT DIALYSIS [facility] Nystatin (Mycostatin) 500,000 units SSW QID [facility] Ondansetron HCl (Zofran Odt) 4 mg PO Q6H PRN PRN Reason: Nausea/Vomiting Ondansetron HCl (Zofran) 4 mg IVP Q6H PRN PRN Reason: Nausea/Vomiting Last Admin: 06/11/18 18:35 Dose: 4 mg Pantoprazole Sodium (Protonix) 40 mg PO DAILY [facility] Last Admin: 06/15/18 11:17 Dose: Not Given Polyethylene Glycol (Miralax) 17 gm PO DAILY PRN PRN Reason: Constipation Rosuvastatin Calcium (Crestor) 10 mg PO HS [facility] Last Admin: 06/14/18 21:15 Dose: Not Given Saccharomyces Boulardii (Florastor) 250 mg PO DAILY [facility] Last Admin: 06/15/18 11:17 Dose: Not Given Senna/Docusate Sodium (Senokot S) 2 tab PO BID [facility] Last Admin: 06/15/18 11:17 Dose: Not Given Sertraline HCl (Zoloft) 50 mg PO DAILY [facility] Last Admin: 06/15/18 11:17 Dose: Not Given Sevelamer Carbonate (Renvela) 800 mg PO TID-WM [facility] Last Admin: 06/15/18 11:16 Dose: Not Given Sodium Chloride (Flush - Normal Saline) 10 ml IVF Q12HR [facility] Last Admin: 06/15/18 11:18 Dose: Not Given Sodium Chloride (Flush - Normal Saline) 10 ml IVF PRN PRN PRN Reason: Saline Flush Last Admin: 06/13/18 17:54 Dose: 10 ml Tramadol HCl (Ultram) 100 mg PO Q6H PRN PRN Reason: Pain 7-10
--- NOTE | 2018-06-15 15:33 | RAD ---
Modified barium swallow HISTORY: Dysphagia. Feeding difficulties. FINDINGS: Exam was performed in conjunction with speech pathology. Multiple consistencies. Video revi ew is available and demonstrates early spill of contrast with all consistencies. Poor coordination of swallowing. Small amount of aspiration with all consistencies. Not spontaneously cleared by the pa tient. Mild to moderate residual within the vallecula. Poor clearance on secondary swallowing. The esophagus below the level of the hypopharynx was not evaluated. Please see separate detailed repo rt from speech pathology.
[2018-06-15] MEDS ORDERED: hydrALAZINE 20 MG/ML VIAL SLOW IVP PRN (16:30)
--- NOTE | 2018-06-15 17:20 | PDOC.CTH ---
Cardiology Progress Note - Subjective EP PROGRESS NOTE: 06/15/18 Seen as follow up after cardiac arrest of unknown cause, possibly hypotension. Pt remains confused. Resting in bed. Son bedside. - ROS not able to obtain ROS - Objective Vital Signs Temp Pulse Pulse Resp BP BP Pulse Ox 06/15/18 12:47 99 16 98 06/15/18 12:00 95 18 197/86 H 06/15/18 09:00 171/74 H 06/15/18 08:48 97 171/74 H 06/15/18 07:55 98.8 F 99 18 185/79 H 99 06/15/18 06:33 93 L 06/15/18 06:30 92 16 93 L Admit Weight 147 lb Weight 151 lb 0.266 oz 06/14/18 06/15/18 06/16/18 06:59 06:59 06:59 Intake Total 1020 600 Output Total 900 800 Balance 120 -200 - Physical Examination Neck: no JVD present Lungs: CTA, other: (grimace with inspiration and coughing) Heart: RRR Abdomen: NT/ND, soft - Telemetry Telemetry Rhythm: SR - Labs Result Diagrams: 06/15/18 06:46 06/15/18 06:46 Troponin/CKMB CK-MB (CK-2) 1.3 ng/mL (0-6.6) 06/11/18 08:50 Troponin I 2.185 ng/mL (< 0.028) H* 06/11/18 21:36 - Assessment/Plan 1. s/p Cardiac arrest - eteiology unknown 2. Non sustained ventricular tachycardia 3. ESRD on HD 4. Hypotension 5. CAD 6. Anemia Spoke to the son at length again today regarding treatment options including EPS and ICD. At this time they do not wish to pursue any aggressive testing or ICD implant. They have expressed interest at changing status to DNR. They opt for medical management only which will be quite limited given his substantial hypotension. Will continue to monitor.
[2018-06-15] MEDS: Lorazepam 2 MG/ML VIAL SLOW IVP PRN (17:50)
[2018-06-15] MEDS: Acetaminophen 650 MG/20.3 ML UDCUP PO SCH ×3 (17:50→20:20)
[2018-06-15] MEDS: Nystatin 500,000 UNITS/5 ML UDCUP SSW SCH ×3 (17:51→20:19)
[2018-06-15] MEDS: EPOETIN ALFA-EPBX (ESRD) 3,000 UNIT/ML VIAL SC SCH (17:52)
[2018-06-15] MEDS: cefTRIAXone\\ROCEPHIN 1 GM in Sodium Chloride 0.9% 100 ML IVPB SCH (20:05)
[2018-06-15] MEDS: Rosuvastatin 10 MG TAB PO SCH (20:07)
[2018-06-16] MEDS: Lorazepam 2 MG/ML VIAL SLOW IVP PRN ×3 (01:18→20:24)
[2018-06-16] MEDS: Labetalol HCl 100 MG/20 ML VIAL SLOW IVP PRN ×2 (04:23→07:32)
--- NOTE | 2018-06-16 07:43 | CON ---
DATE OF CONSULTATION: 06/14/2018 HISTORY OF PRESENT ILLNESS: I am seeing Mr. Burleson at our [facility] telemetry as an as an electrophysiology performance improvement consultant. His problems are: 1. Episode of cardiac arrest during hemodialysis without documented arrhythmias requiring transient chest compressions, but no defibrillation was necessary. 2. Nonsustained ventricular tachycardia. 3. Preserved LVEF by echocardiogram on 06/12/2017 at 60%. 4. History of mild nonocclusive coronary artery disease based on left heart catheterization in last year. 5. End-stage renal disease, on hemodialysis. 6. Mental status changes, possibly narcotic related side effects. ALLERGIES: KETOROLAC AND LEVOFLOXACIN. MEDICATIONS: At home included; 1. Isosorbide. 2. Omeprazole. 3. Sertraline. 4. Clonidine. 5. Tylenol. 6. Aspirin. 7. Procrit. 8. Ferrous sulfate. 9. Rosuvastatin. 10. Tramadol. 11. Docusate. 12. Ondansetron. 13. Remeron. 14. Vitamin B complex. 15. Sevelamer. 16. Nifedipine. SUBJECTIVE: Mr. Burleson is here with some episode of syncope and pulseless arrest, which prompted transient resuscitation efforts during his hemodialysis. His blood pressure was also very low and drifting down during dialysis and also in the afternoon in the ER. No definite arrhythmias were documented. By the time he was hooked onto monitor, although he was not monitored during dialysis directly. He did not pass out, no stroke-like symptoms, no neurological deficits since then, but he got fair mental status changes this morning, possibly due to changing his narcotic medication. He has chronic joint issues and back issues as well for which he is taking these. He has no current symptoms of angina. No CHF. No fever, chills, or cough. Rest of 12-point system otherwise unremarkable. OBJECTIVE: VITAL SIGNS: Blood pressure 142/65, heart rate 98, respirations 14. The patient is afebrile. GENERAL: The patient is poorly responsive, appears somewhat sedated at time of exam. NECK: Supple. Jugular veins not distended. CHEST: Coarse without crackles. Heart sounds are regular to rate and rhythm. No murmur or gallops appreciated. ABDOMEN: Benign. Bowel sounds positive. EXTREMITIES: Lower extremities without edema, clubbing, or cyanosis. Pulses are adequate. Right upper arm AV fistula apparently inflamed cellulitis-like appearing skin over it. NEUROLOGIC: The patient is nonfocal. MUSCULOSKELETAL: No joint swelling or deformity. SKIN: Without rash. PAST MEDICAL HISTORY: As above. SOCIAL HISTORY: The patient denies smoking, EtOH or drug abuse. FAMILY HISTORY: Not contributory. LABORATORY DATA: EKG reveals sinus rhythm beats of nonsustained self terminating ventricular tachycardia. White cell count is 10.5, hemoglobin 7.7, platelet count is 221. Sodium 136, potassium 3.5, BUN is 24, creatinine 3.5. Troponin I is 0.038, then 2.388 and 2.185. ASSESSMENT AND PLAN: Mr. Burleson is a 78-year-old man with history of coronary artery disease, who has preserved LVEF, also on hemodialysis. He has progressive issues with fatigue, tiredness and chronic aches, which limits his lifestyle fairly significant. He was recently switched from peritoneal to hemodialysis. During his last hemodialysis session, he had down drifting blood pressures, eventually his pulse was lost and this prompted resuscitation efforts. He was brought back without medication or shock therapies and no definite rhythm abnormalities were documented. Subsequently, he is noted to have troponin bump, but also he has had nonsustained ventricular tachyarrhythmia run. In my assessment, the episode was difficult to evaluate whether it was hypertensive or ventricular arrhythmia related. The cardiac enzyme rise is likely to be secondary to the arrest, although primary ischemic arrhythmias also cannot be completely ruled out. He also has preserved LVEF on this admission. Hence, these findings, I think it would be reasonable to consider at least an electrophysiology study to evaluate inducibility of ventricular arrhythmias prior to discharge. He was treated medically from a coronary standpoint. If the EP study is positive, ICD implantation could be a consideration. These issues were discussed with the . On the other hand due to patient's poor overall medical condition for now, she is undecided whether that is reasonable to proceed or not. She will discuss with her children. She is leaning towards conservative comfort measures. Hence, I will follow up with you in the meantime, continue telemetry monitoring. Job ID: [id number]
[2018-06-16 08:05] LABS: #Basophils 0.1 thou/uL (0.0-0.2); #Eosinphils 0.4 thou/uL (0.0-0.7); #Monocytes 0.7 thou/uL (0.11-0.59); #Neutrophils 7.2 thou/uL (1.40-6.50); %Basophils 0.6 % (0.0-1.0); %Eosinophils 4.7 % (0.0-10.0); %Lymphocytes 10.3 % (21.0-51.0); %Monocytes 7.7 % (0.0-10.0); %Neutrophils 76.7 % (42.0-75.0); Hemoglobin 7.9 g/dL (14.0-18.0); Mean Corpuscular HGB CONC 32.5 g/dL (32.0-36.0); Mean Corpuscular Volume 92.3 fL (78.0-98.0); Mean Platelet Volume 6.8 fL (7.4-10.4); Platelet Count 282 thou/uL (130-400); RBC Distribution Width 14.4 % (11.5-14.5); Red Blood Cell (RBC) Count 2.65 mill/uL (4.70-6.10); White Blood Cell (WBC) Count 9.4 thou/uL (4.8-10.8)
[2018-06-16 08:27] LABS: Vancomycin, Random 16.2 ug/mL (See Comment)
[2018-06-16 08:28] LABS: Anion Gap 13 mmol/L (10-20); BUN (Urea Nitrogen) 15 mg/dL (8.4-25.7); Calc. Creatinine Clearance 21 mL/min (70-130); Calcium 8.8 mg/dL (7.8-10.44); Carbon Dioxide 24 mmol/L (23-31); Chloride 113 mmol/L (98-107); Estimated GFR-MDRD 22; Glucose 100 mg/dL (83-110); Potassium 3.9 mmol/L (3.5-5.1); Sodium 146 mmol/L (136-145)
--- NOTE | 2018-06-16 10:34 | PRG ---
DATE OF SERVICE: 06/16/2018 SUBJECTIVE: Mr. Burleson is a 78-year-old white male with ESRD and followed by [facility] for his maintenance hemodialysis. He had some problem with his AV fistula. AV fistulogram was done. We are awaiting for the official result. The patient continues to remain confused. Please note, he is status post cardiorespiratory arrest. I had a long discussion with the son and daughter regarding overall prognosis. I told them that the confusion may have been related to some cerebral ischemia from his cardiac arrest. I told them we could wait to continue to observe him for another several days before discontinuing any supportive care. OBJECTIVE: VITAL SIGNS: Blood pressure is 167/72, heart rate 83, respiratory rate 18, temperature 98.3, and pulse ox is 96%. GENERAL: Awake, sleepy, arousable, not in distress. SKIN: Adequate turgor. HEENT: Slightly pale conjunctivae. Anicteric sclerae. No neck mass. No carotid bruits. No JVD. CHEST: No deformities. LUNGS: Clear breath sounds. HEART: Normal sinus rhythm. No murmur. No gallops. No rubs. ABDOMEN: Globular, soft, nontender. No masses. EXTREMITIES: No edema. No deformities. MEDICATIONS: Medications of June 16, 2018, were reviewed. LABORATORY DATA: Laboratories of June 16, 2018, white count 9.4, hemoglobin 7.9, sodium 146, potassium 3.9, chloride 113, carbon dioxide 24, BUN 15, creatinine 2.77, glucose 100, calcium 8.8. ASSESSMENT AND PLAN: 1. Status post cardiorespiratory arrest, stable. No recurrence of cardiac arrhythmias. Dr. Red, the recyclable materials sorter/Cardiology has evaluated the patient. Due to his weakened condition, no invasive procedure at the moment. 2. End-stage renal disease, stable. We will continue current Thursday, Thursday , and Thursday hemodialysis. Fluid removal only as tolerated. Tentative report of the AV fistulogram said that the fistula is patent. We will attempt to use the AV fistula this afternoon. 3. Anemia, continue weekly Epogen. 4. Confusuib - secondary to a possible metabolic encephalopathy - if persistent , consider CAT scan of the head Job ID: [id number] [facility]
--- NOTE | 2018-06-16 10:46 | PDOC.CTH ---
Cardiology Progress Note - Objective Vital Signs Temp Pulse Resp BP BP Pulse Ox 06/16/18 07:40 97 06/16/18 07:32 83 06/16/18 07:25 98.3 F 83 18 167/72 H 06/16/18 06:48 96 06/16/18 06:45 97 16 95 06/16/18 05:15 79 159/67 H 06/16/18 04:23 98 170/79 H 06/16/18 03:55 97.6 F 103 H 22 H 170/76 H 100 06/16/18 02:07 98 18 94 L 06/16/18 00:23 84 18 94 L 06/15/18 23:10 98 F 87 20 164/77 H 97 Admit Weight 147 lb Weight 146 lb 9.718 oz 06/15/18 06/16/18 06/17/18 06:59 06:59 06:59 Intake Total 600 1245 Output Total 800 1650 Balance -200 -405 - Physical Examination General/Neuro: alert & oriented x3 Neck: no JVD present Lungs: CTA Heart: RRR Abdomen: NT/ND - Labs Result Diagrams: 06/16/18 07:47 06/16/18 07:47 Troponin/CKMB CK-MB (CK-2) 1.3 ng/mL (0-6.6) 06/11/18 08:50 Troponin I 2.185 ng/mL (< 0.028) H* 06/11/18 21:36 - Assessment/Plan 1. Cardiac arrest ROSC s/p CPR - the pt is confused; cardiovascular is stable 2. Hypotension - stable 3. LLL PNA - on ABX, 4. mild-mod CAD - on ASA; not on BBlocker/JE/ARB due to hypotensive 5. ESRD on HD - 6. Multiple rib fx from CPR - 7. Possible Cellulitis to RUE - on ABX; managed by PCP 8. Anemia - 9. generalized weakness, confusion. He seems more confused now than when he was first seen by me. MAR reviewed * Echo on 06/12/2018 with EF 60%, trace MR and mild TR.
[2018-06-16] MEDS: Ferrous Sulfate 325 MG TAB PO SCH ×2 (10:59→17:17)
[2018-06-16] MEDS: Aspirin 81 mg Enteric Coated Tablet PO SCH (11:00)
[2018-06-16] MEDS: Sevelamer Carbonate 800 MG TAB PO SCH ×3 (11:00→18:56)
[2018-06-16] MEDS: Cyanocobalamin (Vitamin B-12) 1,000 MCG TAB PO SCH (11:00)
[2018-06-16] MEDS: Acetaminophen 650 MG/20.3 ML UDCUP PO SCH ×3 (11:00→20:30)
[2018-06-16] MEDS: Saccharomyces boulardii 250 MG CAP PO SCH (11:01)
[2018-06-16] MEDS: Mirtazapine 15 MG TAB PO SCH (11:01)
[2018-06-16] MEDS: Metoprolol Tartrate 25 MG TAB PO SCH ×2 (11:01→20:30)
[2018-06-16] MEDS: Senokot S 8.6-50 MG TAB PO SCH ×2 (11:01→20:31)
[2018-06-16] MEDS: Folic Acid 1 MG TAB PO SCH (11:01)
--- NOTE | 2018-06-16 11:29 | PDOC.CTH ---
Cardiology Progress Note - Subjective EP PROGRESS NOTE: 06/16/18 Seen as follow up after cardiac arrest of unknown cause, possibly hypotension. Pt remains confused. Resting in bed. - Objective Vital Signs Temp Pulse Resp BP BP Pulse Ox 06/16/18 07:40 97 06/16/18 07:32 83 06/16/18 07:25 98.3 F 83 18 167/72 H 06/16/18 06:48 96 06/16/18 06:45 97 16 95 06/16/18 05:15 79 159/67 H 06/16/18 04:23 98 170/79 H 06/16/18 03:55 97.6 F 103 H 22 H 170/76 H 100 06/16/18 02:07 98 18 94 L 06/16/18 00:23 84 18 94 L Admit Weight 147 lb Weight 146 lb 9.718 oz 06/15/18 06/16/18 06/17/18 06:59 06:59 06:59 Intake Total 600 1245 Output Total 800 1650 Balance -200 -405 - Physical Examination General/Neuro: NAD Neck: carotid US brisk, no JVD present Lungs: CTA, other: (pain/grimace with breathing) Heart: PMI normal, RRR Abdomen: NT/ND, soft - Telemetry Telemetry Rhythm: SR - Labs Result Diagrams: 06/16/18 07:47 06/16/18 07:47 Troponin/CKMB CK-MB (CK-2) 1.3 ng/mL (0-6.6) 06/11/18 08:50 Troponin I 2.185 ng/mL (< 0.028) H* 06/11/18 21:36 - Assessment/Plan 1. s/p Cardiac arrest - etiology unknown 2. Non sustained ventricular tachycardia -no further episodes seen on tele 3. ESRD on HD 4. Hypotension 5. CAD 6. Anemia Declined ICD. Unable to tolerate beta geoffrey d/t hypotension. DNR. EP signing off.
[2018-06-16] MEDS: Nystatin 500,000 UNITS/5 ML UDCUP SSW SCH ×4 (11:34→20:30)
[2018-06-16] MEDS: Dextrose 5 % And 0.9 % NaCl 1,000 ML IV SCH (11:37)
[2018-06-16] MEDS: Metoprolol Tartrate 5 MG/5 ML VIAL IVP SCH ×2 (13:22→19:05)
[2018-06-16] MEDS ORDERED: Heparin 10,000 UNITS/ 10 ML VIAL ONE (15:00)
[2018-06-16] MEDS: Fentanyl 100 MCG/2 ML VIAL SLOW IVP PRN ×2 (17:09→20:17)
[2018-06-16] MEDS: EPOETIN ALFA-EPBX (ESRD) 3,000 UNIT/ML VIAL SC SCH (17:35)
[2018-06-16] MEDS: Rosuvastatin 10 MG TAB PO SCH (20:30)
[2018-06-16] MEDS: cefTRIAXone\\ROCEPHIN 1 GM in Sodium Chloride 0.9% 100 ML IVPB SCH (20:30)
[2018-06-16] MEDS ORDERED: Heparin 1,000 UNITS/ML VIAL ONE (21:27)
--- NOTE | 2018-06-16 22:44 | PDOC.PN ---
- Subjective Encounter Start Date: 06/16/18 Encounter Start Time: 18:00 -: non-verbal Patient seen and examined for Cardiac arrest. Pain better controlled. Intermittent confusion. Overnight events events. - Objective Resuscitation Status - Order Detail: 06/15/18 16:30 Resuscitation Status Routine Resuscitation Status: DNAR: NO Resuscitation Discussed with: Per Palliative care discussion with family MAR Reviewed: Yes Vital Signs & Weight: Vital Signs (12 hours) Temp Pulse Resp BP Pulse Ox 06/16/18 19:20 98.5 F 89 20 156/74 H 97 06/16/18 18:21 88 18 94 L 06/16/18 17:40 85 18 117/60 06/16/18 12:53 96 16 98 06/16/18 12:00 80 18 146/62 H 06/16/18 11:00 18 158/69 H Weight Admit Weight 147 lb Weight 146 lb 9.718 oz Most Recent Monitor Data Heart Rate from ECG 100 NIBP 144/72 NIBP BP-Mean 96 Respiration from ECG 20 SpO2 100 I&O: 06/15/18 06/16/18 06/17/18 06:59 06:59 06:59 Intake Total 600 1245 450 Output Total 800 1650 800 Balance -200 -405 -350 Result Diagrams: 06/16/18 07:47 06/16/18 07:47 EKG Reviewed by me: Yes (Tele SR) Phys Exam - Physical Examination Constitutional: NAD Confusion Respiratory: no wheezing, no rhonchi Bibasilar rales Cardiovascular: RRR, no rub Gastrointestinal: soft, non-tender, positive bowel sounds RUE swelling improving Neurological: moves all 4 limbs Dx/Plan - Plan DVT proph w/SCDs IMPRESSION: Cardiac arrest ROSC s/p CPR - ?etio Hypotension requiring Levophed NSVT on telemetry - on IV Metoprolol (due to NPO) LLL HCA Pneumonia ?Pneumococcal vs Aspiration RUE Cellulitis - on Vancomycin/Ceftriaxone Swallow dysfunction Oral candidiasis Acute hypoxic resp failure s/p NIPPV Type 2 ID/Demand ischemia Hypokalemia/hypomagnesemia ESRD on HD Multiple rib fx from CPR causing significant pain - on Fentanyl patch CAD Psoariasis IgA Nephropathy Anemia due to renal insufficiency HLD GERD Moderate PEM h/o HTN PLAN: Cont Metoprolol for NSVT (Change to PO when tolerating PO) Cont Nystatin SSP Cont Vancomycin & Ceftriaxone Monitor Vancomycin Cont Nebs Cont other meds as below ContFentanyl patch 12 mcg due to significant pain Cont low dose Ativan PRN AM labs Not on Lovenox/Heparin due to Anemia Review of Systems - Review of Systems Other: Cannot obtain due to current mentation - Medications/Allergies Allergies/Adverse Reactions: Allergies Allergy/AdvReac Type Severity Reaction Status Date / Time ketorolac tromethamine Allergy Rash Verified 03/24/18 18:40 [From Toradol] levofloxacin [From Levaquin] Allergy Rash Verified 03/24/18 18:40 Sulfa (Sulfonamide Allergy Rash Verified 03/24/18 18:40 Antibiotics) tamsulosin HCl [From Flomax] Allergy Verified 03/24/18 18:40 Medications: Current Medications Acetaminophen (Tylenol) 650 mg PO Q4H PRN PRN Reason: Headache/Fever or Mild Pain Acetaminophen (Tylenol Elixir) 650 mg PO TID [facility] Last Admin: 06/16/18 20:30 Dose: Not Given Albuterol/Ipratropium (Duoneb) 3 ml NEB [id number] [facility] Last Admin: 06/16/18 18:21 Dose: 3 ml Albuterol/Ipratropium (Duoneb) 3 ml [id number] [facility] Last Admin: 06/16/18 18:22 Dose: Not Given Aspirin (Ecotrin) 81 mg PO DAILY [facility] Last Admin: 06/16/18 11:00 Dose: Not Given Clonidine (Catapres) 0.1 mg PO Q6H PRN PRN Reason: SBP GREATER THAN 160 Clonidine (Anltfizr-Ukg-5 Patch) 0.1 mg TD Q7D [facility] Last Admin: 06/15/18 12:07 Dose: 0.1 mg Cyanocobalamin (Vitamin B-12) 1,000 mcg PO DAILY [facility] Last Admin: 06/16/18 11:00 Dose: Not Given Fentanyl (Duragesic) 12 mcg TD Q3D [facility] Last Admin: 06/15/18 13:22 Dose: 12 mcg Fentanyl (Sublimaze) 25 mcg SLOW IVP Q3H PRN PRN Reason: Moderate Pain (4-6) Last Admin: 06/16/18 20:17 Dose: 25 mcg Ferrous Sulfate (Feosol) 325 mg PO BID-[facility] Last Admin: 06/16/18 17:17 Dose: Not Given Folic Acid (Folvite) 1 mg PO DAILY [facility] Last Admin: 06/16/18 11:01 Dose: Not Given Ceftriaxone Sodium 1 gm/ (Sodium Chloride) 100 mls @ 200 mls/hr IVPB Q24HR [facility] Last Admin: 06/16/18 20:30 Dose: 100 mls Vancomycin HCl 1 gm/ Device 200 mls @ 200 mls/hr IVPB [facility] Vancomycin HCl 750 mg/ Sodium (Chloride) 250 mls @ 250 mls/hr IVPB [facility]DA Vancomycin HCl 500 mg/ Sodium (Chloride) 100 mls @ 100 mls/hr IVPB [facility] Vancomycin HCl 250 mg/ Sodium (Chloride) 100 mls @ 100 mls/hr IVPB [facility] Last Admin: 06/16/18 14:35 Dose: 100 mls Dextrose/Sodium Chloride (D5 0.9% Ns) 1,000 mls @ 50 mls/hr IV .Q20H [facility] Last Admin: 06/16/18 11:37 Dose: Not Given Labetalol HCl (Normodyne) 10 mg SLOW IVP Q4H PRN PRN Reason: SBP > 160 OR DBP > 100 Last Admin: 06/16/18 07:32 Dose: 10 mg Lorazepam (Ativan) 0.25 mg SLOW IVP Q6H PRN PRN Reason: Anxiety/Agitation Last Admin: 06/16/18 20:24 Dose: 0.25 mg Metoprolol Tartrate (Lopressor) 25 mg PO BID [facility] Last Admin: 06/16/18 20:30 Dose: Not Given Metoprolol Tartrate (Lopressor) 5 mg IVP Q8H [facility] Stop: 06/18/18 10:01 Last Admin: 06/16/18 19:05 Dose: 5 mg Mirtazapine (Remeron) 15 mg PO DAILY [facility] Last Admin: 06/16/18 11:01 Dose: Not Given Miscellaneous Medication (Pharmacy To Dose) 1 each IVPB PRN PRN PRN Reason: Pharmacy to dose Hold Vancomycin For (Level >20) 0 each FS .AT [facility]IAL[facility]IS [facility] Nystatin (Mycostatin) 500,000 units SSW QID [facility] Last Admin: 06/16/18 20:30 Dose: Not Given Ondansetron HCl (Zofran Odt) 4 mg PO Q6H PRN PRN Reason: Nausea/Vomiting Ondansetron HCl (Zofran) 4 mg IVP Q6H PRN PRN Reason: Nausea/Vomiting Last Admin: 06/11/18 18:35 Dose: 4 mg Pantoprazole Sodium (Protonix) 40 mg PO DAILY [facility] Last Admin: 06/16/18 11:01 Dose: Not Given Polyethylene Glycol (Miralax) 17 gm PO DAILY PRN PRN Reason: Constipation Rosuvastatin Calcium (Crestor) 10 mg PO HS [facility] Last Admin: 06/16/18 20:30 Dose: Not Given Saccharomyces Boulardii (Florastor) 250 mg PO DAILY [facility] Last Admin: 06/16/18 11:01 Dose: Not Given Senna/Docusate Sodium (Senokot S) 2 tab PO BID [facility] Last Admin: 06/16/18 20:31 Dose: Not Given Sertraline HCl (Zoloft) 50 mg PO DAILY [facility] Last Admin: 06/16/18 11:02 Dose: Not Given Sevelamer Carbonate (Renvela) 800 mg PO TID-[facility] Last Admin: 06/16/18 18:56 Dose: Not Given Sodium Chloride (Flush - Normal Saline) 10 ml IVF Q12HR [facility] Last Admin: 06/16/18 20:31 Dose: Not Given Sodium Chloride (Flush - Normal Saline) 10 ml IVF PRN PRN PRN Reason: Saline Flush Last Admin: 06/13/18 17:54 Dose: 10 ml Tramadol HCl (Ultram) 100 mg PO Q6H PRN PRN Reason: Pain 7-10
[2018-06-17] MEDS: Fentanyl 100 MCG/2 ML VIAL SLOW IVP PRN ×3 (00:46→09:31)
[2018-06-17] MEDS: Metoprolol Tartrate 5 MG/5 ML VIAL IVP SCH ×2 (02:21→10:20)
[2018-06-17] MEDS: Dextrose 5 % And 0.9 % NaCl 1,000 ML IV SCH (02:30)
--- NOTE | 2018-06-17 06:33 | PRG ---
DATE OF SERVICE: 06/17/2018 SUBJECTIVE: Mr. Burleson is a 78-year-old male with ESRD, on maintenance hemodialysis, who was admitted due to cardiorespiratory arrest. He underwent CPR. He did regain consciousness almost immediately after the CPR. Cardiology has evaluated this patient. He does have a nonsustained ventricular tachycardia. Recommendation for an AICD was declined by the family. He is still intermittently confused. He has some difficulty swallowing. The possibility that this patient may have a small CVA remains. He is accessed. We have not been able to use the IV access as it was swelling. He had an AV fistulogram and tentative report shows that it is patent. Also, the patient had a modified barium swallow and shows some mild aspiration with the patient. He is still not able to swallow pills, but he can take clear liquid and soft diet. No other acute events noted last night. No chest pain or shortness of breath. OBJECTIVE: VITAL SIGNS: Blood pressure 168/74, heart rate 88, respiratory rate 20, temperature 98, and pulse ox 93%. GENERAL: Noted to be awake, comfortable, intermittently confused. SKIN: Adequate turgor. HEENT: He has slightly pale conjunctivae. Anicteric sclerae. NECK: No neck mass. No carotid bruits. No JVD. CHEST: No deformities. LUNGS: Clear breath sounds. HEART: Normal sinus rhythm. No murmurs, gallops, or rubs. ABDOMEN: Globular, soft, and nontender. No masses. EXTREMITIES: No edema. No deformities. MEDICATIONS: Of June 17, 2018, were reviewed. LABORATORY DATA: Of June 16, 2018, white count 9.4, hemoglobin 7.9. Sodium 146, potassium 3.9, chloride 113, carbon dioxide 24, BUN 15, creatinine 2.77, glucose 100, calcium 8.8. ASSESSMENT AND PLAN: 1. End-stage renal disease, stable. Continue current hemodialysis regimen on Thursday, Thursday, and Thursday. We will again re-evaluate the AV fistula tomorrow to see if he could be accessed. If not, we will continue to arrest it. It is still mildly swollen today with some ecchymosis, but there is a bruit and thrill with that access. 2. Intermittent confusion. Consider CT scan of the head. 3. Status post cardiorespiratory arrest-Cardiology has evaluated the patient. The patient declined AICD placement for the moment. 4. Anemia. Continuing weekly Epogen. 5. Recheck basic metabolic and CBC in a.m. Job ID: [id number]
--- NOTE | 2018-06-17 07:31 | SPC ---
DIALYSIS FISTULOGRAM RIGHT UPPER EXTREMITY: SONOGRAPHIC GUIDED VASCULAR ACCESS RIGHT UPPER EXTREMITY: HISTORY: Renal failure. Poor functioning dialysis fistula. FLUOROSCOPY TIME: 0.8 minutes. FINDINGS: After explaining the procedure and answering all questions, the right upper extremity was prepped and draped in usual sterile fashion. Sterile technique, buffered local anesthesia, sonographic guidance, and a 22 gauge needle were used to carefully access the cephalic fistula, just above the le best of the antecubital fossa. A 4 [place] sheath was placed for serial imaging. There was brisk flow of contrast throughout the nondilated right cephalic venous fistula with very fe w small collaterals. The superior vena cava was patent. No stricture or obstruction. Reflux angiography was performed, opacifying the cephalic vein of the forearm, collateralizing to the basilic and brachial veins. The arterial anastomosis was never well opacified due to the vigorous arterial inflow and collateralization of flow distally. The sheath was removed, and hemostasis was obtained using direct pressure. The patient tolerated the procedure well and was returned in unchanged condition. IMPRESSION: Very brisk arteriovenous flow within the mildly distended right cephalic vein upper arm fistula. It has the appearance of a very mature fistula. No significant abnormalities are demonstrated. Transcribed Date/Time: 06/17/2018 7:30 AM
--- NOTE | 2018-06-17 08:26 | CT ---
CT head noncontrast HISTORY: Altered mental status. COMPARISON: 06/11/2018. FINDINGS: There is no evidence of acute intracranial hemorrhage or infarct. Diffuse cortical atrophy is again demonstrated. Slight prominence of CSF over the left cerebral convexity is unchanged in appearance. No mass effect or shift of midline structures. Visualized paranasal sinuses remain well-a erated. IMPRESSION: Chronic-type findings are stable. No acute intracranial abnormalities are demonstrated.
[2018-06-17] MEDS: Aspirin 81 mg Enteric Coated Tablet PO SCH (09:30)
[2018-06-17] MEDS: Ferrous Sulfate 325 MG TAB PO SCH (09:38)
--- NOTE | 2018-06-17 09:39 | RAD ---
CHEST ONE VIEW: History: Chest pain. Comparison: 06-13-18 FINDINGS: Bilateral vascular congestion with some mild pleural and parenchymal opacity changes in the lung base s and minimal blunting of the costophrenic angles. Right dual-lumen venous access catheter. No new pr ocess. IMPRESSION: Little change in the bibasilar pleural and parenchymal opacity changes and costophrenic angle and pro bable small pleural effusions from most recent prior study. Continued short term follow up for cleari ng or stability. POS: [facility]
[2018-06-17] MEDS: Nystatin 500,000 UNITS/5 ML UDCUP SSW SCH ×4 (09:44→20:44)
[2018-06-17] MEDS: Acetaminophen 650 MG/20.3 ML UDCUP PO SCH ×3 (09:45→20:44)
[2018-06-17] MEDS: Sevelamer Carbonate 800 MG TAB PO SCH ×2 (09:48→12:41)
[2018-06-17] MEDS: Mirtazapine 15 MG TAB PO SCH (09:51)
[2018-06-17] MEDS: Folic Acid 1 MG TAB PO SCH (09:51)
[2018-06-17] MEDS: Senokot S 8.6-50 MG TAB PO SCH ×2 (09:53→20:43)
[2018-06-17] MEDS: Cyanocobalamin (Vitamin B-12) 1,000 MCG TAB PO SCH (09:53)
[2018-06-17] MEDS: Saccharomyces boulardii 250 MG CAP PO SCH (09:56)
[2018-06-17] MEDS: Aspirin Chewable 81 MG TAB PO SCH (10:02)
[2018-06-17] MEDS: Pantoprazole 40 MG GRANULES PACKET PO SCH (10:02)
--- NOTE | 2018-06-17 10:11 | PRG ---
DATE OF SERVICE: 06/17/2018 SUBJECTIVE: This morning, doing well. No coughing. No wheezing. Cultures, negative. Still chest pain. OBJECTIVE: VITAL SIGNS: Saturations are 95% on room air, respiratory rate 18, temperature 98, blood pressure 164/74. CHEST: Decreased breath sounds. No wheezing. CARDIAC: Normal S1 and S2. No gallops. ABDOMEN: No masses. IMPRESSION: Chronic renal failure, status post cardiopulmonary resuscitation with ensuing multiple rib fractures and significant pain, end-stage renal disease. X-ray shows nonspecific minimal bilateral hazy infiltrate, probably related to fluid from renal failure. CT head was done, which is negative. PLAN: Continue PT, supportive care. I would discontinue all antibiotics. Job ID: [id number]
[2018-06-17] MEDS ORDERED: Metoprolol Tartrate 25 MG TAB PO SCH (11:45)
--- NOTE | 2018-06-17 12:10 | PRG ---
DATE OF SERVICE: 06/17/2018 SUBJECTIVE: The patient is seen and examined at the bedside. His is present in the room during my visit. He is somewhat drowsy according to her. There was no any unexpected events overnight, but the patient gets agitated at the end of the day usually. OBJECTIVE: VITAL SIGNS: Blood pressure is 165/74, pulse is 88, temperature is 98.5, respirations 18, and O2 saturation is 95% on room air. GENERAL: He is somewhat drowsy during my visit. He easily arousable. He is able to communicate with me. HEENT: His head is atraumatic and normocephalic. Eyes, PERRLA. Sclerae nonicteric. Oral mucosa is moist. NECK: Supple. LUNGS: Breath sounds somewhat diminished at both bases. HEART: S1, S2 normal. No S3. No S4. ABDOMEN: Soft, nontender, nondistended. EXTREMITIES: No clubbing, cyanosis, or edema. NEUROLOGIC: As mentioned above, he is somewhat drowsy. He is able to move his all four extremities. There is no any motor deficits at this point. SKIN: No rash or erythema. LABORATORY DATA: None today except for random vancomycin which is 16.2. Microbiology, no new findings. Chest x-ray showed some mild haziness in both lower lobes. CT of the brain was done this morning which showed just chronic type findings which are stable. No acute new changes. There is some atrophy. IMPRESSION: 1. Cardiac arrest, status post CPR. 2. Hypotension, requiring Levophed. 3. Right upper extremity cellulitis. The patient is on vancomycin. 4. Aspiration. 5. Acute hypoxic respiratory failure. 6. Type 2 infarction. 7. End-stage renal disease, on hemodialysis. 8. Multiple rib fractures, both sides after CPR on fentanyl patch. 9. Coronary artery disease, chronic, stable. 10. Anemia due to renal insufficiency. PLAN: Plan is to continue his fentanyl patch for the pain. I would continue his antibiotic which is vancomycin. We will continue current regimen with probiotics. I am going to stop his mirtazapine, sertraline, and tramadol to avoid any sedation. Job ID: [id number]
[2018-06-17] MEDS: traMADol HCl 50 MG TAB PO PRN ×2 (12:39→22:08)
--- NOTE | 2018-06-17 17:48 | PDOC.CTH ---
Cardiology Progress Note - Subjective The pt seen and examined. No overnight events. No Cardiac complaints. He is more alerted today. - Objective Vital Signs Temp Pulse Pulse Pulse Resp BP BP 06/17/18 13:43 92 20 06/17/18 12:00 98.6 F 91 16 06/17/18 08:45 94 94 165/72 H 169/75 H 06/17/18 07:27 98.5 F 88 18 06/17/18 07:25 88 20 06/17/18 07:15 BP Pulse Ox 06/17/18 13:43 92 L 06/17/18 12:00 137/62 06/17/18 08:45 06/17/18 07:27 165/74 H 95 06/17/18 07:25 94 L 06/17/18 07:15 98 Admit Weight 147 lb 11.355 oz Weight 145 lb 15.136 oz 06/16/18 06/17/18 06/18/18 06:59 06:59 06:59 Intake Total 1245 1050 Output Total 1650 1000 Balance -405 50 - Physical Examination Lungs: other: (diminished at bases) Heart: RRR Abdomen: soft Extremities: other: (No edema) - Telemetry Telemetry Rhythm: SR - Labs Result Diagrams: 06/16/18 07:47 06/16/18 07:47 Troponin/CKMB CK-MB (CK-2) 1.3 ng/mL (0-6.6) 06/11/18 08:50 Troponin I 2.185 ng/mL (< 0.028) H* 06/11/18 21:36 - Assessment/Plan 1. Cardiac arrest ROSC s/p CPR - the pt is confused; cardiovascular is stable; declined AICD. 2. Hypotension - Hypertension now; On Bblocker and Clonidin patch 3. LLL PNA - on ABX, 4. mild-mod CAD - on ASA, BBlocker, and statin 5. ESRD on HD - 6. Multiple rib fx from CPR - Fentanyl patch for pain 7. Possible Cellulitis to RUE - on ABX; managed by PCP 8. Anemia - Not on Lovenox or Heparin 9. generalized weakness. MAR reviewed * Echo on 06/12/2018 with EF 60%, trace MR and mild TR. Pt. seen and eval. by me. I agree with the A/P by the INFORMATICS NURSE SPECIALIST. He is doing better than yesterday. He is still confused but talking..No further arhythmias. He has had 1 episode of NSVTACH since admission. RRR, chest clear but still very tender after CPR. Review of Systems - Review of Systems Constitutional: reports: no symptoms reported EENTM: reports: no symptoms reported Respiratory: reports: no symptoms reported Cardiac (ROS): reports: no symptoms reported ABD/GI: reports: no symptoms reported
[2018-06-17] MEDS: Rosuvastatin 10 MG TAB PO SCH (20:43)
[2018-06-17] MEDS: Metoprolol Tartrate 25 MG TAB PO SCH (20:43)
[2018-06-18] MEDS: Fentanyl 100 MCG/2 ML VIAL SLOW IVP PRN ×3 (01:16→09:23)
[2018-06-18] MEDS: Sevelamer Carbonate 800 MG TAB PO SCH ×4 (01:46→17:33)
[2018-06-18] MEDS: Dextrose 5 % And 0.9 % NaCl 1,000 ML IV SCH (01:48)
[2018-06-18 06:21] LABS: #Eosinphils 0.6 thou/uL (0.0-0.7); #Lymphocytes 1.2 thou/uL (1.20-3.40); #Monocytes 0.6 thou/uL (0.11-0.59); #Neutrophils 4.8 thou/uL (1.40-6.50); %Basophils 0.3 % (0.0-1.0); %Eosinophils 7.7 % (0.0-10.0); %Lymphocytes 16.6 % (21.0-51.0); %Monocytes 8.8 % (0.0-10.0); %Neutrophils 66.6 % (42.0-75.0); Hemoglobin 8.2 g/dL (14.0-18.0); Mean Corpuscular Hemoglobin 29.4 pg (27.0-31.0); Mean Corpuscular Volume 92.1 fL (78.0-98.0); Mean Platelet Volume 6.8 fL (7.4-10.4); Platelet Count 301 thou/uL (130-400); RBC Distribution Width 14.5 % (11.5-14.5); Red Blood Cell (RBC) Count 2.78 mill/uL (4.70-6.10); White Blood Cell (WBC) Count 7.2 thou/uL (4.8-10.8)
[2018-06-18 06:40] LABS: Anion Gap 13 mmol/L (10-20); BUN (Urea Nitrogen) 21 mg/dL (8.4-25.7); Calc. Creatinine Clearance 19 mL/min (70-130); Calcium 8.6 mg/dL (7.8-10.44); Carbon Dioxide 29 mmol/L (23-31); Chloride 108 mmol/L (98-107); Estimated GFR-MDRD 20; Glucose 96 mg/dL (83-110); Potassium 3.2 mmol/L (3.5-5.1); Sodium 147 mmol/L (136-145)
[2018-06-18] MEDS ORDERED: Heparin 10,000 UNITS/ 10 ML VIAL ONE (08:03)
[2018-06-18] MEDS ORDERED: Potassium Chloride 20 MEQ TAB PO SCH (08:30)
--- NOTE | 2018-06-18 08:31 | PDOC.CTH ---
Cardiology Progress Note - Subjective The pt seen and examined. No overnight events. Per family, he is more alerted this AM. - Objective Vital Signs Temp Pulse Resp BP BP Pulse Ox 06/18/18 07:53 97.7 F 76 22 H 160/70 H 100 06/18/18 07:15 99 06/18/18 07:14 69 20 99 06/18/18 04:15 97.3 F L 67 22 H 155/66 H 97 06/17/18 23:10 65 16 97 Admit Weight 147 lb 11.355 oz Weight 145 lb 15.136 oz 06/17/18 06/18/18 06/19/18 06:59 06:59 06:59 Intake Total 1050 450 Output Total 1000 500 Balance 50 -50 - Physical Examination General/Neuro: other: (confused) Lungs: other: (diminished at bases) Heart: RRR Abdomen: soft Extremities: other: (No edema) - Telemetry Telemetry Rhythm: SR - Labs Result Diagrams: 06/18/18 05:13 06/18/18 05:13 Troponin/CKMB CK-MB (CK-2) 1.3 ng/mL (0-6.6) 06/11/18 08:50 Troponin I 2.185 ng/mL (< 0.028) H* 06/11/18 21:36 - Assessment/Plan 1. Cardiac arrest ROSC s/p CPR - the pt is confused; cardiovascular is stable; declined AICD. 2. Hypotension - Hypertension now; On Bblocker and Clonidin patch; HD this AM 3. LLL PNA - on ABX, 4. mild-mod CAD - on ASA, BBlocker, and statin 5. ESRD on HD - 6. Multiple rib fx from CPR - Fentanyl patch for pain 7. Possible Cellulitis to RUE - on ABX; managed by PCP 8. Anemia - Not on Lovenox or Heparin 9. generalized weakness. MAR reviewed * Echo on 06/12/2018 with EF 60%, trace MR and mild TR. Pt. seen and eval. by me. He is a little stronger and more alert today. He sat on the sofa and walked to the Bathroom with assistance but then became hypotensive and nauseated. I agree with the A/P by the AUTOMOBILE RACER. No further arrhyhmias. EP seeing the pt. also. When he is more stable then further cardiac workup Chest clear. RRR. gjm Review of Systems - Review of Systems Constitutional: reports: no symptoms reported
--- NOTE | 2018-06-18 08:38 | PRG ---
DATE OF SERVICE: 06/18/2018 SUBJECTIVE: A 78-year-old male with known history of end-stage renal disease, on maintenance hemodialysis Thursday, Thursday, Thursday, admitted after cardiac arrest with successful return of perfusion with CPR. The patient complains of mild chest pain and tenderness. Denied nausea, vomiting, change in bowel habit, or leg edema. The patient also denies shortness of breath. OBJECTIVE: VITAL SIGNS: Temperature 97.7, pulse 76, respiratory rate 22, SpO2 100% on room air, blood pressure is 160/70. GENERAL: Fatigued, elderly male, in no obvious distress. Afebrile. Anicteric. Acyanotic. HEENT: Normocephalic, atraumatic. Pupils are reacting to light. Oral mucosa is moist. CARDIOVASCULAR: Regular rhythm and rate with normal heart sounds one and two. RESPIRATORY: Fair air entry bilaterally with no obvious crackle or rhonchi or use of accessory muscles. Mild anterior chest tenderness appreciated. GASTROINTESTINAL: Full, soft, nontender with normal bowel sounds. Peritoneal dialysis catheter noticed. EXTREMITIES: Grossly normal-looking and atraumatic, except right arm circumferential ecchymosis. Right arm AV fistula with bruit noticed. Right upper chest tunneled dialysis catheter also noticed. No edema or erythema. NEUROLOGIC: Conscious and alert, oriented x3 with appropriate mental status. Memory lapse is noticed. DIAGNOSTIC DATA: CBC today showed WBC count of 7.2, hemoglobin of 8.2, platelet of 301. BMP showed sodium 147, potassium 3.2, chloride 108, CO2 of 29, anion gap 13, BUN 21, creatinine 3.12, glucose 96, calcium 8.6. PLAN/ASSESSMENT: 1. End-stage renal disease, on maintenance hemodialysis Thursday, Thursday, Thursday. We will dialyze the patient today with 4 K bath as well as UF as tolerated. 2. Status post cardiac arrest. AICD placement contemplated by Surgical Cardiology Team. The patient seems to be unenthusiastic about this, discussion is in progress. 3. Hypertension. The patient was initially hypotensive, but currently hypertensive. We will restart nifedipine with a view to get an adequate BP control and plan to wean off clonidine. 4. Hypokalemia. We will replete with oral potassium chloride. 5. Other treatment as per primary attending and Cardiology. Job ID: [id number] [facility]
[2018-06-18] MEDS: Acetaminophen 650 MG/20.3 ML UDCUP PO SCH ×5 (09:18→20:50)
[2018-06-18] MEDS: Nystatin 500,000 UNITS/5 ML UDCUP SSW SCH ×4 (09:19→20:50)
--- NOTE | 2018-06-18 09:40 | PRG ---
DATE OF SERVICE: 06/18/2018 SUBJECTIVE: This morning, he is being dialyzed. He is still having pain. OBJECTIVE: VITAL SIGNS: Sats are 100% on room air, respiratory rate 22, temperature 97, and blood pressure 160/70. DIAGNOSTIC DATA: His x-ray yesterday showed small pleural effusion, but no pneumonia or overt congestive heart failure. His baseline creatinine 3.12. CBC unremarkable. IMPRESSION: 1. Chronic renal failure, status post hypertension. 2. Cardiopulmonary resuscitation. 3. Bilateral fractured wrists. PLAN: Pulmonary figueroa, he is still on vancomycin. I am not clear why he is still on vancomycin. Discontinue antibiotics. Comfort care. Disposition as per primary care physician. Job ID: [id number]
[2018-06-18] MEDS: Senokot S 8.6-50 MG TAB PO SCH ×2 (12:11→20:50)
[2018-06-18] MEDS: NIFEdipine XL 30 MG TAB PO SCH (12:11)
[2018-06-18] MEDS: Saccharomyces boulardii 250 MG CAP PO SCH (12:12)
[2018-06-18] MEDS: Aspirin Chewable 81 MG TAB PO SCH (12:12)
[2018-06-18] MEDS: Cyanocobalamin (Vitamin B-12) 1,000 MCG TAB PO SCH (12:12)
[2018-06-18] MEDS: Metoprolol Tartrate 25 MG TAB PO SCH ×2 (12:12→20:50)
[2018-06-18] MEDS: Folic Acid 1 MG TAB PO SCH (12:12)
[2018-06-18] MEDS: Pantoprazole 40 MG GRANULES PACKET PO SCH (12:12)
[2018-06-18] MEDS: Ondansetron PF 4 MG/2 ML Vial IVP PRN (14:26)
--- NOTE | 2018-06-18 15:20 | PRG ---
DATE OF SERVICE: 06/18/2018 SUBJECTIVE: The patient is seen and examined at the bedside. His confusion is better, although he still has some hallucinations from time to time. His appetite is poor. He had bowel movement today. OBJECTIVE: VITAL SIGNS: Blood pressure is 149/69, pulse is 97, temperature is 98.3, respirations 19, and O2 saturation is 100% on room air. GENERAL: He follows my commands. HEENT: His sclerae are nonicteric. Oral mucosa is moist. NECK: Supple. LUNGS: Breath sounds somewhat diminished at both bases. HEART: S1 and S2 distant. No S3. No S4. ABDOMEN: Soft, nontender, and nondistended. EXTREMITIES: No clubbing, cyanosis or edema. NEUROLOGICAL: He follows my commands. He is able to move his all 4 extremities. LABORATORY DATA: Hemoglobin of 8.2, hematocrit 25.6, and white count 7.2. Sodium of 147, potassium 3.2, chloride 108, CO2 of 29, BUN 21, and creatinine 3.12. Microbiology, nothing new. IMPRESSION: 1. Cardiac arrest, status post CPR and multiple rib fractures. 2. Hypotension, requiring Levophed. 3. Right upper extremity cellulitis, improved. Vancomycin was stopped by textile technical officer. 4. Aspiration. 5. Acute hypoxemic respiratory failure. 6. Type 2 infarction. 7. End-stage renal disease, on hemodialysis. 8. Multiple rib fractures in both sides after CPR, currently on fentanyl patch. 9. Hypernatremia. We will try to encourage him to drink water. 10. Hypokalemia, p.o. potassium replacement. 11. Coronary artery disease, chronic, stable. 12. Worsening kidney function. 13. Anemia due to renal insufficiency. PLAN: The case will be discussed with Dr. David, his glove pairer, regarding fluid intakes. I am going to start him on Megace for his lack of appetite. I am going to continue fentanyl patch for his rib fractures. Job ID: [id number]
[2018-06-18] MEDS: Rosuvastatin 10 MG TAB PO SCH (20:50)
[2018-06-18] MEDS ORDERED: Sodium Chloride 0.9% 250 ML IVPB SCH (21:00)
[2018-06-19] MEDS: Acetaminophen 325 MG TAB PO PRN (00:33)
[2018-06-19] MEDS: Sevelamer Carbonate 800 MG TAB PO SCH ×4 (07:46→16:42)
[2018-06-19] MEDS: Aspirin Chewable 81 MG TAB PO SCH (07:47)
[2018-06-19] MEDS: Acetaminophen 650 MG/20.3 ML UDCUP PO SCH ×3 (07:47→20:35)
[2018-06-19] MEDS: NIFEdipine XL 30 MG TAB PO SCH (07:48)
[2018-06-19] MEDS: Metoprolol Tartrate 25 MG TAB PO SCH ×2 (07:48→20:36)
[2018-06-19] MEDS: Folic Acid 1 MG TAB PO SCH (07:48)
[2018-06-19] MEDS: Megestrol Acetate 800 MG/20 ML UDCUP PO SCH (07:48)
[2018-06-19] MEDS: Cyanocobalamin (Vitamin B-12) 1,000 MCG TAB PO SCH (07:48)
[2018-06-19] MEDS: Senokot S 8.6-50 MG TAB PO SCH ×2 (07:49→20:38)
[2018-06-19] MEDS: Pantoprazole 40 MG GRANULES PACKET PO SCH (07:49)
[2018-06-19] MEDS: Saccharomyces boulardii 250 MG CAP PO SCH (07:49)
[2018-06-19] MEDS: Nystatin 500,000 UNITS/5 ML UDCUP SSW SCH ×4 (07:49→20:42)
[2018-06-19] MEDS ORDERED: Lidocaine 5% Patch TD SCH (10:00)
[2018-06-19] MEDS ORDERED: Furosemide 100 MG/10 ML VIAL SLOW IVP SCH (10:15)
[2018-06-19] MEDS ORDERED: Albumin 25% 25 GM/100 ML BOT IVPB SCH (10:15)
--- NOTE | 2018-06-19 10:28 | PRG ---
DATE OF SERVICE: 06/19/2018 SUBJECTIVE: A 78-year-old male with end-stage renal disease, on maintenance hemodialysis, who was admitted after a cardiac arrest. The patient is complaining of anterior chest wall pain, worse with breathing. The patient also had hypotensive episodes yesterday after dialysis following narcotic treatment. Blood pressure also dropped earlier today following administration of antihypertensives. Mental status, however, remained stable. The patient is conversational and seems appropriate. Denied fever or shortness of breath. OBJECTIVE: VITAL SIGNS: Temperature 97.9, pulse 76, respiratory rate 18, SpO2 of 100% on room air, blood pressure is 86/50. GENERAL: Elderly male, in no obvious distress. Afebrile. Anicteric. HEENT: Normocephalic and atraumatic. Oral mucosa is moist. CARDIOVASCULAR: Regular rhythm and rate with normal heart sounds 1 and 2. RESPIRATORY: Fair air entry bilateral, decreased at the bases with no obvious crackle or rhonchi or use of accessory muscles. Anterior chest tenderness noted. GI: Full, soft, nontender, and nondistended with normal bowel sounds. Peritoneal dialysis catheter noted. EXTREMITIES: Right arm circumferential ecchymosis as well as medial AV fistula with bruit noted. Right upper chest tunneled dialysis catheter also noted. Extremities otherwise are unremarkable with no edema or cyanosis. NEUROLOGIC: Conscious, alert, and oriented x3 with appropriate mental status. DIAGNOSTIC DATA: No lab draw today. ASSESSMENT AND PLAN: 1. End-stage renal disease, on maintenance hemodialysis Thursday, Thursday, and Thursday. The patient was dialyzed yesterday with 4K bath as well as UF as tolerated given hypokalemia. Volume status is acceptable. There is no need for dialysis today. 2. Hypotensive episodes. We will discontinue all antihypertensives except metoprolol. We will discontinue the clonidine patch as well as nifedipine. 3. Hypertension. Blood pressure currently is on the low side. Antihypertensives will be discontinued. 4. Hypokalemia. Repleted yesterday. We will recheck levels today with a view to replete it if needed. 5. Status post cardiac arrest. AICD discussion is in progress. The patient initially declined, but he was confused then. 6. Physical deconditioning. PT to continue. 7. Anterior chest wall tenderness. We will add lidocaine patch. Job ID: [id number]
[2018-06-19] MEDS ORDERED: Clopidogrel Bisulfate 75 MG TAB ONE (10:53)
[2018-06-19 12:24] LABS: Potassium 3.5 mmol/L (3.5-5.1)
--- NOTE | 2018-06-19 13:30 | EKG ---
Test Reason : ER Blood Pressure : / mmHG Vent. Rate : 117 BPM Atrial Rate : 117 BPM P-R Int : 126 ms QRS Dur : 088 ms QT Int : 368 ms P-R-T Axes : 029 -19 030 degrees QTc Int : 513 ms Sinus tachycardia Possible Left atrial enlargement Nonspecific ST abnormality Abnormal ECG Confirmed by HIRA THOMPSON, BETTY ([id number]), medical editor ORION HILARIO ([id number]) on 06/19/2018 1:29:34 PM Referred By: Confirmed By:BETTY INIGUEZ MD
--- NOTE | 2018-06-19 14:25 | PRG ---
DATE OF SERVICE: 06/19/2018 CODE STATUS: DNAR status, no resuscitate. SUBJECTIVE: The patient is seen and examined at bedside. He is in Trendelenburg position. Apparently, blood pressure this morning was in 120s level and he received his blood pressure medications, Procardia, which was apparently crushed and metoprolol, and he had this hypotensive episode. He does not have much complaints to offer. He is hungry. He wants to eat. OBJECTIVE: VITAL SIGNS: Blood pressure is 86/50, pulse is 76, temperature is 97.9, respirations 18, and O2 saturation is 100% on room air. HEENT: His head is atraumatic and normocephalic. Eyes are PERRLA. Sclerae are nonicteric. LUNGS: Clear. HEART: S1 and S2 normal. No S3. No S4. ABDOMEN: Soft, nontender, nondistended. EXTREMITIES: No clubbing, cyanosis. There is 1+ peripheral edema around both ankles. NEUROLOGIC: He follows my commands. He moves his all four extremities. There is no any sensory or motor deficits. Cranial nerves are intact. LABORATORY DATA: Labs showed potassium of 3.5. Microbiology, no new findings. IMPRESSION: 1. Iatrogenic hypotension. His clonidine and Procardia were stopped by dry house operator. He will be just on metoprolol when his blood pressure recovers. He will continue in Trendelenburg position until the blood pressure gets better. 2. Cardiac arrest, status post CPR and multiple rib fractures. 3. Right upper extremity cellulitis, improved. Vancomycin was stopped by transplant surgeon. 4. Aspiration. 5. Acute hypoxemic respiratory failure. 6. Type 2 myocardial infarction. 7. End-stage renal disease, on hemodialysis. 8. Multiple rib fractures in both sides after CPR, currently on fentanyl patch. 9. Hypernatremia. This will be regulated by his hemodialysis. 10. Hypokalemia as well. 11. Coronary artery disease, chronic, stable. 12. Worsening kidney function, on hemodialysis at this point. 13. Anemia due to renal insufficiency. 14. Anorexia. The patient was started on Megace yesterday. PLAN: Plan is to give him 1 dose of albumin 25 g. The case was discussed with Dr. Calvillo, who is seeing him for nephrology followup. We will continue fentanyl patch for his rib fracture and pain related to that. His clonidine patch was stopped and we will continue Megace. Job ID: [id number]
--- NOTE | 2018-06-19 19:25 | PRG ---
DATE OF SERVICE: 06/19/2018 SUBJECTIVE: Mr. Burleson is in amazingly good spirit considering his fractured rib. He is afebrile. OBJECTIVE: VITAL SIGNS: His heart rate is in the 70s to low 80s. He is afebrile. Respiratory rates in the teens, oximetry is 98% on room air, blood pressure is 118/54. I watched him using incentive spirometer, he is doing quite well with that. His family says he is using it frequently. LUNGS: Completely clear at this time. HEART: Regular rhythm. ABDOMEN: Soft. LABORATORY DATA: Potassium today is 3.5. IMPRESSION AND PLAN: 1. End-stage renal disease, on dialysis. 2. Status post CPR with rib fractures. We will continue to follow the other physicians caring for him. He is doing well and has surprisingly few complaints of pain with his rib fractures at this time. Job ID: [id number]
[2018-06-19] MEDS ORDERED: Lidocaine Patch Removal 1 EACH TOP SCH (20:00)
[2018-06-19] MEDS: Rosuvastatin 10 MG TAB PO SCH (20:37)
[2018-06-19] MEDS: traMADol HCl 50 MG TAB PO PRN (20:39)
[2018-06-20] MEDS: traMADol HCl 50 MG TAB PO PRN ×2 (03:49→20:53)
[2018-06-20] MEDS: Cyanocobalamin (Vitamin B-12) 1,000 MCG TAB PO SCH (08:58)
[2018-06-20] MEDS: Saccharomyces boulardii 250 MG CAP PO SCH (08:58)
[2018-06-20] MEDS: Metoprolol Tartrate 25 MG TAB PO SCH ×2 (08:58→20:53)
[2018-06-20] MEDS: Folic Acid 1 MG TAB PO SCH (08:58)
[2018-06-20] MEDS: Sevelamer Carbonate 800 MG TAB PO SCH ×3 (08:58→16:55)
[2018-06-20] MEDS: Aspirin Chewable 81 MG TAB PO SCH (08:58)
[2018-06-20] MEDS: Megestrol Acetate 800 MG/20 ML UDCUP PO SCH (08:59)
[2018-06-20] MEDS: Nystatin 500,000 UNITS/5 ML UDCUP SSW SCH ×4 (08:59→20:53)
[2018-06-20] MEDS: Lidocaine 5% Patch TD SCH (08:59)
[2018-06-20] MEDS: Senokot S 8.6-50 MG TAB PO SCH ×2 (08:59→21:05)
[2018-06-20] MEDS: Pantoprazole 40 MG GRANULES PACKET PO SCH (08:59)
[2018-06-20 09:49] LABS: #Eosinphils 0.4 thou/uL (0.0-0.7); #Lymphocytes 1.7 thou/uL (1.20-3.40); #Monocytes 0.3 thou/uL (0.11-0.59); #Neutrophils 7.6 thou/uL (1.40-6.50); %Basophils 0.1 % (0.0-1.0); %Eosinophils 3.6 % (0.0-10.0); %Lymphocytes 17.2 % (21.0-51.0); %Monocytes 3.2 % (0.0-10.0); %Neutrophils 75.9 % (42.0-75.0); Hemoglobin 8.4 g/dL (14.0-18.0); Mean Corpuscular HGB CONC 32.9 g/dL (32.0-36.0); Mean Corpuscular Hemoglobin 29.6 pg (27.0-31.0); Platelet Count 289 thou/uL (130-400); RBC Distribution Width 14.7 % (11.5-14.5); Red Blood Cell (RBC) Count 2.83 mill/uL (4.70-6.10); White Blood Cell (WBC) Count 9.9 thou/uL (4.8-10.8)
--- NOTE | 2018-06-20 09:49 | PRG ---
DATE OF SERVICE: 06/20/2018 SUBJECTIVE: Mr. Burleson is a 78-year-old white male with ESRD, who was admitted for cardiorespiratory arrest. During the last several days, his mentation was quite depressed. A CAT scan was done, which showed no acute intracranial changes. In the last 2 days, he has become more awake and alert. He has been evaluated by Dr. Red for an AICD placement. At that time, due to his decreased mentation, AICD placement was placed on hold. This morning, he is more awake and alert. In the last 2 days, he has been doing better. We will attempt to use his AV access-AV fistula tomorrow. No other complaints today. No chest pain or shortness of breath. OBJECTIVE: VITAL SIGNS: Blood pressure is 140/63, heart rate 73, respiratory rate 18, temperature 97.5, and pulse ox 98%. GENERAL: Awake, alert, comfortable, not in distress. SKIN: Adequate turgor. HEENT: Slightly pale conjunctivae. Anicteric sclerae. NECK: No neck mass. No carotid bruits. No JVD. CHEST: No deformities. LUNGS: Clear breath sounds. No wheezing. No crackles. HEART: Normal sinus rhythm. No murmur. No gallops. No rubs. ABDOMEN: Globular. Soft and nontender. No masses. EXTREMITIES: No edema. No deformities. MEDICATIONS: Medications of June 20, 2018, reviewed. LABORATORY DATA: Laboratories of June 18, 2018; white count 7.2 and hemoglobin 8.2. Sodium 147, potassium 2.2, chloride 108 carbon dioxide 29, BUN 21, creatinine 3.12, and glucose 96. On June 19, 2018; potassium 3.5. IMAGING STUDIES: CT scan of the brain on June 17, 2018, shows chronic type findings-no acute intracranial abnormality. ASSESSMENT AND PLAN: 1. Status post cardiac respiratory arrest-much improved. Mentating better. Hemodynamically stable. 2. End-stage renal disease, stable. We will continue current Thursday, Thursday, and Thursday hemodialysis. Again, fluid removal only as tolerated. We will plan to do a 3-hour hemodialysis tomorrow. 3. Anemia. Continuing weekly Epogen. Recheck basic metabolic and CBC in a.m. Job ID: [id number]
[2018-06-20] MEDS: Acetaminophen 650 MG/20.3 ML UDCUP PO SCH ×3 (09:55→20:53)
[2018-06-20 10:09] LABS: Anion Gap 13 mmol/L (10-20); BUN (Urea Nitrogen) 22 mg/dL (8.4-25.7); Calc. Creatinine Clearance 15 mL/min (70-130); Calcium 8.7 mg/dL (7.8-10.44); Carbon Dioxide 27 mmol/L (23-31); Chloride 101 mmol/L (98-107); Estimated GFR-MDRD 16; Glucose 83 mg/dL (83-110); Magnesium 1.9 mg/dL (1.6-2.6); Potassium 3.7 mmol/L (3.5-5.1); Sodium 137 mmol/L (136-145)
--- NOTE | 2018-06-20 11:02 | PRG ---
DATE OF SERVICE: 06/20/2018 SUBJECTIVE: The patient is seen and examined at the bedside. He looks better today. His blood pressure recovered. His appetite is still quite poor. OBJECTIVE: VITAL SIGNS: Blood pressure is 155/65, temperature is 98.4, pulse is 88, respirations are 18, and O2 saturation is 96% on room air. HEENT: His head is atraumatic and normocephalic. Sclerae are nonicteric. Conjunctivae palish. Oral mucosa is moist. NECK: Supple. LUNGS: Breath sounds diminished at both bases. HEART: S1 and S2 and somewhat irregular. No S3. No S4. ABDOMEN: Soft, nontender. Bowel sounds are present. No organomegaly. EXTREMITIES: No clubbing, cyanosis, or edema. NEUROLOGICAL: He follows my commands. He moves his all 4 extremities. He does not remember what happened yesterday. LABORATORY DATA: Labs showed white count of 9.9, hemoglobin 8.4, hematocrit 25.5, platelet count is 289,000. Chemistry showed normal electrolytes, creatinine 3.81, and the rest of chemistry within normal limits. Magnesium 1.9. IMPRESSION: 1. Hypotension, resolved. Apparently, Procardia extended release was crashed by the nurse and this was the main reason why his blood pressure was low yesterday. 2. Cardiac arrest, status post cardiopulmonary resuscitation and multiple rib fractures, right and left. 3. Right upper extremity cellulitis, improved. Vancomycin was stopped by shingle cutter. 4. Aspiration. 5. Acute hypoxemic respiratory failure, resolved. 6. Type 2 myocardial infarction. 7. End-stage renal disease, on hemodialysis. 8. Multiple rib fractures on both sides of the cardiopulmonary resuscitation, currently on fentanyl patch. 9. Hypernatremia, resolved. 10. Hypokalemia, resolved. 11. Coronary artery disease, chronic, stable. 12. Anemia due to renal insufficiency. 13. Anorexia. PLAN: Plan is to continue his Megace. Continue his Epogen weekly. I am going to start his Procardia XL at the same dose and make sure that the nurse does not crash it before it is used. Also, we will continue his fentanyl patch, and he seems to be doing gradually better. Continue his hemodialysis per Dr. David. Job ID: [id number]
[2018-06-20] MEDS ORDERED: EPOETIN ALFA-EPBX (ESRD) 3,000 UNIT/ML VIAL SC SCH (13:00)
[2018-06-20] MEDS: [UNRECOGNIZED DRUG - REMARK] SC SCH (13:18)
--- NOTE | 2018-06-20 14:45 | PRG ---
DATE OF SERVICE: 06/20/2018 SUBJECTIVE: Surprisingly, he is not complaining of chest pain today. He had a large number of family members in the room. He is in great spirits. OBJECTIVE: VITAL SIGNS: He is afebrile. Heart rate is 80, respiratory rate is 24, oximetry is 95% on room air, and blood pressure 153/65. LUNGS: Clear. HEART: Regular rhythm. ABDOMEN: Soft. EXTREMITIES: Without edema. LABORATORY DATA: White count 9.9, hemoglobin 8.4, platelets 289. Sodium 137, potassium 3.7, chloride 101, bicarb 27, BUN 22, creatinine 3.81, actually up from 3.12 yesterday and 2.3 four days ago. Intake and output is positive 630. IMPRESSION AND PLAN: 1. Status post cardiopulmonary resuscitation with multiple rib fractures, clinically stable. 2. End-stage renal disease. Overall, he has no evidence of any pulmonary infections at this time. He continues to aggressively use his spirometer. We will continue to follow. Job ID: [id number]
[2018-06-20] MEDS: Rosuvastatin 10 MG TAB PO SCH (20:53)
[2018-06-20] MEDS: Lidocaine Patch Removal 1 EACH TOP SCH (21:05)
[2018-06-21] MEDS: traMADol HCl 50 MG TAB PO PRN ×3 (06:30→20:21)
[2018-06-21 07:23] LABS: Anion Gap 17 mmol/L (10-20); BUN (Urea Nitrogen) 26 mg/dL (8.4-25.7); Calc. Creatinine Clearance 14 mL/min (70-130); Calcium 8.8 mg/dL (7.8-10.44); Carbon Dioxide 23 mmol/L (23-31); Chloride 99 mmol/L (98-107); Estimated GFR-MDRD 14; Glucose 87 mg/dL (83-110); Potassium 3.8 mmol/L (3.5-5.1); Sodium 135 mmol/L (136-145)
[2018-06-21] MEDS: Doxycycline 100 MG CAP PO SCH ×2 (08:07→20:21)
[2018-06-21] MEDS: Senokot S 8.6-50 MG TAB PO SCH ×2 (08:07→20:22)
[2018-06-21] MEDS: Megestrol Acetate 800 MG/20 ML UDCUP PO SCH (08:07)
[2018-06-21] MEDS: Acetaminophen 650 MG/20.3 ML UDCUP PO SCH ×3 (08:07→20:21)
[2018-06-21] MEDS: Pantoprazole 40 MG GRANULES PACKET PO SCH (08:07)
[2018-06-21] MEDS: Nystatin 500,000 UNITS/5 ML UDCUP SSW SCH ×4 (08:07→20:21)
[2018-06-21] MEDS: Aspirin Chewable 81 MG TAB PO SCH (08:08)
[2018-06-21] MEDS: Folic Acid 1 MG TAB PO SCH (08:08)
[2018-06-21] MEDS: Cyanocobalamin (Vitamin B-12) 1,000 MCG TAB PO SCH (08:08)
[2018-06-21] MEDS: Sevelamer Carbonate 800 MG TAB PO SCH ×3 (08:08→17:08)
[2018-06-21] MEDS: Saccharomyces boulardii 250 MG CAP PO SCH (08:08)
[2018-06-21] MEDS: Lidocaine 5% Patch TD SCH (08:08)
[2018-06-21] MEDS: Metoprolol Tartrate 25 MG TAB PO SCH ×2 (08:09→20:21)
[2018-06-21] MEDS ORDERED: NIFEdipine XL 30 MG TAB PO SCH (09:00)
--- NOTE | 2018-06-21 09:59 | PRG ---
DATE OF SERVICE: 06/21/2018 SUBJECTIVE: Mr. Burleson dialysis. No problems reported. OBJECTIVE: VITAL SIGNS: He is afebrile, heart rate is 78, respiratory rate is 18, oximetry is 100% on room air, blood pressure is 142/66. Exam is unchanged. LABORATORY DATA: Electrolytes are unremarkable. Creatinine is 4.09. There is no CBC today. IMPRESSION: Rib fractures, clinically stable. Job ID: [id number]
--- NOTE | 2018-06-21 10:01 | PRG ---
DATE OF SERVICE: 06/21/2018 SUBJECTIVE: Mr. Burleson is a 78-year-old male with ESRD, followed up by [facility] for his maintenance hemodialysis. He is currently undergoing dialysis, and I am at the bedside supervising his dialysis. He was essentially admitted for a cardiopulmonary arrest. Cardiology has evaluated this patient. He is doing better. No other complaints. OBJECTIVE: VITAL SIGNS: Blood pressure is 142/66, heart rate 78, respiratory rate 18, temperature 98.1, and pulse ox 100%. GENERAL: The patient is awake, alert, comfortable, not in distress. SKIN: Adequate turgor. HEENT: Slightly pale conjunctivae. Anicteric sclerae. NECK: No neck mass. No carotid bruits. No JVD. CHEST: No deformities. LUNGS: Decreased breath sounds. HEART: Normal sinus rhythm. No murmur. No gallops or rubs. ABDOMEN: Globular, soft, nontender. No masses. EXTREMITIES: No edema. No deformities. MEDICATIONS: Medications of 06/21/2018 were reviewed. LABORATORY DATA: On 06/20/2018; white count 9.9, hemoglobin 8.4. On 06/21/2018; sodium 135, potassium 3.8, chloride 99, carbon dioxide 23, BUN 26, creatinine 4.09, glucose 87, and calcium 8.8. ASSESSMENT AND PLAN: 1. End-stage renal disease, stable. Continue current hemodialysis regimen. Fluid removal only as tolerated. Continue Thursday, Thursday, and Thursday dialysis. 2. Status post cardiopulmonary arrest - hemodynamically stable. No overt cardiac arrhythmias at the present time. He is followed by Cardiology. At one time, he was offered automatic implantable cardioverter-defibrillator and the family has refused. 3. Anemia. Continuing weekly Epogen. Job ID: [id number]
[2018-06-21] MEDS ORDERED: Heparin 10,000 UNITS/ 10 ML VIAL ONE (15:00)
--- NOTE | 2018-06-21 15:13 | PDOC.CTH ---
Cardiology Progress Note - Subjective EP PROGRESS NOTE: 06/21/18 Seen as follow up after cardiac arrest of unknown cause. Greatly improved since last week. He is alert, oriented, and easily converses. Many family members bedside. He is scared by recent events and is eager to continue medical treatment for his issues. No new cardiac concerns or complaints. Plans to revoke DNR at some point. - Objective Vital Signs Temp Pulse Resp BP BP Pulse Ox 06/21/18 14:33 79 16 100 06/21/18 12:00 98.3 F 75 14 131/64 97 06/21/18 08:09 78 06/21/18 07:55 98.1 F 78 18 142/66 H 100 06/21/18 07:21 72 16 99 06/21/18 04:05 98.3 F 73 18 139/64 73 L Admit Weight 147 lb 11.355 oz Weight 145 lb 15.136 oz 06/20/18 06/21/18 06/22/18 06:59 06:59 06:59 Intake Total 1430 1300 Output Total 800 1480 Balance 630 -180 - Physical Examination General/Neuro: alert & oriented x3, NAD Neck: carotid US brisk, no JVD present Lungs: CTA, unlabored respirations Heart: PMI normal, RRR Abdomen: NT/ND, soft - Telemetry Telemetry Rhythm: SR - Labs Result Diagrams: 06/20/18 09:01 06/21/18 05:58 Troponin/CKMB CK-MB (CK-2) 1.3 ng/mL (0-6.6) 06/11/18 08:50 Troponin I 2.185 ng/mL (< 0.028) H* 06/11/18 21:36 - Assessment/Plan 1. s/p Cardiac arrest - etiology unknown 2. Non sustained ventricular tachycardia -06/14/18, ~20 beats, no further episodes seen on tele 3. ESRD on HD 4. Hypotension 5. CAD 6. Anemia 7. SVT Family declined EPS/ possible ICD last week hence poor functional status, but now pt mental status improved. As patient is re-evaluating treatment options. He plans to revoke DNR. In light of this, I was asked to re-discuss ICD option with him. After long discussion with patient, , and son patient is undecided but understands risks benefits and alternatives to ICD implant. At this point he wishes to consider his options but is leaning towards EP evaluationand possible ICD implant. He is unable to tolerate beta blockers d/t hypotension. I will see him tomorrow to address any further question and if he has made a decision. EP study and possible ICD implant planned on Thursday. If he remains undecided, he could discharge with [facility] in place and OP EPS and possible ICD could be arranged if he wishes to move forward with implant. With SVT, would plan for Dual lead.-ICD.
--- NOTE | 2018-06-21 17:22 | EKG ---
Test Reason : STAT Blood Pressure : / mmHG Vent. Rate : 095 BPM Atrial Rate : 095 BPM P-R Int : 142 ms QRS Dur : 102 ms QT Int : 382 ms P-R-T Axes : 020 -20 013 degrees QTc Int : 480 ms Normal sinus rhythm Non-specific intra-ventricular conduction delay Minimal voltage criteria for LVH, may be normal variant Prolonged QT Abnormal ECG Confirmed by LYDIA REYNOSO ([id number]) on 06/21/2018 5:22:25 PM Referred By: MARCEL Confirmed By:LYDIA REYNOSO
[2018-06-21] MEDS: Rosuvastatin 10 MG TAB PO SCH (20:21)
[2018-06-21] MEDS: Lidocaine Patch Removal 1 EACH TOP SCH (20:22)
--- NOTE | 2018-06-21 21:28 | PDOC.PN ---
- Subjective Encounter Start Date: 06/21/18 Encounter Start Time: 10:30 Patient seen and examined for Cardiac arrest. No new complaints. No overnight events - Objective Resuscitation Status - Order Detail: 06/21/18 15:46 Resuscitation Status Routine Resuscitation Status: PRTL: Chem-Intubation Discussed with: Discussed with Patient/family MAR Reviewed: Yes Vital Signs & Weight: Vital Signs (12 hours) Temp Pulse Resp BP BP BP Pulse Ox 06/21/18 19:55 98.0 F 81 18 130/58 L 100 06/21/18 19:20 12 06/21/18 15:24 98.2 F 75 18 113/58 L 98 06/21/18 14:33 79 16 100 06/21/18 12:00 98.3 F 75 14 131/64 97 Weight Admit Weight 147 lb 11.355 oz Weight 145 lb 15.136 oz Most Recent Monitor Data Heart Rate from ECG 100 NIBP 144/72 NIBP BP-Mean 96 Respiration from ECG 20 SpO2 100 I&O: 06/20/18 06/21/18 06/22/18 06:59 06:59 06:59 Intake Total 1430 1300 Output Total 800 1480 Balance 630 -180 Result Diagrams: 06/20/18 09:01 06/22/18 08:43 EKG Reviewed by me: Yes (Tele SR) Phys Exam - Physical Examination Constitutional: NAD Respiratory: no wheezing, no rhonchi Cardiovascular: RRR, no rub Gastrointestinal: soft, non-tender, positive bowel sounds Musculoskeletal: no edema Dx/Plan - Plan DVT proph w/SCDs IMPRESSION: Cardiac arrest ROSC s/p CPR Hypotension requiring Levophed NSVT LLL HCA Pneumonia ?Pneumococcal vs Aspiration RUE Cellulitis Swallow dysfunction Oral candidiasis Acute hypoxic resp failure s/p NIPPV Type 2 GA/Demand ischemia Hypokalemia/hypomagnesemia - replaced ESRD on HD Multiple rib fx from CPR causing significant pain - on Fentanyl patch CAD Psoariasis IgA Nephropathy Anemia due to renal insufficiency HLD GERD Moderate PEM h/o HTN PLAN: Cont Metoprolol for NSVT Add Doxycycline for RUE Cellulitis AICD eval pending Cont other meds as below Cont Fentanyl patch 12 mcg CHERYL Iglesias in AM Review of Systems - Review of Systems Respiratory: negative: Cough, Dry, Shortness of Breath, Hemoptysis, SOB with Excertion, Pleuritic Pain, Sputum, Wheezing Cardiovascular: negative: chest pain, palpitations, orthopnea, paroxysmal nocturnal dyspnea, edema, light headedness, other - Medications/Allergies Allergies/Adverse Reactions: Allergies Allergy/AdvReac Type Severity Reaction Status Date / Time ketorolac tromethamine Allergy Rash Verified 03/24/18 18:40 [From Toradol] levofloxacin [From Levaquin] Allergy Rash Verified 03/24/18 18:40 Sulfa (Sulfonamide Allergy Rash Verified 03/24/18 18:40 Antibiotics) tamsulosin HCl [From Flomax] Allergy Verified 03/24/18 18:40 Medications: Current Medications Acetaminophen (Tylenol) 650 mg PO Q4H PRN PRN Reason: Headache/Fever or Mild Pain Last Admin: 06/19/18 00:33 Dose: 650 mg Acetaminophen (Tylenol Elixir) 650 mg PO TID [facility] Last Admin: 06/21/18 20:21 Dose: 650 mg Albuterol/Ipratropium (Duoneb) 3 ml NEB [id number] [facility] Last Admin: 06/21/18 19:20 Dose: 3 ml Aspirin (Aspirin Chewable) 81 mg PO DAILY [facility] Last Admin: 06/21/18 08:08 Dose: 81 mg Clonidine (Catapres) 0.1 mg PO Q6H PRN PRN Reason: SBP GREATER THAN 160 Cyanocobalamin (Vitamin B-12) 1,000 mcg PO DAILY [facility] Last Admin: 06/21/18 08:08 Dose: 1,000 mcg Doxycycline Hyclate (Vibramycin) 100 mg PO BID [facility] Last Admin: 06/21/18 20:21 Dose: 100 mg Fentanyl (Duragesic) 12 mcg TD Q3D [facility] Last Admin: 06/21/18 14:11 Dose: 12 mcg Fentanyl (Sublimaze) 25 mcg SLOW IVP Q3H PRN PRN Reason: Moderate Pain (4-6) Last Admin: 06/18/18 09:23 Dose: 25 mcg Ferrous Sulfate (Ferrous Sulfate) 300 mg PO BID-[facility] Last Admin: 06/21/18 17:08 Dose: 300 mg Folic Acid (Folvite) 1 mg PO DAILY [facility] Last Admin: 06/21/18 08:08 Dose: 1 mg Labetalol HCl (Normodyne) 10 mg SLOW IVP Q4H PRN PRN Reason: SBP > 160 OR DBP > 100 Last Admin: 06/16/18 07:32 Dose: 10 mg Lidocaine (Lidoderm 5% Patch) 1 patch TD DAILY [facility] Last Admin: 06/21/18 08:08 Dose: 1 patch Lorazepam (Ativan) 0.25 mg SLOW IVP Q6H PRN PRN Reason: Anxiety/Agitation Last Admin: 06/16/18 20:24 Dose: 0.25 mg Megestrol Acetate (Megace) 800 mg PO DAILY [facility] Last Admin: 06/21/18 08:07 Dose: 800 mg Metoprolol Tartrate (Lopressor) 25 mg PO BID [facility] Last Admin: 06/21/18 20:21 Dose: 25 mg Miscellaneous Medication (Lidocaine Patch Removal) 1 each TOP 2100 [facility] Last Admin: 06/21/18 20:22 Dose: 1 each Nystatin (Mycostatin) 500,000 units SSW QID [facility] Last Admin: 06/21/18 20:21 Dose: 500,000 units Ondansetron HCl (Zofran Odt) 4 mg PO Q6H PRN PRN Reason: Nausea/Vomiting Ondansetron HCl (Zofran) 4 mg IVP Q6H PRN PRN Reason: Nausea/Vomiting Last Admin: 06/18/18 14:26 Dose: 4 mg Pantoprazole Sodium (Protonix) 40 mg PO DAILY [facility] Last Admin: 06/21/18 08:07 Dose: 40 mg Polyethylene Glycol (Miralax) 17 gm PO DAILY PRN PRN Reason: Constipation Rosuvastatin Calcium (Crestor) 10 mg PO HS [facility] Last Admin: 06/21/18 20:21 Dose: 10 mg Saccharomyces Boulardii (Florastor) 250 mg PO DAILY [facility] Last Admin: 06/21/18 08:08 Dose: 250 mg Senna/Docusate Sodium (Senokot S) 2 tab PO BID [facility] Last Admin: 06/21/18 20:22 Dose: Not Given Sevelamer Carbonate (Renvela) 800 mg PO TID-[facility] Last Admin: 06/21/18 17:08 Dose: 800 mg Sodium Chloride (Flush - Normal Saline) 10 ml IVF Q12HR [facility] Last Admin: 06/21/18 20:23 Dose: Not Given Sodium Chloride (Flush - Normal Saline) 10 ml IVF PRN PRN PRN Reason: Saline Flush Last Admin: 06/13/18 17:54 Dose: 10 ml Tramadol HCl (Ultram) 100 mg PO Q6H PRN PRN Reason: Pain 7-10 Last Admin: 06/21/18 20:21 Dose: 100 mg
[2018-06-22] MEDS: Ondansetron ODT 4 MG TAB PO PRN (05:45)
[2018-06-22] MEDS ORDERED: ALPRAZolam 0.25 MG TAB PO PRN (08:26)
[2018-06-22] MEDS: Lidocaine 5% Patch TD SCH (09:14)
[2018-06-22] MEDS: Pantoprazole 40 MG GRANULES PACKET PO SCH (09:15)
[2018-06-22] MEDS: Nystatin 500,000 UNITS/5 ML UDCUP SSW SCH ×2 (09:15→14:24)
[2018-06-22] MEDS: Megestrol Acetate 800 MG/20 ML UDCUP PO SCH (09:15)
[2018-06-22] MEDS: Acetaminophen 650 MG/20.3 ML UDCUP PO SCH ×3 (09:15→19:47)
[2018-06-22] MEDS: Aspirin Chewable 81 MG TAB PO SCH (09:16)
[2018-06-22] MEDS: Saccharomyces boulardii 250 MG CAP PO SCH (09:16)
[2018-06-22] MEDS: Senokot S 8.6-50 MG TAB PO SCH ×2 (09:16→19:47)
[2018-06-22] MEDS: Sevelamer Carbonate 800 MG TAB PO SCH ×3 (09:16→17:44)
[2018-06-22] MEDS: Metoprolol Tartrate 25 MG TAB PO SCH ×3 (09:16→19:48)
[2018-06-22] MEDS: Doxycycline 100 MG CAP PO SCH ×2 (09:16→19:47)
[2018-06-22] MEDS: Cyanocobalamin (Vitamin B-12) 1,000 MCG TAB PO SCH (09:16)
[2018-06-22] MEDS: Folic Acid 1 MG TAB PO SCH (09:16)
[2018-06-22 09:18] LABS: Anion Gap 15 mmol/L (10-20); BUN (Urea Nitrogen) 19 mg/dL (8.4-25.7); Calc. Creatinine Clearance 17 mL/min (70-130); Carbon Dioxide 25 mmol/L (23-31); Chloride 96 mmol/L (98-107); Estimated GFR-MDRD 20; Glucose 110 mg/dL (83-110); Sodium 132 mmol/L (136-145)
--- NOTE | 2018-06-22 09:33 | PRG ---
DATE OF SERVICE: 06/22/2018 SUBJECTIVE: Ernesto Burleson is scheduled for an AICD tomorrow. He is anxious, less chest pain. OBJECTIVE: VITAL SIGNS: Saturations are 100% on 2L, temperature 98, pulse 80, blood pressure 157/67. CHEST: Decreased breath sounds. No wheezing. CARDIAC: Normal S1 and S2. No gallops. ABDOMEN: No masses. ASSESSMENT: 1. End-stage renal failure. 2. Chronic obstructive pulmonary disease. 3. Status post syncope. 4. Cardiac arrhythmias. 5. Congestive heart failure. 6. Fractured ribs. PLAN: He is due for AICD. DISPOSITION: Home thereafter. Job ID: [id number]
--- NOTE | 2018-06-22 09:48 | PRG ---
DATE OF SERVICE: 06/22/2018 SUBJECTIVE: Mr. Burleson is a 78-year-old male with ESRD and followed by the Renal Service for his maintenance hemodialysis. He was initially admitted for cardiorespiratory arrest. Cardiology has evaluated him. Recommendation is to have an automatic implantable cardioverter defibrillator placed. This morning, he is feeling better. He complains of anxiety at the present time. No complaints of chest pain or shortness of breath. OBJECTIVE: VITAL SIGNS: Blood pressure is 157/67, heart rate 80, respiratory rate 16, temperature 98, pulse ox 100%. GENERAL: Awake, alert, comfortable, not in distress. SKIN: Adequate turgor. HEENT: Slightly pale conjunctivae. Anicteric sclerae. NECK: No neck mass. No carotid bruits. No JVD. CHEST: No deformities. LUNGS: Clear breath sounds. HEART: Normal sinus rhythm. No murmurs, no gallops, or rubs. ABDOMEN: Globular, soft, nontender. No masses. EXTREMITIES: No edema. No deformities. MEDICATIONS: Medications of June 22, 2018, reviewed. LABORATORY DATA: Laboratories of June 20, 2018; white count 9.1, hemoglobin 8.4. June 21, 2018, sodium 135, potassium 3.8, chloride 99, carbon dioxide 23, BUN 26, creatinine 4.09, glucose 87, calcium 8.8. ASSESSMENT AND PLAN: 1. End-stage renal disease, stable. No indication for an emergent dialysis. Continue Thursday, Thursday, and Thursday dialysis. He is tolerating fluid removal. 2. Anxiety. Consider starting the patient on Xanax 0.5 mg [address] now[address] Place the patient on trazodone 100 mg tablet at bedtime since he is unable to sleep well. 3. Status post cardiorespiratory arrest-the patient for AICD placement. Cardiology is following. 4. Anemia, on weekly Epogen. Continue current management. Job ID: [id number]
[2018-06-22] MEDS ORDERED: traMADol HCl 50 MG TAB PO PRN (12:04)
[2018-06-22] MEDS ORDERED: Metoprolol Tartrate 25 MG TAB PO SCH (12:15)
--- NOTE | 2018-06-22 14:18 | PDOC.CTH ---
Cardiology Progress Note - Subjective EP PROGRESS NOTE: 06/22/18 Patient seen and evaluated. No new cardiac concerns or complaints today. Denies heart racing, palpitations, chest pain/pressure, dizziness, or passing out. No stroke like symptoms. - Objective Vital Signs Temp Pulse Resp BP BP Pulse Ox 06/22/18 13:19 97.5 F L 76 16 118/58 L 100 06/22/18 12:49 74 16 97 06/22/18 07:45 98.0 F 80 16 157/67 H 100 06/22/18 07:18 98 06/22/18 06:55 74 16 98 06/22/18 04:00 97.6 F 77 20 161/76 H 100 06/22/18 02:35 71 161/68 H 100 Admit Weight 147 lb 11.355 oz Weight 133 lb 06/21/18 06/22/18 06/23/18 06:59 06:59 06:59 Intake Total 1300 480 Output Total 1480 350 Balance -180 130 - Physical Examination General/Neuro: alert & oriented x3, NAD Neck: carotid US brisk, no JVD present Lungs: unlabored respirations Heart: PMI normal, RRR Abdomen: NT/ND - Telemetry Telemetry Rhythm: SR - Labs Result Diagrams: 06/20/18 09:01 06/22/18 08:43 Troponin/CKMB CK-MB (CK-2) 1.3 ng/mL (0-6.6) 06/11/18 08:50 Troponin I 2.185 ng/mL (< 0.028) H* 06/11/18 21:36 - Assessment/Plan 1. s/p Cardiac arrest - etiology unknown - possibly hypotensive with 2nd HD treatment and also took all his AM meds that day 2. Non sustained ventricular tachycardia -06/14/18, ~20 beats, no further episodes seen on tele 3. ESRD on HD 4. Hypotension 5. CAD 6. Anemia 7. SVT EP study with possible ICD implant tomorrow late morning. Discussed with patient and family. Agreeable to proceed.
--- NOTE | 2018-06-22 18:44 | PDOC.PN ---
- Subjective Encounter Start Date: 06/22/18 Encounter Start Time: 10:30 Patient seen and examined for Cardiac arrest. Intermittent confusion. No new complaints. No overnight events - Objective Resuscitation Status - Order Detail: 06/21/18 15:46 Resuscitation Status Routine Resuscitation Status: PRTL: Chem-Intubation Discussed with: Discussed with Patient/family MAR Reviewed: Yes Vital Signs & Weight: Vital Signs (12 hours) Temp Pulse Resp BP Pulse Ox 06/22/18 16:00 98.3 F 78 16 148/72 H 99 06/22/18 13:19 97.5 F L 76 16 118/58 L 100 06/22/18 12:49 74 16 97 06/22/18 07:45 98.0 F 80 16 157/67 H 100 06/22/18 07:18 98 06/22/18 06:55 74 16 98 Weight Admit Weight 147 lb 11.355 oz Weight 133 lb Most Recent Monitor Data Heart Rate from ECG 100 NIBP 144/72 NIBP BP-Mean 96 Respiration from ECG 20 SpO2 100 I&O: 06/21/18 06/22/18 06/23/18 06:59 06:59 06:59 Intake Total 1300 480 Output Total 1480 350 Balance -180 130 Result Diagrams: 06/20/18 09:01 06/22/18 08:43 EKG Reviewed by me: Yes (Tele SR) Phys Exam - Physical Examination Constitutional: NAD Respiratory: no wheezing, no rhonchi Cardiovascular: RRR, no rub Gastrointestinal: soft, non-tender, positive bowel sounds Neurological: non-focal, moves all 4 limbs Dx/Plan - Plan plan discussed w/ family, PT/OT, DVT proph w/SCDs IMPRESSION: Cardiac arrest ROSC s/p CPR Hypotension requiring Levophed NSVT LLL [facility] Pneumonia ?Pneumococcal vs Aspiration Toxic Metabolic Encephalopathy - multifactorial RUE Cellulitis Swallow dysfunction - on modified diet Oral candidiasis - completed Rx Acute hypoxic resp failure s/p NIPPV Type 2 [place]/Demand ischemia Hypokalemia/hypomagnesemia - replaced ESRD on HD Multiple rib fx from CPR causing significant pain - on Fentanyl patch CAD Psoariasis IgA Nephropathy Anemia due to renal insufficiency - on Epoegen HLD GERD Moderate PEM HTN PLAN: Increase Metoprolol to 25 mg TID Add Doxycycline for RUE Cellulitis EP study in AM Cont other meds as below DC Fentanyl patch due to confusion Not on Heparin due to Anemia Review of Systems - Review of Systems Cardiovascular: negative: chest pain, palpitations, orthopnea, paroxysmal nocturnal dyspnea, edema, light headedness, other Gastrointestinal: negative: Nausea, Vomiting, Abdominal Pain, Diarrhea, Constipation, Melena, Hematochezia, Other - Medications/Allergies Allergies/Adverse Reactions: Allergies Allergy/AdvReac Type Severity Reaction Status Date / Time ketorolac tromethamine Allergy Rash Verified 03/24/18 18:40 [From Toradol] levofloxacin [From Levaquin] Allergy Rash Verified 03/24/18 18:40 Sulfa (Sulfonamide Allergy Rash Verified 03/24/18 18:40 Antibiotics) tamsulosin HCl [From Flomax] Allergy Verified 03/24/18 18:40 Medications: Current Medications Acetaminophen (Tylenol) 650 mg PO Q4H PRN PRN Reason: Headache/Fever or Mild Pain Last Admin: 06/19/18 00:33 Dose: 650 mg Acetaminophen (Tylenol Elixir) 650 mg PO TID [facility] Last Admin: 06/22/18 14:45 Dose: 650 mg Albuterol/Ipratropium (Duoneb) 3 ml NEB [id number] [facility] Last Admin: 06/22/18 12:49 Dose: 3 ml Alprazolam (Xanax) 0.25 mg PO BIDPRN PRN PRN Reason: Anxiety Last Admin: 06/22/18 14:46 Dose: 0.25 mg Aspirin (Aspirin Chewable) 81 mg PO DAILY [facility] Last Admin: 06/22/18 09:16 Dose: 81 mg Clonidine (Catapres) 0.1 mg PO Q6H PRN PRN Reason: SBP GREATER THAN 160 Last Admin: 06/22/18 01:37 Dose: 0.1 mg Cyanocobalamin (Vitamin B-12) 1,000 mcg PO DAILY [facility] Last Admin: 06/22/18 09:16 Dose: 1,000 mcg Doxycycline Hyclate (Vibramycin) 100 mg PO BID [facility] Last Admin: 06/22/18 09:16 Dose: 100 mg Fentanyl (Sublimaze) 25 mcg SLOW IVP Q3H PRN PRN Reason: Moderate Pain (4-6) Last Admin: 06/18/18 09:23 Dose: 25 mcg Ferrous Sulfate (Ferrous Sulfate) 300 mg PO BID[facility] Last Admin: 06/22/18 17:44 Dose: 300 mg Folic Acid (Folvite) 1 mg PO DAILY [facility] Last Admin: 06/22/18 09:16 Dose: 1 mg Labetalol HCl (Normodyne) 10 mg SLOW IVP Q4H PRN PRN Reason: SBP > 160 OR DBP > 100 Last Admin: 06/16/18 07:32 Dose: 10 mg Lorazepam (Ativan) 0.25 mg SLOW IVP Q6H PRN PRN Reason: Anxiety/Agitation Last Admin: 06/16/18 20:24 Dose: 0.25 mg Metoprolol Tartrate (Lopressor) 25 mg PO TID [facility] Last Admin: 06/22/18 14:22 Dose: Not Given Miscellaneous Medication (Lidocaine Patch Removal) 1 each TOP 2100 [facility] Stop: 06/22/18 23:59 Last Admin: 06/21/18 20:22 Dose: 1 each Ondansetron HCl (Zofran Odt) 4 mg PO Q6H PRN PRN Reason: Nausea/Vomiting Last Admin: 06/22/18 05:45 Dose: 4 mg Ondansetron HCl (Zofran) 4 mg IVP Q6H PRN PRN Reason: Nausea/Vomiting Last Admin: 06/18/18 14:26 Dose: 4 mg Pantoprazole Sodium (Protonix) 40 mg PO DAILY [facility] Last Admin: 06/22/18 09:15 Dose: 40 mg Polyethylene Glycol (Miralax) 17 gm PO DAILY PRN PRN Reason: Constipation Rosuvastatin Calcium (Crestor) 10 mg PO HS [facility] Last Admin: 06/21/18 20:21 Dose: 10 mg Saccharomyces Boulardii (Florastor) 250 mg PO DAILY [facility] Last Admin: 06/22/18 09:16 Dose: 250 mg Senna/Docusate Sodium (Senokot S) 1 tab PO BID [facility] Sevelamer Carbonate (Renvela) 800 mg PO TID[facility] Last Admin: 06/22/18 17:44 Dose: 800 mg Sodium Chloride (Flush - Normal Saline) 10 ml IVF Q12HR [facility] Last Admin: 06/22/18 09:17 Dose: Not Given Sodium Chloride (Flush - Normal Saline) 10 ml IVF PRN PRN PRN Reason: Saline Flush Last Admin: 06/13/18 17:54 Dose: 10 ml Tramadol HCl (Ultram) 50 mg PO Q6H PRN PRN Reason: Severe Pain (7-10)
[2018-06-22] MEDS: Rosuvastatin 10 MG TAB PO SCH (19:48)
[2018-06-22] MEDS: Lidocaine Patch Removal 1 EACH TOP SCH (19:48)
[2018-06-22] MEDS ORDERED: traZODone HCl 50 MG TAB PO SCH (21:00)
[2018-06-22] MEDS ORDERED: Metoprolol Tartrate 50 MG TAB PO SCH (21:00)
--- NOTE | 2018-06-22 21:11 | CT ---
Head CT without contrast 06/22/2018: COMPARISON: 06/17/2018 HISTORY: Fall, trauma, pain TECHNIQUE: Axial CT imaging at 5 mm intervals from vertex through skull base without contrast FINDINGS: Imaged paranasal sinuses and mastoid air cells appear well-aerated. No displaced calvarial fracture. No intracranial hemorrhage, midline shift, mass effect, or ventricular enlargement. Mild diffuse cere bral volume loss with associated prominence of the CSF containing spaces, stable. IMPRESSION: Stable head CT as detailed above. No intracranial hemorrhage or displaced calvarial fract ure.
[2018-06-22] MEDS: Lorazepam 2 MG/ML VIAL SLOW IVP PRN (21:36)
[2018-06-22] MEDS: Ondansetron PF 4 MG/2 ML Vial IVP PRN (21:37)
[2018-06-22] MEDS ORDERED: Ziprasidone 20 MG VIAL ONE (22:39)
[2018-06-22] MEDS ORDERED: Sterile Water 10 ML VIAL FS PRN (22:41)
[2018-06-22] MEDS ORDERED: Ziprasidone 20 MG VIAL IM SCH (23:00)
[2018-06-23] MEDS ORDERED: CEFAZOLIN 2 GM in Premix Bag 1 BAG IVPB SCH (03:30)
[2018-06-23 06:36] LABS: #Basophils 0.1 thou/uL (0.0-0.2); #Eosinphils 0.4 thou/uL (0.0-0.7); #Lymphocytes 1.7 thou/uL (1.20-3.40); #Monocytes 0.6 thou/uL (0.11-0.59); #Neutrophils 9.6 thou/uL (1.40-6.50); %Basophils 0.5 % (0.0-1.0); %Eosinophils 3.4 % (0.0-10.0); %Monocytes 4.9 % (0.0-10.0); %Neutrophils 77.3 % (42.0-75.0); Hemoglobin 9.8 g/dL (14.0-18.0); Mean Corpuscular HGB CONC 32.4 g/dL (32.0-36.0); Mean Corpuscular Hemoglobin 29.4 pg (27.0-31.0); Mean Corpuscular Volume 90.9 fL (78.0-98.0); Mean Platelet Volume 7.2 fL (7.4-10.4); Platelet Count 347 thou/uL (130-400); RBC Distribution Width 15.7 % (11.5-14.5); Red Blood Cell (RBC) Count 3.35 mill/uL (4.70-6.10); White Blood Cell (WBC) Count 12.4 thou/uL (4.8-10.8)
[2018-06-23 06:47] LABS: Anion Gap 17 mmol/L (10-20); BUN (Urea Nitrogen) 26 mg/dL (8.4-25.7); Calc. Creatinine Clearance 15 mL/min (70-130); Calcium 9.3 mg/dL (7.8-10.44); Carbon Dioxide 23 mmol/L (23-31); Chloride 94 mmol/L (98-107); Estimated GFR-MDRD 16; Glucose 77 mg/dL (83-110); Potassium 4.5 mmol/L (3.5-5.1); Sodium 129 mmol/L (136-145)
[2018-06-23] MEDS: Cyanocobalamin (Vitamin B-12) 1,000 MCG TAB PO SCH (08:33)
[2018-06-23] MEDS: Saccharomyces boulardii 250 MG CAP PO SCH (08:33)
[2018-06-23] MEDS: Acetaminophen 650 MG/20.3 ML UDCUP PO SCH ×2 (08:33→15:44)
[2018-06-23] MEDS: Aspirin Chewable 81 MG TAB PO SCH (08:33)
[2018-06-23] MEDS: Doxycycline 100 MG CAP PO SCH (08:33)
[2018-06-23] MEDS: Folic Acid 1 MG TAB PO SCH (08:33)
[2018-06-23] MEDS: Sevelamer Carbonate 800 MG TAB PO SCH ×3 (08:33→16:45)
[2018-06-23] MEDS: Senokot S 8.6-50 MG TAB PO SCH (08:33)
[2018-06-23] MEDS: Metoprolol Tartrate 25 MG TAB PO SCH ×2 (08:34→15:45)
[2018-06-23] MEDS: Pantoprazole 40 MG GRANULES PACKET PO SCH (08:39)
--- NOTE | 2018-06-23 09:10 | PRG ---
DATE OF SERVICE: 06/23/2018 SUBJECTIVE: Mr. Burleson is a 78-year-old male with ESRD, followed by the renal service for his maintenance hemodialysis. Last night, the patient was noted to be severely agitated. He was given Geodon. This morning, he is a bit sleepy. No complaints of chest pain or shortness of breath. OBJECTIVE: VITAL SIGNS: Blood pressure is 126/85, heart rate 92, respiratory rate 18, temperature 97.2, and pulse ox is 100%. GENERAL: Sleepy, but arousable. SKIN: Adequate turgor. HEENT: He has pinkish conjunctivae. Anicteric sclerae. NECK: No neck mass. No carotid bruits. No JVD. CHEST: No deformities. LUNGS: Clear breath sounds. No wheezing. No crackles. HEART: Normal sinus rhythm. No murmur. No gallops. No rubs. ABDOMEN: Globular, soft, and nontender. No masses. EXTREMITIES: No edema. No deformities. MEDICATIONS: Medications of 06/23/2018 were reviewed. LABORATORY DATA: On 06/23/2018: White count 12.4 and hemoglobin 9.8. Sodium 129, potassium 4.5, chloride 94, carbon dioxide 23, BUN 26, creatinine 3.75, glucose 77, and calcium 9.3. ASSESSMENT AND PLAN: 1. Agitation - The patient has received p.r.n. Geodon last night. He may need to be placed on regular antipsychotic medications for his severe agitation. 2. End-stage renal disease, stable. We will continue current Thursday, Thursday, and Thursday hemodialysis. Again, fluid removal only as tolerated by the patient. 3. Anemia, currently on weekly Epogen. 4. Status post cardiorespiratory arrest. Cardiology is following. Eventual placement for automatic implantable cardioverter-defibrillator. 5. Overall agree with current management. Job ID: [id number]
--- NOTE | 2018-06-23 09:59 | PRG ---
DATE OF SERVICE: 06/23/2018 SUBJECTIVE: A 78-year-old gentleman is in dialysis. Denies any pain or discomfort. OBJECTIVE: VITAL SIGNS: Saturations are 100% on room air, respirations 16, temperature 97, and blood pressure 126/85. CHEST: No wheezing. CARDIAC: Normal S1 and S2. No gallops. ABDOMEN: No masses. IMPRESSION: 1. Chronic renal failure, on dialysis. 2. Status post syncope. CT head was ordered yesterday, which shows no acute changes. 3. Hyponatremia. PLAN: He is scheduled for a procedure by EP ICD implant tomorrow. Job ID: [id number]
--- NOTE | 2018-06-23 12:19 | PDOC.CTH ---
Cardiology Progress Note - Subjective EP PROGRESS NOTE: 06/23/18 Patient seen and evaluated. Confused and agitated over HS. Currently sleeping. In restraints. Fell in bathroom this AM. - Objective Vital Signs Temp Pulse Resp BP BP Pulse Ox 06/23/18 07:55 97.9 F 95 18 138/67 95 06/23/18 07:43 72 16 06/23/18 04:00 97.2 F L 92 18 126/85 100 06/23/18 02:43 94 L Admit Weight 147 lb 11.355 oz Weight 139 lb 1.6 oz 06/22/18 06/23/18 06/24/18 06:59 06:59 06:59 Intake Total 480 50 Output Total 350 100 Balance 130 -50 - Physical Examination General/Neuro: NAD, other: (confused, agitated) Neck: carotid US brisk, no JVD present Lungs: CTA, unlabored respirations Heart: PMI normal, RRR Abdomen: NT/ND, soft - Telemetry Telemetry Rhythm: SR - Labs Result Diagrams: 06/23/18 06:02 06/23/18 06:02 Troponin/CKMB CK-MB (CK-2) 1.3 ng/mL (0-6.6) 06/11/18 08:50 Troponin I 2.185 ng/mL (< 0.028) H* 06/11/18 21:36 - Assessment/Plan 1. s/p Cardiac arrest - etiology unknown - possibly hypotensive with 2nd HD treatment and also took all his AM meds that day 2. Non sustained ventricular tachycardia -06/14/18, ~20 beats, no further episodes seen on tele 3. ESRD on HD 4. Hypotension 5. CAD 6. Anemia 7. SVT 8. AMS -onset over night on 06/23. EP study with possible ICD implant on hold given AMS. This could be done as OP as well otherwise, might be able to work into schedule Thursday if he mentally clears.
[2018-06-23 14:01] VITALS: BMI 25.4
[2018-06-23] MEDS ORDERED: Heparin 10,000 UNITS/ 10 ML VIAL ONE (15:00)
--- NOTE | 2018-06-23 22:02 | PDOC.PN ---
- Subjective Encounter Start Date: 06/23/18 Encounter Start Time: 17:30 Patient seen and examined for Encephalopathy/Cardiac arrest. Intermittent confusion/agitation. Overnight events noted. - Objective Resuscitation Status - Order Detail: 06/21/18 15:46 Resuscitation Status Routine Resuscitation Status: PRTL: Chem-Intubation Discussed with: Discussed with Patient/family MAR Reviewed: Yes Vital Signs & Weight: Vital Signs (12 hours) Temp Pulse Resp BP Pulse Ox 06/23/18 20:00 99.0 F 72 18 122/81 100 06/23/18 16:38 97.9 F 82 18 158/65 H 95 06/23/18 13:44 81 15 06/23/18 12:15 97.8 F 76 20 119/59 L Weight Admit Weight 147 lb 11.355 oz Weight 139 lb 1.6 oz Most Recent Monitor Data Heart Rate from ECG 100 NIBP 144/72 NIBP BP-Mean 96 Respiration from ECG 20 SpO2 100 I&O: 06/22/18 06/23/18 06/24/18 06:59 06:59 06:59 Intake Total 480 50 Output Total 350 100 Balance 130 -50 Result Diagrams: 06/23/18 06:02 06/23/18 06:02 EKG Reviewed by me: Yes (Tele SR) Phys Exam - Physical Examination Constitutional: NAD Respiratory: no wheezing, no rhonchi Cardiovascular: RRR, no rub Gastrointestinal: soft, positive bowel sounds Musculoskeletal: no edema Dx/Plan - Plan DVT proph w/SCDs IMPRESSION: Cardiac arrest ROSC s/p CPR Hypotension requiring Levophed NSVT LLL [facility] Pneumonia ?Pneumococcal vs Aspiration Toxic Metabolic Encephalopathy - multifactorial RUE Cellulitis Swallow dysfunction - on modified diet Oral candidiasis - completed Rx Acute hypoxic resp failure s/p NIPPV Type 2 [place]/Demand ischemia Hypokalemia/hypomagnesemia - replaced ESRD on HD Multiple rib fx from CPR causing significant pain - on Fentanyl patch CAD Psoariasis IgA Nephropathy Anemia due to renal insufficiency - on Epoegen HLD GERD Moderate PEM HTN PLAN: Cont Metoprolol 25 mg TID Cont Doxycycline for RUE Cellulitis EP study on hold due to AMS Cont other meds as below AM labs Not on Heparin due to Anemia Change nebs to PRN Review of Systems - Review of Systems Other: Cannot obtain due to current mentation - Medications/Allergies Allergies/Adverse Reactions: Allergies Allergy/AdvReac Type Severity Reaction Status Date / Time ketorolac tromethamine Allergy Rash Verified 03/24/18 18:40 [From Toradol] levofloxacin [From Levaquin] Allergy Rash Verified 03/24/18 18:40 Sulfa (Sulfonamide Allergy Rash Verified 03/24/18 18:40 Antibiotics) tamsulosin HCl [From Flomax] Allergy Verified 03/24/18 18:40 Medications: Current Medications Acetaminophen (Tylenol) 650 mg PO Q4H PRN PRN Reason: Headache/Fever or Mild Pain Last Admin: 06/19/18 00:33 Dose: 650 mg Acetaminophen (Tylenol Elixir) 650 mg PO TID [facility] Last Admin: 06/23/18 15:44 Dose: 650 mg Albuterol/Ipratropium (Duoneb) 3 ml NEB [id number] PRN PRN Reason: SOB &/or Wheezing Aspirin (Aspirin Chewable) 81 mg PO DAILY [facility] Last Admin: 06/23/18 08:33 Dose: 81 mg Clonidine (Catapres) 0.1 mg PO Q6H PRN PRN Reason: SBP GREATER THAN 160 Last Admin: 06/22/18 01:37 Dose: 0.1 mg Cyanocobalamin (Vitamin B-12) 1,000 mcg PO DAILY [facility] Last Admin: 06/23/18 08:33 Dose: 1,000 mcg Doxycycline Hyclate (Vibramycin) 100 mg PO BID [facility] Last Admin: 06/23/18 08:33 Dose: 100 mg Fentanyl (Sublimaze) 25 mcg SLOW IVP Q3H PRN PRN Reason: Moderate Pain (4-6) Last Admin: 06/18/18 09:23 Dose: 25 mcg Ferrous Sulfate (Ferrous Sulfate) 300 mg PO BID-[facility] Last Admin: 06/23/18 16:45 Dose: 300 mg Folic Acid (Folvite) 1 mg PO DAILY [facility] Last Admin: 06/23/18 08:33 Dose: 1 mg Cefazolin Sodium/Dextrose 2 gm (/ Device) 50 mls @ 100 mls/hr IVPB ONCALL-OR [facility] Labetalol HCl (Normodyne) 10 mg SLOW IVP Q4H PRN PRN Reason: SBP > 160 OR DBP > 100 Last Admin: 06/16/18 07:32 Dose: 10 mg Lorazepam (Ativan) 0.25 mg SLOW IVP Q6H PRN PRN Reason: Anxiety/Agitation Last Admin: 06/22/18 21:36 Dose: 0.25 mg Metoprolol Tartrate (Lopressor) 25 mg PO TID [facility] Last Admin: 06/23/18 15:45 Dose: 25 mg Ondansetron HCl (Zofran Odt) 4 mg PO Q6H PRN PRN Reason: Nausea/Vomiting Last Admin: 06/22/18 05:45 Dose: 4 mg Ondansetron HCl (Zofran) 4 mg IVP Q6H PRN PRN Reason: Nausea/Vomiting Last Admin: 06/22/18 21:37 Dose: 4 mg Pantoprazole Sodium (Protonix) 40 mg PO DAILY [facility] Last Admin: 06/23/18 08:39 Dose: 40 mg Polyethylene Glycol (Miralax) 17 gm PO DAILY PRN PRN Reason: Constipation Rosuvastatin Calcium (Crestor) 10 mg PO HS [facility] Last Admin: 06/22/18 19:48 Dose: 10 mg Saccharomyces Boulardii (Florastor) 250 mg PO DAILY [facility] Last Admin: 06/23/18 08:33 Dose: 250 mg Senna/Docusate Sodium (Senokot S) 1 tab PO BID [facility] Last Admin: 06/23/18 08:33 Dose: 1 tab Sevelamer Carbonate (Renvela) 800 mg PO TID-[facility] Last Admin: 06/23/18 16:45 Dose: 800 mg Sodium Chloride (Flush - Normal Saline) 10 ml IVF Q12HR [facility] Last Admin: 06/23/18 08:33 Dose: 10 ml Sodium Chloride (Flush - Normal Saline) 10 ml IVF PRN PRN PRN Reason: Saline Flush Last Admin: 06/13/18 17:54 Dose: 10 ml Tramadol HCl (Ultram) 50 mg PO Q6H PRN PRN Reason: Severe Pain (7-10)
[2018-06-23] MEDS ORDERED: Dextrose 5 % And 0.9 % NaCl 1,000 ML IV SCH (23:15)
[2018-06-24] MEDS: Acetaminophen 650 MG/20.3 ML UDCUP PO SCH ×4 (02:41→20:39)
[2018-06-24] MEDS: Senokot S 8.6-50 MG TAB PO SCH ×3 (02:42→20:39)
[2018-06-24] MEDS: Rosuvastatin 10 MG TAB PO SCH ×2 (02:42→20:39)
[2018-06-24] MEDS: Doxycycline 100 MG CAP PO SCH ×2 (02:42→08:55)
[2018-06-24] MEDS: Metoprolol Tartrate 25 MG TAB PO SCH ×4 (02:42→20:39)
[2018-06-24 05:44] LABS: #Eosinphils 0.3 thou/uL (0.0-0.7); #Lymphocytes 1.8 thou/uL (1.20-3.40); #Neutrophils 5.9 thou/uL (1.40-6.50); %Basophils 0.5 % (0.0-1.0); %Eosinophils 3.6 % (0.0-10.0); %Lymphocytes 19.4 % (21.0-51.0); %Monocytes 11.1 % (0.0-10.0); %Neutrophils 65.4 % (42.0-75.0); Hemoglobin 8.6 g/dL (14.0-18.0); Mean Corpuscular HGB CONC 33.3 g/dL (32.0-36.0); Mean Corpuscular Hemoglobin 29.8 pg (27.0-31.0); Mean Corpuscular Volume 89.5 fL (78.0-98.0); Mean Platelet Volume 7.1 fL (7.4-10.4); Platelet Count 389 thou/uL (130-400); RBC Distribution Width 15.8 % (11.5-14.5); White Blood Cell (WBC) Count 9.1 thou/uL (4.8-10.8)
[2018-06-24 06:06] LABS: ALT (SGPT) 9 U/L (8-55); AST (SGOT) 23 U/L (5-34); Albumin 2.9 g/dL (3.4-4.8); Alkaline Phosphatase 83 U/L (40-150); Anion Gap 14 mmol/L (10-20); BUN (Urea Nitrogen) 16 mg/dL (8.4-25.7); Bilirubin, Total 0.6 mg/dL (0.2-1.2); Calc. Creatinine Clearance 19 mL/min (70-130); Calcium 9.2 mg/dL (7.8-10.44); Carbon Dioxide 26 mmol/L (23-31); Chloride 103 mmol/L (98-107); Estimated GFR-MDRD 21; Globulin 3.3 g/dL (2.4-3.5); Glucose 76 mg/dL (83-110); Potassium 4.2 mmol/L (3.5-5.1); Protein, Total 6.2 g/dL (5.8-8.1); Sodium 139 mmol/L (136-145)
--- NOTE | 2018-06-24 08:52 | PRG ---
DATE OF SERVICE: 06/24/2018 SUBJECTIVE: Mr. Burleson is a 78-year-old male with ESRD and followed by the Renal Service for his maintenance hemodialysis. He underwent dialysis yesterday without any difficulty. He has had episodes of confusion and agitation. Last night, he was much improved. Dr. Red has evaluated the patient and has placed a hold on the AICD placement due to the confusion. This morning, he is feeling better. He is being evaluated for a possible rehab placement. PHYSICAL EXAMINATION: VITAL SIGNS: Blood pressure 141/62, heart rate 62, respiratory rate 20, temperature 98.2, and pulse ox 95%. GENERAL: The patient is sleeping, but arousable. SKIN: Adequate turgor. HEENT: He has pale conjunctivae. Anicteric sclerae. No JVD. LUNGS: Clear breath sounds. HEART: Normal sinus rhythm. No murmur. No gallops. No rubs. ABDOMEN: Globular, soft, nontender. EXTREMITIES: No edema. MEDICATIONS: Medications of June 24, 2018, reviewed. LABORATORY DATA: Laboratories of June 24, 2018; white count 9.1, hemoglobin 8.6. Sodium 139, potassium 4.2, chloride 103, carbon dioxide 26, BUN 16, creatinine 2.98, glucose 76, calcium 9.2, albumin 2.9. June 22, 2018, CT scan of the brain, no acute intracranial abnormality. ASSESSMENT AND PLAN: 1. Confusion/agitation-consider possibility of metabolic encephalopathy. He is actually much improved with regard to his agitation and confusion. CAT scan of the brain was negative. 2. Anemia. Continuing weekly Epogen. 3. End-stage renal disease, stable. We will continue current Thursday, Thursday, and Thursday hemodialysis regimen. Again, fluid removal only as tolerated. Job ID: [id number]
[2018-06-24] MEDS: Pantoprazole 40 MG GRANULES PACKET PO SCH (08:55)
[2018-06-24] MEDS: Sevelamer Carbonate 800 MG TAB PO SCH ×3 (08:55→17:12)
[2018-06-24] MEDS: Aspirin Chewable 81 MG TAB PO SCH (08:55)
[2018-06-24] MEDS: Saccharomyces boulardii 250 MG CAP PO SCH (08:55)
[2018-06-24] MEDS: Folic Acid 1 MG TAB PO SCH (08:56)
[2018-06-24] MEDS: Cyanocobalamin (Vitamin B-12) 1,000 MCG TAB PO SCH (08:56)
--- NOTE | 2018-06-24 09:36 | PRG ---
DATE OF SERVICE: 06/24/2018 SUBJECTIVE: Ernesto Burleson this morning is better, less shortness of breath, less cough. Trying to await placement. OBJECTIVE: VITAL SIGNS: Saturations 100% on room air, blood pressure 141/62, temperature 98, pulse 62, and respiratory rate 20. CHEST: No wheezing or crackle. HEART: Normal S1 and S2. No gallops or masses. ABDOMEN: Soft without any masses. LABORATORY DATA: Creatinine is 2.98. White count is unremarkable. IMPRESSION: 1. Status post pacemaker insertion. 2. Syncope. 3. Chest pain, fractured ribs. 4. Renal failure. PLAN: Placement. Pulmonary will follow at a distance. Please call if needed. Job ID: [id number]
--- NOTE | 2018-06-24 15:32 | PDOC.CTH ---
Cardiology Progress Note - Subjective EP PROGRESS NOTE: 06/24/18 Patient seen and evaluated. No new cardiac concerns or complaints today. AMS seems to have resolved but pt remains sleepy this AM. Denies heart racing, palpitations, chest pain/pressure, dizziness, or passing out. No stroke like symptoms. - Objective Vital Signs Temp Pulse Pulse Pulse Resp BP BP 06/24/18 14:44 81 78 167/72 H 172/74 H 06/24/18 12:25 97.5 F L 81 18 06/24/18 07:30 06/24/18 07:20 98.2 F 62 20 BP Pulse Ox 06/24/18 14:44 06/24/18 12:25 122/87 94 L 06/24/18 07:30 96 06/24/18 07:20 141/62 H 95 Admit Weight 147 lb 11.355 oz Weight 139 lb 1.6 oz 06/23/18 06/24/18 06/25/18 06:59 06:59 06:59 Intake Total 50 Output Total 100 Balance -50 - Physical Examination General/Neuro: alert & oriented x3, NAD Neck: carotid US brisk, no JVD present Lungs: CTA, unlabored respirations Heart: PMI normal, RRR Abdomen: no HSM, NT/ND, soft - Telemetry Telemetry Rhythm: SR - Labs Result Diagrams: 06/24/18 05:20 06/24/18 05:20 Troponin/CKMB CK-MB (CK-2) 1.3 ng/mL (0-6.6) 06/11/18 08:50 Troponin I 2.185 ng/mL (< 0.028) H* 06/11/18 21:36 - Assessment/Plan 1. s/p Cardiac arrest - etiology unknown - possibly hypotensive with 2nd HD treatment and also took all his AM meds that day 2. Non sustained ventricular tachycardia -06/14/18, ~20 beats, no further episodes seen on tele 3. ESRD on HD 4. Hypotension 5. CAD 6. Anemia 7. SVT 8. AMS -seems to have resolved. A/O today. Plan for EP study with possible ICD implant tomorrow if patient remains stable and mental status is intact. Discussed with and pt this AM. He is scheduled and will be NPO tomorrow anticipating procedure. Patient and his have consider their options and wish to proceed tomorrow.
--- NOTE | 2018-06-24 16:03 | PDOC.PN ---
- Subjective Encounter Start Date: 06/24/18 Encounter Start Time: 14:45 Patient seen and examined for Cardiac arrest. Sitting on chair. Mentation improved. No CP/SOB. No new complaints. No overnight events - Objective Resuscitation Status - Order Detail: 06/21/18 15:46 Resuscitation Status Routine Resuscitation Status: PRTL: Chem-Intubation Discussed with: Discussed with Patient/family MAR Reviewed: Yes Vital Signs & Weight: Vital Signs (12 hours) Temp Pulse Pulse Pulse Resp BP BP 06/24/18 14:44 81 78 167/72 H 172/74 H 06/24/18 12:25 97.5 F L 81 18 06/24/18 07:30 06/24/18 07:20 98.2 F 62 20 BP Pulse Ox 06/24/18 14:44 06/24/18 12:25 122/87 94 L 06/24/18 07:30 96 06/24/18 07:20 141/62 H 95 Weight Admit Weight 147 lb 11.355 oz Weight 139 lb 1.6 oz Most Recent Monitor Data Heart Rate from ECG 100 NIBP 144/72 NIBP BP-Mean 96 Respiration from ECG 20 SpO2 100 I&O: 06/23/18 06/24/18 06/25/18 06:59 06:59 06:59 Intake Total 50 Output Total 100 Balance -50 Result Diagrams: 06/24/18 05:20 06/24/18 05:20 EKG Reviewed by me: Yes (Tele SR) Phys Exam - Physical Examination Constitutional: NAD Respiratory: no wheezing, no rhonchi Cardiovascular: RRR, no rub Gastrointestinal: soft, non-tender, positive bowel sounds Musculoskeletal: no edema Neurological: moves all 4 limbs Dx/Plan - Plan DVT proph w/SCDs IMPRESSION: Cardiac arrest ROSC s/p CPR Hypotension requiring Levophed NSVT LLL [facility] Pneumonia ?Pneumococcal vs Aspiration - completed Atbx Toxic Metabolic Encephalopathy - multifactorial RUE Cellulitis - completed Atbx Swallow dysfunction - on modified diet Oral candidiasis - completed Rx Acute hypoxic resp failure s/p NIPPV Type 2 [place]/Demand ischemia Hypokalemia/hypomagnesemia - replaced ESRD on HD Multiple rib fx from CPR causing significant pain - on Fentanyl patch CAD Psoariasis IgA Nephropathy Anemia due to renal insufficiency - on Epoegen HLD GERD Moderate PEM HTN PLAN: Cont Metoprolol DC Doxycycline EP study/AICD in AM Cont other meds as below Not on Heparin due to Anemia Review of Systems - Review of Systems Respiratory: negative: Cough, Dry, Shortness of Breath, Hemoptysis, SOB with Excertion, Pleuritic Pain, Sputum, Wheezing Cardiovascular: negative: chest pain, palpitations, orthopnea, paroxysmal nocturnal dyspnea, edema, light headedness, other - Medications/Allergies Allergies/Adverse Reactions: Allergies Allergy/AdvReac Type Severity Reaction Status Date / Time ketorolac tromethamine Allergy Rash Verified 03/24/18 18:40 [From Toradol] levofloxacin [From Levaquin] Allergy Rash Verified 03/24/18 18:40 Sulfa (Sulfonamide Allergy Rash Verified 03/24/18 18:40 Antibiotics) tamsulosin HCl [From Flomax] Allergy Verified 03/24/18 18:40 Medications: Current Medications Acetaminophen (Tylenol) 650 mg PO Q4H PRN PRN Reason: Headache/Fever or Mild Pain Last Admin: 06/19/18 00:33 Dose: 650 mg Acetaminophen (Tylenol Elixir) 650 mg PO TID [facility] Last Admin: 06/24/18 15:26 Dose: 650 mg Albuterol/Ipratropium (Duoneb) 3 ml NEB [id number] PRN PRN Reason: SOB &/or Wheezing Aspirin (Aspirin Chewable) 81 mg PO DAILY [facility] Last Admin: 06/24/18 08:55 Dose: 81 mg Clonidine (Catapres) 0.1 mg PO Q6H PRN PRN Reason: SBP GREATER THAN 160 Last Admin: 06/22/18 01:37 Dose: 0.1 mg Cyanocobalamin (Vitamin B-12) 1,000 mcg PO DAILY [facility] Last Admin: 06/24/18 08:56 Dose: 1,000 mcg Doxycycline Hyclate (Vibramycin) 100 mg PO BID [facility] Last Admin: 06/24/18 08:55 Dose: 100 mg Fentanyl (Sublimaze) 25 mcg SLOW IVP Q3H PRN PRN Reason: Moderate Pain (4-6) Last Admin: 06/18/18 09:23 Dose: 25 mcg Ferrous Sulfate (Ferrous Sulfate) 300 mg PO BID-[facility] Last Admin: 06/24/18 08:55 Dose: 300 mg Folic Acid (Folvite) 1 mg PO DAILY [facility] Last Admin: 05/16/19 08:56 Dose: 1 mg Cefazolin Sodium/Dextrose 2 gm (/ Device) 50 mls @ 100 mls/hr IVPB ONCALL-OR FERNANDA Dextrose/Sodium Chloride (D5 0.9% Ns) 1,000 mls @ 50 mls/hr IV .Q20H [facility] Last Admin: 06/24/18 00:58 Dose: 1,000 mls Labetalol HCl (Normodyne) 10 mg SLOW IVP Q4H PRN PRN Reason: SBP > 160 OR DBP > 100 Last Admin: 06/16/18 07:32 Dose: 10 mg Lorazepam (Ativan) 0.25 mg SLOW IVP Q6H PRN PRN Reason: Anxiety/Agitation Last Admin: 06/22/18 21:36 Dose: 0.25 mg Metoprolol Tartrate (Lopressor) 25 mg PO TID [facility] Last Admin: 06/24/18 15:26 Dose: 25 mg Ondansetron HCl (Zofran Odt) 4 mg PO Q6H PRN PRN Reason: Nausea/Vomiting Last Admin: 06/22/18 05:45 Dose: 4 mg Ondansetron HCl (Zofran) 4 mg IVP Q6H PRN PRN Reason: Nausea/Vomiting Last Admin: 06/22/18 21:37 Dose: 4 mg Pantoprazole Sodium (Protonix) 40 mg PO DAILY [facility] Last Admin: 06/24/18 08:55 Dose: 40 mg Polyethylene Glycol (Miralax) 17 gm PO DAILY PRN PRN Reason: Constipation Rosuvastatin Calcium (Crestor) 10 mg PO [facility] Last Admin: 06/24/18 02:42 Dose: Not Given Saccharomyces Boulardii (Florastor) 250 mg PO DAILY [facility] Last Admin: 06/24/18 08:55 Dose: 250 mg Senna/Docusate Sodium (Senokot S) 1 tab PO BID [facility] Last Admin: 06/24/18 09:12 Dose: 1 tab Sevelamer Carbonate (Renvela) 800 mg PO TID-[facility] Last Admin: 06/24/18 12:57 Dose: 800 mg Sodium Chloride (Flush - Normal Saline) 10 ml IVF Q12HR [facility] Last Admin: 06/24/18 08:56 Dose: Not Given Sodium Chloride (Flush - Normal Saline) 10 ml IVF PRN PRN PRN Reason: Saline Flush Last Admin: 06/13/18 17:54 Dose: 10 ml Tramadol HCl (Ultram) 50 mg PO Q6H PRN PRN Reason: Severe Pain (7-10)
[2018-06-24] MEDS: Dextrose 5 % And 0.9 % NaCl 1,000 ML IV SCH (17:26)
[2018-06-25 06:09] LABS: Anion Gap 14 mmol/L (10-20); BUN (Urea Nitrogen) 23 mg/dL (8.4-25.7); Calc. Creatinine Clearance 15 mL/min (70-130); Carbon Dioxide 27 mmol/L (23-31); Chloride 104 mmol/L (98-107); Estimated GFR-MDRD 15; Glucose 91 mg/dL (83-110); Potassium 3.7 mmol/L (3.5-5.1); Sodium 141 mmol/L (136-145)
[2018-06-25 06:15] LABS: #Eosinphils 0.3 thou/uL (0.0-0.7); #Lymphocytes 1.8 thou/uL (1.20-3.40); #Monocytes 0.8 thou/uL (0.11-0.59); #Neutrophils 4.3 thou/uL (1.40-6.50); %Basophils 0.5 % (0.0-1.0); %Eosinophils 4.7 % (0.0-10.0); %Lymphocytes 24.3 % (21.0-51.0); %Monocytes 11.1 % (0.0-10.0); %Neutrophils 59.5 % (42.0-75.0); Hemoglobin 8.2 g/dL (14.0-18.0); Mean Corpuscular Hemoglobin 28.7 pg (27.0-31.0); Mean Corpuscular Volume 89.7 fL (78.0-98.0); Mean Platelet Volume 7.5 fL (7.4-10.4); Platelet Count 360 thou/uL (130-400); RBC Distribution Width 15.5 % (11.5-14.5); Red Blood Cell (RBC) Count 2.85 mill/uL (4.70-6.10); White Blood Cell (WBC) Count 7.2 thou/uL (4.8-10.8)
--- NOTE | 2018-06-25 07:31 | PRG ---
DATE OF SERVICE: 06/25/2018 SUBJECTIVE: Mr. Burleson is a 78-year-old male with ESRD and followed up by the Renal Service for his maintenance hemodialysis. He has been tolerating the said hemodialysis regimen, no new complaints today. He is less agitated. He was initially admitted for cardiorespiratory arrest. Recommendation by Cardiology is to have an AICD placed. This has been placed on hold due to the mentation changes within the last few days. CAT scan has been done, which showed no acute intracranial abnormality of the brain. OBJECTIVE: VITAL SIGNS: Blood pressure is 164/88, heart rate 70, respiratory rate 20, temperature 97.9, and pulse ox 99%. GENERAL: Sleeping, arousable, comfortable, not in distress. SKIN: Adequate turgor. HEENT: Pinkish conjunctivae. Anicteric sclerae. NECK: No neck mass. No carotid bruits. No JVD. CHEST: No deformities. LUNGS: Clear breath sounds. No wheezing. No crackles. HEART: Normal sinus rhythm. No murmur. No gallops. No rubs. ABDOMEN: Globular, soft, nontender. No masses. EXTREMITIES: No edema. MEDICATIONS: Medications of June 25, 2018, was reviewed. LABORATORY DATA: Laboratories of June 25, 2018; white count 7.2 and hemoglobin 8.2. Sodium 141, potassium 3.7, chloride 104, carbon dioxide 27, BUN 23, creatinine 2.82, glucose 91, and calcium 9. ASSESSMENT AND PLAN: 1. Anemia, on weekly Epogen. P.r.n. blood transfusion. 2. End-stage renal disease, stable. We will continue current Thursday, Thursday, and Thursday hemodialysis. Fluid removal only as tolerated. 3. Status post cardiorespiratory arrest, stable. Hemodynamically stable. Eventual automatic implantable cardioverter-defibrillator placement. 4. Agitation, much improved. Recheck CBC in a.m. Job ID: [id number]
[2018-06-25] MEDS ORDERED: PHENYLEPHRINE-NS 100 MCG/ML 10 ML SYRINGE ONE (10:18)
[2018-06-25] MEDS ORDERED: Lidocaine 1% PF 5 ML VIAL ONE (10:18)
[2018-06-25] MEDS ORDERED: PROPOFOL 200 MG/20 ML VIAL ONE (10:18)
[2018-06-25] MEDS ORDERED: ePHEDrine 50 MG/ML VIAL ONE (10:18)
[2018-06-25] MEDS: Sevelamer Carbonate 800 MG TAB PO SCH ×3 (11:17→19:37)
[2018-06-25] MEDS: Acetaminophen 650 MG/20.3 ML UDCUP PO SCH ×3 (11:18→20:25)
[2018-06-25] MEDS: Senokot S 8.6-50 MG TAB PO SCH ×2 (11:20→20:26)
[2018-06-25] MEDS: Metoprolol Tartrate 25 MG TAB PO SCH ×3 (12:48→20:25)
[2018-06-25] MEDS: Pantoprazole 40 MG GRANULES PACKET PO SCH (12:52)
[2018-06-25] MEDS: Acetaminophen 325 MG TAB PO PRN (12:52)
[2018-06-25] MEDS: Folic Acid 1 MG TAB PO SCH (12:53)
[2018-06-25] MEDS: Saccharomyces boulardii 250 MG CAP PO SCH (12:53)
[2018-06-25] MEDS: Cyanocobalamin (Vitamin B-12) 1,000 MCG TAB PO SCH (12:54)
[2018-06-25] MEDS: Aspirin Chewable 81 MG TAB PO SCH (12:54)
[2018-06-25] MEDS ORDERED: Heparin 10,000 UNITS/ 10 ML VIAL ONE (15:00)
[2018-06-25] MEDS ORDERED: Fentanyl 100 MCG/2 ML VIAL ONE (15:01)
[2018-06-25] MEDS ORDERED: PROPOFOL 40 ML ONE (15:55)
[2018-06-25] MEDS ORDERED: PROPOFOL 20 ML ONE (15:57)
[2018-06-25] MEDS ORDERED: Isoproterenol 0.2 MG/1 ML AMP ONE (16:11)
[2018-06-25] MEDS ORDERED: Lidocaine 1% w/Epinephrine 1:100K 20 ML VIAL ONE (16:29)
[2018-06-25] MEDS ORDERED: Acetaminophen/Codeine 30-300mg Tablet PO PRN ×2 (17:15)
--- NOTE | 2018-06-25 18:03 | RAD ---
PORTABLE SUPINE CHEST: 06/25/18 HISTORY: Post cardiac device. COMPARISON: 06/17/18. Lungs appear clear. Heart size upper normal and stable. A central line is unchanged in position overl eunice the upper SVC. IMPRESSION: No acute process. No interval change. POS: AGW
[2018-06-25] MEDS: Ondansetron ODT 4 MG TAB PO PRN (20:25)
[2018-06-25] MEDS: Rosuvastatin 10 MG TAB PO SCH (20:25)
--- NOTE | 2018-06-25 22:22 | PDOC.PN ---
- Subjective Encounter Start Date: 06/25/18 Encounter Start Time: 18:00 Patient seen and examined for Cardiac arrest. No CP. s/p EP study and Linq placement. No new complaints. No overnight events - Objective Resuscitation Status - Order Detail: 06/21/18 15:46 Resuscitation Status Routine Resuscitation Status: PRTL: Chem-Intubation Discussed with: Discussed with Patient/family MAR Reviewed: Yes Vital Signs & Weight: Vital Signs (12 hours) Temp Pulse Resp BP Pulse Ox 06/25/18 20:05 97.9 F 81 16 109/52 L 94 L 06/25/18 11:45 98.0 F 89 18 106/53 L 99 Weight Admit Weight 147 lb 11.355 oz Weight 139 lb 1.6 oz Most Recent Monitor Data Heart Rate from ECG 100 NIBP 144/72 NIBP BP-Mean 96 Respiration from ECG 20 SpO2 100 I&O: 06/24/18 06/25/18 06/26/18 06:59 06:59 06:59 Intake Total 300 Output Total 400 Balance -100 Result Diagrams: 06/25/18 05:00 06/25/18 05:00 EKG Reviewed by me: Yes (Tele SR) Phys Exam - Physical Examination Constitutional: NAD Respiratory: no wheezing, no rhonchi Cardiovascular: RRR, no rub Gastrointestinal: soft, non-tender, positive bowel sounds Musculoskeletal: no edema Neurological: moves all 4 limbs Dx/Plan - Plan DVT proph w/SCDs IMPRESSION: Cardiac arrest ROSC s/p CPR Hypotension requiring Levophed NSVT - s/p EP study with Linq placement 06/25 [facility] Pneumonia ?Pneumococcal vs Aspiration - completed Atbx Toxic Metabolic Encephalopathy - multifactorial RUE Cellulitis - completed Atbx Swallow dysfunction - on modified diet Oral candidiasis - completed Rx Acute hypoxic resp failure s/p NIPPV Type 2 [place]/Demand ischemia Hypokalemia/hypomagnesemia - replaced ESRD on HD Multiple rib fx from CPR causing significant pain - on Fentanyl patch CAD Psoariasis IgA Nephropathy Anemia due to renal insufficiency - on Epoegen HLD GERD Moderate PEM HTN PLAN: Cont Metoprolol for NSVT s/p Linq placement Cont other meds as below Not on Heparin due to Anemia Stable for dc to Rehab in AM if stable. Review of Systems - Review of Systems Respiratory: negative: Cough, Dry, Shortness of Breath, Hemoptysis, SOB with Excertion, Pleuritic Pain, Sputum, Wheezing Cardiovascular: negative: chest pain, palpitations, orthopnea, paroxysmal nocturnal dyspnea, edema, light headedness, other - Medications/Allergies Allergies/Adverse Reactions: Allergies Allergy/AdvReac Type Severity Reaction Status Date / Time ketorolac tromethamine Allergy Rash Verified 03/24/18 18:40 [From Toradol] levofloxacin [From Levaquin] Allergy Rash Verified 03/24/18 18:40 Sulfa (Sulfonamide Allergy Rash Verified 03/24/18 18:40 Antibiotics) tamsulosin HCl [From Flomax] Allergy Verified 03/24/18 18:40 Medications: Current Medications Acetaminophen (Tylenol) 650 mg PO Q4H PRN PRN Reason: Headache/Fever or Mild Pain Last Admin: 06/25/18 12:52 Dose: 650 mg Acetaminophen (Tylenol Elixir) 650 mg PO TID [facility] Last Admin: 06/25/18 20:25 Dose: 650 mg Acetaminophen/Codeine Phosphate (Tylenol #3) 1 tab PO Q4H PRN PRN Reason: Mild Pain (1-3) Acetaminophen/Codeine Phosphate (Tylenol #3) 2 tab PO Q4H PRN PRN Reason: Moderate Pain (4-6) Albuterol/Ipratropium (Duoneb) 3 ml NEB [id number] PRN PRN Reason: SOB &/or Wheezing Aspirin (Aspirin Chewable) 81 mg PO DAILY [facility] Last Admin: 06/25/18 12:54 Dose: 81 mg Clonidine (Catapres) 0.1 mg PO Q6H PRN PRN Reason: SBP GREATER THAN 160 Last Admin: 06/22/18 01:37 Dose: 0.1 mg Cyanocobalamin (Vitamin B-12) 1,000 mcg PO DAILY [facility] Last Admin: 06/25/18 12:54 Dose: 1,000 mcg Fentanyl (Sublimaze) 25 mcg SLOW IVP Q3H PRN PRN Reason: Moderate Pain (4-6) Last Admin: 06/18/18 09:23 Dose: 25 mcg Ferrous Sulfate (Ferrous Sulfate) 300 mg PO BID[facility] Last Admin: 06/25/18 19:37 Dose: Not Given Folic Acid (Folvite) 1 mg PO DAILY [facility] Last Admin: 06/25/18 12:53 Dose: 1 mg Cefazolin Sodium/Dextrose 2 gm (/ Device) 50 mls @ 100 mls/hr IVPB ONCALL-OR FERNANDA Dextrose/Sodium Chloride (D5 0.9% Ns) 1,000 mls @ 30 mls/hr IV .Q24H [facility] Last Admin: 06/24/18 17:26 Dose: 1,000 mls Labetalol HCl (Normodyne) 10 mg SLOW IVP Q4H PRN PRN Reason: SBP > 160 OR DBP > 100 Last Admin: 06/16/18 07:32 Dose: 10 mg Lorazepam (Ativan) 0.25 mg SLOW IVP Q6H PRN PRN Reason: Anxiety/Agitation Last Admin: 06/22/18 21:36 Dose: 0.25 mg Metoprolol Tartrate (Lopressor) 25 mg PO TID [facility] Last Admin: 06/25/18 20:25 Dose: 25 mg Ondansetron HCl (Zofran Odt) 4 mg PO Q6H PRN PRN Reason: Nausea/Vomiting Last Admin: 06/25/18 20:25 Dose: 4 mg Ondansetron HCl (Zofran) 4 mg IVP Q6H PRN PRN Reason: Nausea/Vomiting Last Admin: 06/22/18 21:37 Dose: 4 mg Pantoprazole Sodium (Protonix) 40 mg PO DAILY [facility] Last Admin: 06/25/18 12:52 Dose: Not Given Polyethylene Glycol (Miralax) 17 gm PO DAILY PRN PRN Reason: Constipation Rosuvastatin Calcium (Crestor) 10 mg PO HS [facility] Last Admin: 06/25/18 20:25 Dose: 10 mg Saccharomyces Boulardii (Florastor) 250 mg PO DAILY [facility] Last Admin: 06/25/18 12:53 Dose: 250 mg Senna/Docusate Sodium (Senokot S) 1 tab PO BID [facility] Last Admin: 06/25/18 20:26 Dose: Not Given Sevelamer Carbonate (Renvela) 800 mg PO TID-[facility] Last Admin: 06/25/18 19:37 Dose: Not Given Sodium Chloride (Flush - Normal Saline) 10 ml IVF Q12HR [facility] Last Admin: 06/25/18 20:26 Dose: 10 ml Sodium Chloride (Flush - Normal Saline) 10 ml IVF PRN PRN PRN Reason: Saline Flush Last Admin: 06/13/18 17:54 Dose: 10 ml Tramadol HCl (Ultram) 50 mg PO Q6H PRN PRN Reason: Severe Pain (7-10)
--- NOTE | 2018-06-25 22:24 | OP ---
DATE OF PROCEDURE: 06/25/2018 PROCEDURE PERFORMED: Electrophysiology study. REASON FOR PROCEDURE: Mr. Burleson is a 78-year-old man with prior history of sudden pulseless electrical activity. He had also nonsustained ventricular tachycardia on telemetry, but has preserved LV function. He got mild coronary artery disease as per left heart catheterization recently. He is here for EP study to evaluate for inducible arrhythmias. DESCRIPTION OF PROCEDURE: The patient received propofol by Anesthesia specialist. After adequate level of sedation achieved, the right femoral vein was prepped, draped, and anesthetized using subcutaneous lidocaine and under ultrasound guidance, the right femoral vein was cannulated and 6-[place] short sheath was introduced. Through this, a octapolar EP catheter was advanced to the right atrium, right bundle, His bundle, and right ventricular positions. Pacing, mapping, and recording were performed at each location. Following findings were noted. Baseline rhythm was sinus rhythm with cycle length 690 msec, PA 97, QRS 78, QT 420, AH 35, HV 76 msec. The sinus node recovery time was 864 msec. The corrected sinus node recovery time was 270 msec. The AV Wenckebach cycle length was 300. Retrograde VA conduction was 420 msec. The AV benjamín ERP was 600/260 msec. The burst atrial pacing did not induce any SVT, atrial flutter or fibrillation. The catheter was moved to the right ventricle and standard ventricular extrastimulation protocol was carried out. With 600 msec and then [address], 3 ventricular extrastimuli were utilized, decremented to the refractory period. On 600 msec, the ERP was achieved at 600/210/190/190. No ventricular tachycardia was induced with this method on or off Isuprel, which was administered at 4 mcg per minute. At this point, the catheters were removed. The patient tolerated the procedure well. No complications noted. CONCLUSION: 1. No inducible arrhythmias. 2. Normal sinus and AV benjamín function. 3. Normal His-Purkinje function seen. No evidence of accessory pathway. 4. No dual AV benjamín physiology. 5. No ventricular tachycardia inducible. PLAN: Loop recorder insertion. Job ID: [id number]
--- NOTE | 2018-06-25 22:57 | OP ---
DATE OF PROCEDURE: 06/25/2018 PROCEDURE PERFORMED: Loop recorder insertion. REFERRING PHYSICIAN: Dr. Gonzalez. REASON FOR PROCEDURE: Mr. Burleson is a 78-year-old male, who suffered a pulseless arrest during hemodialysis. The rhythm was not monitored. He had spontaneous return of circulation on telemetry, though in the hospital, he had nonsustained ventricular tachycardia. He had normal LVEF and nonocclusive coronary artery disease per history. He is undergoing a LINQ recorder implant for monitoring future arrhythmias. The EP study prior to the procedure was demonstrating no inducible ventricular tachycardia. DESCRIPTION OF PROCEDURE: The patient received propofol by Anesthesia specialist. The left precordial area was prepped, draped, anesthetized using subcutaneous lidocaine and with a standard [employer] tool kit, LINQ recorder was inserted, model #LNQ11, serial number, [id number]. CONCLUSION: Successful LINQ recorder inserted. PLAN: Continue routine monitoring. Job ID: [id number]
[2018-06-26] MEDS: Dextrose 5 % And 0.9 % NaCl 1,000 ML IV SCH (00:32)
[2018-06-26 05:40] LABS: #Eosinphils 0.3 thou/uL (0.0-0.7); #Monocytes 0.6 thou/uL (0.11-0.59); #Neutrophils 4.3 thou/uL (1.40-6.50); %Basophils 0.6 % (0.0-1.0); %Eosinophils 3.6 % (0.0-10.0); %Lymphocytes 27.8 % (21.0-51.0); %Neutrophils 60.1 % (42.0-75.0); Hemoglobin 8.8 g/dL (14.0-18.0); Mean Corpuscular HGB CONC 33.6 g/dL (32.0-36.0); Mean Corpuscular Hemoglobin 29.9 pg (27.0-31.0); Mean Corpuscular Volume 88.8 fL (78.0-98.0); Mean Platelet Volume 7.1 fL (7.4-10.4); Platelet Count 369 thou/uL (130-400); RBC Distribution Width 15.3 % (11.5-14.5); Red Blood Cell (RBC) Count 2.93 mill/uL (4.70-6.10); White Blood Cell (WBC) Count 7.2 thou/uL (4.8-10.8)
[2018-06-26] MEDS: Sevelamer Carbonate 800 MG TAB PO SCH ×2 (09:03→11:23)
[2018-06-26] MEDS: Senokot S 8.6-50 MG TAB PO SCH (09:03)
[2018-06-26] MEDS: Folic Acid 1 MG TAB PO SCH (09:03)
[2018-06-26] MEDS: Pantoprazole 40 MG GRANULES PACKET PO SCH (09:03)
[2018-06-26] MEDS: Acetaminophen 650 MG/20.3 ML UDCUP PO SCH ×2 (09:03→15:09)
[2018-06-26] MEDS: Saccharomyces boulardii 250 MG CAP PO SCH (09:04)
[2018-06-26] MEDS: Cyanocobalamin (Vitamin B-12) 1,000 MCG TAB PO SCH (09:04)
[2018-06-26] MEDS: Metoprolol Tartrate 25 MG TAB PO SCH ×2 (09:04→15:09)
[2018-06-26] MEDS: Aspirin Chewable 81 MG TAB PO SCH (09:04)
[2018-06-26] MEDS: Ondansetron ODT 4 MG TAB PO PRN (11:23)
[2018-06-26 11:28] VITALS: BP 140/60; TEMP 97.9
--- NOTE | 2018-06-26 11:40 | PDOC.EVN ---
Event Note - Event Note Event Note: DC SUMMARY #[id number]
--- NOTE | 2018-06-26 12:31 | PRG ---
DATE OF SERVICE: 06/26/2018 SUBJECTIVE: Mr. Burleson is a 78-year-old male with ESRD and followed by the Renal Service for his maintenance hemodialysis. He underwent hemodialysis without any difficulty. He underwent a loop recorder insertion. The EP study was done. There was no inducible ventricular tachycardia. No other complaints today. Doing well. The patient denies any chest pain or shortness of breath. OBJECTIVE: VITAL SIGNS: Blood pressure is 147/64, heart rate 77, respiratory rate 18, temperature 98.3, and pulse ox 95%. GENERAL: Awake, alert, comfortable, not in distress. SKIN: Adequate turgor. HEENT: He has slightly pale conjunctivae. Anicteric sclerae. No neck mass. No carotid bruits. No JVD. CHEST: No deformities. LUNGS: Clear breath sounds. No wheezing. No crackles. HEART: Normal sinus rhythm. No murmur. No gallops or rubs. ABDOMEN: Globular, soft, nontender. No masses. EXTREMITIES: No edema. No deformities. MEDICATIONS: Medications of June 26, 2018, were reviewed. LABORATORY DATA: Laboratories of June 25, 2018; white count 7.2, hemoglobin 8.8. Sodium 141, potassium 3.7, chloride 104, carbon dioxide 27, BUN 23, creatinine 3.82, glucose 91, calcium 9. ASSESSMENT AND PLAN: 1. End-stage renal disease, stable. Continuing Thursday, Thursday, and Thursday dialysis. Tolerated dialysis yesterday with fluid removal. Currently using no heparin with dialysis. 2. Status post cardiorespiratory arrest - EP study was done. There was no inducible ventricular tachycardia or ventricular arrhythmia. However, a loop recorder was placed. 3. Anemia. Continuing weekly Epogen. Stable hemoglobin. Overall, agree with current management. Awaiting rehab placement. Job ID: [id number]
--- NOTE | 2018-06-27 00:57 | DIS ---
DATE OF ADMISSION: 06/11/2018 DATE OF DISCHARGE: 06/26/2018 ADMITTING DIAGNOSES: Cardiac arrest, hypotension, nonsustained ventricular tachycardia, pneumonia, toxic metabolic encephalopathy, right upper extremity cellulitis, swallowing dysfunction, hypokalemia, end-stage renal disease, coronary artery disease, psoriasis, IgA nephropathy, hyperlipidemia, gastroesophageal reflux disease, hypertension. DISCHARGE DIAGNOSES: Cardiac arrest, status post successful return of systemic circulation; hypotension, resolved; nonsustained ventricular tachycardia, resolved; pneumonia, resolved; toxic metabolic encephalopathy, resolved; right upper extremity cellulitis, resolved; swallowing dysfunction, stable; end-stage renal disease, stable; electrolyte abnormalities, resolved; coronary artery disease, stable; psoriasis, stable; IgA nephropathy, stable; hyperlipidemia, stable; gastroesophageal reflux disease, stable; hypertension, stable. HOSPITAL COURSE: This is a 78-year-old male, who was found to have a cardiac arrest and brought into the hospital status post return of spontaneous circulation as well as post CPR. The patient was admitted to Internal Medicine Team and was placed in the ICU, was followed very closely by Electrophysiology, Cardiology, Internal Medicine, Pulmonary Critical Care, and Nephrology. The patient was given dialysis treatments and given supportive care. The patient's cardiac condition was observed, found to have an ejection fraction of 60%. The patient had a normal left atrium, normal right ventricle, right atrium, trace to mild regurgitation was noted. The patient at that point in time was admitted to the medical floor out of the ICU and stabilized, given antibiotics, completed his course in therapy of medic and antibiotics within the hospital for cellulitis. Also developed oral candidiasis for which he finishes therapy in the hospital. The patient was evaluated by Physical Therapy for rehab, approved for rehab. The patient had electrophysiology procedure done prior to discharge. The patient had a loop recorder inserted the day before his discharge on the 25 of June. Arrangements were made for rehab. The patient was advised to follow up with PCP as well as Cardiology, Nephrology within 3 to 5 days post discharge to rehab. Case and plan were discussed with the patient at length. Call placed to his daughter Jennifer Burleson at [phone]. He understood and agreed with this plan. DISPOSITION: Rehab. MEDICATIONS: See MAR. ACTIVITY: As tolerated with assistance as needed. DIET: Low-fat, low-calorie, high-fiber renal diet. CONDITION: Stable. PROGNOSIS: Guarded. Case and plan once again discussed with the patient at length. Call placed to the daughter. They understood and agreed with this plan. Job ID: [id number]
== END 2018-06-26 15:05 | DRG 273 ==
LOC: ERS 08:38 → CCU 11:25 → 2NO 06-12 14:01
PROVIDERS: ADMIT Family Medicine; ATTEND Family Medicine
PROC: 3E033XZ Introduction of Vasopressor into Peripheral Vein, Percutaneous Approach (ICD-10-PCS; 2018-06-11)
PROC: 5A1D70Z Performance of Urinary Filtration, Intermittent, Less than 6 Hours Per Day (ICD-10-PCS; 2018-06-12)
PROC: 5A1D70Z Performance of Urinary Filtration, Intermittent, Less than 6 Hours Per Day (ICD-10-PCS; 2018-06-14)
PROC: 5A1D70Z Performance of Urinary Filtration, Intermittent, Less than 6 Hours Per Day (ICD-10-PCS; 2018-06-23)
PROC: 4A023FZ Measurement of Cardiac Rhythm, Percutaneous Approach (ICD-10-PCS; principal; 2018-06-25)
PROC: 0JH602Z Insertion of Monitoring Device into Chest Subcutaneous Tissue and Fascia, Open Approach (ICD-10-PCS; 2018-06-25)
PROC: 4A12X4Z Monitoring of Cardiac Electrical Activity, External Approach (ICD-10-PCS; 2018-06-25)
PROC: 4A0234Z Measurement of Cardiac Electrical Activity, Percutaneous Approach (ICD-10-PCS; 2018-06-25)
PROC: 02K83ZZ Map Conduction Mechanism, Percutaneous Approach (ICD-10-PCS; 2018-06-25)
PROC: 5A1D70Z Performance of Urinary Filtration, Intermittent, Less than 6 Hours Per Day (ICD-10-PCS; 2018-06-25)
DX: I46.9 Cardiac arrest, cause unspecified (principal); N18.6 End stage renal disease; G93.41 Metabolic encephalopathy; J96.01 Acute respiratory failure with hypoxia; I21.A1 Myocardial infarction type 2; J18.9 Pneumonia, unspecified organism; S22.43XA Multiple fractures of ribs, bilateral, initial encounter for closed fracture; E87.1 Hypo-osmolality and hyponatremia; L03.113 Cellulitis of right upper limb; E87.0 Hyperosmolality and hypernatremia; J44.0 Chronic obstructive pulmonary disease with (acute) lower respiratory infection; B37.0 Candidal stomatitis; I12.0 Hypertensive chronic kidney disease with stage 5 chronic kidney disease or end stage renal disease; I95.89 Other hypotension; Z66 Do not resuscitate; I47.2 Ventricular tachycardia; T88.8XXA Other specified complications of surgical and medical care, not elsewhere classified, initial encounter; I25.10 Atherosclerotic heart disease of native coronary artery without angina pectoris; L40.9 Psoriasis, unspecified; E78.5 Hyperlipidemia, unspecified; I34.0 Nonrheumatic mitral (valve) insufficiency; F41.9 Anxiety disorder, unspecified; E87.6 Hypokalemia; D63.1 Anemia in chronic kidney disease; R63.0 Anorexia; Z68.25 Body mass index [BMI] 25.0-25.9, adult; R53.81 Other malaise; M06.9 Rheumatoid arthritis, unspecified; K21.9 Gastro-esophageal reflux disease without esophagitis; F17.210 Nicotine dependence, cigarettes, uncomplicated; Z99.2 Dependence on renal dialysis; Z79.52 Long term (current) use of systemic steroids; Z79.899 Other long term (current) drug therapy; Z79.82 Long term (current) use of aspirin; Z88.1 Allergy status to other antibiotic agents; Z88.0 Allergy status to penicillin; Z88.2 Allergy status to sulfonamides; Z80.8 Family history of malignant neoplasm of other organs or systems; Z80.0 Family history of malignant neoplasm of digestive organs
CPT/HCPCS: 33285; 36415; 36901; 51702; 70450; 71045; 71260; 71275; 74230; 76942; 80048; 80053; 80202; 81003; 81015; 82533; 82550; 82553; 82805; 83735; 83880; 84132; 84484; 85007; 85025; 85027; 85379; 85610; 85730; 86850; 86900; 86901; 87040; 87086; 87340; 90935; 93005; 93010; 93306; 93621; 94640; 94660; 96361; 96365; 96366; 96374; 96375; 96376; C1730; C1769; C9113; G0257; J0696; J1644; J2001; J2060; J2270; J2405; J2704; J3010; J3370; J3475; J3486; J3490; J7050; J7620; Q0162; Q5105; Q5106; Q9966; Q9967

== ENCOUNTER 2018-08-10 11:55 | Inpatient (IN) | payer MEDICARE, OTHER ==
[2018-08-09 11:35] VITALS: BMI 23.1
--- NOTE | 2018-08-09 14:34 | HP ---
HISTORY OF PRESENT ILLNESS: Ernesto Burleson is a 78-year-old male patient, who desires removal of his PD catheter as well as his HD catheter. They are used in his right arm fistula without problems. On April 02, 2018, he underwent laparoscopic peritoneal dialysis catheter, double-cuffed pigtail and omentopexy. On March 29, 2018, he had a right arm primary fistula, perforating branch of antecubital vein to the proximal radial artery, outflow slowly was the cephalic vein. Retrograde antecubital vein preserved. It was felt that exploration of his right wrist revealed inadequate vein at the wrist. Since that time, his fistula has matured and he has had retrograde filling of his cephalic vein as well as part of his forearm, basilic vein, as well as outflow of his cephalic vein upper arm. They have been accessed in his upper arm. The patient presents for removal of his PD catheter. Plan at this time is to under IV sedation and local anesthesia, plan removal of his PD catheter and then his HD catheter. HD catheter can be used for IV access and blood draws during the procedure and we will free the cuff intraoperatively and remove the catheter prior to discharge. He does not need a peripheral IV. ALLERGIES: TORADOL, LEVOTHYROXINE, PENICILLIN. TOBACCO: None. ALCOHOL: None. MEDICATIONS: 1. Hydralazine. 2. Clonidine. 3. Prednisone. 4. Sertraline. 5. Omeprazole. 6. Procardia XL. 7. Isosorbide. PAST MEDICAL HISTORY: Hypertension, depression, chronic back pain, psoriasis, dyslipidemia, mild coronary artery disease. Cardiac catheterization, recently minimal disease, nothing significant, Dr. Gonzalez. PAST SURGICAL HISTORY: Lumbar surgery, cataract surgery, trigger finger surgery, dialysis access as noted above. REVIEW OF SYSTEMS: Noncontributory. PHYSICAL EXAMINATION: VITAL SIGNS: 132 pounds, 62 inches, 24 BMI. 104/49, 74, 99 degrees. HEAD, EARS, EYES, NOSE, AND THROAT: Unremarkable. LUNGS: Clear to auscultation. CARDIAC: Regular rate and rhythm without murmur or gallop. ABDOMEN: Soft and nontender. EXTREMITIES: Unremarkable. Right upper arm fistula anatomy as discussed above. Peritoneal dialysis catheter present in the lower abdomen. Hemodialysis catheter, right IJ. ASSESSMENT AND PLAN: Functioning fistula, right upper arm. He can access the forearm portion of the fistula if necessary. We will plan under IV sedation and local anesthesia, removal of his hemodialysis catheter and peritoneal dialysis catheter. IV access, blood draws through his dialysis catheter, which will be removed prior to discharge from the hospital. Job ID: [id number]
[~2018-08-10 11:55] MED LIST: PROPOFOL 200 MG/20 ML VIAL ONE
--- NOTE | 2018-08-10 13:06 | RAD ---
RADIOGRAPH CHEST 2 VIEW: DATE: 08/10/2018 TIME: 12:59 PM HISTORY: Preprocedural clearance COMPARISON: 06/25/2018 FINDINGS: New small left pleural effusion. No pulmonary edema or consolidation. Right IJ double-lumen dialysis catheter remains. No pneumothorax. IMPRESSION: 1. New small left pleural effusion. 2. Dialysis catheter.
[2018-08-10 13:15] LABS: #Eosinphils 0.6 thou/uL (0.0-0.7); #Lymphocytes 1.8 thou/uL (1.20-3.40); #Monocytes 0.7 thou/uL (0.11-0.59); #Neutrophils 4.1 thou/uL (1.40-6.50); %Basophils 0.3 % (0.0-1.0); %Eosinophils 7.8 % (0.0-10.0); %Lymphocytes 24.6 % (21.0-51.0); %Monocytes 9.7 % (0.0-10.0); %Neutrophils 57.6 % (42.0-75.0); Hemoglobin 10.9 g/dL (14.0-18.0); Mean Corpuscular HGB CONC 32.7 g/dL (32.0-36.0); Mean Corpuscular Volume 94.9 fL (78.0-98.0); Mean Platelet Volume 7.2 fL (7.4-10.4); Platelet Count 282 thou/uL (130-400); RBC Distribution Width 17.3 % (11.5-14.5); Red Blood Cell (RBC) Count 3.51 mill/uL (4.70-6.10); White Blood Cell (WBC) Count 7.2 thou/uL (4.8-10.8)
[2018-08-10 13:34] LABS: Anion Gap 15 mmol/L (10-20); BUN (Urea Nitrogen) 17 mg/dL (8.4-25.7); Calc. Creatinine Clearance 15 mL/min (70-130); Calcium 9.4 mg/dL (7.8-10.44); Carbon Dioxide 27 mmol/L (23-31); Chloride 101 mmol/L (98-107); Estimated GFR-MDRD 16; Glucose 102 mg/dL (83-110); Potassium 4.2 mmol/L (3.5-5.1); Sodium 139 mmol/L (136-145)
[2018-08-10] MEDS ORDERED: Fentanyl 100 MCG/2 ML VIAL ONE (15:21)
[2018-08-10] MEDS ORDERED: Lidocaine 2% PF 5 ML VIAL ONE (15:26)
[2018-08-10] MEDS ORDERED: Bupivacaine HCl 0.5%/Epinephrine 1:200,000/PF 30 ml Vial ONE (15:26)
--- NOTE | 2018-08-10 17:28 | OP ---
DATE OF PROCEDURE: 08/10/2018 PREOPERATIVE DIAGNOSES: Undesired peritoneal dialysis catheter, peritoneal hemodialysis catheter needs to be removed, functioning AV fistula. POSTOPERATIVE DIAGNOSES: Undesired peritoneal dialysis catheter, peritoneal hemodialysis catheter needs to be removed, functioning AV fistula. PROCEDURES PERFORMED: 1. Removal of cuffed tunneled peritoneal dialysis catheter, double cuffed pigtail. 2. Removal of a cuffed tunneled hemodialysis catheter, right IJ. ANESTHESIA: Intravenous sedation and local 0.25% Marcaine with epinephrine, 60 mL mixed with 2% Xylocaine 10 mL. DESCRIPTION OF PROCEDURE: The patient was taken to the operating room, where under intravenous sedation, the abdomen, chest, and hemodialysis catheter were prepared with ChloraPrep and draped in routine fashion. Local anesthetic mixture was infiltrated into the skin and subcutaneous tissue about the operative sites. The peritoneal dialysis catheter cuff was dissected free, removing both cuffs and PD catheter, placing 4x4 on the wound and a sterile dressing. Hemodialysis catheter sutures were removed and cuff dissected free from subcutaneous tissue and catheter cuff removed from the skin and subcutaneous tissue and taped in place to use IV access and will be removed prior to discharge home as outpatient. Job ID: [id number]
[2018-08-10] MEDS ORDERED: Heparin 10,000 UNITS/ 10 ML VIAL ONE ×2 (18:51→19:24)
[2018-08-10] MEDS ORDERED: traMADol HCl 50 MG TAB ONE (19:01)
[2018-08-10] MEDS ORDERED: hydrALAZINE 20 MG/ML VIAL ONE (19:21)
[2018-08-10] MEDS ORDERED: Sodium Chloride 0.9% 10 ML ONE (19:24)
[2018-08-10] MEDS ORDERED: Docusate 100 MG CAP PO PRN (20:11)
[2018-08-10] MEDS ORDERED: traMADol HCl 50 MG TAB PO PRN (20:18)
[2018-08-10] MEDS ORDERED: Acetaminophen 500 MG TAB PO PRN (20:18)
[2018-08-10] MEDS: Metoprolol Tartrate 25 MG TAB PO SCH (21:05)
[2018-08-10] MEDS: Acetaminophen/Codeine 30-300mg Tablet PO PRN (21:05)
[2018-08-11] MEDS: Acetaminophen/Codeine 30-300mg Tablet PO PRN (04:21)
[2018-08-11 07:57] VITALS: BP 178/73; TEMP 97.6
--- NOTE | 2018-08-11 08:29 | DIS ---
DATE OF ADMISSION: 08/10/2018 DATE OF DISCHARGE: 08/11/2018 DISCHARGE DIAGNOSES: End-stage renal disease, functioning right arm fistula, bleeding from PD catheter removal site necessitating overnight observation with hematoma in the resected site. Hemodialysis catheter removed prior to discharge. Admission hemoglobin 10.9. CBC ordered this morning pending. HISTORY: A 78-year-old male, end-stage renal disease with a functioning right arm fistula, who presented to my office for removal of his hemodialysis catheter. He did not want to do PD and wanted his PD catheter removed. Thus, he is admitted on this occasion using his hemodialysis catheter, IV access, and blood draws during the hospitalization. He underwent under IV sedation, local anesthesia, removal of his PD catheter and hemodialysis catheter removing the cuff, taking the catheter, leaving it for IV use during the hospitalization and removed prior to discharge. Postoperatively, an outpatient surgery is noted about the hematoma at the PD catheter removal site and he was observed overnight. This site remained stable without bleeding. Observation in the hospital overnight with temperature of 98.2 degrees, pulse 64, respiratory rate 16, and blood pressure 153/80. The patient did well postoperatively. He is to be dialyzed today and sent home after dialysis. He will follow up in my office in 2 to 3 weeks. He will wash the wound daily, left lower quadrant of the abdomen with soap and water and apply gauze or Band-Aid is indicating. He apply antibiotic ointment as indicated. He will follow up in my office in 2 to 3 weeks. He will resume his home medications that included folic acid, Tylenol No. 3, metoprolol 25 t.i.d., Colace, aspirin 81 mg a day, Procrit q.7 days, isosorbide 60 mg a day, and omeprazole 40 mg a day, Remeron 15 mg daily, sertraline 50 mg daily, and vitamin B complex. Job ID: [id number]
[2018-08-11] MEDS ORDERED: Folic Acid/Vit B Comp W-C PO SCH (09:00)
[2018-08-11] MEDS ORDERED: EPOETIN ALFA-EPBX (ESRD) 4,000 UNIT/ML VIAL SC SCH (09:00)
[2018-08-11] MEDS ORDERED: Aspirin 81 mg Enteric Coated Tablet PO SCH (09:00)
[2018-08-11] MEDS ORDERED: Mirtazapine 15 MG TAB PO SCH (09:00)
--- NOTE | 2018-08-11 10:08 | CON ---
DATE OF CONSULTATION: HISTORY OF PRESENT ILLNESS: Mr. Burleson is a 78-year-old male with ESRD and currently on maintenance hemodialysis. During the removal of the PD catheter, it was less complicated by hematoma around the resected site. He is now being observed. We were consulted for his maintenance hemodialysis. The patient is currently undergoing dialysis and tolerating said treatment. We are not using any heparin. REVIEW OF SYSTEMS: No chest pain. No shortness of breath. No nausea. No vomiting. Appetite and energy level are fair. No diarrhea. No constipation. No fever or chills. No abdominal pain. No hematochezia. No melena. No hematemesis. MEDICATIONS: 1. Ecotrin 81 mg daily. 2. Tylenol with Codeine p.r.n. 3. Epogen 7500 units subcu weekly. 4. Imdur 60 mg daily. 5. Lopressor 25 mg p.o. b.i.d. 6. Mirtazapine 15 mg daily. 7. Protonix 40 mg tablet once a day. 8. Tramadol p.r.n. 9. Nephro-Erika one tablet daily. PAST MEDICAL HISTORY: Includes the following: Hypertension; ESRD, on maintenance hemodialysis; history of chronic renal failure from IgA nephropathy/hypertensive nephrosclerosis; rheumatoid arthritis; coronary artery disease; hyperlipidemia; status post hematuria; and status post V-tach. PAST SURGICAL HISTORY: Status post PD catheter placement, status post cuffed hemodialysis catheter placement, status post AV fistula placement, status post cystoscopy, status post renal biopsy, status post ureteral stent placement, status post back surgery, status post colonoscopy, and status post EP study done by Dr. Red. SOCIAL HISTORY: The patient is . Lives in [place]. Three children. 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 Education, GED. Smoked for 15 years, 1 pack a day. Alcohol, occasional. No IV drug abuse. Status post blood transfusion. ALLERGIES: TOPROL ? FLOMAX ? SULFA. FAMILY HISTORY: No family history of ESRD. TRAUMA: None. IMMUNIZATIONS: Up-to-date. HOSPITALIZATIONS: Please see past medical history. PHYSICAL EXAMINATION: VITAL SIGNS: Blood pressure is 178/73, heart rate 64, respiratory rate 15, temperature 97.6, and pulse ox 94%. GENERAL: Awake, alert, comfortable, not in distress. SKIN: Adequate turgor. HEENT: Pinkish conjunctivae. Anicteric sclerae. NECK: No neck mass. No carotid bruits. No JVD. CHEST: No deformities. LUNGS: Clear breath sounds. No wheezing. No crackles. HEART: Normal sinus rhythm. No murmur. No gallops. No rubs. ABDOMEN: Globular, soft, and nontender. No masses. Positive for hematoma around the PD catheter site. EXTREMITIES: No edema. No deformities. LABORATORY DATA: Laboratories of August 10, 2018; white count 7.2, hemoglobin 10.9. Sodium 139, potassium 4.2, chloride 101, carbon dioxide 27, BUN 17, creatinine 3.73, glucose 102, and calcium 9.4. ASSESSMENT AND PLAN: End-stage renal disease, stable. We will continue current maintenance hemodialysis of Thursday, Thursday, and Thursday. Fluid removal as tolerated. Due to the recent hematoma around the PD surgical site/resection site - no heparin will be used. Overall, agree with current management. Job ID: [id number]
[2018-08-11] MEDS: Metoprolol Tartrate 25 MG TAB PO SCH ×2 (10:31→15:22)
[2018-08-11 11:11] LABS: #Basophils 0.1 thou/uL (0.0-0.2); #Eosinphils 0.5 thou/uL (0.0-0.7); #Lymphocytes 1.3 thou/uL (1.20-3.40); #Monocytes 0.6 thou/uL (0.11-0.59); #Neutrophils 4.2 thou/uL (1.40-6.50); %Basophils 0.8 % (0.0-1.0); %Eosinophils 8.1 % (0.0-10.0); %Lymphocytes 19.9 % (21.0-51.0); %Monocytes 9.2 % (0.0-10.0); %Neutrophils 62.1 % (42.0-75.0); Hemoglobin 9.6 g/dL (14.0-18.0); Mean Corpuscular HGB CONC 32.3 g/dL (32.0-36.0); Mean Corpuscular Hemoglobin 30.6 pg (27.0-31.0); Mean Corpuscular Volume 94.8 fL (78.0-98.0); Mean Platelet Volume 7.9 fL (7.4-10.4); Platelet Count 253 thou/uL (130-400); RBC Distribution Width 17.3 % (11.5-14.5); Red Blood Cell (RBC) Count 3.14 mill/uL (4.70-6.10); White Blood Cell (WBC) Count 6.8 thou/uL (4.8-10.8)
== END 2018-08-11 15:36 | disposition home or self-care (01) | DRG 314 ==
LOC: SDC 11:55 → SURG A 19:42 → OBSVTOIN 19:42
PROVIDERS: ADMIT Specialist; ATTEND Specialist
PROC: 0JPT3XZ Removal of Tunneled Vascular Access Device from Trunk Subcutaneous Tissue and Fascia, Percutaneous Approach (ICD-10-PCS; principal; 2018-08-10)
PROC: 02PYX3Z Removal of Infusion Device from Great Vessel, External Approach (ICD-10-PCS; 2018-08-10)
DX: T82.838A Hemorrhage due to vascular prosthetic devices, implants and grafts, initial encounter (principal); N18.6 End stage renal disease; I12.0 Hypertensive chronic kidney disease with stage 5 chronic kidney disease or end stage renal disease; Y84.1 Kidney dialysis as the cause of abnormal reaction of the patient, or of later complication, without mention of misadventure at the time of the procedure; F32.9 Major depressive disorder, single episode, unspecified; G89.29 Other chronic pain; L40.9 Psoriasis, unspecified; M06.9 Rheumatoid arthritis, unspecified; E78.5 Hyperlipidemia, unspecified; I25.10 Atherosclerotic heart disease of native coronary artery without angina pectoris; Z88.6 Allergy status to analgesic agent; Z88.0 Allergy status to penicillin; Z88.8 Allergy status to other drugs, medicaments and biological substances; Z98.49 Cataract extraction status, unspecified eye; Y92.9 Unspecified place or not applicable
CPT/HCPCS: 71046; 80048; 85025; 86850; 86900; 86901; 90935; G0257; J0131; J0360; J0670; J0690; J1644; J2001; J2704; J3010

== ENCOUNTER 2018-09-28 14:16 | Outpatient (CLI) | payer MEDICARE, OTHER ==
[~2018-09-28 14:16] MED LIST changes: +Iopamidol 370 76% 100 ML VIAL ONE; +Iopamidol 370 76% 50 ML VIAL FS ONE; -PROPOFOL 200 MG/20 ML VIAL ONE
--- NOTE | 2018-09-28 16:52 | CT ---
CT OF THE ABDOMEN AND PELVIS WITH IV CONTRAST INDICATION: Rectal bleeding COMPARISON: CT abdomen and pelvis without contrast dated September 25, 2017 from the [facility] FINDINGS: ABDOMEN: Lung bases: Mild bibasilar atelectasis Liver: No focal lesion. Gallbladder: Small gallstone is seen with near the gallbladder neck. Pancreas: Normal. Adrenal glands: Normal. Spleen: Normal. Kidneys: There is a 1.6 cm superior pole right renal cysts. Left kidney is normal-appearing. Retroperitoneum of the upper abdomen: No pathologically enlarged lymph nodes are evident. There are moderate calcification involving abdomi nal pelvic vasculature. Pelvis: Small and large bowel: There is prominent wall thickening involving the rectum, sigmoid colon and dis juan j descending colon. No drainable fluid collection is evident. Small bowel is of normal caliber. Bladder: The bladder is partially decompressed with diffuse wall thickening. Rectal and perirectal soft tissues:Circumferential wall thickening of the rectum. Reproductive structures: Prostate is enlarged measuring 4.9 cm Free fluid in pelvis: No free fluid is evident. Lymphadenopathy pelvis: No lymphadenopathy is evident. Osseous structures: There is extensive postsurgical change of the lower lumbar spine. No acute fractu re or subluxation demonstrated. There is scattered degenerative and osteoarthritic changes. There is a nonspecific mixed density lesion within the subcutaneous tissues of the left lower quadran t of the abdomen measuring 3 cm on image 55 of series 2. IMPRESSION: 1. Findings of proctocolitis. No drainable fluid collection is evident. 2. Soft tissue lesion in the subcutis fat of the left lower anterior abdominal wall measuring 3 cm. T his is nonspecific and may reflect a localized subcutaneous abscess from an injection site. Recommend correlation with the clinical exam. 3. Cholelithiasis 4. Right renal cyst 5. Prostate enlargement with bladder wall thickening may reflect sequela of chronic bladder outlet ob struction.
== END 2018-09-28 14:17 | disposition home or self-care (01) ==
LOC: CT 14:16
PROVIDERS: ATTEND Physician Assistant
DX: K62.5 Hemorrhage of anus and rectum (principal); R19.7 Diarrhea, unspecified; K80.20 Calculus of gallbladder without cholecystitis without obstruction; N28.1 Cyst of kidney, acquired; N40.0 Benign prostatic hyperplasia without lower urinary tract symptoms; N32.89 Other specified disorders of bladder; M79.9 Soft tissue disorder, unspecified; Z87.19 Personal history of other diseases of the digestive system
CPT/HCPCS: 36415; 74177; 85025; Q9967

== ENCOUNTER 2020-01-25 16:27 | Observation (INO) | payer MEDICARE, OTHER ==
[2020-01-25 16:53] LABS: #Eosinphils 0.4 thou/uL (0.0-0.7); #Lymphocytes 1.6 thou/uL (1.20-3.40); #Monocytes 0.7 thou/uL (0.11-0.59); #Neutrophils 4.3 thou/uL (1.40-6.50); %Basophils 0.6 % (0.0-1.0); %Eosinophils 5.8 % (0.0-10.0); %Lymphocytes 22.4 % (21.0-51.0); %Monocytes 9.8 % (0.0-10.0); %Neutrophils 61.5 % (42.0-75.0); Mean Corpuscular HGB CONC 34.1 g/dL (32.0-36.0); Mean Corpuscular Hemoglobin 31.4 pg (27.0-31.0); Mean Corpuscular Volume 91.9 fL (78.0-98.0); Mean Platelet Volume 7.4 fL (7.4-10.4); Platelet Count 240 thou/uL (130-400); RBC Distribution Width 13.8 % (11.5-14.5); Red Blood Cell (RBC) Count 3.84 mill/uL (4.70-6.10)
--- NOTE | 2020-01-25 16:57 | RAD ---
Chest AP view INDICATION: Facial droop COMPARISON: June 25, 2018 FINDINGS: Lungs: The lungs are clear Cardiac silhouette: The cardiomediastinal silhouette appears within normal limits. Pulmonary vasculature: Normal Pleural spaces: No pleural effusion or pneumothorax is demonstrated. Upper abdomen: There is a loop recorder seen overlying the left upper quadrant abdomen. Osseous structures: No acute osseous abnormality. Additional findings: Previously seen right IJ dialysis catheter has been removed. IMPRESSION: No acute cardiopulmonary abnormality.
[2020-01-25 17:01] LABS: INR-International Normal Ratio 1.1; PTT 44.9 sec (22.9-36.1)
--- NOTE | 2020-01-25 17:12 | CT ---
Head CT without contrast 01/25/2020: COMPARISON: 06/22/2018 HISTORY: Stroke case, facial droop TECHNIQUE: Axial CT imaging at 5 mm intervals from vertex through skull base without contrast FINDINGS: Imaged paranasal sinuses and mastoid air cells are well-aerated. No displaced calvarial fra cture. Stable mild cerebral volume loss, left greater than right. No intracranial hemorrhage, midline shift, mass effect, or ventricular enlargement. IMPRESSION: Stable head CT-no intracranial hemorrhage. Dr. Schreiber made aware 5:09 PM 01/25/2020
[2020-01-25 17:16] LABS: ALT (SGPT) Less than 7 U/L (8-55); AST (SGOT) 15 U/L (5-34); Albumin 4.3 g/dL (3.4-4.8); Alkaline Phosphatase 68 U/L (40-110); Anion Gap 17 mmol/L (10-20); BUN (Urea Nitrogen) 18 mg/dL (8.4-25.7); Bilirubin, Total 0.4 mg/dL (0.2-1.2); CK (CPK) 51 U/L (30-200); Calc. Creatinine Clearance 0 mL/min (70-130); Calcium 9.1 mg/dL (7.8-10.44); Carbon Dioxide 32 mmol/L (23-31); Chloride 96 mmol/L (98-107); Globulin 4.5 g/dL (2.4-3.5); Glucose 112 mg/dL (83-110); Potassium 3.7 mmol/L (3.5-5.1); Protein, Total 8.8 g/dL (5.8-8.1); Sodium 141 mmol/L (136-145)
--- NOTE | 2020-01-25 18:26 | PDOC.FPRHP ---
- History of Present Illness Chief Complaint: Facial droop History of Present Illness: Patient is a 79 yo of male with PMH of ESRD on dialysis MWF, HTN, HLD, CAD, ROSC in 2019 s/p AICD placement who presents to the ER with his for right sided facial droop. Per the patient's , she noticed the facial droop between 9 and 11 am on 01/23, but did not think anything of it until it was still present this afternoon. The patient reports that he has also felt weak, but attributed it to his dialysis earlier today. He reports that he has still been able to eat, talk, and walk, but endorses a headache present earlier today that was relieved with Per the , the patient seems to be disregarding items on the left side of his body. ED Course: Aspirin - Allergies/Adverse Reactions Allergies Allergy/AdvReac Type Severity Reaction Status Date / Time ketorolac tromethamine Allergy Rash Verified 04/30/19 01:45 [From Toradol] levofloxacin [From Levaquin] Allergy Rash Verified 04/30/19 01:45 Sulfa (Sulfonamide Allergy Rash Verified 04/30/19 01:45 Antibiotics) tamsulosin HCl [From Flomax] Allergy Verified 04/30/19 01:45 - Home Medications Medication Instructions Recorded Confirmed Type Omeprazole 40 mg PO QAM 10/06/17 08/09/18 History Sertraline HCl 50 mg PO DAILY 10/23/17 08/09/18 History Aspirin [Ecotrin Low Strength] 81 mg PO DAILY tab 04/02/18 08/09/18 Rx Epoetin [Procrit] 7,500 units SC Q7D vial 04/02/18 08/09/18 Rx Docusate Sodium [Dulcolax Stool 100 mg PO PRN PRN 06/13/18 08/09/18 History Softener] Mirtazapine [Remeron] 15 mg PO DAILY 06/13/18 08/09/18 History Vit B Complx C/Folic Acid/Zinc 1 tab PO DAILY 06/13/18 08/09/18 History [Dialyvite 800 + Zinc 15] Isosorbide Mononitrate [Isosorbide 60 mg PO QAM #0 06/26/18 08/09/18 Rx Mononitrate ER] Acetaminophen With Codeine 2 tab PO Q6HR PRN 08/09/18 08/09/18 History [Tylenol with Codeine #3] Folic Acid/Vit B Complex and C 1 tab PO DAILY 08/09/18 08/09/18 History [Dialyvite] Metoprolol Tartrate [Lopressor] 25 mg PO TID 08/09/18 08/09/18 History - History PMHx: ESRD on dialysis MWF, HTN, HLD, ROSC in 2019 s/p AICD placement, CAD PSHx: Cataract surgery, back surgery x3, dialysis catheter placement, heart cath, AICD placement, trigger finger FHx: believes that his father had heart disease Social: Stopped smoking cigarettes >40 years ago, smoked 1 pack per week for 6 years, has not had alcohol in > 2 years, denies drug use, retired - Review of Systems General: denies: fever/chills, fatigue Eyes: denies: eye pain, vision changes ENT: denies: nasal congestion, rhinorrhea Respiratory: denies: cough, shortness of breath Cardiovascular: denies: chest pain, edema Gastrointestinal: denies: nausea, vomiting, diarrhea, constipation, abdominal pain Genitourinary: denies: dysuria, polyuria Skin: reports: rashes. denies: lesions Musculoskeletal: denies: pain, swelling Neurological: reports: weakness. denies: numbness Psychological: denies: anxiety, depression - Vital signs BP: 141/63 HR: 65 RR: 17 Temp: 98.5 Pox: 100% on RA Wt: 73 kg - Physical Exam Constitutional: NAD, awake, alert and oriented HEENT: normocephalic and atraumatic, grossly normal vision, grossly normal hearing Neck: supple, FROM Chest: no-tender to palpation, no lesions Heart: RRR, normal S1/S2 Lungs: CTAB, no respiratory distress Abdomen: soft, non-tender, bowel sounds present Musculoskeletal: normal structure, normal tone -Neurological: Right sided facial droop in distribution of CN V, all other CN appear to be intact, strength 4/5 throughout, no focal loss of sensation or strength Skin: capillary refill <2 seconds, no jaundice Heme/Lymphatic: no unusual bruising or bleeding, no purpura Psychiatric: normal mood and affect, good judgment and insight FMR H&P: Results - Labs Result Diagrams: 01/25/20 16:40 01/25/20 16:40 Lab results: WBC 7.0 thou/uL (4.8-10.8) 01/25/20 16:40 Hgb 12.0 g/dL (14.0-18.0) L 01/25/20 16:40 Hct 35.3 % (42.0-52.0) L 01/25/20 16:40 MCV 91.9 fL (78.0-98.0) 01/25/20 16:40 Plt Count 240 thou/uL (130-400) 01/25/20 16:40 Neutrophils % 61.5 % (42.0-75.0) 01/25/20 16:40 Sodium 141 mmol/L (136-145) 01/25/20 16:40 Potassium 3.7 mmol/L (3.5-5.1) 01/25/20 16:40 Chloride 96 mmol/L (98-107) L 01/25/20 16:40 Carbon Dioxide 32 mmol/L (23-31) H 01/25/20 16:40 BUN 18 mg/dL (8.4-25.7) 01/25/20 16:40 Creatinine 3.82 mg/dL (0.7-1.3) H 01/25/20 16:40 Glucose 112 mg/dL (83-110) H 01/25/20 16:40 Calcium 9.1 mg/dL (7.8-10.44) 01/25/20 16:40 Total Bilirubin 0.4 mg/dL (0.2-1.2) 01/25/20 16:40 AST 15 U/L (5-34) 01/25/20 16:40 ALT Less than 7 U/L (8-55) L 01/25/20 16:40 Alkaline Phosphatase 68 U/L (40-110) 01/25/20 16:40 Creatine Kinase 51 U/L (30-200) 01/25/20 16:40 Serum Total Protein 8.8 g/dL (5.8-8.1) H 01/25/20 16:40 Albumin 4.3 g/dL (3.4-4.8) 01/25/20 16:40 - EKG Interpretation EKG: NSR, 66 bmp - Radiology Interpretation Chest x-ray Status: image reviewed by me, report reviewed by me Additional comment: No acute cardiopulmonary abnormality CT scan - head Status: image reviewed by me, report reviewed by me Additional comment: Stable head CT, no intracranial hemorrhage FMR H&P: A/P - Problem List (1) Facial droop Current Visit: Yes Status: Acute Code(s): R29.810 - FACIAL WEAKNESS (2) End stage renal disease Current Visit: No Status: Acute Code(s): N18.6 - END STAGE RENAL DISEASE (3) CAD (coronary artery disease) Current Visit: No Status: Chronic Code(s): I25.10 - ATHSCL HEART DISEASE OF [place] CORONARY ARTERY W/O ANG PCTRS Qualifiers: Coronary Disease-Associated Artery/Lesion type: [place] artery [place] vs. tr ansplanted heart: [place] heart Associated angina: without angina Qualified Code(s): I25.10 - Atherosclerotic heart disease of [place] coronary artery without angina pectoris (4) HTN (hypertension) Current Visit: No Status: Chronic Code(s): I10 - ESSENTIAL (PRIMARY) HYPERTENSION Qualifiers: Hypertension type: essential hypertension - Plan 79 yo male with PMH of ESRD on dialysis MWF, HTN, HLD, CAD, ROSC in 2019 s/p AICD placement who presents with right-sided facial droop. CVA r/o - s/p aspirin in ED, will continue; outside window for tpa - CT: Stable CT, no intracranial hemorrhage - MRI ordered - due to patient's ESRD, will order carotid dopplers; if dialysis can be arr anged, CTA would be preferable - TSH, Hgb A1C, Mag, and Phos pending - Lipid panel obtained on 11/16/2019 showed LDL: 40, will continue home statin once home medications are identified - NPO pending bedside speech evaluation, on LR @ 100 mls/hr - Patient and unable to recall home meds, will start pt on Coreg 3.125 BID and amlodipine prn for SBP >160 - EKG: NSR - AICD: will interrogate ESRD on Dialysis MWF - Last dialysis on 01/24, due on 01/26 - Manager Commercial Sales: Dr. David, will consult in the morning regarding dialysis following possible CTA CAD - s/p ROSC in 2019 with AICD, will interrogate as above - will resume home meds, will likely need to call pharmacy in the morning as patient and unsure of home meds HTN - will resume home meds once identified - see above for current BP regimen HLD - will resume home meds once identified PCP: Dianne Mae (LIZZIE) PPx: Heparin IVF: LR @ 100 mls/hr Diet: NPO pending bedside speech eval followed by HH Code: FULL Dispo: will admit to stroke unit for further evaluation; likely LOS < 48 hrs. FMR H&P: Upper Level - Plan Date/Time: 01/25/201825 IEfraín, , have evaluated this patient and agree with findings/plan as outlined by pr internship resident. Pertinent changes/additions are listed here. This is a 79 yo gentleman who presented to the ER following approximately 24 hours of right sided factial droop. He and his are poor historians, however she thinks his droop is improving. He states that he is generally weak but denies any focal weakness or changes sensation. In addition, his and the pt report the droop is on the left side. The also reports that he may have been slurring his words some. He has never had anything like this. He has a past medical history of CAD, ESRD on HD MWF, GERD, HTN. Last year, he presented to the hospital S/P ROSC and was found to have an EF of 60 percent and ultimately left for further rehab. He had loop recorder and ultimately an AICD placed per chart review but they are unsure of the arrhythmia. He currently denies any palpitations, SOB, abdominal pain, nausea, or vomiting. He reports some chest pressure. He walks with cane. Objective: Vitals: BP 141/63, HR 65, RR 17, Temp 98.5, Spo2 100% on RA, Wt. 73 kg General: NAD, hard of hearing HEENT: NC/AT, MMM Cardio: RRR, no murmurs, no carotid bruits Respiratory: Fair air movement, bilateral basilar rhonchi Abdomen: Soft, non-tender, BS+ Extremties: Pulses 2+ throughout, 2 dialysis fisutlas in the right upper and lower arm with palpable thrill Neuro: HINTS exam negative but limited due to neck stiffness, CNII-XII grossly intact with the exception of CN V on the right including facial droop and poor eye lid control, No focal weakness, but 4/5 globally for strength. A/P TIA/CVA rule out -Admit to stroke obs -Tele monitoring -Pending MRI -Pt is outside window for permissive HTN -Will ensure aspirin and statin therapy initiation -PT/OT -CTA head and neck vs carotid dopplers depending on dialysis timing -Risk stratifying labs in the morning -Two months ago, LDL was 40 and HDL was 32, Triglycerides were 115 -Will touch base with Dr. 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
[2020-01-25] MEDS ORDERED: Aspirin 325 mg Enteric Coated Tablet PO SCH (19:30)
[2020-01-25] MEDS ORDERED: Carvedilol 3.125 MG TAB PO SCH (19:30)
[2020-01-25] MEDS ORDERED: Amlodipine 5 MG TAB PO PRN (19:33)
[2020-01-25] MEDS ORDERED: Aspirin Chewable 81 MG TAB ONE (20:25)
[2020-01-25 21:04] LABS: Magnesium 2.3 mg/dL (1.6-2.6); Phosphorus 5.3 mg/dL (2.3-4.7)
[2020-01-25 22:09] VITALS: BMI 26.4
[2020-01-25] MEDS: Heparin 5,000 UNITS/ML VIAL SC SCH (22:44)
[2020-01-25 22:52] LABS: Hemoglobin A1c 4.7 % (4.0-6.0)
[2020-01-26] MEDS ORDERED: Lactated Ringer's 1,000 ML IV SCH ×2 (01:15→04:00)
[2020-01-26 04:55] LABS: #Eosinphils 0.4 thou/uL (0.0-0.7); #Lymphocytes 1.7 thou/uL (1.20-3.40); #Monocytes 0.6 thou/uL (0.11-0.59); #Neutrophils 3.7 thou/uL (1.40-6.50); %Basophils 0.6 % (0.0-1.0); %Lymphocytes 26.9 % (21.0-51.0); %Monocytes 9.5 % (0.0-10.0); %Neutrophils 57.1 % (42.0-75.0); Hemoglobin 11.5 g/dL (14.0-18.0); Mean Corpuscular HGB CONC 33.6 g/dL (32.0-36.0); Mean Corpuscular Hemoglobin 30.9 pg (27.0-31.0); Mean Corpuscular Volume 91.8 fL (78.0-98.0); Mean Platelet Volume 7.3 fL (7.4-10.4); Platelet Count 208 thou/uL (130-400); RBC Distribution Width 13.6 % (11.5-14.5); Red Blood Cell (RBC) Count 3.71 mill/uL (4.70-6.10); White Blood Cell (WBC) Count 6.4 thou/uL (4.8-10.8)
[2020-01-26 05:22] LABS: Anion Gap 18 mmol/L (10-20); BUN (Urea Nitrogen) 25 mg/dL (8.4-25.7); Calc. Creatinine Clearance 14 mL/min (70-130); Calcium 8.9 mg/dL (7.8-10.44); Carbon Dioxide 29 mmol/L (23-31); Chloride 97 mmol/L (98-107); Glucose 87 mg/dL (83-110); Potassium 3.6 mmol/L (3.5-5.1); Sodium 140 mmol/L (136-145)
--- NOTE | 2020-01-26 05:53 | PDOC.FM ---
- Subjective Subjective: Pt resting comfortably in bed this AM. No acute events overnight. - Objective Vital Signs & Weight: Vital Signs (12 hours) Temp Pulse Resp BP Pulse Ox 01/26/20 04:00 97.9 F 61 12 147/67 H 94 L 01/26/20 00:00 98.2 F 63 18 146/66 H 96 01/25/20 20:55 98.8 F 63 18 163/83 H 95 Weight Weight 69.989 kg Result Diagrams: 01/26/20 04:32 01/26/20 04:32 Phys Exam - Physical Examination Constitutional: NAD HEENT: moist MMs Neck: supple Respiratory: no wheezing, no rales, no rhonchi, clear to auscultation bilateral Cardiovascular: RRR, no significant murmur, no rub Gastrointestinal: soft, non-tender, no distention, positive bowel sounds Musculoskeletal: pulses present Neurological: normal sensation R sided facial droop persists. Strength 4/5 unchanged. No R or L sided negl Expressive aphasia noted Psychiatric: normal affect, A&O x 3 Skin: normal turgor Dx/Plan - Plan Plan: CVA vs. TIA - CT: Stable CT, no intracranial hemorrhage - Pt started on on Coreg 3.125 BID and amlodipine prn for SBP >160. Now on home regimen. - Risk stratifying labs wnl - Statin to be continued after home dose identified - MRI pending - Carotid dopplers wnl - Pending AICD interogation - Awaiting report for dysphagia screening, will consult speech due to speech deficits ESRD on Dialysis MWF - Nephrology Dr. David has been consulted - Dialysis schedule to continue CAD - s/p ROSC in 2019 with AICD, will interrogate as above - will resume home meds, will likely need to call pharmacy in the morning as patient and unsure of home meds HTN - will resume home meds once identified - see above for current BP regimen HLD - will resume home meds once identified PPx: Heparin IVF: LR @ 100 mls/hr Diet: NPO pending bedside speech eval followed by HH Code: FULL PCP: Dianne Mae ([facility]) Dispo as of 01/25: Imaging pending. Based on these results will decided to consult neuro/stroke team. Will monitor BPs and symptoms.
[2020-01-26] MEDS ORDERED: Carvedilol 3.125 MG TAB PO SCH (08:00)
--- NOTE | 2020-01-26 08:08 | ULT ---
EXAM: Carotid ultrasound HISTORY: Slurred speech and dizziness COMPARISON: None TECHNIQUE: Multiplanar grayscale and color Doppler images were obtained in a carotid ultrasound. Spec tral analysis of the Doppler waveforms were performed. FINDINGS: No significant plaque is visualized in either internal carotid artery. No significant plaque is seen in either common carotid artery. The Doppler waveforms are normal in the visualized vessels. Peak systolic velocity in the right internal carotid artery 72 cm/s. Peak systolic velocity in the right common carotid artery 76 cm/s. The right ICA/CCA ratio is 1.0. Peak systolic velocity in the left internal carotid artery 62 cm/s. Peak systolic velocity in the left common carotid artery 93 cm/s. The left ICA/CCA ratio is 0.7. Both vertebral arteries demonstrate antegrade flow without focal stenosis IMPRESSION: No evidence of hemodynamically significant stenosis.
[2020-01-26] MEDS ORDERED: Aspirin 81 mg Enteric Coated Tablet PO SCH (09:00)
[2020-01-26] MEDS ORDERED: Icosapent Ethyl 1 GM CAPSULE PO SCH (09:00)
[2020-01-26] MEDS ORDERED: Folic Acid/Vit B Comp W-C PO SCH (09:00)
[2020-01-26] MEDS ORDERED: Mirtazapine 15 MG TAB PO SCH (09:00)
[2020-01-26] MEDS ORDERED: Metoprolol Tartrate 25 MG TAB PO SCH (09:00)
[2020-01-26] MEDS ORDERED: Rosuvastatin 10 MG TAB PO SCH ×2 (09:00→21:00)
[2020-01-26] MEDS ORDERED: Metoclopramide HCl 10 MG TAB PO SCH (09:00)
[2020-01-26] MEDS: Heparin 5,000 UNITS/ML VIAL SC SCH (10:41)
[2020-01-26 10:53] LABS: Iron 76 ug/dL (65-175); Iron Binding Capacity, Total 196 mcg/dL (261-462)
--- NOTE | 2020-01-26 11:00 | MRI ---
MRI BRAIN WITHOUT CONTRAST: Date: 01/26/2020 HISTORY: Facial droop. FINDINGS: Correlation is made with the previous day's CT scan. No restricted diffusion is seen. There are changes of cortical atrophy. There are foci of T2 prolonga tion in the periventricular white matter consistent with mild chronic small vessel ischemic disease. The ventricular size is appropriate and the basilar cisterns are patent. There are small foci of hemo siderin deposition in the thalami and brainstem consistent with remote hemorrhage. No evidence of acute hemorrhage, midline shift, or abnormal extra-axial fluid collections are seen. IMPRESSION: No evidence of acute intracranial process. POS: AH
--- NOTE | 2020-01-26 11:19 | CON ---
DATE OF CONSULTATION: 01/26/2020 HISTORY OF PRESENT ILLNESS: Mr. Burleson is a 79-year-old white male with known history of ESRD-currently on maintenance hemodialysis, Thursday, Thursday, and Thursday, and was admitted for right facial droop and slurring of speech. This morning, he is neurologically intact. Initial CAT scan of the head showed no acute intracranial abnormality. A carotid Doppler has also been done, which showed no significant stenosis. We are being consulted for management of his ESRD. REVIEW OF SYSTEMS: Positive for dizziness, positive for mild slurring, positive for mild facial droop. No chest pain. No shortness of breath. No syncopal episode. No fever or chills. No abdominal pain. No dysuria. No urinary frequency. Appetite is fair. Energy level is fair. No headache. No diplopia. HOME MEDICATIONS: Included; 1. Omeprazole 40 mg q.a.m. 2. Sertraline 50 mg daily. 3. Aspirin 81 mg daily. 4. Mirtazapine 1 tab p.o. daily. 5. Vitamin B complex one tablet daily. 6. Imdur ER 60 mg once a day. 7. Metoprolol tartrate 25 mg p.o. b.i.d. PAST MEDICAL HISTORY: ESRD-currently on maintenance hemodialysis, Thursday, Thursday, Thursday; IgA nephropathy; hypertension; rheumatoid arthritis; coronary artery disease; hyperlipidemia; status post ventricular tachycardia. PAST SURGICAL HISTORY: Status post PD catheter placement with subsequent removal, status post cuffed hemodialysis catheter placement, status post AV fistula, status post renal biopsy, status post cystoscopy, status post ureteral stent placement, status post back surgery, status post colonoscopy, status post EP study. SOCIAL HISTORY: The patient is , lives in [place], 3 children. 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 Smoked for 15 years, one pack a day. Alcohol, occasional. No IV drug abuse. Status post blood transfusion. ALLERGIES: TOPROL, FLOMAX, SULFA. TRAUMA: None. IMMUNIZATIONS: Up to date. HOSPITALIZATIONS: Please see past medical history. FAMILY HISTORY: No family history of ESRD. PHYSICAL EXAMINATION: VITAL SIGNS: Blood pressure is noted at 153/67, heart rate 61, respiratory rate 18, temperature 97.8, O2 saturation 97%. GENERAL: The patient is awake, alert, comfortable, not in overt distress. SKIN: Adequate turgor. HEENT: He has slightly pale conjunctivae. Anicteric sclerae. No neck mass. No carotid bruits. No JVD. CHEST: No deformities. LUNGS: Clear breath sounds. HEART: Normal sinus rhythm. No murmurs. No gallops. No rubs. ABDOMEN: Globular, soft, nontender. No masses. EXTREMITIES: No edema. No deformities. NEUROLOGICAL: Mild right facial asymmetry. moving all extremities. No tremors. No asterixis. LABORATORY DATA: Laboratories of January 26, 2020: White count 6.4, hemoglobin 11.5. Sodium 140, potassium 3.6, chloride 97, carbon dioxide 29, BUN is 25, creatinine 4.32, glucose 87, calcium 8.9. CT scan of the brain, no acute intracranial abnormality. Chest x-ray normal. Carotid Doppler normal. ASSESSMENT AND PLAN: 1. Cerebrovascular accident versus transient ischemic attack. Continue supportive care. The patient's neurological signs and symptoms slightly improved. If needed, they can proceed with an MRI without contrast. 2. End-stage renal disease, stable. He is doing well with the current dialysis regimen. My last review of the Kt/V suggests he is adequately dialyzed with the current dialysis regimen. No indication for any emergent hemodialysis. We will be resuming back his Thursday, Thursday, and Thursday hemodialysis regimen. Thank you for the consult. We will continue to follow. Job ID: [id number] MTDD
[2020-01-26 12:05] LABS: Ferritin 1911.01 ng/mL (22-322)
[2020-01-26 15:58] VITALS: BP 107/54; TEMP 97.4
--- NOTE | 2020-01-26 16:09 | PRG ---
DATE OF SERVICE: 01/26/2020 Mr. Burleson is a 79-year-old man who was admitted with a 2-week history of a right facial droop. During his hospitalization thus far, he has had a brain CT which was normal, MRI of the brain which was normal, carotid Doppler study showing no significant stenosis, and labs which have been normal for the fact that he is on dialysis. He can likely be discharged today or tomorrow. Job ID: [id number]
[2020-01-26] MEDS ORDERED: Latanoprost 0.005% Ophth Soln 2.5 ml Bottle EA EYE SCH (21:00)
[2020-01-26] MEDS ORDERED: Rosuvastatin 5 MG TAB PO SCH (21:00)
[2020-01-27 16:14] LABS: RBC Folate Test Component 1594 ng/mL (>498)
--- NOTE | 2020-01-28 15:22 | EKG ---
Test Reason : Blood Pressure : / mmHG Vent. Rate : 066 BPM Atrial Rate : 066 BPM P-R Int : 160 ms QRS Dur : 102 ms QT Int : 456 ms P-R-T Axes : 044 -15 049 degrees QTc Int : 478 ms Normal sinus rhythm Incomplete right bundle branch block Moderate voltage criteria for LVH, may be normal variant Borderline ECG Confirmed by HIRA THOMPSON, BETTY ([id number]), commissioning editor TANG JACOBSON ([id number]) on 01/28/2020 3:22:39 PM Referred By: Confirmed By:BETTY INIGUEZ MD
--- NOTE | 2020-01-30 13:12 | DIS ---
DATE OF ADMISSION: 01/25/2020 DATE OF DISCHARGE: 01/26/2020 RESIDENT: Lena Randle do. ADMITTING ATTENDING: Jhon Trejo MD. DISCHARGE ATTENDING: Martin Esquivel MD. CONSULTS: Steve Elizabeth MD, Nephrology. PROCEDURES: Chest x-ray done on 01/25/2020, showed no acute cardiopulmonary abnormality. Brain CT done on 01/25/2020, showed stable head CT, no intracranial hemorrhage. Carotid Doppler done on 01/26/2020, showed no evidence of hemodynamically significant stenosis. Brain MRI done on 01/26/2020, showed no evidence of acute intracranial process. PRIMARY DIAGNOSIS: Cerebrovascular accident versus transient ischemic attack. SECONDARY DIAGNOSES: 1. End-stage renal, on dialysis Thursday, Thursday, Thursday. 2. Coronary artery disease. 3. Hypertension. 4. Hyperlipidemia. DISCHARGE MEDICATIONS: 1. Remeron 15 mg p.o. daily. 2. Isosorbide mononitrate 60 p.o. q.a.m. 3. Lopressor 25 mg p.o. t.i.d. 4. Triamcinolone topical p.r.n. 5. Vitamin B complex one tab p.o. daily. 6. Latanoprost 1 drop each eye at bedtime. 7. 1 cap p.o. daily. 8. Sertraline 100 mg p.o. daily. 9. Crestor 5 mg p.o. at bedtime. 10. Pantoprazole 40 mg p.o. daily. 11. Reglan 5 mg p.o. daily. 12. Balsalazide disodium 750 mg p.o. daily. 13. Prednisone 60 mg p.o. q.a.m. for 7 days. DISCONTINUED MEDICATIONS: None. HISTORY OF PRESENT ILLNESS/HOSPITAL COURSE: This is a 79-year-old male with a past medical history as above, who presented to the ER with his for right-sided facial droop. Per the patient's , she noted the facial droop between 9 and 11:00 a.m. on 01/24/2020, but did not think anything of it until was present the afternoon of 01/25/2020. The patient reported that he had also fell weak, but attributed to his dialysis earlier in the day. He reported that he was able to eat, talk, and walk, but endorsed headache present early in the day that was relieved with Tylenol per the . The patient seems to be disregarding items on the left side of his body. The patient was found to have stable head imaging as well as carotid Dopplers. Since the patient's MRI was negative, it was determined that this right-sided facial droop was probably attributed to other things. Based on PT and OT evaluation, they suggested the patient have home physical, occupational therapy, which the patient already had at home. Because the patient's stroke workup was negative, the patient was deemed stable for discharge. DISCHARGE DISPOSITION: Stable. DISCHARGE INSTRUCTIONS: 1. Location: Home. 2. Diet: Heart healthy. 3. Activity: As tolerated. 4. Follow up within 7 days with primary care physician. Job ID: [id number]
== END 2020-01-26 17:13 | disposition home or self-care (01) ==
LOC: ERS 16:27 → 2SE 18:56
PROVIDERS: ADMIT Family Medicine; ATTEND Family Medicine
DX: R29.810 Facial weakness (principal); I12.0 Hypertensive chronic kidney disease with stage 5 chronic kidney disease or end stage renal disease; N18.6 End stage renal disease; I25.10 Atherosclerotic heart disease of native coronary artery without angina pectoris; E78.5 Hyperlipidemia, unspecified; K21.9 Gastro-esophageal reflux disease without esophagitis; L40.9 Psoriasis, unspecified; M06.9 Rheumatoid arthritis, unspecified; Z87.891 Personal history of nicotine dependence; Z79.899 Other long term (current) drug therapy; Z88.1 Allergy status to other antibiotic agents; Z88.2 Allergy status to sulfonamides; Z88.6 Allergy status to analgesic agent; Z88.8 Allergy status to other drugs, medicaments and biological substances; Z95.810 Presence of automatic (implantable) cardiac defibrillator; Z99.2 Dependence on renal dialysis
CPT/HCPCS: 70450; 70551; 71045; 80048; 82550; 82607; 82728; 82747; 82962; 83036; 83540; 83550; 83735; 84100; 84484; 85014; 85025; 85610; 85730; 93005; 93880; 96372 ×2; 97116; 97139 ×3; 97535; 99285; G0378 ×3; 36415; 36416; 80053; 84443; J1644; J8499

== ENCOUNTER 2020-02-05 22:58 | Emergency (ER) | payer MEDICARE, OTHER ==
[2020-02-05] MEDS ORDERED: Acetaminophen 500 MG TAB ONE (23:07)
--- NOTE | 2020-02-06 | RAD ---
RADIOGRAPH CHEST 1 VIEW: DATE: 02/05/2020 11:31 PM HISTORY: 79-year-old male with fever, cough, and chest congestion. COMPARISON: 01/25/2020 FINDINGS: There is no consolidation, pulmonary edema, or pneumothorax. Prominent interstitial markings. No defi nite interval change detected. IMPRESSION: No consolidation
[2020-02-06 00:46] LABS: #Lymphocytes 1.1 thou/uL (1.20-3.40); #Monocytes 0.3 thou/uL (0.11-0.59); #Neutrophils 5.7 thou/uL (1.40-6.50); %Basophils 0.6 % (0.0-1.0); %Eosinophils 0.5 % (0.0-10.0); %Monocytes 3.6 % (0.0-10.0); %Neutrophils 79.3 % (42.0-75.0); Hemoglobin 10.2 g/dL (14.0-18.0); Mean Corpuscular HGB CONC 34.6 g/dL (32.0-36.0); Mean Corpuscular Hemoglobin 31.4 pg (27.0-31.0); Mean Corpuscular Volume 90.7 fL (78.0-98.0); Platelet Count 171 thou/uL (130-400); RBC Distribution Width 13.8 % (11.5-14.5); Red Blood Cell (RBC) Count 3.24 mill/uL (4.70-6.10); White Blood Cell (WBC) Count 7.1 thou/uL (4.8-10.8)
[2020-02-06 01:06] LABS: ALT (SGPT) Less than 7 U/L (8-55); AST (SGOT) 24 U/L (5-34); Albumin 3.6 g/dL (3.4-4.8); Alkaline Phosphatase 36 U/L (40-110); Anion Gap 21 mmol/L (10-20); BUN (Urea Nitrogen) 46 mg/dL (8.4-25.7); Bilirubin, Total 0.5 mg/dL (0.2-1.2); Calc. Creatinine Clearance 0 mL/min (70-130); Calcium 8.1 mg/dL (7.8-10.44); Carbon Dioxide 20 mmol/L (23-31); Chloride 97 mmol/L (98-107); Globulin 3.7 g/dL (2.4-3.5); Glucose 105 mg/dL (83-110); Potassium 3.3 mmol/L (3.5-5.1); Protein, Total 7.3 g/dL (5.8-8.1); Sodium 135 mmol/L (136-145)
[2020-02-06 03:00] LABS: Bilirubin Negative (Negative); Blood, Urine Trace (Negative); Glucose, Urine (Dipstick) Negative (Negative); Ketone, Urine Negative (Negative); Leukocyte Negative (Negative); Nitrite Negative (Negative); Protein, Urine (Dipstick) 100 mg/dL (Neg-Trace); Urobilinogen 0.2 mg/dL (Less than 2)
[2020-02-06 03:07] LABS: Clarity Clear (Clear)
[2020-02-06 03:09] LABS: Bacteria/HPF None Seen HPF (None Seen); RBC/HPF None Seen HPF (0-3); Squamous Epithelial 0-3 HPF (0-3); WBC/HPF None Seen HPF (0-3)
[2020-02-06 08:39] LABS: SARS-CoV-2 MS2 Positive; SARS-CoV-2 N Gene Positive; SARS-CoV-2 S Gene Positive; SARS-CoV-2 by NAA DETECTED (NotDetected); SARS-CoV-2 orf1ab Positive
== END 2020-02-06 03:55 | disposition home or self-care (01) ==
LOC: ERS 22:58
DX: U07.1 COVID-19 (principal); E78.5 Hyperlipidemia, unspecified; I12.9 Hypertensive chronic kidney disease with stage 1 through stage 4 chronic kidney disease, or unspecified chronic kidney disease; E11.22 Type 2 diabetes mellitus with diabetic chronic kidney disease; N18.9 Chronic kidney disease, unspecified; I25.2 Old myocardial infarction; D63.1 Anemia in chronic kidney disease; E78.00 Pure hypercholesterolemia, unspecified; Z99.2 Dependence on renal dialysis; Z87.891 Personal history of nicotine dependence; Z79.899 Other long term (current) drug therapy
CPT/HCPCS: 36415; 71045; 80053; 81003; 81015; 85025; 87635; 93005; U0003

== ENCOUNTER 2020-02-06 15:23 | Inpatient (IN) | payer MEDICARE, OTHER ==
[~2020-02-06 15:23] MED LIST changes: -Iopamidol 370 76% 100 ML VIAL ONE; -Iopamidol 370 76% 50 ML VIAL FS ONE; +Iopamidol-370 76% 500 ML 1 ML ONE
[2020-02-06 17:55] LABS: #Lymphocytes 1.9 thou/uL (1.20-3.40); #Monocytes 0.3 thou/uL (0.11-0.59); #Neutrophils 6.3 thou/uL (1.40-6.50); %Eosinophils 0.3 % (0.0-10.0); %Neutrophils 73.8 % (42.0-75.0); Mean Corpuscular HGB CONC 34.6 g/dL (32.0-36.0); Mean Corpuscular Hemoglobin 31.4 pg (27.0-31.0); Mean Corpuscular Volume 90.8 fL (78.0-98.0); Mean Platelet Volume 8.1 fL (7.4-10.4); Platelet Count 181 thou/uL (130-400); RBC Distribution Width 13.9 % (11.5-14.5); Red Blood Cell (RBC) Count 3.49 mill/uL (4.70-6.10); White Blood Cell (WBC) Count 8.5 thou/uL (4.8-10.8)
[2020-02-06] MEDS ORDERED: Dexamethasone 4 mg/ml Vial ONE (17:57)
[2020-02-06] MEDS ORDERED: PROVENTIL INHALER 6.7 G (200 INHALATIONS) ONE ×2 (17:58→18:51)
[2020-02-06 18:16] LABS: ALT (SGPT) Less than 7 U/L (8-55); AST (SGOT) 28 U/L (5-34); Albumin 3.8 g/dL (3.4-4.8); Alkaline Phosphatase 34 U/L (40-110); Anion Gap 21 mmol/L (10-20); BUN (Urea Nitrogen) 59 mg/dL (8.4-25.7); Bilirubin, Total 0.6 mg/dL (0.2-1.2); Calc. Creatinine Clearance 0 mL/min (70-130); Calcium 8.5 mg/dL (7.8-10.44); Carbon Dioxide 21 mmol/L (23-31); Chloride 96 mmol/L (98-107); Globulin 4.4 g/dL (2.4-3.5); Glucose 106 mg/dL (83-110); Potassium 3.2 mmol/L (3.5-5.1); Protein, Total 8.2 g/dL (5.8-8.1); Sodium 135 mmol/L (136-145)
[2020-02-06] MEDS ORDERED: Acetaminophen 500 MG TAB ONE (18:19)
--- NOTE | 2020-02-06 18:40 | RAD ---
FRONTAL RADIOGRAPHIC CHEST PORTABLE UPRIGHT: Date: 02-06-2020 Comparison: 02-05-2020 History: Covid positive patient, weakness and cough FINDINGS: Metallic density overlies the left lung base suggesting a loop recorder. Heart and mediastinal contou rs are stable. No pneumothorax is seen. There is interstitial opacity in bilateral perihilar regions, left greater than right. There is hazy ground glass opacity within the medial right lung base, slightly worsened when compared to the prior imaging. IMPRESSION: Interstitial and ground glass opacities consistent with the provided history of Covid pneumonia, wors e in the right base as above. POS: RAH
[2020-02-06 18:42] LABS: Bacteria/HPF None Seen HPF (None Seen); Bilirubin Negative (Negative); Blood, Urine 1+ (Negative); Clarity Clear (Clear); Glucose, Urine (Dipstick) Normal (Negative); Ketone, Urine Negative (Negative); Leukocyte Negative Leu/uL (Negative); Nitrite Negative (Negative); Protein, Urine (Dipstick) 100 mg/dL (Neg-Trace); RBC/HPF 0-3 HPF (0-3); Specific Gravity, Urine 1.014 (1.002-1.036); Squamous Epithelial 0-3 HPF (0-3); Urobilinogen Normal mg/dL (Less than 2); WBC/HPF 0-3 HPF (0-3)
[2020-02-06] MEDS ORDERED: Albuterol 200 PUFF (6.7GM INHALER) INH SCH (18:45)
[2020-02-06] MEDS ORDERED: Albuterol 200 PUFF (6.7GM INHALER) ONE (18:54)
--- NOTE | 2020-02-06 21:12 | CT ---
CT ANGIOGRAM CHEST: Date: 02-06-2020 Comparison: None History: Dyspnea, weakness, Covid pneumonia Technique: Axial CT imaging obtained at 2.5 mm intervals through the chest with IV contrast using CT angiogram protocol with coronal and oblique sagittal 3D reformatted imaging. FINDINGS: The imaged upper abdomen demonstrates no acute findings. There is no significant pleural, pericardial , or mediastinal fluid seen. No axillary, hilar or mediastinal lymphadenopathy is noted. Coronary arterial calcification is seen. No pneumothorax is noted on either side. There is extensive multifocal peripheral ground glass opacity within the right upper lobe, the left u pper lobe, the right middle lobe and bilateral lower lobes consistent with extensive atypical infecti ous pneumonitis/Covid pneumonia. There is atherosclerotic calcification of the aortic arch and descending thoracic aorta. There is no filling defect seen within the central pulmonary arterial vasculature to suggest the pres ence of a central acute pulmonary arterial embolism. Evaluation of the distal pulmonary arterial bran ches is limited secondary to motion, especially within the bilateral lower lobes, right greater than left. Review of the osseous structures demonstrates degenerative change within the imaged spine with multil evel disc space narrowing, anterior osteophyte formation, and facet hypertrophy. Findings are suspici ous for possible DISH. IMPRESSION: Extensive interstitial/ground glass opacity bilaterally concerning for extensive bilateral Covid pneu monia. There is no evidence for a central pulmonary arterial embolism. Evaluation for distal pulmonar y arterial embolism, particularly within the lung bases, is limited on the basis of respiratory motio n artifact. POS: RAH
--- NOTE | 2020-02-06 21:57 | PDOC.FPRHP ---
- History of Present Illness Chief Complaint: sob History of Present Illness: 79 yo M with HTN, HLD, CAD, ESRD on HD MWF here for worsened breathing. He is being admitted for acute hypoxic respiratory failure 2/2 covid pneumonia requiring 3L of nasal cannula. Patient is very hard of hearing and not a great historian but per , he has been more weak with walking instabilty and recent falls. The past two days has had decreased appetite & increased work of breathing. No known sick contacts or recent travel. CTA showed extensive bilateral opacities and no PE. He was given albuterol & dexamethasone in the ER. He was just discharged for TIA - Allergies/Adverse Reactions Allergies Allergy/AdvReac Type Severity Reaction Status Date / Time ketorolac tromethamine Allergy Rash Verified 04/30/19 01:45 [From Toradol] levofloxacin [From Levaquin] Allergy Rash Verified 04/30/19 01:45 Sulfa (Sulfonamide Allergy Rash Verified 04/30/19 01:45 Antibiotics) tamsulosin HCl [From Flomax] Allergy Verified 04/30/19 01:45 - Home Medications Medication Instructions Recorded Confirmed Type Mirtazapine [Remeron] 15 mg PO DAILY 06/13/18 01/26/20 History Isosorbide Mononitrate [Isosorbide 60 mg PO QAM #0 06/26/18 01/26/20 Rx Mononitrate ER] Metoprolol Tartrate [Lopressor] 25 mg PO TID 08/09/18 01/26/20 History Balsalazide Disodium 750 mg PO DAILY 01/26/20 01/26/20 History Icosapent Ethyl [Vascepa] 1 cap PO DAILY 01/26/20 01/26/20 History Latanoprost [Xalatan 0.005% Ophth 1 drop EA EYE HS 01/26/20 01/26/20 History Soln] Metoclopramide HCl [Reglan] 5 mg PO DAILY 01/26/20 01/26/20 History Pantoprazole Sodium 40 mg PO DAILY 01/26/20 01/26/20 History Sertraline HCl 100 mg PO DAILY 01/26/20 01/26/20 History Triamcinolone Acetonide 1 applic TOP PRN PRN 01/26/20 01/26/20 History [Triamcinolone Acetonide 0.1% Ointment] Vit B Complx C/Folic Acid/Zinc 1 tab PO DAILY 01/26/20 01/26/20 History [Dialyvite 800 + Zinc 15] predniSONE 60 mg PO QAM-WM 7 Days #21 tab 01/26/20 Rx - History PMHx: ESRD on dialysis MWF, HTN, HLD, ROSC in 2019 s/p AICD placement, CAD PSHx: Cataract surgery, back surgery x3, dialysis catheter placement, heart ca th, AICD placement, trigger finger FHx: believes that his father had heart disease Social: Stopped smoking cigarettes >40 years ago, smoked 1 pack per week for 6 years, has not had alcohol in > 2 years, denies drug use, retired - Review of Systems General: reports: weight/appetite/sleep changes. denies: fever/chills ENT: reports: nasal congestion, rhinorrhea Respiratory: reports: cough, congestion, shortness of breath Cardiovascular: denies: chest pain, palpitation Gastrointestinal: denies: nausea, vomiting, diarrhea, constipation, abdominal pain Musculoskeletal: denies: pain, tenderness Neurological: reports: weakness. denies: numbness, syncope - Vital signs BP: 121/56, Pulse: 73, Resp: 27, Temp: 98.3 (Oral), Pain: 0, O2 sat: 99 on (3L Oxygen), Time: 02/06/2020 21:01. Wt: 70kg - Physical Exam Constitutional: NAD, awake, alert and oriented -Constitutional: very hard of hearing HEENT: normocephalic and atraumatic, PERRLA, EOMI, no scleral icterus, grossly normal vision Neck: supple, FROM, trachea midline Heart: RRR, normal S1/S2 Lungs: no respiratory distress -Lungs: bibasilar crackles Abdomen: soft, non-tender, no masses/distention Musculoskeletal: ROM grossly normal, other -Musculoskeletal: BLE 3/5 Neurological: no focal deficit Skin: no rash/lesions -Skin: dry mucosal membranes Heme/Lymphatic: no unusual bruising or bleeding, no purpura FMR H&P: Results - Labs Result Diagrams: 02/07/20 01:57 02/07/20 01:57 Lab results: WBC 8.5 thou/uL (4.8-10.8) 02/06/20 17:44 Hgb 11.0 g/dL (14.0-18.0) L 02/06/20 17:44 Hct 31.7 % (42.0-52.0) L 02/06/20 17:44 MCV 90.8 fL (78.0-98.0) 02/06/20 17:44 Plt Count 181 thou/uL (130-400) 02/06/20 17:44 Neutrophils % 73.8 % (42.0-75.0) 02/06/20 17:44 Sodium 135 mmol/L (136-145) L 02/06/20 17:44 Potassium 3.2 mmol/L (3.5-5.1) L 02/06/20 17:44 Chloride 96 mmol/L (98-107) L 02/06/20 17:44 Carbon Dioxide 21 mmol/L (23-31) L 02/06/20 17:44 BUN 59 mg/dL (8.4-25.7) H 02/06/20 17:44 Creatinine 5.59 mg/dL (0.7-1.3) H 02/06/20 17:44 Glucose 106 mg/dL (83-110) 02/06/20 17:44 Lactic Acid 1.7 mmol/L (0.5-2.2) 02/06/20 17:43 Calcium 8.5 mg/dL (7.8-10.44) 02/06/20 17:44 Total Bilirubin 0.6 mg/dL (0.2-1.2) 02/06/20 17:44 AST 28 U/L (5-34) 02/06/20 17:44 ALT Less than 7 U/L (8-55) L 02/06/20 17:44 Alkaline Phosphatase 34 U/L (40-110) L 02/06/20 17:44 Serum Total Protein 8.2 g/dL (5.8-8.1) H 02/06/20 17:44 Albumin 3.8 g/dL (3.4-4.8) 02/06/20 17:44 Urine Ketones Negative mg/dL (Negative) 02/06/20 18:15 Urine Blood 1+ (Negative) A 02/06/20 18:15 Urine Nitrite Negative (Negative) 02/06/20 18:15 Ur Leukocyte Esterase Negative Rolando/uL (Negative) 02/06/20 18:15 Urine RBC 0-3 HPF (0-3) 02/06/20 18:15 Urine WBC 0-3 HPF (0-3) 02/06/20 18:15 Ur Squamous Epith Cells 0-3 HPF (0-3) 02/06/20 18:15 Urine Bacteria None Seen HPF (None Seen) 02/06/20 18:15 - EKG Interpretation EKG: Incomplete RBBB, left axis deviation NSR - Radiology Interpretation Chest x-ray Status: image reviewed by me, report reviewed by me Additional comment: interstitial & ground glass opacities CT scan - chest Status: report reviewed by me Additional comment: bibasilar ground glass opacities , neg for PE FMR H&P: A/P - Plan 79 yo male with PMH of ESRD on dialysis MWF, HTN, HLD, CAD, ROSC in 2019 s/p AICD placement who presents with right-sided facial droop. Acute hypoxic respiratory failure 2/2 COVID PNA on 3L NC -s/p decadron & albuterol treatments, continue steroids, convalescent plasma & remdesivir -Monitor respiratory status -COVID labs ordered to trend Hypokalemia -K 3.2, will replace IV -Check Magnesium ESRD on Dialysis MWF - Sees Dr. David, will consult in the morning to continue HD while here in hospital CAD - s/p ROSC in 2019 with AICD placed - will resume home meds however is not entirely sure of all meds, will confirm with pharmacy in AM HTN - will resume home meds once identified - see above for current BP regimen HLD - will resume home meds once identified PCP: Dianne Mae ([facility]) PPx: Heparin TID IVF: SL Diet: NPO pending bedside swallow but then can add HH/Renal Code: FULL FMR H&P: Upper Level - Plan Date/Time: 02/06/202155 I, [], have evaluated this patient and agree with findings/plan as outlined by music internship resident. Pertinent changes/additions are listed here. Addendum - Attending - Attending Attestation Date/Time: 02/07/202045 I personally evaluated the patient and discussed the management with Dr. Daksha David last night in the ER. I agree with the History, Examination, Assessment and Plan documented above with any addition or exceptions noted below.
[2020-02-06] MEDS ORDERED: Enoxaparin Sodium 30 MG/0.3 ML SYRINGE SC SCH (23:30)
[2020-02-07 00:05] LABS: CO2 Tension 35.7 mmHg (35.0-45.0); O2 Tension (PaO2), arterial 100.4 mmHg (> 70.0); pH, Arterial 7.36 (7.35-7.45)
[2020-02-07 00:06] LABS: Actual Bicarbonate (HCO3a) 19.6 mEq/L (22-28); Base Excess (BEa) -5.1 mEq/L (-2.0 to +3.0); Hemoglobin (Hb) 14.2 g/dL (14.0-18.0)
[2020-02-07 00:07] LABS: Analyzer IN Cardio ER; Potassium - ABG Lab 4.01 mmol/L (3.70-5.30); Puncture Site RRA
[2020-02-07 00:08] LABS: ALV-art Gradient 83.135 mmHg (0-20)
[2020-02-07] MEDS ORDERED: Albuterol 200 PUFF (6.7GM INHALER) INH PRN (02:03)
[2020-02-07 02:08] LABS: #Monocytes 0.2 thou/uL (0.11-0.59); #Neutrophils 5.6 thou/uL (1.40-6.50); %Basophils 0.3 % (0.0-1.0); %Eosinophils 0.1 % (0.0-10.0); %Lymphocytes 14.4 % (21.0-51.0); %Monocytes 2.2 % (0.0-10.0); Hemoglobin 10.3 g/dL (14.0-18.0); Mean Corpuscular HGB CONC 33.9 g/dL (32.0-36.0); Mean Corpuscular Hemoglobin 30.9 pg (27.0-31.0); Mean Corpuscular Volume 91.2 fL (78.0-98.0); Mean Platelet Volume 7.8 fL (7.4-10.4); Platelet Count 163 thou/uL (130-400); RBC Distribution Width 14.1 % (11.5-14.5); Red Blood Cell (RBC) Count 3.33 mill/uL (4.70-6.10); White Blood Cell (WBC) Count 6.8 thou/uL (4.8-10.8)
[2020-02-07 02:46] LABS: ALT (SGPT) 8 U/L (8-55); AST (SGOT) 26 U/L (5-34); Albumin 3.5 g/dL (3.4-4.8); Alkaline Phosphatase 26 U/L (40-110); Anion Gap 22 mmol/L (10-20); BUN (Urea Nitrogen) 59 mg/dL (8.4-25.7); Bilirubin, Total 0.5 mg/dL (0.2-1.2); Calc. Creatinine Clearance 0 mL/min (70-130); Calcium 8.3 mg/dL (7.8-10.44); Carbon Dioxide 17 mmol/L (23-31); Chloride 97 mmol/L (98-107); Globulin 3.8 g/dL (2.4-3.5); Glucose 176 mg/dL (83-110); Potassium 4.3 mmol/L (3.5-5.1); Protein, Total 7.3 g/dL (5.8-8.1); Sodium 132 mmol/L (136-145)
[2020-02-07 03:09] LABS: Magnesium 2.1 mg/dL (1.6-2.6)
[2020-02-07] MEDS: Potassium Chloride 20 MEQ in Premix Bag 1 BAG IVPB SCH ×2 (04:03→07:47)
--- NOTE | 2020-02-07 06:01 | PDOC.FM ---
- Objective Result Diagrams: 02/07/20 01:57 02/07/20 01:57 Dx/Plan (1) Acute respiratory failure with hypoxia Code(s): J96.01 - ACUTE RESPIRATORY FAILURE WITH HYPOXIA Status: Acute (2) Pneumonia due to COVID-19 virus Code(s): U07.1 - COVID-19; J12.89 - OTHER VIRAL PNEUMONIA Status: Acute (3) BPH (benign prostatic hyperplasia) Code(s): N40.0 - BENIGN PROSTATIC HYPERPLASIA WITHOUT LOWER URINRY TRACT SYMP Status: Acute Qualifiers: Lower urinary tract symptom presence: symptoms present Lower urinary tract symptom detail: unspecified Qualified Code(s): N40.1 - Benign prostatic hyperplasia with lower urinary tract symptoms (4) End stage renal disease Code(s): N18.6 - END STAGE RENAL DISEASE Status: Acute (5) Abdominal pain Code(s): R10.9 - UNSPECIFIED ABDOMINAL PAIN Status: Chronic Qualifiers: Abdominal location: generalized Qualified Code(s): R10.84 - Generalized abdominal pain (6) HTN (hypertension) Code(s): I10 - ESSENTIAL (PRIMARY) HYPERTENSION Status: Chronic Qualifiers: Hypertension type: essential hypertension
--- NOTE | 2020-02-07 07:31 | PDOC.BPN ---
- Brief Progress Note Discussed with Dr. Walker ([facility]) checkout and transfer of care to their service since we do not admit for the PCP. Answered all questions.
--- NOTE | 2020-02-07 09:36 | PDOC.HOSPP ---
- Subjective Encounter Date: 02/07/20 Encounter Time: 10:30 Subjective: Patient feeling a bit better, still a little tachypneic but sating well on 2.5L NC O2. No fever. - Objective Result Diagrams: 02/07/20 01:57 02/07/20 01:57 Hospitalist ROS - Review of Systems Constitutional: denies: fever, chills Respiratory: reports: cough, shortness of breath, SOB with excertion Cardiovascular: denies: chest pain, palpitations Gastrointestinal: denies: nausea, vomiting, abdominal pain - Exam General Appearance: NAD, awake alert ENT: moist mucosa Heart: RRR, no murmur, no gallops, no rubs Respiratory: normal chest expansion Respiratory - other findings: mild crackles in periphery, good air movement, mild tachypnea Gastrointestinal: soft, non-tender, non-distended, normal bowel sounds Extremities: no edema Psychiatric: normal affect, normal behavior, A&O x 3 Hosp A/P - Plan 79 yo male with PMH of ESRD on dialysis MWF, HTN, HLD, CAD, ROSC in 2019 s/p AICD placement who presented with weakness and worsening respiratory distress in known Covid-19 infection. Acute hypoxic respiratory failure 2/2 COVID PNA on 3L NC -s/p decadron & albuterol treatments, continue steroids, convalescent plasma & remdesivir -Monitor respiratory status -COVID labs ordered to trend Hypokalemia -normalized after replacement -Magnesium 2.1 ESRD on Dialysis MWF - Dr. David consulted CAD - s/p ROSC in 2019 with AICD placed - will resume home meds however is not entirely sure of all meds, will confirm with pharmacy in AM HTN - will resume home meds once identified - see above for current BP regimen HLD - will resume home meds once identified PCP: Dianne Mae ([facility]) PPx: Heparin TID GI Proph: Protonix Diet: Renal High Protein Code: FULL
--- NOTE | 2020-02-07 09:56 | PRG ---
DATE OF SERVICE: 02/07/2020 SUBJECTIVE: Mr. Burleson is a 79-year-old male with ESRD, was admitted for COVID-19 pneumonia. He came in with a complaint of generalized weakness. He was subsequently diagnosed with COVID-19 infection and pneumonia. We are now being consulted for management of his ESRD. Please note, he did receive IV contrast to rule out pulmonary embolism. He had no evidence of pulmonary embolism. However, due to the contrast load, the patient will undergo a 2- to 3-hour hemodialysis today. We will also maintain him on his regular Thursday, Thursday, and Thursday dialysis. This morning, he is feeling better. His shortness of breath slightly improved. OBJECTIVE: VITAL SIGNS: Blood pressure is noted at 121/56 with a heart rate of 73, respiratory rate 27, temperature 98.3, O2 saturation 99% on 3 L. GENERAL: The patient is awake, alert, comfortable, not in overt distress. SKIN: Adequate turgor. HEENT: Pinkish conjunctivae. Anicteric sclerae. No neck mass. No carotid bruits. No JVD. CHEST: No deformities. LUNGS: Clear breath sounds. HEART: Normal sinus rhythm. No murmur. No gallops. No rubs. ABDOMEN: Globular, soft, nontender. No masses. EXTREMITIES: No edema. No deformities. MEDICATIONS: Medications of February 07, 2020, were reviewed. LABORATORY DATA: Laboratory shows on February 07, 2020, white count 6.8, hemoglobin 10.3, sodium 132, potassium 4.3, chloride 97, carbon dioxide 17, BUN 59, creatinine 5.72, GFR 10 mL/minute, glucose 176, calcium 8.3, AST 26, ALT 8. C-reactive protein 26.45. CT angio of the chest/thorax, no pulmonary embolism. Chest x-ray shows diffuse infiltrate secondary to underlying pneumonia. ASSESSMENT AND PLAN: 1. COVID-19 pneumonia. Continue supportive care. Currently oxygenating adequately. No indication for intubation. 2. End-stage renal disease. Due to the contrast load given yesterday, the patient will undergo hemodialysis today. We will then resume back his Thursday, Thursday, and Thursday hemodialysis regimen. Last review of the Kt/V suggests this patient is adequately dialyzed with the current dialysis regimen. Please note, the patient also meets his regular Thursday hemodialysis. Overall prognosis remains guarded. Job ID: [id number]
[2020-02-07] MEDS: Heparin 5,000 UNITS/ML VIAL SC SCH ×3 (10:43→21:28)
[2020-02-07] MEDS: Dexamethasone 4 mg/ml Vial SLOW IVP SCH (10:43)
[2020-02-07 16:39] VITALS: BMI 25.9
[2020-02-07] MEDS: Metoprolol Tartrate 25 MG TAB PO SCH ×3 (17:49→22:26)
[2020-02-07] MEDS: Latanoprost 0.005% Ophth Soln 2.5 ml Bottle EA EYE SCH (21:30)
[2020-02-08] MEDS: Acetaminophen 325 MG TAB PO PRN ×3 (04:55→18:13)
[2020-02-08] MEDS: Metoprolol Tartrate 25 MG TAB PO SCH ×3 (08:16→20:16)
[2020-02-08] MEDS: Dexamethasone 4 mg/ml Vial SLOW IVP SCH (08:16)
[2020-02-08] MEDS: Mirtazapine 15 MG TAB PO SCH (08:16)
[2020-02-08] MEDS: Heparin 5,000 UNITS/ML VIAL SC SCH ×3 (08:17→20:15)
--- NOTE | 2020-02-08 08:36 | PDOC.HOSPP ---
- Subjective Encounter Date: 02/08/20 Encounter Time: 10:30 Subjective: High fever overnight. Still sating well on NC O2. Feeling weak overall. - Objective Vital Signs & Weight: Vital Signs (12 hours) Temp Pulse Resp BP Pulse Ox 02/08/20 08:00 99.1 F 84 20 185/73 H 95 02/08/20 06:20 101 F H 02/08/20 05:31 102.5 F H 02/08/20 04:55 101.3 F H 02/08/20 04:20 101.3 F H 81 40 H 161/72 H 92 L 02/08/20 00:45 98.9 F 73 24 H 140/70 97 02/07/20 22:50 98.1 F 77 28 H 124/70 99 02/07/20 22:35 98.2 F 78 28 H 135/72 98 02/07/20 21:45 98 F 80 28 H 129/70 97 Weight Weight 151 lb I&O: 02/07/20 02/08/20 02/09/20 06:59 06:59 06:59 Intake Total 600 Output Total 100 Balance 500 Result Diagrams: 02/08/20 08:00 02/08/20 08:00 Hospitalist ROS - Review of Systems Constitutional: reports: fever, weakness Respiratory: reports: cough, SOB with excertion. denies: shortness of breath Cardiovascular: denies: chest pain, palpitations Gastrointestinal: denies: nausea, vomiting, abdominal pain - Medication Medications: Active Medications Generic Name Dose Route Start Last Admin Trade Name Freq PRN Reason Stop Dose Admin Acetaminophen 650 mg 02/08/20 04:51 02/08/20 04:55 Acetaminophen 325 Mg Tab PO 650 mg Q6H PRN Administration Headache/Fever or Pain Dexamethasone 6 mg 02/07/20 09:00 02/08/20 08:16 Dexamethasone 4 Mg/Ml Vial SLOW IVP 6 mg DAILY FERNANDA Administration Heparin Sodium (Porcine) 5,000 units 02/07/20 09:00 02/08/20 08:17 Heparin 5,000 Units/Ml Vial SC 5,000 units TID FERNANDA Administration Isosorbide Mononitrate 60 mg 02/07/20 09:00 02/08/20 08:16 Isosorbide Mononitrate Er 60 Mg Tab PO 60 mg QAM FERNANDA Administration Latanoprost 1 drop 02/07/20 21:00 02/07/20 21:30 Latanoprost 0.005% Oph Soln 2.5 Ml Bottle EA EYE 1 drop HS FERNANDA Administration Metoprolol Tartrate 25 mg 02/07/20 15:00 02/08/20 08:16 Metoprolol Tartrate 25 Mg Tab PO 25 mg TID FERNANDA Administration Mirtazapine 15 mg 02/08/20 09:00 02/08/20 08:16 Mirtazapine 15 Mg Tab PO 15 mg DAILY FERNANDA Administration Pantoprazole Sodium 40 mg 02/07/20 09:00 02/08/20 08:16 Pantoprazole 40 Mg Tab PO 40 mg DAILY FERNANDA Administration Sertraline HCl 100 mg 02/07/20 09:00 02/08/20 08:16 Sertraline Hcl 100 Mg Tab PO 100 mg DAILY FERNANDA Administration - Exam General Appearance: NAD, awake alert ENT: moist mucosa Heart: RRR, no murmur, no gallops, no rubs Respiratory: CTAB, no wheezes, no rales, no ronchi Gastrointestinal: soft, non-tender, non-distended, normal bowel sounds Psychiatric: normal affect, normal behavior, A&O x 3 Hosp A/P - Plan 79 yo male with PMH of ESRD on dialysis MWF, HTN, HLD, CAD, ROSC in 2019 s/p AICD placement who presented with weakness and worsening respiratory distress in known Covid-19 infection. Acute hypoxic respiratory failure 2/2 COVID PNA on 3L NC -s/p decadron & albuterol treatments, continue steroids, convalescent plasma & remdesivir -Monitor respiratory status -COVID labs ordered to trend Hypokalemia -normalized after replacement -Magnesium 2.1 ESRD on Dialysis MWF - Dr. David consulted, doing extra dialysis due to IV contrast load CAD - s/p ROSC in 2019 with AICD placed - will resume home meds however is not entirely sure of all meds, will confirm with pharmacy in AM HTN - will resume home meds once identified - see above for current BP regimen HLD - will resume home meds once identified PCP: Dianne Mae ([facility]) PPx: Heparin TID GI Proph: Protonix Diet: Renal High Protein Code: FULL
[2020-02-08 08:49] LABS: #Monocytes 0.3 thou/uL (0.11-0.59); #Neutrophils 7.9 thou/uL (1.40-6.50); %Basophils 0.1 % (0.0-1.0); %Eosinophils 0.1 % (0.0-10.0); %Lymphocytes 10.6 % (21.0-51.0); %Monocytes 2.7 % (0.0-10.0); %Neutrophils 86.5 % (42.0-75.0); Hemoglobin 10.2 g/dL (14.0-18.0); Mean Corpuscular HGB CONC 31.8 g/dL (32.0-36.0); Mean Corpuscular Hemoglobin 28.9 pg (27.0-31.0); Mean Corpuscular Volume 90.7 fL (78.0-98.0); Mean Platelet Volume 8.1 fL (7.4-10.4); Platelet Count 195 thou/uL (130-400); RBC Distribution Width 14.1 % (11.5-14.5); Red Blood Cell (RBC) Count 3.53 mill/uL (4.70-6.10); White Blood Cell (WBC) Count 9.2 thou/uL (4.8-10.8)
[2020-02-08 08:56] LABS: ALT (SGPT) 9 U/L (8-55); AST (SGOT) 28 U/L (5-34); Albumin 3.6 g/dL (3.4-4.8); Alkaline Phosphatase 30 U/L (40-110); Anion Gap 20 mmol/L (10-20); BUN (Urea Nitrogen) 42 mg/dL (8.4-25.7); Bilirubin, Total 0.6 mg/dL (0.2-1.2); Calc. Creatinine Clearance 16 mL/min (70-130); Calcium 8.6 mg/dL (7.8-10.44); Carbon Dioxide 23 mmol/L (23-31); Chloride 99 mmol/L (98-107); Globulin 3.8 g/dL (2.4-3.5); Glucose 90 mg/dL (83-110); Potassium 3.8 mmol/L (3.5-5.1); Protein, Total 7.4 g/dL (5.8-8.1); Sodium 138 mmol/L (136-145)
[2020-02-08] MEDS ORDERED: Non-Formulary Item 1 EACH (Icosapent Ethyl 1 GM Capsule) PO SCH (09:00)
[2020-02-08] MEDS: Stress 600 With Zinc 1 TAB PO SCH (09:28)
[2020-02-08] MEDS: Icosapent Ethyl 1 GM CAPSULE PO SCH (09:30)
--- NOTE | 2020-02-08 09:45 | PRG ---
DATE OF SERVICE: 02/08/2020 SUBJECTIVE: Mr. Burleson is a 79-year-old male with known history of ESRD and currently on maintenance hemodialysis. He was admitted for COVID-19 pneumonia. This morning, he is feeling better. He denies any worsening shortness of breath. He has been empirically treated with IV Decadron. I have rescheduled this patient for his regular hemodialysis today. He underwent hemodialysis yesterday due to a missed treatment. OBJECTIVE: VITAL SIGNS: Blood pressure is 185/73, heart rate 84, respiratory rate 20, temperature 99.1, O2 saturation 95%. GENERAL: The patient is awake, alert, comfortable, not in distress. SKIN: Adequate turgor. HEENT: He has pinkish conjunctivae. Anicteric sclerae. No neck mass. No carotid bruits. No JVD. CHEST: No deformities. LUNGS: Decreased breath sounds. HEART: Normal sinus rhythm. No murmur. No gallops. No rubs. ABDOMEN: Globular, soft, nontender. No masses. EXTREMITIES: No edema. No deformities. MEDICATIONS: February 08, 2020, reviewed. LABORATORY DATA: On February 08, 2020; white count 9.2, hemoglobin 10.2. Sodium 138, potassium 3.8, chloride 99, carbon dioxide 23, BUN 42, creatinine 3.78, calcium 8.6, AST 28, ALT 9, albumin 3.6. ASSESSMENT AND PLAN: 1. End-stage renal disease, stable. We will continue current hemodialysis regimen. Again, fluid removal only as tolerated by the patient. He is scheduled for 3-hour hemodialysis today. 2. COVID-19 pneumonia. Continue with supportive care. He is currently, on steroids. From a pulmonary point of view, he is not worsening. Overall prognosis remains guarded. 3. Agree with current management. Job ID: [id number]
[2020-02-08] MEDS ORDERED: traMADol HCl 50 MG TAB PO SCH (20:15)
[2020-02-08] MEDS: Latanoprost 0.005% Ophth Soln 2.5 ml Bottle EA EYE SCH (20:16)
[2020-02-09] MEDS: Acetaminophen 325 MG TAB PO PRN ×2 (03:20→15:57)
--- NOTE | 2020-02-09 07:48 | PDOC.HOSPP ---
- Subjective Encounter Date: 02/09/20 Encounter Time: 10:00 Subjective: Patient woke up a bit confused last night, tried to get up, and fell. Hit his head and back. Head feeling fine now but thoracic spine and left anterior ribs painful. Oxygen requirement increasing. - Objective Vital Signs & Weight: Vital Signs (12 hours) Temp Pulse Resp BP Pulse Ox 02/09/20 04:45 97.5 F L 89 22 H 135/66 93 L 02/09/20 03:00 101.6 F H 90 24 H 153/70 H 93 L 02/09/20 00:35 95 02/08/20 20:00 98.0 F 77 18 128/85 95 Weight Weight 151 lb I&O: 02/08/20 02/09/20 02/10/20 06:59 06:59 06:59 Intake Total 600 720 Output Total 100 Balance 500 720 Result Diagrams: 02/09/20 10:23 02/09/20 10:23 Hospitalist ROS - Review of Systems Constitutional: denies: fever, chills Respiratory: reports: cough, shortness of breath, pleuritic pain Cardiovascular: denies: palpitations Gastrointestinal: denies: nausea, vomiting, abdominal pain Musculoskeletal: reports: back pain Neurological: denies: weakness, numbness - Medication Medications: Active Medications Generic Name Dose Route Start Last Admin Trade Name Albertoq PRN Reason Stop Dose Admin Acetaminophen 650 mg 02/08/20 04:51 02/09/20 03:20 Acetaminophen 325 Mg Tab PO 650 mg Q6H PRN Administration Headache/Fever or Pain Balsalazide 750 mg 02/08/20 09:00 02/08/20 09:30 Balsalazide Disodium 750 Mg Cap PO 750 mg DAILY FERNANDA Administration Dexamethasone 6 mg 02/07/20 09:00 02/08/20 08:16 Dexamethasone 4 Mg/Ml Vial SLOW IVP 6 mg DAILY FERNANDA Administration Heparin Sodium (Porcine) 5,000 units 02/07/20 09:00 02/08/20 20:15 Heparin 5,000 Units/Ml Vial SC 5,000 units TID FERNANDA Administration Isosorbide Mononitrate 60 mg 02/07/20 09:00 02/08/20 08:16 Isosorbide Mononitrate Er 60 Mg Tab PO 60 mg QAM FERNANDA Administration Latanoprost 1 drop 02/07/20 21:00 02/08/20 20:16 Latanoprost 0.005% Ophth Soln 2.5 Ml Bottle EA EYE 1 drop HS FERNANDA Administration Metoprolol Tartrate 25 mg 02/07/20 15:00 02/08/20 20:16 Metoprolol Tartrate 25 Mg Tab PO 25 mg TID FERNANDA Administration Mirtazapine 15 mg 02/08/20 09:00 02/08/20 08:16 Mirtazapine 15 Mg Tab PO 15 mg DAILY FERNANDA Administration Miscellaneous Medication 1 gm 02/08/20 09:00 02/08/20 09:30 Icosapent Ethyl 1 Gm Capsule PO 1 gm DAILY FERNANDA Administration Multivitamins/Zinc 1 tab 02/08/20 09:00 02/08/20 09:28 Stress 600 With Zinc 1 Tab PO 1 tab DAILY FERNANDA Administration Pantoprazole Sodium 40 mg 02/07/20 09:00 02/08/20 08:16 Pantoprazole 40 Mg Tab PO 40 mg DAILY FERNANDA Administration Sertraline HCl 100 mg 02/07/20 09:00 02/08/20 08:16 Sertraline Hcl 100 Mg Tab PO 100 mg DAILY FERNANDA Administration - Exam General Appearance: NAD, awake alert ENT: moist mucosa Heart: RRR, no murmur, no gallops, no rubs Respiratory: CTAB, no wheezes, no rales, no ronchi Respiratory - other findings: TTP left anterior ribs Gastrointestinal: soft, non-tender, non-distended, normal bowel sounds Neurological: normal sensation to touch, no weakness, no focal deficits Musculoskeletal - other findings: TTP mid to low thoracic spine, left side and midline Psychiatric: normal affect, normal behavior, A&O x 3 Hosp A/P - Plan 79 yo male with PMH of ESRD on dialysis MWF, HTN, HLD, CAD, ROSC in 2019 s/p AICD placement who presented with weakness and worsening respiratory distress in known Covid-19 infection. Acute hypoxic respiratory failure 2/2 COVID PNA on 3L NC -s/p decadron & albuterol treatments, continue steroids, convalescent plasma & remdesivir -Monitor respiratory status -COVID labs ordered to trend Acute respiratory failure with hypoxia -increased O2 requirement on 5L NC this AM -wean as tolerated Fall -Patient fell trying to get out of bed 02/08/2020 evening, pain in back and ribs. Checking CXR, T-spine CT. Hypokalemia -normalized after replacement -Magnesium 2.1 ESRD on Dialysis MWF - Dr. David consulted, doing extra dialysis due to IV contrast load CAD - s/p ROSC in 2019 with AICD placed - will resume home meds however is not entirely sure of all meds, will confirm with pharmacy in AM HTN - will resume home meds once identified - see above for current BP regimen HLD - will resume home meds once identified PCP: Dianne Mae ([facility]) PPx: Heparin TID GI Proph: Protonix Diet: Renal High Protein Code: FULL
[2020-02-09] MEDS: Heparin 5,000 UNITS/ML VIAL SC SCH ×3 (08:00→20:53)
[2020-02-09] MEDS: Icosapent Ethyl 1 GM CAPSULE PO SCH (08:00)
[2020-02-09] MEDS: Mirtazapine 15 MG TAB PO SCH (08:01)
[2020-02-09] MEDS: Stress 600 With Zinc 1 TAB PO SCH (08:01)
[2020-02-09] MEDS: Metoprolol Tartrate 25 MG TAB PO SCH ×3 (08:01→20:53)
[2020-02-09] MEDS: Dexamethasone 4 mg/ml Vial SLOW IVP SCH (08:04)
--- NOTE | 2020-02-09 09:29 | PRG ---
DATE OF SERVICE: 02/09/2020 SERVICE: Renal Medicine. SUBJECTIVE: Mr. Burleson is a 79-year-old male with ESRD and admitted for COVID-19 pneumonia. We are following him up for management of his ESRD on maintenance hemodialysis. He underwent hemodialysis yesterday without any difficulty. He did fall yesterday and is complaining of some muscle aches. He denies any worsening shortness of breath. He denies any fever. OBJECTIVE: VITAL SIGNS: Blood pressure 145/55, heart rate 84, respiratory rate 20, temperature 98.5, and O2 saturation 93%. GENERAL: The patient is noted to be awake, alert, comfortable, not in distress. SKIN: Adequate turgor. HEENT: He has pinkish conjunctivae. Anicteric sclerae. NECK: No neck mass. No carotid bruits. No JVD. CHEST: No deformities. LUNGS: Clear breath sounds. HEART: Normal sinus rhythm. No murmurs. No gallops. No rubs. ABDOMEN: Globular, soft, and nontender. No masses. Extremities: No edema. No deformities. MEDICATIONS: February 09, 2020, reviewed. LABORATORY DATA: February 08, 2020; white count 9.2, hemoglobin 10.2. Sodium 138, potassium 3.8, chloride 99, carbon dioxide 23, BUN 42, creatinine 3.78, AST 28, ALT 9, albumin 3.6. ASSESSMENT AND PLAN: 1. Borderline anemia. We will resume back Epogen at 7500 units subcu every week. 2. End-stage renal disease, stable, tolerating current hemodialysis regimen. I do not find any indication for any emergent hemodialysis with this patient. 3. COVID-19 pneumonia. Continue supportive care. Currently, on steroids. We will recheck CBC and basic metabolic panel in a.m. Job ID: [id number]
[2020-02-09] MEDS ORDERED: EPOETIN ALFA-EPBX (ESRD) 4,000 UNIT/ML VIAL SC SCH (09:30)
[2020-02-09 10:38] LABS: #Lymphocytes 0.8 thou/uL (1.20-3.40); #Monocytes 0.2 thou/uL (0.11-0.59); #Neutrophils 11.5 thou/uL (1.40-6.50); %Basophils 0.3 % (0.0-1.0); %Eosinophils 0.1 % (0.0-10.0); %Lymphocytes 6.6 % (21.0-51.0); %Monocytes 1.9 % (0.0-10.0); %Neutrophils 91.1 % (42.0-75.0); Hemoglobin 9.5 g/dL (14.0-18.0); Mean Corpuscular HGB CONC 31.9 g/dL (32.0-36.0); Mean Corpuscular Volume 91.1 fL (78.0-98.0); Mean Platelet Volume 7.9 fL (7.4-10.4); Platelet Count 207 thou/uL (130-400); RBC Distribution Width 13.6 % (11.5-14.5); Red Blood Cell (RBC) Count 3.27 mill/uL (4.70-6.10); White Blood Cell (WBC) Count 12.6 thou/uL (4.8-10.8)
--- NOTE | 2020-02-09 11:01 | RAD ---
Chest one view HISTORY: Chest pain. COMPARISON: 02/06/2020. FINDINGS: Cardiac silhouette is magnified and upper limits of normal in size. Margins partially obscu red by increasing density patchy bilateral infiltrates more pronounced in the lower lobes. Mediastinum is midline with aortic calcification. No lobar consolidation or evidence of pneumothorax. No displaced rib fracture evident. Electronic mon itoring device over the left chest wall. IMPRESSION : Worsening bibasilar infiltrates.
[2020-02-09 11:03] LABS: ALT (SGPT) Less than 7 U/L (8-55); AST (SGOT) 29 U/L (5-34); Albumin 3.5 g/dL (3.4-4.8); Alkaline Phosphatase 32 U/L (40-110); Anion Gap 18 mmol/L (10-20); BUN (Urea Nitrogen) 36 mg/dL (8.4-25.7); Bilirubin, Total 0.8 mg/dL (0.2-1.2); Calc. Creatinine Clearance 16 mL/min (70-130); Calcium 8.5 mg/dL (7.8-10.44); Carbon Dioxide 26 mmol/L (23-31); Chloride 94 mmol/L (98-107); Glucose 141 mg/dL (83-110); Potassium 3.6 mmol/L (3.5-5.1); Protein, Total 7.5 g/dL (5.8-8.1); Sodium 134 mmol/L (136-145)
--- NOTE | 2020-02-09 11:59 | CT ---
CT OF THORACIC SPINE PERFORMED WITHOUT CONTRAST ENHANCEMENT: HISTORY: Patient with upper back pain status post fall. The bones appear demineralized. There are more flowing-type calcifications along the anterior longit udinal ligament and dense ossification along the tips of the spinous processes. There are some areas of lucency within these areas of dense ossification of this interspinous ligament which are related t o fractures. The 2 areas that are seen show well-defined more sclerotic margins and I actually think I can see these areas on the older chest x-ray and, therefore, I do not believe that these are acute . There is also some fusion of some of the apophyseal joints and some fusion across the costovertebr al joints. These changes are more characteristic of ankylosing spondylitis than DISH. Ground-glass opacities in both lung ahyward are compatible with COVID pneumonia which has been previou sly described. IMPRESSION: No evidence of any acute thoracic spine injury. Ossification as noted above with fusion across some of the apophyseal and costovertebral joints has characteristics suggestive of ankylosing spondylosis. These features are not typical with diffuse idiopathic skeletal hyperostosis (DISH). POS: AH
[2020-02-09] MEDS: Latanoprost 0.005% Ophth Soln 2.5 ml Bottle EA EYE SCH (20:53)
[2020-02-10 06:34] LABS: #Monocytes 0.3 thou/uL (0.11-0.59); #Neutrophils 9.6 thou/uL (1.40-6.50); %Basophils 0.1 % (0.0-1.0); %Eosinophils 0.1 % (0.0-10.0); %Lymphocytes 9.5 % (21.0-51.0); %Monocytes 2.9 % (0.0-10.0); %Neutrophils 87.4 % (42.0-75.0); Hemoglobin 10.4 g/dL (14.0-18.0); Mean Corpuscular HGB CONC 34.7 g/dL (32.0-36.0); Mean Corpuscular Volume 92.2 fL (78.0-98.0); Mean Platelet Volume 7.8 fL (7.4-10.4); Platelet Count 221 thou/uL (130-400); RBC Distribution Width 13.5 % (11.5-14.5); Red Blood Cell (RBC) Count 3.27 mill/uL (4.70-6.10)
[2020-02-10 06:56] LABS: ALT (SGPT) 10 U/L (8-55); AST (SGOT) 29 U/L (5-34); Albumin 3.6 g/dL (3.4-4.8); Alkaline Phosphatase 33 U/L (40-110); Anion Gap 23 mmol/L (10-20); BUN (Urea Nitrogen) 51 mg/dL (8.4-25.7); Bilirubin, Total 0.7 mg/dL (0.2-1.2); Calc. Creatinine Clearance 13 mL/min (70-130); Carbon Dioxide 20 mmol/L (23-31); Chloride 95 mmol/L (98-107); Globulin 4.3 g/dL (2.4-3.5); Glucose 81 mg/dL (83-110); Potassium 4.1 mmol/L (3.5-5.1); Protein, Total 7.9 g/dL (5.8-8.1); Sodium 134 mmol/L (136-145)
[2020-02-10] MEDS: Dexamethasone 4 mg/ml Vial SLOW IVP SCH (08:12)
[2020-02-10] MEDS: Metoprolol Tartrate 25 MG TAB PO SCH ×3 (08:13→20:51)
[2020-02-10] MEDS: Stress 600 With Zinc 1 TAB PO SCH (08:13)
[2020-02-10] MEDS: Heparin 5,000 UNITS/ML VIAL SC SCH ×3 (08:13→20:51)
[2020-02-10] MEDS: Icosapent Ethyl 1 GM CAPSULE PO SCH (08:13)
[2020-02-10] MEDS: Mirtazapine 15 MG TAB PO SCH (08:14)
--- NOTE | 2020-02-10 14:33 | PDOC.HOSPP ---
- Subjective Encounter Date: 02/10/20 Encounter Time: 11:00 Subjective: Patient has to be on a Ventimask at the 50% FiO2. He desats rapidly with mild exertion and even with talking. Through the Ventimask he says he is doing okay. - Objective Vital Signs & Weight: Vital Signs (12 hours) Temp Pulse Resp BP Pulse Ox 02/10/20 11:57 98.0 F 98 16 115/57 L 16 L 02/10/20 08:00 98.4 F 75 18 129/66 95 Weight Weight 151 lb I&O: 02/09/20 02/10/20 02/11/20 06:59 06:59 06:59 Intake Total 720 1045 480 Output Total 300 Balance 720 745 480 Result Diagrams: 02/10/20 06:13 02/10/20 06:13 Hospitalist ROS - Medication Medications: Active Medications Generic Name Dose Route Start Last Admin Trade Name Freq PRN Reason Stop Dose Admin Acetaminophen 650 mg 02/08/20 04:51 02/09/20 15:57 Acetaminophen 325 Mg Tab PO 650 mg Q6H PRN Administration Headache/Fever or Pain Balsalazide 750 mg 02/08/20 09:00 02/10/20 08:14 Balsalazide Disodium 750 Mg Cap PO 750 mg DAILY FERNANDA Administration Dexamethasone 6 mg 02/07/20 09:00 02/10/20 08:12 Dexamethasone 4 Mg/Ml Vial SLOW IVP 6 mg DAILY FERNANDA Administration Heparin Sodium (Porcine) 5,000 units 02/07/20 09:00 02/10/20 08:13 Heparin 5,000 Units/Ml Vial SC 5,000 units TID FERNANDA Administration Isosorbide Mononitrate 60 mg 02/07/20 09:00 02/10/20 08:13 Isosorbide Mononitrate Er 60 Mg Tab PO 60 mg QAM FERNANDA Administration Latanoprost 1 drop 02/07/20 21:00 02/09/20 20:53 Latanoprost 0.005% Ophth Soln 2.5 Ml Bottle EA EYE 1 drop HS FERNANDA Administration Metoprolol Tartrate 25 mg 02/07/20 15:00 02/10/20 08:13 Metoprolol Tartrate 25 Mg Tab PO 25 mg TID FERNANDA Administration Mirtazapine 15 mg 02/08/20 09:00 01/01/21 08:14 Mirtazapine 15 Mg Tab PO 15 mg DAILY FERNANDA Administration Miscellaneous Medication 1 gm 02/08/20 09:00 02/10/20 08:13 Icosapent Ethyl 1 Gm Capsule PO 1 gm DAILY FERNANDA Administration Multivitamins/Zinc 1 tab 02/08/20 09:00 02/10/20 08:13 Stress 600 With Zinc 1 Tab PO 1 tab DAILY FERNANDA Administration Pantoprazole Sodium 40 mg 02/07/20 09:00 02/10/20 08:14 Pantoprazole 40 Mg Tab PO 40 mg DAILY FERNANDA Administration Sertraline HCl 100 mg 02/07/20 09:00 02/10/20 08:13 Sertraline Hcl 100 Mg Tab PO 100 mg DAILY FERNANDA Administration - Exam General Appearance: NAD, awake alert, ill appearing Eye: PERRL ENT: normocephalic atraumatic Neck: supple Heart: RRR, normal peripheral pulses Respiratory: CTAB, normal chest expansion Gastrointestinal: soft, normal bowel sounds Neurological: cranial nerve grossly intact Hosp A/P - Plan 79 yo male with PMH of ESRD on dialysis MWF, HTN, HLD, CAD, ROSC in 2019 s/p AICD placement who presented with weakness and worsening respiratory distress in known Covid-19 infection. Acute hypoxic respiratory failure 2/2 COVID PNA on 3L NC -decadron & albuterol treatments, continue steroids, convalescent plasma & remdesivir -Monitor respiratory status -COVID labs ordered to trend -Add vitamin C and zinc -Heparin 3 times daily for DVT prophylaxis Acute respiratory failure with hypoxia -increased O2 requirement on 5L NC this AM -wean as tolerated Fall -Patient fell trying to get out of bed 02/08/2020 evening, pain in back and ribs. Checking CXR, T-spine CT. Hypokalemia -normalized after replacement -Magnesium 2.1 ESRD on Dialysis MWF - Dr. David consulted, doing extra dialysis due to IV contrast load CAD - s/p ROSC in 2018 with AICD placed - will resume home meds however is not entirely sure of all meds, will confirm with pharmacy in AM HTN - will resume home meds once identified - see above for current BP regimen HLD - will resume home meds once identified
--- NOTE | 2020-02-10 14:58 | PRG ---
DATE OF SERVICE: 02/10/2020 SUBJECTIVE: Mr. Burleson is a 79-year-old male with ESRD and was admitted for COVID-19 pneumonia. He is currently being managed supportively. The patient is currently on steroids. We are following him up for his maintenance hemodialysis. I have scheduled him for hemodialysis this afternoon. He did receive dialysis Thursday and he tolerated it. No other complaints. He tells me his shortness of breath is not worsening. OBJECTIVE: VITAL SIGNS: Blood pressure 115/57, heart rate 98, respiratory rate 16, O2 saturation is 95%, and temperature 98. GENERAL: Awake and comfortable, not in distress. SKIN: Adequate turgor. HEENT: Slightly pale conjunctivae. Anicteric sclerae. NECK: No neck mass. No carotid bruits. No JVD. CHEST: No deformities. LUNGS: Decreased breath sounds. HEART: Normal sinus rhythm. No murmur. No gallops. No rubs. ABDOMEN: Globular, soft, and nontender. No masses. EXTREMITIES: No edema. No deformities. MEDICATIONS: Medications of February 10, 2020, reviewed. LABORATORY DATA: Laboratories of February 10, 2020, white count 11 and hemoglobin 10.4. Sodium 134, potassium 4.1, chloride 95, carbon dioxide 20, BUN 51, creatinine 4.53. AST 29, ALT 10, and albumin 3.6. Procalcitonin 1.31. ASSESSMENT AND PLAN: 1. COVID-19 pneumonia. Continuing supportive care. The patient is relatively stable. No indication for any intubation. 2. End-stage renal disease, stable. We will continue current Thursday, Thursday, and Thursday dialysis. The patient is scheduled for his regular dialysis treatment today. We will attempt fluid removal only as tolerated by the patient. 3. Borderline anemia, currently on weekly Epogen. Agree with current management. Job ID: [id number]
[2020-02-10] MEDS: Acetaminophen 325 MG TAB PO PRN (15:34)
[2020-02-10] MEDS ORDERED: EPOETIN ALFA-EPBX (ESRD) 4,000 UNIT/ML VIAL SC SCH (20:00)
[2020-02-10] MEDS: Latanoprost 0.005% Ophth Soln 2.5 ml Bottle EA EYE SCH (20:51)
[2020-02-11 06:13] LABS: #Monocytes 0.3 thou/uL (0.11-0.59); #Neutrophils 10.1 thou/uL (1.40-6.50); %Eosinophils 0.1 % (0.0-10.0); %Lymphocytes 8.7 % (21.0-51.0); %Monocytes 2.2 % (0.0-10.0); Hemoglobin 10.5 g/dL (14.0-18.0); Mean Corpuscular HGB CONC 33.5 g/dL (32.0-36.0); Mean Corpuscular Hemoglobin 30.6 pg (27.0-31.0); Mean Corpuscular Volume 91.3 fL (78.0-98.0); Mean Platelet Volume 7.5 fL (7.4-10.4); Platelet Count 295 thou/uL (130-400); RBC Distribution Width 13.6 % (11.5-14.5); Red Blood Cell (RBC) Count 3.42 mill/uL (4.70-6.10); White Blood Cell (WBC) Count 11.4 thou/uL (4.8-10.8)
[2020-02-11 06:26] LABS: ALT (SGPT) 9 U/L (8-55); AST (SGOT) 24 U/L (5-34); Albumin 3.7 g/dL (3.4-4.8); Alkaline Phosphatase 39 U/L (40-110); Anion Gap 22 mmol/L (10-20); BUN (Urea Nitrogen) 39 mg/dL (8.4-25.7); Bilirubin, Total 1.1 mg/dL (0.2-1.2); Calc. Creatinine Clearance 16 mL/min (70-130); Calcium 9.4 mg/dL (7.8-10.44); Carbon Dioxide 25 mmol/L (23-31); Chloride 96 mmol/L (98-107); Globulin 4.7 g/dL (2.4-3.5); Glucose 118 mg/dL (83-110); Potassium 3.8 mmol/L (3.5-5.1); Protein, Total 8.4 g/dL (5.8-8.1); Sodium 139 mmol/L (136-145)
[2020-02-11 06:28] LABS: Actual Bicarbonate (HCO3a) 24.8 mEq/L (22-28); Base Excess (BEa) 3.1 mEq/L (-2.0 to +3.0); Calcium, Ionized (arterial) 1.08 mmol/L (1.12-1.30); Carboxyhemoglobin (COHb) 0.7 gm% (0.0-3.0); Hemoglobin (Hb) 10.2 g/dL (14.0-18.0); Potassium - ABG Lab 3.69 mmol/L (3.70-5.30)
[2020-02-11 06:55] LABS: O2 Tension (PaO2), arterial 49.7 mmHg (> 70.0); Puncture Site RRA; pH, Arterial 7.57 (7.35-7.45)
[2020-02-11] MEDS: Dexamethasone 4 mg/ml Vial SLOW IVP SCH (08:56)
[2020-02-11] MEDS: Icosapent Ethyl 1 GM CAPSULE PO SCH (08:58)
[2020-02-11] MEDS: Metoprolol Tartrate 25 MG TAB PO SCH ×3 (08:59→20:39)
[2020-02-11] MEDS: Heparin 5,000 UNITS/ML VIAL SC SCH ×3 (08:59→20:38)
[2020-02-11] MEDS: Mirtazapine 15 MG TAB PO SCH (08:59)
[2020-02-11] MEDS: Stress 600 With Zinc 1 TAB PO SCH (08:59)
[2020-02-11] MEDS: Zinc Sulfate 220 MG CAP PO SCH (08:59)
[2020-02-11] MEDS: Ascorbic Acid 500 mg Chewable Tablet PO SCH (09:00)
--- NOTE | 2020-02-11 10:33 | PRG ---
DATE OF SERVICE: 02/11/2020 SUBJECTIVE: Mr. Burleson is a 80-year-old male with ESRD - on maintenance hemodialysis and was admitted for COVID-19 pneumonia. The patient is now requiring high-flow O2. In addition, he underwent hemodialysis without any difficulty yesterday. Fluid removal was done. He voices no new complaints today. He still noted to be desaturating on exertion. OBJECTIVE: VITAL SIGNS: Blood pressure 183/79, heart rate 79, respiratory rate 24, temperature 99.7, O2 saturation 93%. GENERAL: The patient is awake, sitting comfortable, not in overt distress. SKIN: Adequate turgor. HEENT: Pinkish conjunctivae. Anicteric sclerae. NECK: No neck mass. No carotid bruits. No JVD. CHEST: No deformities. LUNGS: Decreased breath sounds. HEART: Normal sinus rhythm. No murmur. No gallops. No rubs. ABDOMEN: Globular, soft, nontender. No masses. EXTREMITIES: No edema. MEDICATIONS: On February 11, 2020, were reviewed. LABORATORY DATA: On February 11, 2020; white count 11.4, hemoglobin 10.5. Sodium 139, potassium 3.8, chloride 96, carbon dioxide 25, BUN 39, creatinine 3.76, glucose 118, calcium 9.4, AST 24, ALT 9, albumin 3.7. C-reactive protein is 30. Ferritin [id number]. ASSESSMENT AND PLAN: 1. COVID-19 pneumonia-no clinical improvement. Parameters are being observed. Please note C-reactive protein still elevated at 30.35. Continuing Decadron. 2. End-stage renal disease, stable. Continuing regular maintenance hemodialysis of Thursday, Thursday, and Thursday. No indication for any emergent hemodialysis. 3. Anemia, on weekly Epogen. 4. Overall, prognosis remains guarded. Job ID: [id number]
[2020-02-11] MEDS ORDERED: Ondansetron PF 4 MG/2 ML Vial IVP SCH (10:45)
[2020-02-11] MEDS: Acetaminophen 325 MG TAB PO PRN (11:12)
--- NOTE | 2020-02-11 11:53 | PDOC.HOSPP ---
- Subjective Encounter Date: 02/11/20 Encounter Time: 11:51 Subjective: Patient reports having mild soreness in his back from laying in bed otherwise denies any complaints. He had dialysis yesterday without any complications or difficulties afterwards. Denies any chest pain. Afebrile overnight. Had mild nausea earlier today but resolved after he received Zofran. Denies any vomiting or abdominal pain. He states he feels "fine". - Objective Vital Signs & Weight: Vital Signs (12 hours) Temp Pulse Resp BP Pulse Ox 02/11/20 11:20 100.0 F H 79 24 H 122/65 95 02/11/20 07:41 99.7 F H 79 24 H 183/79 H 93 L 02/11/20 00:06 92 L 02/11/20 00:00 97.8 F 79 22 H 151/70 H 92 L Weight Weight 151 lb I&O: 02/10/20 02/11/20 02/12/20 06:59 06:59 06:59 Intake Total 1045 1044 Output Total 300 200 Balance 745 844 Result Diagrams: 02/11/20 05:55 02/11/20 05:55 Hospitalist ROS - Medication Medications: Active Medications Generic Name Dose Route Start Last Admin Trade Name Freq PRN Reason Stop Dose Admin Acetaminophen 650 mg 02/08/20 04:51 02/11/20 11:12 Acetaminophen 325 Mg Tab PO 650 mg Q6H PRN Administration Headache/Fever or Pain Ascorbic Acid 1,000 mg 02/11/20 09:00 02/11/20 09:00 Ascorbic Acid 500 Mg Chewable Tablet PO 1,000 mg DAILY FERNANDA Administration Balsalazide 750 mg 02/08/20 09:00 02/11/20 08:59 Balsalazide Disodium 750 Mg Cap PO 750 mg DAILY FERNANDA Administration Dexamethasone 6 mg 02/07/20 09:00 02/11/20 08:56 Dexamethasone 4 Mg/Ml Vial SLOW IVP 6 mg DAILY FERNANDA Administration Epoetin Jim-epbx 7,500 unit 02/10/20 20:00 02/10/20 20:50 Epoetin Jim-Epbx (Esrd) 4,000 Unit/Ml Vial SC 7,500 unit Q7D FERNANDA Administration Heparin Sodium (Porcine) 5,000 units 02/07/20 09:00 02/11/20 08:59 Heparin 5,000 Units/Ml Vial SC 5,000 units TID FERNANDA Administration Isosorbide Mononitrate 60 mg 02/07/20 09:00 02/11/20 08:59 Isosorbide Mononitrate Er 60 Mg Tab PO 60 mg QAM FERNANDA Administration Latanoprost 1 drop 02/07/20 21:00 02/10/20 20:51 Latanoprost 0.005% Ophth Soln 2.5 Ml Bottle EA EYE 1 drop HS FERNANDA Administration Metoprolol Tartrate 25 mg 02/07/20 15:00 02/11/20 08:59 Metoprolol Tartrate 25 Mg Tab PO 25 mg TID FERNANDA Administration Mirtazapine 15 mg 02/08/20 09:00 02/11/20 08:59 Mirtazapine 15 Mg Tab PO 15 mg DAILY FERNANDA Administration Miscellaneous Medication 1 gm 02/08/20 09:00 02/11/20 08:58 Icosapent Ethyl 1 Gm Capsule PO 1 gm DAILY FERNANDA Administration Multivitamins/Zinc 1 tab 02/08/20 09:00 02/11/20 08:59 Stress 600 With Zinc 1 Tab PO 1 tab DAILY FERNANDA Administration Ondansetron HCl 4 mg 02/11/20 10:45 02/11/20 11:03 Ondansetron Pf 4 Mg/2 Ml Vial IVP 02/11/20 12:00 4 mg NOW FERNANDA Administration Pantoprazole Sodium 40 mg 02/07/20 09:00 02/11/20 08:59 Pantoprazole 40 Mg Tab PO 40 mg DAILY FERNANDA Administration Sertraline HCl 100 mg 02/07/20 09:00 02/11/20 08:59 Sertraline Hcl 100 Mg Tab PO 100 mg DAILY FERNANDA Administration Zinc Sulfate 220 mg 02/11/20 09:00 02/11/20 08:59 Zinc Sulfate 220 Mg Cap PO 220 mg DAILY FERNANDA Administration - Exam General Appearance: NAD, awake alert ENT: dry oral mucosa Neck: supple, no lymphadenopathy Respiratory: CTAB Gastrointestinal: soft, non-tender, non-distended, normal bowel sounds, no guarding, no rigidity Extremities: no edema Skin: no rashes, tenting Neurological: cranial nerve grossly intact, normal sensation to touch Musculoskeletal: normal tone, normal strength Psychiatric: normal affect, normal behavior, A&O x 3 Hosp A/P (1) Acute respiratory failure with hypoxia Code(s): J96.01 - ACUTE RESPIRATORY FAILURE WITH HYPOXIA Status: Acute (2) Pneumonia due to COVID-19 virus Code(s): U07.1 - COVID-19; J12.89 - OTHER VIRAL PNEUMONIA Status: Acute (3) ESRD (end stage renal disease) on dialysis Code(s): N18.6 - END STAGE RENAL DISEASE; Z99.2 - DEPENDENCE ON RENAL DIALYSIS Status: Acute (4) Fall during current hospitalization Code(s): W19.XXXA - UNSPECIFIED FALL, INITIAL ENCOUNTER; Y92.239 - UNSP PLACE IN HOSPITAL PLACE Status: Acute (5) BPH (benign prostatic hyperplasia) Code(s): N40.0 - BENIGN PROSTATIC HYPERPLASIA WITHOUT LOWER URINRY TRACT SYMP Status: Chronic Qualifiers: Lower urinary tract symptom presence: symptoms present Lower urinary tract symptom detail: unspecified Qualified Code(s): N40.1 - Benign prostatic hyperplasia with lower urinary tract symptoms (6) CAD (coronary artery disease) Code(s): I25.10 - ATHSCL HEART DISEASE OF [place] CORONARY ARTERY W/O ANG PCTRS Status: Chronic Qualifiers: Coronary Disease-Associated Artery/Lesion type: [place] artery [place] vs. transplanted heart: [place] heart Associated angina: without angina Qualified Code(s): I25.10 - Atherosclerotic heart disease of [place] coronary artery without angina pectoris (7) HTN (hypertension) Code(s): I10 - ESSENTIAL (PRIMARY) HYPERTENSION Status: Chronic Qualifiers: Hypertension type: essential hypertension (8) Hyperlipidemia Code(s): E78.5 - HYPERLIPIDEMIA, UNSPECIFIED Status: Chronic (9) Chronic anemia Code(s): D64.9 - ANEMIA, UNSPECIFIED Status: Acute - Plan COVID pneumonia: Continue IV dex, albuterol, and remdesivir Continue to monitor O2 sats Receiving vitamin C and Zinc Monitor inflammatory markers Acute Hypoxic Respiratory Failure: Secondary to above Supplemental oxygenation with 35L via high flow, wean as tolerated Stable, sats 97% Continue inhalers Fever: Temp 100 today, was not afebrile prior to today Likely secondary to COVID pneumonia Obtain blood cultures, check lactic acid UA/UCx ordered via straight cath Once above completed, will start Azithromycin/Rocephin Fall during current hospitalization: Fell on 02/08/2020 s/p CT Thoracic spine, no acute abnormalitis ESRD on HD (MWF): Dr. David following, appreciate nephrology input S/p dialysis yesterday Continue dialysis and recommendations per Dr. David HTN: Home meds restarted Monitor BP CAD: S/p ROSC in 2019 with AICD placed Home meds restarted (not yet verified by RN) HLD: Continue home meds once verified Monitor LFTs GI Prophylaxis: Famotidine DVT Prophylaxis: Receiving Heparin CODE STATUS: FULL CODE Case discussed with attending who agrees with plan as above.
[2020-02-11 13:13] LABS: Lactic Acid 1.3 mmol/L (0.5-2.2)
--- NOTE | 2020-02-11 16:38 | EKG ---
Test Reason : SOB Blood Pressure : / mmHG Vent. Rate : 086 BPM Atrial Rate : 086 BPM P-R Int : 112 ms QRS Dur : 102 ms QT Int : 396 ms P-R-T Axes : 038 -21 034 degrees QTc Int : 473 ms Normal sinus rhythm Incomplete right bundle branch block Voltage criteria for left ventricular hypertrophy Abnormal ECG Confirmed by PETEY Velasco, MARIBEL ([id number]), purchasing expeditor TANG JACOBSON ([id number]) on 02/11/2020 4:38:41 PM Referred By: ERSTXO Confirmed By:MARIBEL ANGELO M.D.
[2020-02-11 16:50] LABS: Bacteria/HPF None Seen HPF (None Seen); Bilirubin Negative (Negative); Blood, Urine Negative (Negative); Clarity Clear (Clear); Glucose, Urine (Dipstick) Normal (Negative); Ketone, Urine Negative (Negative); Leukocyte Negative Leu/uL (Negative); Nitrite Negative (Negative); Protein, Urine (Dipstick) 100 mg/dL (Neg-Trace); RBC/HPF 0-3 HPF (0-3); Specific Gravity, Urine 1.016 (1.002-1.036); Squamous Epithelial None Seen HPF (0-3); Urobilinogen Normal mg/dL (Less than 2)
[2020-02-11 16:51] LABS: Urine Culture Reflex Yes Yes
[2020-02-11] MEDS: Latanoprost 0.005% Ophth Soln 2.5 ml Bottle EA EYE SCH (20:38)
[2020-02-12 06:15] LABS: Lactic Acid 1.1 mmol/L (0.5-2.2)
[2020-02-12 06:21] LABS: ALT (SGPT) 7 U/L (8-55); AST (SGOT) 15 U/L (5-34); Albumin 3.4 g/dL (3.4-4.8); Alkaline Phosphatase 38 U/L (40-110); Anion Gap 23 mmol/L (10-20); BUN (Urea Nitrogen) 69 mg/dL (8.4-25.7); Bilirubin, Total 0.8 mg/dL (0.2-1.2); Calc. Creatinine Clearance 11 mL/min (70-130); Calcium 8.8 mg/dL (7.8-10.44); Carbon Dioxide 23 mmol/L (23-31); Chloride 96 mmol/L (98-107); Globulin 4.3 g/dL (2.4-3.5); Glucose 91 mg/dL (83-110); Magnesium 2.4 mg/dL (1.6-2.6); Potassium 3.7 mmol/L (3.5-5.1); Protein, Total 7.7 g/dL (5.8-8.1); Sodium 138 mmol/L (136-145)
[2020-02-12 06:26] LABS: #Basophils 0.1 thou/uL (0.0-0.2); #Lymphocytes 0.8 thou/uL (1.20-3.40); #Monocytes 0.3 thou/uL (0.11-0.59); #Neutrophils 9.2 thou/uL (1.40-6.50); %Basophils 0.5 % (0.0-1.0); %Eosinophils 0.2 % (0.0-10.0); %Lymphocytes 7.6 % (21.0-51.0); %Monocytes 2.7 % (0.0-10.0); Hemoglobin 9.7 g/dL (14.0-18.0); Mean Corpuscular HGB CONC 33.6 g/dL (32.0-36.0); Mean Corpuscular Hemoglobin 30.7 pg (27.0-31.0); Mean Corpuscular Volume 91.5 fL (78.0-98.0); Mean Platelet Volume 7.4 fL (7.4-10.4); Platelet Count 290 thou/uL (130-400); RBC Distribution Width 13.7 % (11.5-14.5); Red Blood Cell (RBC) Count 3.15 mill/uL (4.70-6.10); White Blood Cell (WBC) Count 10.3 thou/uL (4.8-10.8)
[2020-02-12] MEDS: Icosapent Ethyl 1 GM CAPSULE PO SCH (09:23)
[2020-02-12] MEDS: Metoprolol Tartrate 25 MG TAB PO SCH ×3 (09:23→20:17)
[2020-02-12] MEDS: Stress 600 With Zinc 1 TAB PO SCH (09:23)
[2020-02-12] MEDS: Mirtazapine 15 MG TAB PO SCH (09:23)
[2020-02-12] MEDS: Zinc Sulfate 220 MG CAP PO SCH (09:23)
[2020-02-12] MEDS: Ascorbic Acid 500 mg Chewable Tablet PO SCH (09:24)
[2020-02-12] MEDS: Heparin 5,000 UNITS/ML VIAL SC SCH ×3 (09:24→20:17)
[2020-02-12] MEDS: Dexamethasone 4 mg/ml Vial SLOW IVP SCH ×2 (09:24→20:16)
--- NOTE | 2020-02-12 10:48 | PRG ---
DATE OF SERVICE: 02/12/2020 SUBJECTIVE: Mr. Burleson is a 80-year-old male with ESRD, on maintenance hemodialysis, and admitted for COVID-19 pneumonia. The patient has been requiring high-flow O2. He tells me his breathing is a little better this morning. He denies any associated chest pain. OBJECTIVE: VITAL SIGNS: Blood pressure is 156/79, heart rate 81, respiratory rate 22, O2 sat 92%, 60% FiO2 high flow, temp 99. GENERAL: The patient is awake, comfortable, not in overt distress. SKIN: Adequate turgor. HEENT: Slightly pale conjunctivae. Anicteric sclerae. NECK: No neck mass. No carotid bruits. No JVD. CHEST: No deformities. LUNGS: Decreased breath sounds. HEART: Normal sinus rhythm. No murmur. No gallops. No rubs. ABDOMEN: Globular, soft, nontender. No masses. EXTREMITIES: No edema. No deformities. MEDICATIONS: February 12, 2020, reviewed. LABORATORY DATA: February 12, 2020. White count 10.2, hemoglobin 9.7. Sodium 138, potassium 3.7, chloride 96, carbon dioxide 23, BUN 69, creatinine 5.6, calcium 8.8, magnesium 2.4, C-reactive protein is 28.5, albumin 3.4. ASSESSMENT AND PLAN: 1. Coronavirus disease 19 pneumonia. Continuing supportive care. Markers are still elevated for coronavirus disease 19 pneumonia. CRP is noted at 28.5. 2. end-stage renal disease, stable. No indication for any emergent hemodialysis with this patient. The patient will continue his current Thursday, Thursday, Thursday hemodialysis. Fluid removal only as tolerated. 3. Anemia. Continuing weekly Epogen. Overall, prognosis remains guarded. Recheck CBC. Base met in a.m. Job ID: [id number]
--- NOTE | 2020-02-12 16:06 | PDOC.HOSPP ---
- Subjective Subjective: Assumed care: 80 years old gentleman with COVID-19 pneumonia. Patient was seen examined at bedside. Patient had a T-max of 99.0. Blood culture came back positive for gram-positive cocci's he is currently is not on antibiotics. His CRP still significantly elevated. - Objective Vital Signs & Weight: Vital Signs (12 hours) Temp Pulse Resp BP Pulse Ox 02/12/20 12:00 98.7 F 78 20 123/57 L 97 02/12/20 10:54 93 L 02/12/20 08:29 99.0 F 81 22 H 156/79 H 92 L 02/12/20 08:00 92 L Weight Weight 151 lb I&O: 02/11/20 02/12/20 02/13/20 06:59 06:59 06:59 Intake Total 1044 1070 Output Total 200 Balance 844 1070 Result Diagrams: 02/12/20 05:52 02/12/20 05:52 Radiology Reviewed by me: Yes EKG Reviewed by me: Yes Hospitalist ROS - Medication Medications: Active Medications Generic Name Dose Route Start Last Admin Trade Name Freq PRN Reason Stop Dose Admin Acetaminophen 650 mg 02/08/20 04:51 02/11/20 11:12 Acetaminophen 325 Mg Tab PO 650 mg Q6H PRN Administration Headache/Fever or Pain Ascorbic Acid 1,000 mg 02/11/20 09:00 02/12/20 09:24 Ascorbic Acid 500 Mg Chewable Tablet PO 1,000 mg DAILY FERNANDA Administration Balsalazide 750 mg 02/08/20 09:00 02/12/20 09:23 Balsalazide Disodium 750 Mg Cap PO 750 mg DAILY FERNANDA Administration Epoetin Jim-epbx 7,500 unit 02/10/20 20:00 02/10/20 20:50 Epoetin Jim-Epbx (Esrd) 4,000 Unit/Ml Vial SC 7,500 unit Q7D FERNANDA Administration Heparin Sodium (Porcine) 5,000 units 02/07/20 09:00 02/12/20 15:21 Heparin 5,000 Units/Ml Vial SC 5,000 units TID FERNANDA Administration Isosorbide Mononitrate 60 mg 02/07/20 09:00 02/12/20 09:24 Isosorbide Mononitrate Er 60 Mg Tab PO 60 mg QAM FERNANDA Administration Latanoprost 1 drop 02/07/20 21:00 02/11/20 20:38 Latanoprost 0.005% Oph Soln 2.5 Ml Bottle EA EYE 1 drop HS FERNANDA Administration Metoprolol Tartrate 25 mg 02/07/20 15:00 02/12/20 15:21 Metoprolol Tartrate 25 Mg Tab PO 25 mg TID FERNANDA Administration Mirtazapine 15 mg 02/08/20 09:00 02/12/20 09:23 Mirtazapine 15 Mg Tab PO 15 mg DAILY FERNANDA Administration Miscellaneous Medication 1 gm 02/08/20 09:00 02/12/20 09:23 Icosapent Ethyl 1 Gm Capsule PO 1 gm DAILY FERNANDA Administration Multivitamins/Zinc 1 tab 02/08/20 09:00 02/12/20 09:23 Stress 600 With Zinc 1 Tab PO 1 tab DAILY FERNANDA Administration Pantoprazole Sodium 40 mg 02/07/20 09:00 02/12/20 09:23 Pantoprazole 40 Mg Tab PO 40 mg DAILY FERNANDA Administration Sertraline HCl 100 mg 02/07/20 09:00 02/12/20 09:23 Sertraline Hcl 100 Mg Tab PO 100 mg DAILY FERNANDA Administration Zinc Sulfate 220 mg 02/11/20 09:00 02/12/20 09:23 Zinc Sulfate 220 Mg Cap PO 220 mg DAILY FERNANDA Administration - Exam General Appearance: NAD Eye: PERRL ENT: normocephalic atraumatic Neck: supple Heart: RRR Respiratory: rhonchi Gastrointestinal: soft, non-tender Extremities: no cyanosis, no clubbing Skin: normal turgor Neurological: cranial nerve grossly intact Musculoskeletal: normal tone Psychiatric: normal affect, normal behavior, A&O x 3 Hosp A/P - Plan Patient is a pleasant 79 years old gentleman who has significant past medical history of hypertension, dyslipidemia, CAD, ESRD on dialysis Thursday/Thursday/Thursday, presented with worsening dyspnea. Acute Hypoxic Respiratory Failure: secondary to COVID-19 pneumonia --Patient is comfortable on high flow, continue to wean as tolerated. --His CRP still significantly elevated, will increase Decadron to twice daily --Follow inflammatory markers. Continue with ancillary treatment including vitamin C/D/zinc --Supportive cares COVID pneumonia: --mgt as above Positive Blood cultures --?contamination. start Cefepime empirically while waiting for BCx to finalize Fall during current hospitalization: Fell on 02/08/2020 s/p CT Thoracic spine, no acute abnormalities ESRD on HD (MWF): Dr. David following, appreciate nephrology input S/p dialysis yesterday Continue dialysis and recommendations per Dr. David HTN: Home meds restarted Monitor BP CAD: S/p ROSC in 2019 with AICD placed Home meds restarted (not yet verified by RN) HLD: Continue home meds once verified Monitor LFTs GI Prophylaxis: Famotidine DVT Prophylaxis: Receiving Heparin CODE STATUS: FULL CODE Case discussed with attending who agrees with plan as above.
[2020-02-12] MEDS: Cefepime 1 GM in Sodium Chloride 0.9% 100 ML IVPB SCH (16:57)
[2020-02-12] MEDS: Latanoprost 0.005% Ophth Soln 2.5 ml Bottle EA EYE SCH (20:17)
[2020-02-13 07:10] LABS: #Basophils 0.1 thou/uL (0.0-0.2); #Lymphocytes 0.6 thou/uL (1.20-3.40); #Monocytes 0.3 thou/uL (0.11-0.59); #Neutrophils 10.5 thou/uL (1.40-6.50); %Basophils 0.6 % (0.0-1.0); %Eosinophils 0.1 % (0.0-10.0); %Monocytes 2.9 % (0.0-10.0); %Neutrophils 91.5 % (42.0-75.0); Hemoglobin 9.5 g/dL (14.0-18.0); Mean Corpuscular HGB CONC 32.4 g/dL (32.0-36.0); Mean Corpuscular Hemoglobin 29.6 pg (27.0-31.0); Mean Corpuscular Volume 91.1 fL (78.0-98.0); Mean Platelet Volume 7.4 fL (7.4-10.4); Platelet Count 314 thou/uL (130-400); RBC Distribution Width 13.5 % (11.5-14.5); Red Blood Cell (RBC) Count 3.22 mill/uL (4.70-6.10); White Blood Cell (WBC) Count 11.5 thou/uL (4.8-10.8)
[2020-02-13 07:23] LABS: ALT (SGPT) Less than 7 U/L (8-55); AST (SGOT) 12 U/L (5-34); Albumin 3.4 g/dL (3.4-4.8); Alkaline Phosphatase 45 U/L (40-110); Anion Gap 24 mmol/L (10-20); BUN (Urea Nitrogen) 98 mg/dL (8.4-25.7); Bilirubin, Total 0.8 mg/dL (0.2-1.2); Calc. Creatinine Clearance 9 mL/min (70-130); Calcium 9.1 mg/dL (7.8-10.44); Carbon Dioxide 19 mmol/L (23-31); Chloride 99 mmol/L (98-107); Globulin 4.4 g/dL (2.4-3.5); Glucose 114 mg/dL (83-110); Potassium 4.4 mmol/L (3.5-5.1); Protein, Total 7.8 g/dL (5.8-8.1); Sodium 138 mmol/L (136-145)
[2020-02-13] MEDS: Cefepime 1 GM in Sodium Chloride 0.9% 100 ML IVPB SCH ×2 (08:30→20:01)
[2020-02-13] MEDS: Heparin 5,000 UNITS/ML VIAL SC SCH ×3 (08:32→20:01)
[2020-02-13] MEDS: Zinc Sulfate 220 MG CAP PO SCH (08:32)
[2020-02-13] MEDS: Ascorbic Acid 500 mg Chewable Tablet PO SCH (08:32)
[2020-02-13] MEDS: Mirtazapine 15 MG TAB PO SCH (08:32)
[2020-02-13] MEDS: Metoprolol Tartrate 25 MG TAB PO SCH ×3 (08:32→20:02)
[2020-02-13] MEDS: Stress 600 With Zinc 1 TAB PO SCH (08:33)
[2020-02-13] MEDS: Dexamethasone 4 mg/ml Vial SLOW IVP SCH ×2 (08:33→20:01)
[2020-02-13] MEDS: Icosapent Ethyl 1 GM CAPSULE PO SCH (08:33)
--- NOTE | 2020-02-13 10:10 | PRG ---
DATE OF SERVICE: 02/13/2020 SERVICE: Renal Medicine. SUBJECTIVE: Mr. Burleson is a 80-year-old male with ESRD-on maintenance hemodialysis, who was admitted for COVID-19 pneumonia. We are currently following him up for his maintenance hemodialysis. I have scheduled him for hemodialysis today with fluid removal. His respiratory status has worsened in the last few days, but seems stable in the last 24 hours. He is currently on high-flow oxygen. No complaints of chest pain or shortness of breath. He tells me his shortness of breath is unchanged. OBJECTIVE: VITAL SIGNS: Blood pressure 165/65, heart rate 69, respiratory rate 32, temperature 97.9, O2 saturation 98%. GENERAL: The patient is awake, alert, comfortable, not in overt distress. SKIN: Adequate turgor. HEENT: He has a slightly pale conjunctivae. Anicteric sclerae. NECK: No neck mass. No carotid bruits. No JVD. CHEST: No deformities. LUNGS: Decreased breath sounds. HEART: Normal sinus rhythm. No murmur. No gallops. No rubs. ABDOMEN: Globular, soft, nontender. No masses. EXTREMITIES: No edema. MEDICATIONS: Medications of February 13, 2020 were reviewed. LABORATORY DATA: Laboratories of February 13, 2020; white count 11.5, hemoglobin 9.5. Sodium 138, potassium 4.4, chloride 99, carbon dioxide 19, BUN 98, creatinine 6.82, glucose 114, calcium 9.1, AST 12, ALT is less than 7, albumin 3.4. C-reactive protein is 28.8. ASSESSMENT AND PLAN: 1. COVID-19 pneumonia. Continue supportive care. No dramatic improvement. Currently, on steroids. 2. End-stage renal disease, stable. We will continue current Thursday, Thursday, and Thursday hemodialysis. We will attempt 2 to 3 L of fluid removal today as tolerated by the patient. 3. Anemia, continuing weekly Epogen. Overall, prognosis remains guarded. Job ID: [id number]
[2020-02-13] MEDS: Acetaminophen 325 MG TAB PO PRN (14:44)
--- NOTE | 2020-02-13 16:07 | PDOC.HOSPP ---
- Subjective Subjective: Pt slightly hypoxic today, we have increased his steroid to bid. his CRP still high. scheduled to have HD today. But he is feeling fine. No fever. - Objective Vital Signs & Weight: Vital Signs (12 hours) Temp Pulse Resp BP Pulse Ox 02/13/20 12:55 97.6 F 72 38 H 135/64 94 L 02/13/20 12:03 94 L 02/13/20 09:15 97.9 F 69 32 H 165/65 H 98 02/13/20 08:33 98 02/13/20 04:30 97.6 F 69 24 H 161/80 H 97 Weight Weight 151 lb I&O: 02/12/20 02/13/20 02/14/20 06:59 06:59 06:59 Intake Total 1070 370 Output Total 400 Balance 1070 -30 Result Diagrams: 02/13/20 06:35 02/13/20 06:35 Radiology Reviewed by me: Yes EKG Reviewed by me: Yes Hospitalist ROS - Medication Medications: Active Medications Generic Name Dose Route Start Last Admin Trade Name Freq PRN Reason Stop Dose Admin Acetaminophen 650 mg 02/08/20 04:51 02/13/20 14:44 Acetaminophen 325 Mg Tab PO 650 mg Q6H PRN Administration Headache/Fever or Pain Ascorbic Acid 1,000 mg 02/11/20 09:00 02/13/20 08:32 Ascorbic Acid 500 Mg Chewable Tablet PO 1,000 mg DAILY FERNANDA Administration Balsalazide 750 mg 02/08/20 09:00 02/13/20 08:32 Balsalazide Disodium 750 Mg Cap PO 750 mg DAILY FERNANDA Administration Dexamethasone 6 mg 02/12/20 21:00 02/13/20 08:33 Dexamethasone 4 Mg/Ml Vial SLOW IVP 6 mg BID FERNANDA Administration Epoetin Jim-epbx 7,500 unit 02/10/20 20:00 02/10/20 20:50 Epoetin Jim-Epbx (Esrd) 4,000 Unit/Ml Vial SC 7,500 unit Q7D FERNANDA Administration Heparin Sodium (Porcine) 5,000 units 02/07/20 09:00 02/13/20 14:44 Heparin 5,000 Units/Ml Vial SC 5,000 units TID FERNANDA Administration Cefepime HCl 1 gm/ Sodium 100 mls @ 200 mls/hr 02/12/20 21:00 02/13/20 08:30 Chloride IVPB 100 mls Q12HR FERNANDA Administration Isosorbide Mononitrate 60 mg 02/07/20 09:00 02/13/20 08:32 Isosorbide Mononitrate Er 60 Mg Tab PO 60 mg QAM FERNANDA Administration Latanoprost 1 drop 02/07/20 21:00 02/12/20 20:17 Latanoprost 0.005% Ophth Soln 2.5 Ml Bottle EA EYE 1 drop HS FERNANDA Administration Metoprolol Tartrate 25 mg 02/07/20 15:00 02/13/20 15:05 Metoprolol Tartrate 25 Mg Tab PO Not Given TID FERNANDA Mirtazapine 15 mg 02/08/20 09:00 02/13/20 08:32 Mirtazapine 15 Mg Tab PO 15 mg DAILY FERNANDA Administration Miscellaneous Medication 1 gm 02/08/20 09:00 02/13/20 08:33 Icosapent Ethyl 1 Gm Capsule PO 1 gm DAILY FERNANDA Administration Multivitamins/Zinc 1 tab 02/08/20 09:00 02/13/20 08:33 Stress 600 With Zinc 1 Tab PO 1 tab DAILY FERNANDA Administration Pantoprazole Sodium 40 mg 02/07/20 09:00 02/13/20 08:32 Pantoprazole 40 Mg Tab PO 40 mg DAILY FERNANDA Administration Sertraline HCl 100 mg 02/07/20 09:00 02/13/20 08:32 Sertraline Hcl 100 Mg Tab PO 100 mg DAILY FERNANDA Administration Zinc Sulfate 220 mg 02/11/20 09:00 02/13/20 08:32 Zinc Sulfate 220 Mg Cap PO 220 mg DAILY FERNNADA Administration - Exam General Appearance: NAD Eye: PERRL ENT: normocephalic atraumatic Neck: supple Heart: RRR, no murmur Respiratory: no wheezes, rhonchi Gastrointestinal: soft Extremities: no cyanosis Skin: normal turgor Neurological: cranial nerve grossly intact Musculoskeletal: normal tone Psychiatric: normal affect, normal behavior, A&O x 3 Hosp A/P - Plan Patient is a pleasant 79 years old gentleman who has significant past medical history of hypertension, dyslipidemia, CAD, ESRD on dialysis Thursday/Thursday/Thursday, presented with worsening dyspnea. Acute Hypoxic Respiratory Failure: secondary to COVID-19 pneumonia --Patient is comfortable on high flow, continue to wean as tolerated. --His CRP still significantly elevated, Decadron increased to twice daily --Follow inflammatory markers. Continue with ancillary treatment including vitamin C/D/zinc --Supportive cares COVID pneumonia: --mgt as above Positive Blood cultures --?contamination. start Cefepime empirically while waiting for BCx to finalize Fall during current hospitalization: Fell on 02/08/2020 s/p CT Thoracic spine, no acute abnormalities ESRD on HD (MWF): Dr. David following, appreciate nephrology input Continue dialysis and recommendations per Dr. David HTN: Home meds restarted Monitor BP CAD: S/p ROSC in 2019 with AICD placed Home meds restarted (not yet verified by RN) HLD: Continue home meds once verified Monitor LFTs GI Prophylaxis: Famotidine DVT Prophylaxis: Receiving Heparin CODE STATUS: FULL CODE Case discussed with attending who agrees with plan as above.
[2020-02-13] MEDS: Latanoprost 0.005% Ophth Soln 2.5 ml Bottle EA EYE SCH (20:02)
[2020-02-13] MEDS ORDERED: Benzonatate 100 MG CAP PO PRN (20:37)
[2020-02-13] MEDS ORDERED: Ondansetron ODT 4 MG TAB PO PRN (20:37)
[2020-02-14] MEDS ORDERED: ALPRAZolam 0.5 MG TAB PO SCH (00:30)
[2020-02-14 06:31] LABS: #Lymphocytes 0.5 thou/uL (1.20-3.40); #Monocytes 0.2 thou/uL (0.11-0.59); #Neutrophils 10.5 thou/uL (1.40-6.50); %Eosinophils 0.2 % (0.0-10.0); %Lymphocytes 4.4 % (21.0-51.0); %Neutrophils 93.4 % (42.0-75.0); Hemoglobin 9.5 g/dL (14.0-18.0); Mean Corpuscular HGB CONC 34.4 g/dL (32.0-36.0); Mean Corpuscular Hemoglobin 31.3 pg (27.0-31.0); Mean Platelet Volume 7.2 fL (7.4-10.4); Platelet Count 318 thou/uL (130-400); RBC Distribution Width 13.6 % (11.5-14.5); Red Blood Cell (RBC) Count 3.04 mill/uL (4.70-6.10); White Blood Cell (WBC) Count 11.2 thou/uL (4.8-10.8)
[2020-02-14 07:04] LABS: ALT (SGPT) 9 U/L (8-55); AST (SGOT) 21 U/L (5-34); Albumin 3.1 g/dL (3.4-4.8); Alkaline Phosphatase 53 U/L (40-110); Anion Gap 18 mmol/L (10-20); BUN (Urea Nitrogen) 49 mg/dL (8.4-25.7); Bilirubin, Total 0.7 mg/dL (0.2-1.2); CRP (Inflammatory) 22.55 mg/dL (= or < 0.5); Calc. Creatinine Clearance 15 mL/min (70-130); Carbon Dioxide 27 mmol/L (23-31); Chloride 97 mmol/L (98-107); Globulin 4.3 g/dL (2.4-3.5); Glucose 143 mg/dL (83-110); Potassium 4.1 mmol/L (3.5-5.1); Protein, Total 7.4 g/dL (5.8-8.1); Sodium 138 mmol/L (136-145)
[2020-02-14] MEDS: Icosapent Ethyl 1 GM CAPSULE PO SCH (08:15)
[2020-02-14] MEDS: Ascorbic Acid 500 mg Chewable Tablet PO SCH (08:16)
[2020-02-14] MEDS: Mirtazapine 15 MG TAB PO SCH (08:16)
[2020-02-14] MEDS: Metoprolol Tartrate 25 MG TAB PO SCH ×3 (08:16→20:33)
[2020-02-14] MEDS: Stress 600 With Zinc 1 TAB PO SCH (08:16)
[2020-02-14] MEDS: Heparin 5,000 UNITS/ML VIAL SC SCH ×3 (08:17→20:33)
[2020-02-14] MEDS: Dexamethasone 4 mg/ml Vial SLOW IVP SCH ×2 (08:17→20:33)
[2020-02-14] MEDS: Cefepime 1 GM in Sodium Chloride 0.9% 100 ML IVPB SCH ×2 (08:18→20:32)
[2020-02-14 09:58] LABS: Actual Bicarbonate (HCO3a) 24.5 mEq/L (22-28); Base Excess (BEa) 1.9 mEq/L (-2.0 to +3.0); CO2 Tension 31.4 mmHg (35.0-45.0); Calcium, Ionized (arterial) 1.11 mmol/L (1.12-1.30); Carboxyhemoglobin (COHb) 0.3 gm% (0.0-3.0); Hemoglobin (Hb) 10.7 g/dL (14.0-18.0); Potassium - ABG Lab 3.98 mmol/L (3.70-5.30); pH, Arterial 7.51 (7.35-7.45)
--- NOTE | 2020-02-14 10:26 | PRG ---
DATE OF SERVICE: 02/14/2020 SUBJECTIVE: Mr. Burleson is a 80-year-old male with ESRD and followed up by the Renal Service for his maintenance hemodialysis. He did undergo hemodialysis yesterday without any difficulty. He was initially admitted for COVID-19 pneumonia. From a respiratory point of view, he has deteriorated over time. He is requiring high-flow nasal oxygen. Still with shortness of breath. OBJECTIVE: VITAL SIGNS: Blood pressure is 127/76, heart rate 75, respiratory rate 32, O2 saturation 90% temperature 98.4. GENERAL: Awake, lethargic, not in distress. SKIN: Adequate turgor. HEENT: Slightly pale conjunctivae. Anicteric sclerae. NECK: No neck mass. No carotid bruits. No JVD. CHEST: No deformities. LUNGS: Decreased breath sounds. HEART: Normal sinus rhythm. No murmur. No gallops. No rubs. ABDOMEN: Globular, soft, nontender. No masses. EXTREMITIES: No edema. No deformities. MEDICATIONS: Of February 14, 2020, reviewed. LABORATORY DATA: Laboratories of February 14, 2020; white count 11.2, hemoglobin 9.5. Sodium 138, potassium 4.1, chloride 97, carbon dioxide 27, BUN 49, creatinine 3.97. C-reactive protein is 22, albumin 3.1. Calcium 9. ASSESSMENT AND PLAN: 1. COVID-19 pneumonia. Continue supportive care. Index markers of infection still elevated with a CRP of 22, which is actually slightly improved from 28.85 yesterday. Continue supportive care. 2. End-stage renal disease, stable. We will continue current Thursday, Thursday, and Thursday hemodialysis. There is no indication for any emergent hemodialysis with this patient. Continue fluid removal as tolerated. Overall, prognosis remains guarded. Job ID: [id number]
[2020-02-14] MEDS: Zinc Sulfate 220 MG CAP PO SCH (11:22)
[2020-02-14 11:47] LABS: Actual Bicarbonate (HCO3a) 26.8 mEq/L (22-28); Base Excess (BEa) 3.1 mEq/L (-2.0 to +3.0); CO2 Tension 37.3 mmHg (35.0-45.0); Carboxyhemoglobin (COHb) 0.5 gm% (0.0-3.0); Hemoglobin (Hb) 10.5 g/dL (14.0-18.0); O2 Tension (PaO2), arterial 91.2 mmHg (> 70.0); Potassium - ABG Lab 4.34 mmol/L (3.70-5.30); pH, Arterial 7.47 (7.35-7.45)
[2020-02-14 12:10] LABS: O2 Tension (PaO2), arterial 49.5 mmHg (> 70.0); Puncture Site LRA
[2020-02-14 12:12] LABS: Puncture Site LRA
[2020-02-14 12:14] LABS: ALV-art Gradient 575.175 mmHg (0-20)
[2020-02-14 12:19] VITALS: BP 131/70
[2020-02-14 15:56] LABS: Actual Bicarbonate (HCO3a) 25.3 mEq/L (22-28); Base Excess (BEa) 2.1 mEq/L (-2.0 to +3.0); Calcium, Ionized (arterial) 1.11 mmol/L (1.12-1.30); Carboxyhemoglobin (COHb) 0.5 gm% (0.0-3.0); Hemoglobin (Hb) 9.6 g/dL (14.0-18.0); Potassium - ABG Lab 4.55 mmol/L (3.70-5.30); pH, Arterial 7.49 (7.35-7.45)
[2020-02-14 15:57] LABS: O2 Tension (PaO2), arterial 51.7 mmHg (> 70.0)
--- NOTE | 2020-02-14 16:59 | PDOC.HOSPP ---
- Subjective Subjective: Patient was seen multiple times today. Patient appeared to be more lethargic, and he has maxed out on his high flow. His CRP trended down slightly, ABG shows severe hypoxemia. He will be transitioned to BiPAP, and transferred to IMCU. Low threshold for intubation at this point. - Objective Vital Signs & Weight: Vital Signs (12 hours) Temp Pulse Resp BP Pulse Ox 02/14/20 15:39 97.9 F 02/14/20 12:18 97.8 F 78 42 H 131/70 98 02/14/20 10:04 78 50 H 98 02/14/20 09:37 98.4 F 75 32 H 127/76 90 L 02/14/20 08:00 90 L 02/14/20 06:00 30 H 94 L 02/14/20 05:30 69 32 H 95 Weight Weight 151 lb Most Recent Monitor Data Heart Rate from ECG 75 NIBP 128/59 NIBP BP-Mean 82 Respiration from ECG 45 SpO2 93 I&O: 02/13/20 02/14/20 02/15/20 06:59 06:59 06:59 Intake Total 370 1030 Output Total 400 200 Balance -30 830 Result Diagrams: 02/14/20 06:11 02/14/20 06:11 Radiology Reviewed by me: Yes EKG Reviewed by me: Yes Hospitalist ROS - Medication Medications: Active Medications Generic Name Dose Route Start Last Admin Trade Name Freq PRN Reason Stop Dose Admin Acetaminophen 650 mg 02/08/20 04:51 02/13/20 14:44 Acetaminophen 325 Mg Tab PO 650 mg Q6H PRN Administration Headache/Fever or Pain Ascorbic Acid 1,000 mg 02/11/20 09:00 02/14/20 08:16 Ascorbic Acid 500 Mg Chewable Tablet PO 1,000 mg DAILY FERNANDA Administration Balsalazide 750 mg 02/08/20 09:00 02/14/20 08:16 Balsalazide Disodium 750 Mg Cap PO 750 mg DAILY FERNANDA Administration Benzonatate 200 mg 02/13/20 20:37 02/13/20 21:06 Benzonatate 100 Mg Cap PO 200 mg QIDPRN PRN Administration Cough Dexamethasone 6 mg 02/12/20 21:00 02/14/20 08:17 Dexamethasone 4 Mg/Ml Vial SLOW IVP 6 mg BID FERNANDA Administration Epoetin Jim-epbx 7,500 unit 02/10/20 20:00 02/10/20 20:50 Epoetin Jim-Epbx (Esrd) 4,000 Unit/Ml Vial SC 7,500 unit Q7D FERNANDA Administration Heparin Sodium (Porcine) 5,000 units 02/07/20 09:00 02/14/20 16:31 Heparin 5,000 Units/Ml Vial SC 5,000 units TID FERNANDA Administration Cefepime HCl 1 gm/ Sodium 100 mls @ 200 mls/hr 02/12/20 21:00 02/14/20 08:18 Chloride IVPB 100 mls Q12HR FERNANDA Administration Isosorbide Mononitrate 60 mg 02/07/20 09:00 02/14/20 08:16 Isosorbide Mononitrate Er 60 Mg Tab PO 60 mg QAM FERNANDA Administration Latanoprost 1 drop 02/07/20 21:00 02/13/20 20:02 Latanoprost 0.005% Ophth Soln 2.5 Ml Bottle EA EYE 1 drop HS FERNANDA Administration Metoprolol Tartrate 25 mg 02/07/20 15:00 02/14/20 15:54 Metoprolol Tartrate 25 Mg Tab PO Not Given TID FERNANDA Mirtazapine 15 mg 02/08/20 09:00 02/14/20 08:16 Mirtazapine 15 Mg Tab PO 15 mg DAILY FERNANDA Administration Miscellaneous Medication 1 gm 02/08/20 09:00 02/14/20 08:15 Icosapent Ethyl 1 Gm Capsule PO 1 gm DAILY FERNANDA Administration Multivitamins/Zinc 1 tab 02/08/20 09:00 02/14/20 08:16 Stress 600 With Zinc 1 Tab PO 1 tab DAILY FERNANDA Administration Ondansetron HCl 4 mg 02/13/20 20:37 02/13/20 21:06 Ondansetron Odt 4 Mg Tab PO 4 mg Q6H PRN Administration Nausea/Vomiting Pantoprazole Sodium 40 mg 02/07/20 09:00 02/14/20 08:16 Pantoprazole 40 Mg Tab PO 40 mg DAILY FERNANDA Administration Sertraline HCl 100 mg 02/07/20 09:00 02/14/20 08:16 Sertraline Hcl 100 Mg Tab PO 100 mg DAILY FERNANDA Administration Zinc Sulfate 220 mg 02/11/20 09:00 02/14/20 11:22 Zinc Sulfate 220 Mg Cap PO Not Given DAILY FERNANDA - Exam General Appearance: NAD Eye: PERRL ENT: normocephalic atraumatic Neck: supple Heart: RRR Respiratory: rhonchi Gastrointestinal: soft, non-tender Extremities: no cyanosis Skin: normal turgor Neurological: cranial nerve grossly intact Musculoskeletal: normal tone Psychiatric: somnolent Hosp A/P - Plan Patient is a pleasant 79 years old gentleman who has significant past medical history of hypertension, dyslipidemia, CAD, ESRD on dialysis Thursday/Thursday/Thursday, presented with worsening dyspnea. Acute Hypoxic Respiratory Failure: secondary to COVID-19 pneumonia --His CRP still significantly elevated, Decadron increased to twice daily on 02/13/20 --Follow inflammatory markers. Continue with ancillary treatment including vitamin C/D/zinc --Transition to [facility], transfer to [facility]. Supportive cares --Pul consult. COVID pneumonia: --mgt as above Positive Blood cultures --staph coag neg. d/t contaminant Fall during current hospitalization: Fell on 02/08/2020 s/p CT Thoracic spine, no acute abnormalities ESRD on HD (MWF): Dr. David following, appreciate nephrology input Continue dialysis and recommendations per Dr. David HTN: Home meds restarted Monitor BP CAD: S/p ROSC in 2019 with AICD placed Home meds restarted (not yet verified by RN) HLD: Continue home meds once verified Monitor LFTs GI Prophylaxis: Famotidine DVT Prophylaxis: Receiving Heparin CODE STATUS: FULL CODE Case discussed with attending who agrees with plan as above.
[2020-02-14] MEDS: Latanoprost 0.005% Ophth Soln 2.5 ml Bottle EA EYE SCH (20:33)
[2020-02-15 04:11] LABS: #Lymphocytes 0.6 thou/uL (1.20-3.40); #Monocytes 0.2 thou/uL (0.11-0.59); #Neutrophils 12.4 thou/uL (1.40-6.50); %Eosinophils 0.2 % (0.0-10.0); %Lymphocytes 4.2 % (21.0-51.0); %Monocytes 1.6 % (0.0-10.0); %Neutrophils 93.9 % (42.0-75.0); Hemoglobin 9.5 g/dL (14.0-18.0); Mean Corpuscular HGB CONC 33.5 g/dL (32.0-36.0); Mean Corpuscular Hemoglobin 30.8 pg (27.0-31.0); Platelet Count 336 thou/uL (130-400); RBC Distribution Width 13.7 % (11.5-14.5); White Blood Cell (WBC) Count 13.2 thou/uL (4.8-10.8)
[2020-02-15 04:34] LABS: ALT (SGPT) Less than 7 U/L (8-55); AST (SGOT) 20 U/L (5-34); Albumin 3.2 g/dL (3.4-4.8); Alkaline Phosphatase 61 U/L (40-110); Anion Gap 24 mmol/L (10-20); BUN (Urea Nitrogen) 71 mg/dL (8.4-25.7); Bilirubin, Total 0.7 mg/dL (0.2-1.2); Calc. Creatinine Clearance 11 mL/min (70-130); Calcium 9.2 mg/dL (7.8-10.44); Carbon Dioxide 22 mmol/L (23-31); Chloride 100 mmol/L (98-107); Globulin 4.6 g/dL (2.4-3.5); Glucose 146 mg/dL (83-110); Potassium 4.6 mmol/L (3.5-5.1); Protein, Total 7.8 g/dL (5.8-8.1); Sodium 141 mmol/L (136-145)
[2020-02-15 04:49] LABS: CRP (Inflammatory) 34.03 mg/dL (= or < 0.5)
[2020-02-15] MEDS: Ascorbic Acid 500 mg Chewable Tablet PO SCH (08:40)
[2020-02-15] MEDS: Dexamethasone 4 mg/ml Vial SLOW IVP SCH ×2 (08:40→22:00)
[2020-02-15] MEDS: Mirtazapine 15 MG TAB PO SCH (08:40)
[2020-02-15] MEDS: Metoprolol Tartrate 25 MG TAB PO SCH ×3 (08:40→21:59)
[2020-02-15] MEDS: Heparin 5,000 UNITS/ML VIAL SC SCH ×3 (08:41→21:59)
[2020-02-15] MEDS: Cefepime 1 GM in Sodium Chloride 0.9% 100 ML IVPB SCH ×2 (08:43→21:59)
--- NOTE | 2020-02-15 09:46 | PRG ---
DATE OF SERVICE: 02/15/2020 SUBJECTIVE: Mr. Burleson is a 80-year-old male with ESRD-on maintenance hemodialysis, was admitted for COVID-19 pneumonia. His respiratory status has worsened. He is now transferred to [facility]. Currently, on BiPAP support. He is currently undergoing dialysis. OBJECTIVE: VITAL SIGNS: Blood pressure 166/65, heart rate 75, respiratory rate 36, O2 saturation 99%. GENERAL: The patient is awake, on BiPAP. SKIN: Adequate turgor. HEENT: He has had slightly pale conjunctivae. Anicteric sclerae. No neck mass. No carotid bruits. No JVD. LUNGS: Decreased breath sounds. HEART: Normal sinus rhythm. No murmurs. No gallops. No rubs. ABDOMEN: Globular, soft, nontender. No masses. EXTREMITIES: No edema. No deformities. MEDICATIONS: Medications of February 15, 2020 was reviewed. LABORATORY DATA: Laboratories of February 15, 2020, white count 13.2, hemoglobin 9.5. Sodium 141, potassium 4.6, chloride 100, carbon dioxide 22, BUN 71, creatinine 5.54, glucose 146, calcium 9.2. AST 20, ALT less than 7, albumin 3.2. ASSESSMENT AND PLAN: 1. COVID-19 pneumonia-the patient's respiratory status has worsened. He is currently on BiPAP support. Overall continuing supportive care. Currently on steroids. 2. ESRD. The patient undergoing hemodialysis. We will attempt between 2 and 3 L of fluid removal as tolerated by the patient. No changes will be made with the current dialysis regimen. 3. Anemia. Continuing weekly Epogen. 4. Overall prognosis remains guarded. Job ID: [id number]
[2020-02-15] MEDS: Zinc Sulfate 220 MG CAP PO SCH (10:00)
[2020-02-15] MEDS ORDERED: Lorazepam 2 MG/ML VIAL SLOW IVP PRN (10:25)
[2020-02-15] MEDS: Icosapent Ethyl 1 GM CAPSULE PO SCH (15:15)
[2020-02-15] MEDS: Stress 600 With Zinc 1 TAB PO SCH (15:19)
[2020-02-15] MEDS: Dextrose 5 % And 0.9 % NaCl 1,000 ML IV SCH (16:45)
--- NOTE | 2020-02-15 17:51 | PDOC.HOSPP ---
- Subjective Subjective: Pt is quite in distress today. He was anxious and unable to to keep his mask in place. He also not eating - Objective Vital Signs & Weight: Vital Signs (12 hours) Temp Pulse Resp Pulse Ox 02/15/20 17:00 96.9 F L 02/15/20 12:00 97.0 F L 02/15/20 11:32 87 36 H 95 02/15/20 08:00 96.3 F L 02/15/20 07:21 96.3 F L Weight Admit Weight 151 lb Weight 151 lb Most Recent Monitor Data Heart Rate from ECG 83 NIBP 105/47 NIBP BP-Mean 66 Respiration from ECG 38 SpO2 94 I&O: 02/14/20 02/15/20 02/16/20 06:59 06:59 06:59 Intake Total 1030 250 210 Output Total 200 100 Balance 830 150 210 Result Diagrams: 02/15/20 03:53 02/15/20 03:53 Hospitalist ROS - Medication Medications: Active Medications Generic Name Dose Route Start Last Admin Trade Name Albertoq PRN Reason Stop Dose Admin Acetaminophen 650 mg 02/08/20 04:51 02/13/20 14:44 Acetaminophen 325 Mg Tab PO 650 mg Q6H PRN Administration Headache/Fever or Pain Ascorbic Acid 1,000 mg 02/11/20 09:00 02/15/20 08:40 Ascorbic Acid 500 Mg Chewable Tablet PO 1,000 mg DAILY FERNANDA Administration Balsalazide 750 mg 02/08/20 09:00 02/15/20 15:15 Balsalazide Disodium 750 Mg Cap PO Not Given DAILY FERNANDA Benzonatate 200 mg 02/13/20 20:37 02/13/20 21:06 Benzonatate 100 Mg Cap PO 200 mg QIDPRN PRN Administration Cough Dexamethasone 6 mg 02/12/20 21:00 02/15/20 08:40 Dexamethasone 4 Mg/Ml Vial SLOW IVP 6 mg BID FERNANDA Administration Epoetin Jim-epbx 7,500 unit 02/10/20 20:00 02/10/20 20:50 Epoetin Jim-Epbx (Esrd) 4,000 Unit/Ml Vial SC 7,500 unit Q7D FERNANDA Administration Heparin Sodium (Porcine) 5,000 units 02/07/20 09:00 02/15/20 15:39 Heparin 5,000 Units/Ml Vial SC 5,000 units TID FERNANDA Administration Cefepime HCl 1 gm/ Sodium 100 mls @ 200 mls/hr 02/12/20 21:00 02/15/20 08:43 Chloride IVPB 100 mls Q12HR FERNANDA Administration Dexmedetomidine HCl 400 mcg/ 100 mls @ 0 mls/hr 02/15/20 10:45 02/15/20 11:16 Sodium Chloride IVPB 100 mls INF FERNANDA Administration Protocol Per Protocol Dextrose/Sodium Chloride 1,000 mls @ 50 mls/hr 02/15/20 16:15 02/15/20 16:45 D5 0.9% Ns IV 1,000 mls .Q20H FERNANDA Administration Isosorbide Mononitrate 60 mg 02/07/20 09:00 02/15/20 08:40 Isosorbide Mononitrate Er 60 Mg Tab PO 60 mg QAM FERNANDA Administration Latanoprost 1 drop 02/07/20 21:00 02/14/20 20:33 Latanoprost 0.005% Ophth Soln 2.5 Ml Bottle EA EYE 1 drop HS FERNANDA Administration Lorazepam 0.5 mg 02/15/20 10:25 02/15/20 10:46 Lorazepam 2 Mg/Ml Vial SLOW IVP 0.5 mg Q6H PRN Administration Anxiety/Agitation Metoprolol Tartrate 25 mg 02/07/20 15:00 02/15/20 15:41 Metoprolol Tartrate 25 Mg Tab PO Not Given TID FERNANDA Mirtazapine 15 mg 02/08/20 09:00 02/15/20 08:40 Mirtazapine 15 Mg Tab PO 15 mg DAILY FERNANDA Administration Miscellaneous Medication 1 gm 02/08/20 09:00 02/15/20 15:15 Icosapent Ethyl 1 Gm Capsule PO Not Given DAILY FERNANDA Multivitamins/Zinc 1 tab 02/08/20 09:00 02/15/20 15:19 Stress 600 With Zinc 1 Tab PO Not Given DAILY FERNANDA Ondansetron HCl 4 mg 02/13/20 20:37 02/13/20 21:06 Ondansetron Odt 4 Mg Tab PO 4 mg Q6H PRN Administration Nausea/Vomiting Pantoprazole Sodium 40 mg 02/07/20 09:00 02/15/20 08:40 Pantoprazole 40 Mg Tab PO 40 mg DAILY FERNANDA Administration Sertraline HCl 100 mg 02/07/20 09:00 02/15/20 08:41 Sertraline Hcl 100 Mg Tab PO 100 mg DAILY FERNANDA Administration Zinc Sulfate 220 mg 02/11/20 09:00 02/15/20 10:00 Zinc Sulfate 220 Mg Cap PO Not Given DAILY FERNANDA - Exam General Appearance: NAD General - other findings: anxious Eye: PERRL ENT: normocephalic atraumatic Neck: supple Heart: RRR Respiratory: rhonchi Gastrointestinal: soft, non-tender Extremities: no cyanosis Skin: normal turgor Neurological: cranial nerve grossly intact Musculoskeletal: normal tone Hosp A/P - Plan Patient is a pleasant 79 years old gentleman who has significant past medical history of hypertension, dyslipidemia, CAD, ESRD on dialysis Thursday/Thursday/Thursday, presented with worsening dyspnea. Acute Hypoxic Respiratory Failure: secondary to COVID-19 pneumonia --His CRP still significantly elevated, Decadron increased to twice daily on 02/13/20 --Follow inflammatory markers. Continue with ancillary treatment including vitamin C/D/zinc --Cont BiBAP as tolerate, pt is quite anxious and unable to keep to mask in place. Add anxiolytic --add gentle IVF hydration as pt is not taking anything PO --I have updated his on the phone today. d/w code status, cont full code and aggressive cares. prognosis is guarded. COVID pneumonia: --mgt as above Positive Blood cultures --staph coag neg. d/t contaminant Fall during current hospitalization: Fell on 02/08/2020 s/p CT Thoracic spine, no acute abnormalities ESRD on HD (MWF): Dr. David following, appreciate nephrology input Continue dialysis and recommendations per Dr. David HTN: Home meds restarted Monitor BP CAD: S/p ROSC in 2019 with AICD placed Home meds restarted (not yet verified by RN) HLD: Continue home meds once verified Monitor LFTs GI Prophylaxis: Famotidine DVT Prophylaxis: Receiving Heparin CODE STATUS: FULL CODE Case discussed with attending who agrees with plan as above.
--- NOTE | 2020-02-15 21:52 | CON ---
DATE OF CONSULTATION: 02/15/2020 HISTORY OF PRESENT ILLNESS: Mr. Burleson is a 80-year-old male. He has been admitted for COVID-19 pneumonia. He was transferred to the critical care unit and he is now on BiPAP. He is being dialyzed when I saw him. He has been hospitalized since 30. PAST MEDICAL HISTORY: 1. Remarkable for end-stage renal disease. 2. Hypertension. 3. History of coronary artery disease. 4. History of placement of defibrillator in 2019 apparently after code. 5. History of cataract surgery. 6. History of multiple back surgeries. 7. History of multiple vascular access procedures. 8. History of trigger finger surgery. FAMILY HISTORY: Positive for vascular disease. Negative for lung disease in early age. SOCIAL HISTORY: He is a nonsmoker. Never did smoke much. Nondrinker. REVIEW OF SYSTEMS: Otherwise negative. PHYSICAL EXAMINATION: GENERAL: He is on BiPAP. He is in no distress. VITAL SIGNS: Oximetry is 93%. Blood pressure 102/50, heart rate 78. He is being dialyzed. Respiratory rate is in the 30s. HEAD AND NECK: Unremarkable. LUNGS: Distant and clear. HEART: Regular rhythm. ABDOMEN: Soft and nontender. EXTREMITIES: Without asymmetry or edema. DIAGNOSTIC STUDIES: White count is 13.2, hemoglobin 9.5, platelets 336. Sodium 141, potassium 4.6, chloride 100, bicarb 22, BUN 7, creatinine 5.54. Albumin is 3.2. Yesterday, pH was 7.49, CO2 34, PO2 51. IMPRESSION: Coronavirus disease pneumonia on BiPAP. Hopefully, we will see some improvement. Because of his age if we do not see some improvement in few days, I have to consider intubation. Critical care time 30 min Job ID: [id number] [facility]
[2020-02-15] MEDS: Latanoprost 0.005% Ophth Soln 2.5 ml Bottle EA EYE SCH (22:06)
[2020-02-16 07:22] LABS: Hemoglobin 9.4 g/dL (14.0-18.0); Mean Corpuscular HGB CONC 33.7 g/dL (32.0-36.0); Mean Corpuscular Hemoglobin 30.7 pg (27.0-31.0); Mean Corpuscular Volume 91.1 fL (78.0-98.0); Platelet Count 344 thou/uL (130-400); RBC Distribution Width 13.5 % (11.5-14.5); Red Blood Cell (RBC) Count 3.05 mill/uL (4.70-6.10); White Blood Cell (WBC) Count 12.7 thou/uL (4.8-10.8)
[2020-02-16 07:53] LABS: ALT (SGPT) Less than 7 U/L (8-55); AST (SGOT) 24 U/L (5-34); Alkaline Phosphatase 67 U/L (40-110); Anion Gap 21 mmol/L (10-20); BUN (Urea Nitrogen) 56 mg/dL (8.4-25.7); Bilirubin, Total 0.6 mg/dL (0.2-1.2); Calc. Creatinine Clearance 13 mL/min (70-130); Calcium 8.7 mg/dL (7.8-10.44); Carbon Dioxide 24 mmol/L (23-31); Chloride 93 mmol/L (98-107); Globulin 4.7 g/dL (2.4-3.5); Glucose 130 mg/dL (83-110); Potassium 4.2 mmol/L (3.5-5.1); Protein, Total 7.7 g/dL (5.8-8.1); Sodium 134 mmol/L (136-145)
[2020-02-16 08:05] LABS: CRP (Inflammatory) 34.37 mg/dL (= or < 0.5)
--- NOTE | 2020-02-16 08:07 | RAD ---
Chest one view HISTORY: Pneumonia. Follow-up. COMPARISON: 02/09/2020. FINDINGS: Cardiac silhouette is magnified by injection. Pulmonary vasculature upper limits of normal and accentuated by shallow inspiration. Patchy areas of airspace infiltrate involving each lung, left greater than right, and worse at the ba ses, are similar in appearance to the prior study. Mediastinum is midline with aortic calcification. No evidence of pneumothorax. Old right upper rib fractures. IMPRESSION : Bibasilar infiltrates and other findings are stable.
[2020-02-16] MEDS: Zinc Sulfate 220 MG CAP PO SCH (08:42)
[2020-02-16] MEDS: Ascorbic Acid 500 mg Chewable Tablet PO SCH (08:42)
[2020-02-16] MEDS: Stress 600 With Zinc 1 TAB PO SCH (08:42)
[2020-02-16] MEDS: Mirtazapine 15 MG TAB PO SCH (08:43)
[2020-02-16] MEDS: Icosapent Ethyl 1 GM CAPSULE PO SCH (08:43)
[2020-02-16] MEDS: Heparin 5,000 UNITS/ML VIAL SC SCH ×2 (08:44→15:50)
[2020-02-16] MEDS: Dexamethasone 4 mg/ml Vial SLOW IVP SCH (08:44)
[2020-02-16] MEDS: Cefepime 1 GM in Sodium Chloride 0.9% 100 ML IVPB SCH (08:45)
[2020-02-16] MEDS: Metoprolol Tartrate 25 MG TAB PO SCH ×2 (08:52→15:45)
[2020-02-16 10:45] LABS: HBSAg Index 0.27 S/CO (0-0.99); Hep B Surf Ag Non-Reactive S/CO (NonReactive)
[2020-02-16] MEDS: Dextrose 5 % And 0.9 % NaCl 1,000 ML IV SCH (11:05)
[2020-02-16 11:40] LABS: Band 10 % (5-11); Lymphocytes 8 % (21-51); MDiff Complete? YES; Monocytes 1 % (0-10); Neutrophil 81 % (42-75); Platelet Morphology Comment Appears Adequate; Polychromasia SLIGHT = 2-3 cells (100X) (0-2/hpf)
--- NOTE | 2020-02-16 15:45 | PDOC.FMACP ---
Advance Care Planning - Problem (1) Palliative care encounter Status: Acute Code(s): Z51.5 - ENCOUNTER FOR PALLIATIVE CARE (2) Acute respiratory failure with hypoxia Status: Acute Code(s): J96.01 - ACUTE RESPIRATORY FAILURE WITH HYPOXIA (3) Chronic anemia Status: Acute Code(s): D64.9 - ANEMIA, UNSPECIFIED (4) ESRD (end stage renal disease) on dialysis Status: Acute Code(s): N18.6 - END STAGE RENAL DISEASE; Z99.2 - DEPENDENCE ON RENAL DIALYSIS (5) Pneumonia due to COVID-19 virus Status: Acute Code(s): U07.1 - COVID-19; J12.89 - OTHER VIRAL PNEUMONIA - Note Participants: family, editor & co founder, palliative care Summary: Palliative care addressed Advanced Care Planning with spouse and son. The diagnosis, prognosis and goals of care were discussed. Appropriate forms and documentation to accomplish the goals of care were discussed. All questions were answered. Utilized blue tooth speaker for family to communicate with patient. At bedside for assessment patient with labored respirations. Family elected to transition to [facility] Elected to seek comfort through hospice measures, requested [facility]. Spiritual care involved Please also refer to Palliative Care notes in note section. Dr Ruiz Time Spent (mins): 40
--- NOTE | 2020-02-16 15:53 | PRG ---
DATE OF SERVICE: 02/16/2020 SUBJECTIVE: Mr. Burleson remains on BiPAP. OBJECTIVE: VITAL SIGNS: Blood pressure 102/49, heart rate 66, respiratory rates in the 20s, oximetry is 94. LUNGS: Remarkable for equal breath sounds. HEART: Regular rhythm. ABDOMEN: Soft. LABORATORY DATA: White count 12.7, hemoglobin 9.4, platelets 344. Sodium 134, potassium 4.2, chloride 93, bicarb 24, BUN 56, creatinine 4.58. IMPRESSION: 1. COVID pneumonia with respiratory failure requiring BiPAP. 2. End-stage renal disease, on hemodialysis. 3. History of coronary artery disease and placement of defibrillator. If he deteriorates to intubation is unlikely, he will survive. Physiologically, he is much older than his 80 years. Chest radiographs are essentially unchanged. We will continue to follow. Job ID: [id number]
[2020-02-16 16:24] VITALS: TEMP 97.2
--- NOTE | 2020-02-16 17:43 | PDOC.HOSPP ---
- Subjective Subjective: discussed with pul. updated pt's , clarified code status, pt's would likely to continue with full code until she discuss with her children. lethargic, hanging on BiBAP. - Objective Vital Signs & Weight: Vital Signs (12 hours) Temp Pulse Resp Pulse Ox 02/16/20 15:00 97.2 F L 02/16/20 12:00 97.3 F L 02/16/20 09:46 98 31 H 91 L 02/16/20 08:00 96.3 F L 90 L Weight Admit Weight 151 lb Weight 151 lb Most Recent Monitor Data Heart Rate from ECG 67 NIBP 101/49 NIBP BP-Mean 66 Respiration from ECG 26 SpO2 97 I&O: 02/15/20 02/16/20 02/17/20 06:59 06:59 06:59 Intake Total 884 437 0952 Output Total 100 0 Balance 759 870 6484 Result Diagrams: 02/16/20 07:10 02/16/20 07:10 Radiology Reviewed by me: Yes EKG Reviewed by me: Yes Hospitalist ROS - Medication Medications: Active Medications Generic Name Dose Route Start Last Admin Trade Name Freq PRN Reason Stop Dose Admin Acetaminophen 650 mg 02/08/20 04:51 02/13/20 14:44 Acetaminophen 325 Mg Tab PO 650 mg Q6H PRN Administration Headache/Fever or Pain Ascorbic Acid 1,000 mg 02/11/20 09:00 02/16/20 08:42 Ascorbic Acid 500 Mg Chewable Tablet PO 1,000 mg DAILY FERNANDA Administration Balsalazide 750 mg 02/08/20 09:00 02/16/20 08:43 Balsalazide Disodium 750 Mg Cap PO 750 mg DAILY FERNANDA Administration Benzonatate 200 mg 02/13/20 20:37 02/13/20 21:06 Benzonatate 100 Mg Cap PO 200 mg QIDPRN PRN Administration Cough Dexamethasone 6 mg 02/12/20 21:00 02/16/20 08:44 Dexamethasone 4 Mg/Ml Vial SLOW IVP 6 mg BID FERNANDA Administration Epoetin Jim-epbx 7,500 unit 02/10/20 20:00 02/10/20 20:50 Epoetin Jim-Epbx (Esrd) 4,000 Unit/Ml Vial SC 7,500 unit Q7D FERNANDA Administration Heparin Sodium (Porcine) 5,000 units 02/07/20 09:00 02/16/20 15:50 Heparin 5,000 Units/Ml Vial SC 5,000 units TID FERNANDA Administration Cefepime HCl 1 gm/ Sodium 100 mls @ 200 mls/hr 02/12/20 21:00 02/16/20 08:45 Chloride IVPB 100 mls Q12HR FERNANDA Administration Dexmedetomidine HCl 400 mcg/ 100 mls @ 0 mls/hr 02/15/20 10:45 02/16/20 08:17 Sodium Chloride IVPB 100 mls INF FERNANDA Administration Protocol Per Protocol Dextrose/Sodium Chloride 1,000 mls @ 50 mls/hr 02/15/20 16:15 02/16/20 11:05 D5 0.9% Ns IV 1,000 mls .Q20H FERNANDA Administration Isosorbide Mononitrate 60 mg 02/07/20 09:00 02/16/20 08:45 Isosorbide Mononitrate Er 60 Mg Tab PO 60 mg QAM FERNANDA Administration Latanoprost 1 drop 02/07/20 21:00 02/15/20 22:06 Latanoprost 0.005% Ophth Soln 2.5 Ml Bottle EA EYE 1 drop HS FERNANDA Administration Lorazepam 0.5 mg 02/15/20 10:25 02/15/20 10:46 Lorazepam 2 Mg/Ml Vial SLOW IVP 0.5 mg Q6H PRN Administration Anxiety/Agitation Metoprolol Tartrate 25 mg 02/07/20 15:00 02/16/20 15:45 Metoprolol Tartrate 25 Mg Tab PO 25 mg TID FERNANDA Administration Mirtazapine 15 mg 02/08/20 09:00 02/16/20 08:43 Mirtazapine 15 Mg Tab PO 15 mg DAILY FERNANDA Administration Miscellaneous Medication 1 gm 02/08/20 09:00 02/16/20 08:43 Icosapent Ethyl 1 Gm Capsule PO 1 gm DAILY FERNANDA Administration Multivitamins/Zinc 1 tab 02/08/20 09:00 02/16/20 08:42 Stress 600 With Zinc 1 Tab PO 1 tab DAILY FERNANDA Administration Ondansetron HCl 4 mg 02/13/20 20:37 02/13/20 21:06 Ondansetron Odt 4 Mg Tab PO 4 mg Q6H PRN Administration Nausea/Vomiting Pantoprazole Sodium 40 mg 02/07/20 09:00 02/16/20 08:43 Pantoprazole 40 Mg Tab PO 40 mg DAILY FERNANDA Administration Sertraline HCl 100 mg 02/07/20 09:00 02/16/20 08:42 Sertraline Hcl 100 Mg Tab PO 100 mg DAILY FERNANDA Administration Zinc Sulfate 220 mg 02/11/20 09:00 02/16/20 08:42 Zinc Sulfate 220 Mg Cap PO 220 mg DAILY FERNANDA Administration - Exam General - other findings: tolerating BiBAP Eye: PERRL ENT: normocephalic atraumatic Neck: supple Heart: RRR Respiratory: rhonchi Gastrointestinal: soft Extremities: no cyanosis Skin: normal turgor Psychiatric: lethargic Hosp A/P - Plan Patient is a pleasant 79 years old gentleman who has significant past medical history of hypertension, dyslipidemia, CAD, ESRD on dialysis Thursday/Thursday/Thursday, presented with worsening dyspnea. Acute Hypoxic Respiratory Failure: secondary to COVID-19 pneumonia --His CRP still significantly elevated, Decadron increased to twice daily on 02/13/20 --Follow inflammatory markers. Continue with ancillary treatment including vitamin C/D/zinc --Cont BiBAP as tolerate, pt is quite anxious and unable to keep to mask in place. Add anxiolytics --add gentle IVF hydration as pt is not taking anything PO --I have updated his on the phone today. d/w code status, cont full code and aggressive cares. prognosis is guarded. --supportive cares. Pul is following COVID pneumonia: --mgt as above Positive Blood cultures --staph coag neg. d/t contaminant Fall during current hospitalization: Fell on 02/08/2020 s/p CT Thoracic spine, no acute abnormalities ESRD on HD (MWF): Dr. Dvaid following, appreciate nephrology input Continue dialysis and recommendations per Dr. David HTN: Home meds restarted Monitor BP CAD: S/p ROSC in 2019 with AICD placed Home meds restarted (not yet verified by RN) HLD: Continue home meds once verified Monitor LFTs GI Prophylaxis: Famotidine DVT Prophylaxis: Receiving Heparin CODE STATUS: FULL CODE Case discussed with attending who agrees with plan as above.
--- NOTE | 2020-02-16 18:19 | PDOC.DS.DS ---
Provider - Provider Date of Admission: 02/06/20 20:46 Date of Discharge: 02/16/20 Admitting Provider: Estuardo Wilson Consultations: Nephrology, Pulmonary, Other (Palliative care team) Primary Care Physician: MARINA Teran Course - Hospital Course Hospital Course: The patient is unfortunate 80 years old gentleman with multiple comorbidities including ESRD on dialysis Thursday/Thursday/Thursday, hypertension, dyslipidemia, CAD, who presented to the ED with worsening dyspnea. Patient was initially admitted by [facility] on 01/29/2020, for respiratory failure secondary to COVID-19 pneumonia. Initial CTA showed extensive bilateral pneumonia. No evidence of PE. Nephrology was consulted to assist with dialysis while in the hospital. Despite aggressive measures, patient continued to deteriorate. He was on high flow for significant amount of time. Subsequently transferred to ICU for BiPAP. Pulmonology has been consulted as well. Patient placed on Decadron, convalescent plasma, empiric antibiotics and all the ancillary treatments. No significant improvement. Goal of care and CODE STATUS has been discussed with the patient and family member. They subsequently elected to be DNR, and transition to inpatient hospice service for comfort cares. Pertinent Studies: CTA chest: Extensive interstitial chronic course opacities bilaterally concerning for extensive bilateral Covid pneumonia. No evidence of PE. Procedures: none Resuscitation Status: 02/16/20 15:38 Resuscitation Status Routine Co-Sign Provider: Resuscitation Status: DNAR: NO Resuscitation Discussed with: Spouse Additional comments: Patient spouse and son desire to transition to DNAR - Labs Lab Results: 02/16/20 07:10 02/16/20 07:10 Abnormal Lab Results - Last 48 hrs 02/15/20 03:53: Carbon Dioxide 22 L, Anion Gap 24 H, BUN 71 H, Creatinine 5.54 H, ALT Less than 7 L, C-Reactive Protein 34.03 H, Albumin 3.2 L, Globulin 4.6 H, Albumin/Globulin Ratio 0.7 L 02/15/20 03:53: WBC 13.2 H, RBC 3.10 L, Hgb 9.5 L, Hct 28.5 L, MPV 7.0 L, Neutrophils % 93.9 H, Lymphocytes % 4.2 L, Neutrophils # 12.4 H, Lymphocytes # 0.6 L 02/16/20 07:10: Sodium 134 L, Chloride 93 L, Anion Gap 21 H, BUN 56 H, Creatinine 4.58 H, ALT Less than 7 L, C-Reactive Protein 34.37 H, Albumin 3.0 L, Globulin 4.7 H, Albumin/Globulin Ratio 0.6 L 02/16/20 07:10: WBC 12.7 H, RBC 3.05 L, Hgb 9.4 L, Hct 27.8 L, MPV 7.0 L, Neutrophils % (Manual) 81 H, Lymphocytes % (Manual) 8 L 02/16/20 07:10: D-Dimer 6.02 H Microbiology - Entire Visit 02/11/20 12:44 Venous blood - Right Arm Blood Culture - Final Staphylococcus haemolyticus 02/11/20 12:44 Venous blood - Left Arm Blood Culture - Final Staphylococcus haemolyticus 02/11/20 16:51 Urine Straight Catheter Urine Culture - Final NO GROWTH AT 48 HOURS 02/06/20 17:44 Venous blood - Left Arm Blood Culture - Final NO GROWTH IN 5 DAYS 02/06/20 18:35 Venous blood - Left Arm Blood Culture - Final NO GROWTH IN 5 DAYS 02/06/20 18:15 Urine voided Urine Culture - Final 02/06/20 17:31 Nasopharyngeal swab Influenza Types A,B Direct EIA - Final - Physical Exam Vitals: Vital Signs (12 hours) Temp Pulse Resp Pulse Ox 02/16/20 15:00 97.2 F L 02/16/20 12:00 97.3 F L 02/16/20 09:46 98 31 H 91 L 02/16/20 08:00 96.3 F L 90 L Weight Admit Weight 151 lb Weight 151 lb Most Recent Monitor Data Heart Rate from ECG 66 NIBP 106/49 NIBP BP-Mean 68 Respiration from ECG 27 SpO2 96 Physical Exam: The patient was seen and examined on the day of discharge. Problem - Problem (1) Acute respiratory failure with hypoxia Code(s): J96.01 - ACUTE RESPIRATORY FAILURE WITH HYPOXIA Status: Acute (2) Chronic anemia Code(s): D64.9 - ANEMIA, UNSPECIFIED Status: Acute (3) ESRD (end stage renal disease) on dialysis Code(s): N18.6 - END STAGE RENAL DISEASE; Z99.2 - DEPENDENCE ON RENAL DIALYSIS Status: Acute (4) Fall during current hospitalization Code(s): W19.XXXA - UNSPECIFIED FALL, INITIAL ENCOUNTER; Y92.239 - UNSP PLACE IN HOSPITAL PLACE Status: Acute (5) Pneumonia due to COVID-19 virus Code(s): U07.1 - COVID-19; J12.89 - OTHER VIRAL PNEUMONIA Status: Acute (6) Hyperlipidemia Code(s): E78.5 - HYPERLIPIDEMIA, UNSPECIFIED Status: Chronic (7) BPH (benign prostatic hyperplasia) Code(s): N40.0 - BENIGN PROSTATIC HYPERPLASIA WITHOUT LOWER URINRY TRACT SYMP Status: Chronic Qualifiers: Lower urinary tract symptom presence: symptoms present Lower urinary tract symptom detail: unspecified Qualified Code(s): N40.1 - Benign prostatic hyperplasia with lower urinary tract symptoms (8) CAD (coronary artery disease) Code(s): I25.10 - ATHSCL HEART DISEASE OF [place] CORONARY ARTERY W/O ANG PCTRS Status: Chronic Qualifiers: Coronary Disease-Associated Artery/Lesion type: [place] artery [place] vs. tr ansplanted heart: [place] heart Associated angina: without angina Qualified Code(s): I25.10 - Atherosclerotic heart disease of [place] coronary artery without angina pectoris (9) HTN (hypertension) Code(s): I10 - ESSENTIAL (PRIMARY) HYPERTENSION Status: Chronic Qualifiers: Hypertension type: essential hypertension - Time spent with Patient (mins): 45 Plan - Discharge Medications Home Medications: Medication Instructions Recorded Confirmed Type Mirtazapine [Remeron] 15 mg PO DAILY 06/13/18 01/26/20 History Isosorbide Mononitrate [Isosorbide 60 mg PO QAM #0 06/26/18 01/26/20 Rx Mononitrate ER] Metoprolol Tartrate [Lopressor] 25 mg PO TID 08/09/18 01/26/20 History Balsalazide Disodium 750 mg PO DAILY 01/26/20 01/26/20 History Icosapent Ethyl [Vascepa] 1 cap PO DAILY 01/26/20 01/26/20 History Latanoprost [Xalatan 0.005% Ophth 1 drop EA EYE HS 01/26/20 01/26/20 History Soln] Metoclopramide HCl [Reglan] 5 mg PO DAILY 01/26/20 01/26/20 History Pantoprazole Sodium 40 mg PO DAILY 01/26/20 01/26/20 History Sertraline HCl 100 mg PO DAILY 01/26/20 01/26/20 History Triamcinolone Acetonide 1 applic TOP PRN PRN 01/26/20 01/26/20 History [Triamcinolone Acetonide 0.1% Ointment] Vit B Complx C/Folic Acid/Zinc 1 tab PO DAILY 01/26/20 01/26/20 History [Dialyvite 800 + Zinc 15] predniSONE 60 mg PO QAM-WM 7 Days #21 tab 01/26/20 Rx Allergies: ketorolac tromethamine [From Toradol] Allergy (Verified 04/30/19 01:45) Rash levofloxacin [From Levaquin] Allergy (Verified 04/30/19 01:45) Rash Sulfa (Sulfonamide Antibiotics) Allergy (Verified 04/30/19 01:45) Rash tamsulosin HCl [From Flomax] Allergy (Verified 04/30/19 01:45) PASSED OUT, DECREASED B/P - Follow up Plan Referrals: Dianne Mae FNP [Primary Care Provider] - Disposition: [facility] Quality - Care Measures CORE MEASURES:: N/A
== END 2020-02-16 18:23 | disposition hospice, inpatient (51) | DRG 177 ==
LOC: ERS 15:23 → ERHOLD 20:46 → T4-A 20:52 → IMCU/EMU 02-14 14:24
PROVIDERS: ADMIT Internal Medicine; ATTEND Family Medicine
PROC: XW13325 Transfusion of Convalescent Plasma (Nonautologous) into Peripheral Vein, Percutaneous Approach, New Technology Group 5 (ICD-10-PCS; principal; 2020-02-07)
PROC: 5A1D70Z Performance of Urinary Filtration, Intermittent, Less than 6 Hours Per Day (ICD-10-PCS; 2020-02-07)
PROC: 5A1D70Z Performance of Urinary Filtration, Intermittent, Less than 6 Hours Per Day (ICD-10-PCS; 2020-02-10)
PROC: 5A1D70Z Performance of Urinary Filtration, Intermittent, Less than 6 Hours Per Day (ICD-10-PCS; 2020-02-13)
DX: U07.1 COVID-19 (principal); J12.82 Pneumonia due to coronavirus disease 2019; N18.6 End stage renal disease; J96.01 Acute respiratory failure with hypoxia; I12.0 Hypertensive chronic kidney disease with stage 5 chronic kidney disease or end stage renal disease; I25.10 Atherosclerotic heart disease of native coronary artery without angina pectoris; E78.00 Pure hypercholesterolemia, unspecified; D64.9 Anemia, unspecified; E78.5 Hyperlipidemia, unspecified; E87.6 Hypokalemia; Z51.5 Encounter for palliative care; Z66 Do not resuscitate; W19.XXXA Unspecified fall, initial encounter; Y92.239 Unspecified place in hospital as the place of occurrence of the external cause; L40.9 Psoriasis, unspecified; F41.9 Anxiety disorder, unspecified; Z98.42 Cataract extraction status, left eye; Z98.41 Cataract extraction status, right eye; Z87.891 Personal history of nicotine dependence; I25.2 Old myocardial infarction; Z99.2 Dependence on renal dialysis; Z88.1 Allergy status to other antibiotic agents; Z88.8 Allergy status to other drugs, medicaments and biological substances; Z88.2 Allergy status to sulfonamides; Z79.899 Other long term (current) drug therapy; Z79.51 Long term (current) use of inhaled steroids; Z95.810 Presence of automatic (implantable) cardiac defibrillator; Z98.890 Other specified postprocedural states; N40.0 Benign prostatic hyperplasia without lower urinary tract symptoms
CPT/HCPCS: 36415; 36430; 36600; 71045; 71275; 72128; 80053; 81001; 81003; 81015; 82728; 82805; 83605; 83615; 83735; 84145; 85025; 85379; 85384; 86140; 86850; 86900; 86901; 87040; 87077; 87086; 87149; 87186; 87340; 87635; 87804; 90935; 93005; 93010; 94660; 96374; G0257; J0692; J1100; J1644; J2060; J2405; J3480; J3490; J8499; P9017; Q0162; Q5105; Q9967; U0003

== ENCOUNTER 2020-02-16 18:48 | Inpatient (IN) | payer OTHER ==
[2020-02-16] MEDS ORDERED: Lorazepam 2 MG/ML VIAL SLOW IVP PRN (19:14)
[2020-02-16] MEDS ORDERED: diphenhydrAMINE 50 MG/ML VIAL IVP PRN (19:15)
[2020-02-16] MEDS ORDERED: Lorazepam 2 MG/ML VIAL SLOW IVP SCH (19:15)
[2020-02-16] MEDS ORDERED: Morphine 4 MG/ML VIAL SLOW IVP SCH (19:15)
[2020-02-16] MEDS ORDERED: Ondansetron PF 4 MG/2 ML Vial IVP PRN (19:15)
[2020-02-16] MEDS ORDERED: Scopolamine 1.5 mg/72 hour Patch TOP SCH (19:30)
[2020-02-16] MEDS: Morphine 4 MG/ML VIAL SLOW IVP PRN ×3 (20:08→23:33)
[2020-02-16] MEDS: Morphine 4 MG/ML VIAL SLOW IVP SCH ×3 (22:19→23:59)
[2020-02-16] MEDS: Lorazepam 2 MG/ML VIAL SLOW IVP SCH ×2 (22:19→22:20)
[2020-02-17] MEDS: Lorazepam 2 MG/ML VIAL SLOW IVP SCH ×12 (02:05→22:44)
[2020-02-17] MEDS: Morphine 4 MG/ML VIAL SLOW IVP SCH ×11 (02:05→22:43)
[2020-02-17] MEDS: Morphine 4 MG/ML VIAL SLOW IVP PRN (02:24)
[2020-02-18] MEDS: Morphine 4 MG/ML VIAL SLOW IVP SCH ×9 (00:45→15:20)
[2020-02-18] MEDS: Lorazepam 2 MG/ML VIAL SLOW IVP SCH ×9 (00:46→15:20)
[2020-02-18 08:20] VITALS: BP 78/40; TEMP 97.8
--- NOTE | 2020-02-20 15:34 | DIS ---
DATE OF ADMISSION: 02/16/2020 DATE OF DISCHARGE: 02/18/2020 DATE OF : 02/18/2020. TIME OF : 1507 hours. CAUSE OF : Asystole secondary to cardiac arrhythmia due to complications related to COVID pneumonia. BRIEF SUMMARY OF HOSPITAL COURSE: The patient was an unfortunate 80-year-old white male, who had multiple comorbidities including end-stage renal disease, hypertension, dyslipidemia, and coronary artery disease, who presented to the emergency room with worsening dyspnea. The patient apparently was diagnosed with COVID pneumonia and was hospitalized. Pulmonary was consulted. The patient was transferred to ICU on BiPAP due to deterioration after aggressive measures and after all these aggressive measures, the patient had no significant improvement. It was discussed with family that the patient was terminal and they subsequently elected for DNR and transitioned to inpatient hospice for comfort care. The patient was started on morphine as needed for pain and Ativan IV for terminal restlessness. He was given scopolamine patches as needed for secretions as well as oxygen for comfort measures. Over the next 24/36 hours, the patient's symptom management was well controlled. Nurse was called into the room by the family on 02/18/2020 at around 3:00 p.m. Nurse evaluated the patient and found that the patient had no respirations. There were no heart sounds and no pulses. No response to stimuli and the patient was pronounced at 1507 hours. Emotional support was provided to family. home was called per family wishes and all questions were answered and appropriate support was given. Cause of was likely asystole secondary to cardiac arrhythmia due to complications from COVID pneumonia. Job ID: [id number]
== END 2020-02-18 15:07 | disposition expired | DRG 951 ==
LOC: IMCU/EMU 18:48 → T4-B 22:32
PROVIDERS: ADMIT Family Medicine; ATTEND Family Medicine
DX: Z51.5 Encounter for palliative care (principal); N18.6 End stage renal disease; J96.01 Acute respiratory failure with hypoxia; U07.1 COVID-19; J12.82 Pneumonia due to coronavirus disease 2019; I12.0 Hypertensive chronic kidney disease with stage 5 chronic kidney disease or end stage renal disease; Z66 Do not resuscitate; E78.5 Hyperlipidemia, unspecified; I25.10 Atherosclerotic heart disease of native coronary artery without angina pectoris; E87.6 Hypokalemia; I46.8 Cardiac arrest due to other underlying condition; Z99.2 Dependence on renal dialysis; Z88.1 Allergy status to other antibiotic agents; Z88.2 Allergy status to sulfonamides; Z88.8 Allergy status to other drugs, medicaments and biological substances; Z79.899 Other long term (current) drug therapy; Z79.52 Long term (current) use of systemic steroids; Z95.810 Presence of automatic (implantable) cardiac defibrillator; Z98.42 Cataract extraction status, left eye; Z98.41 Cataract extraction status, right eye; Z82.49 Family history of ischemic heart disease and other diseases of the circulatory system; Z87.891 Personal history of nicotine dependence
CPT/HCPCS: J2060; J2270